=== PATIENT | male | born 1945 ===

== ENCOUNTER 2017-03-25 15:57 | Inpatient (IN) | payer MEDICARE ==
[2017-03-25 16:03] VITALS: BMI 29.2
[2017-03-25] MEDS ORDERED: Sodium Chloride 0.9% 1,000 ML IV ONE (16:42)
[2017-03-25 17:17] LABS: BASO # 0.1 K/uL (0.0-0.2); EOS # 0.7 K/uL (0.0-0.7); EOS % 6.8 % (0.0-4.0); HEMATOCRIT 41.7 % (35.0-51.0); LYMPH # 1.6 K/uL (1.0-4.3); LYMPH % 15.9 % (20.0-40.0); MEAN CELL VOLUME 91.3 fL (80.0-94.0); MEAN CORPUSCULAR HEMOGLOBIN 30.7 pg (27.0-31.0); MEAN CORPUSCULAR HGB CONC 33.6 g/dL (33.0-37.0); MEAN PLATELET VOLUME 7.7 fL (7.2-11.7); MONO # 1.2 K/uL (0.0-0.8); MONO % 11.9 % (0.0-10.0); RED CELL DISTRIBUTION WIDTH 13.6 % (11.5-14.5); WHITE BLOOD COUNT 9.8 K/uL (4.8-10.8)
--- NOTE | 2017-03-25 17:23 | C.PDOC ---
Addendum entered and electronically signed by Monalisa Montalvo APN 03/25/17 18:57: Physician Patient Turnover Patient Signed Over To: Shade Langley DO Handoff Comments: pending CTA Original Note: History Of Present Illness <Monalisa Montalvo - Last Filed: 03/25/17 18:56> <Shade Langley DO - Last Filed: 03/25/17 21:42> 71 year old male with Hx of HTN,DM and is blind in his left eye accompanied by his family presents to the ED for evaluation after falling and hitting his head on Mar 17. Family states patient was drinking during , got drunk and fell down they found him on the ground the next day and since he fell down he as not been acting like himself. As per his family patient does not have a steady gait, tired all the time. Patient denies any fever, nausea, headache, blurry vision, CP, SOB, nausea, vomit, weakness, numbness. (Monalisa Montalvo) History Per: Patient, Family History/Exam Limitations: no limitations Onset/Duration Of Symptoms: Days Current Symptoms Are (Timing): Still Present Number Of Syncopal Episodes: 1 Activity At Onset Of Symptoms: Standing Associated Symptoms Preceding Syncopal Episode: Other (Drinking) Seizure Or Post-ictal Symptoms: None Possible Causative Factor(s): Recent Alcohol Fall Associated With With Symptoms: Yes Severity: None Recent travel outside of the [place]: No Additional History Per: Patient, Family - Symptoms Of CVA Associated Symptoms: Decreased Ability To Walk <Monalisa Montalvo - Last Filed: 03/25/17 18:56> <Shade Langley DO - Last Filed: 03/25/17 21:42> Time Seen by Provider: 03/25/17 16:38 Chief Complaint (Nursing): Weakness/Neurological Deficit Past Medical History Reviewed: Historical Data, Nursing Documentation, Vital Signs - Medical History PMH: Depression (noncompliant with meds), Diabetes, HTN Denies: HIV Surgical History: No Surg Hx Family History: States: Unknown Family Hx - Social History Hx Alcohol Use: Yes (usu daily "few beers") Hx Substance Use: No - Immunization History Hx Tetanus Toxoid Vaccination: No Hx Influenza Vaccination: No Hx Pneumococcal Vaccination: No <Monalisa Montalvo Last Filed: 03/25/17 18:56> Vital Signs: Last Vital Signs Temp 98.1 F 03/25/17 16:04 Pulse 60 03/25/17 16:04 Resp 20 03/25/17 16:04 BP 154/93 H 03/25/17 16:04 Pulse Ox 96 03/25/17 18:54 Review Of Systems Constitutional: Negative for: Fever, Chills Cardiovascular: Negative for: Chest Pain, Palpitations Respiratory: Negative for: Cough, Shortness of Breath Gastrointestinal: Negative for: Nausea, Vomiting, Abdominal Pain Skin: Negative for: Rash Neurological: Positive for: Altered Mental Status. Negative for: Weakness, Numbness, Headache <Monalisa Montalvo - Last Filed: 03/25/17 18:56> Physical Exam - Physical Exam Appears: Non-toxic, No Acute Distress Skin: Normal Color, Warm, Dry Head: Atraumatic, Normacephalic Eye(s): left: Other (Blind) Nose: No Discharge, No Deformity Oral Mucosa: Moist, No Drooling Neck: Normal ROM, Supple Chest: Symmetrical Cardiovascular: Rhythm Regular, No Murmur Respiratory: Normal Breath Sounds, No Rales, No Rhonchi, No Wheezing Gastrointestinal/Abdominal: Soft, No Tenderness, No Distention, No Guarding, No Rebound Back: No CVA Tenderness Extremity: Normal ROM, No Deformity, No Swelling, Other (LLE abrassions ) Neurological/Psych: Oriented x3, Normal Speech, Normal Cognition Gait: Unsteady <Monalisa Montalvo - Last Filed: 03/25/17 18:56> ED Course And Treatment - Laboratory Results Result Diagrams: 03/25/17 17:14 03/25/17 17:14 Lab Interpretation: Normal ECG: Interpreted By Az ECG Rhythm: Sinus Bradycardia, R BBB ECG Interpretation: No Acute Changes Rate From EC O2 Sat by Pulse Oximetry: 96 (On RA) Pulse Ox Interpretation: Normal - Radiology CXR: Interpreted by Az CXR Interpretation: Yes: No Acute Disease - CT Scan/US No standard instances Other Rad Studies (CT/US): Read By Radiologist, Radiology Report Reviewed CT/US Interpretation: FINDINGS: HEMORRHAGE: There is a right frontal intraparenchymal hemorrhage measuring 2.2 x 4.2 x 2.0 cm cm, transverse by anteroposterior by superoinferior dimensions, resulting and a limited leftward shift of midline anatomy approximately 1 cm. There is prominent local vasogenic edema surrounding the intraparenchymal hemorrhage also exerting mass effect locally with the sulci effaced as well as the right frontal horn. A small right subdural hematoma is appreciate the frontotemporal distribution 6 mm greatest transverse dimension with smaller extra-axial collections which are difficult to differentiate between epidural and subdural identified at the posterior right temporal lobe and right occipital lobe laterally given their somewhat lentiform shape. The right frontotemporal subdural hematoma extends to the vertex with a small petechial hemorrhage not excluded at the mid right upper lobe and image 30 series 4. No definite additional intracranial hemorrhage is identified. A small left parietal scalp hematoma is appreciated superiorly. BRAIN: Mild diffuse cerebral atrophy is encountered as well as limited chronic microangiopathy in addition to the above-mentioned findings. VENTRICLES: No hydrocephalus at this time although mass effect is exerted on the right lateral ventricle caused by right-sided intracranial hemorrhage. CALVARIUM: No destructive bony lesion or displaced fracture identified including through the skullbase. PARANASAL SINUSES: Unremarkable as visualized. No significant inflammatory changes. Probably old healed nasal bone fractures. MASTOID AIR CELLS: Unremarkable as visualized. No inflammatory changes. OTHER FINDINGS: Left globe Phthisis bulbi. IMPRESSION: 1. Moderate right intraparenchymal hemorrhage with prominent vasogenic edema associated is appreciated. Further, a mild right subdural hematoma is identified at the frontotemporal distribution extending to the vertex. Finally, 2 epidural or possible severe subdural hematomas are seen at the temporooccipital distribution laterally. Leftward midline shift of approximately 1 cm results with effacement of right cerebral sulci and the frontal horn and anterior body of the right lateral ventricle. 2. Limited age-related neuro degenerative changes. Progress Note: Treated with IVF NSS. Labs ordered - Physician Consult Information Physician Contacted: Serafin Harmon Outcome Of Conversation: CTA head and neck <Monalisa Montalvo - Last Filed: 03/25/17 18:56> - Laboratory Results Result Diagrams: 03/25/17 17:14 03/25/17 17:14 Progress Note: CTA completed, discussed findings with Dr. 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 Chirinos are aware of patient. <Shivam HAWKINSShade - Last Filed: 03/25/17 21:42> Critical Care Time - Critical Care Note Total Time (in mins): 30 Documented critical care: time excludes all time spent performing seperately billable procedures. <Monalisa Montalvo - Last Filed: 03/25/17 18:56> Medical Decision Making <Monalisa Montalvo - Last Filed: 03/25/17 18:56> <Shivam HAWKINSShade - Last Filed: 03/25/17 21:42> Medical Decision Making: Impression : 71 y/o male with AMS STP a fall. Plan: * CT head ordered * Blood work ordered * CXR ordered * IV fluids given * UA ordered * * Case discussed with Dr Muna Harmon superintendent overhead distribution neurosurgery who reviewed CT Head and requested CTA of head and neck (Monalisa Montalvo) Disposition - Disposition Disposition Time: 19:00 <Monalisa Montalvo - Last Filed: 03/25/17 18:56> <Shivam HAWKINSShade Filed: 03/25/17 21:42> - Disposition Condition: STABLE - Clinical Impression Clinical Impression: Acute intra-cranial hemorrhage - PA / ASSOCIATE PROFESSOR OF ENGLISH / Resident Statement / has reviewed & agrees with the documentation as recorded. - Scribe Statement The provider has reviewed the documentation as recorded by the Scribe <Monalisa Montalvo - Last Filed: 03/25/17 18:56> <Shivam HAWKINSShade Last Filed: 03/25/17 21:42> - Scribe Statement Ned Che All medical record entries made by the Scribe were at my direction and personally dictated by me. I have reviewed the chart and agree that the record accurately reflects my personal performance of the history, physical exam, medical decision making, and the department course for this patient. I have also personally directed, reviewed, and agree with the discharge instructions and disposition. (Monalisa Montalvo)
[2017-03-25 17:25] LABS: RBC URINE 1 /hpf (0-3); URINE BILIRUBIN NEGATIVE (NEGATIVE); URINE BLOOD NEGATIVE (NEGATIVE); URINE COLOR Yellow (YELLOW); URINE GLUCOSE (UA) NORMAL (Normal); URINE KETONE NEGATIVE (NEGATIVE); URINE LEUKOCYTE ESTERASE TRACE Leu/uL (Negative); URINE PROTEIN NEGATIVE (NEGATIVE); WBC URINE 2 /hpf (0-5)
[2017-03-25 17:30] LABS: ALB/GLOB RATIO 1.1 (1.0-2.1); ALCOHOL SERUM < 10 mg/dl (0-10); ALKALINE PHOSPHATASE 90 U/L (38-126); ALT/SGPT 39 U/L (21-72); AST/SGOT 19 U/L (17-59); BILIRUBIN,TOTAL 0.9 mg/dL (0.2-1.3); BLOOD UREA NITROGEN 12 mg/dL (9-20); CALCIUM 8.4 mg/dl (8.6-10.4); CARBON DIOXIDE 26 mmol/L (22-30); CHLORIDE 100 mmol/L (98-107); GFR AFRICAN-AMERICAN > 60; GLUCOSE,RANDOM 104 mg/dL (75-110); POTASSIUM 3.7 mmol/L (3.6-5.2); SODIUM 135 mmol/L (132-148); TOTAL PROTEIN 7.8 g/dL (6.3-8.3)
--- NOTE | 2017-03-25 17:47 | CT ---
PROCEDURE: CT HEAD WITHOUT CONTRAST. HISTORY: fall COMPARISON: None available. TECHNIQUE: Axial computed tomography images were obtained through the head/brain without intravenous contrast. Radiation dose: Total exam DLP = 913.68 mGy-cm. This CT exam was performed using one or more of the following dose reduction techniques: Automated exposure control, adjustment of the mA and/or kV according to patient size, and/or use of iterative reconstruction technique. FINDINGS: HEMORRHAGE: There is a right frontal intraparenchymal hemorrhage measuring 2.2 x 4.2 x 2.0 cm cm, transverse by anteroposterior by superoinferior dimensions, resulting and a limited leftward shift of midline anatomy approximately 1 cm. There is prominent local vasogenic edema surrounding the intraparenchymal hemorrhage also exerting mass effect locally with the sulci effaced as well as the right frontal horn. A small right subdural hematoma is appreciate the frontotemporal distribution 6 mm greatest transverse dimension with smaller extra-axial collections which are difficult to differentiate between epidural and subdural identified at the posterior right temporal lobe and right occipital lobe laterally given their somewhat lentiform shape. The right frontotemporal subdural hematoma extends to the vertex with a small petechial hemorrhage not excluded at the mid right upper lobe and image 30 series 4. No definite additional intracranial hemorrhage is identified. A small left parietal scalp hematoma is appreciated superiorly. BRAIN: Mild diffuse cerebral atrophy is encountered as well as limited chronic microangiopathy in addition to the above-mentioned findings. VENTRICLES: No hydrocephalus at this time although mass effect is exerted on the right lateral ventricle caused by right-sided intracranial hemorrhage. CALVARIUM: No destructive bony lesion or displaced fracture identified including through the skullbase. PARANASAL SINUSES: Unremarkable as visualized. No significant inflammatory changes. Probably old healed nasal bone fractures. MASTOID AIR CELLS: Unremarkable as visualized. No inflammatory changes. OTHER FINDINGS: Left globe Phthisis bulbi. IMPRESSION: 1. Moderate right intraparenchymal hemorrhage with prominent vasogenic edema associated is appreciated. Further, a mild right subdural hematoma is identified at the frontotemporal distribution extending to the vertex. Finally, 2 epidural or possible severe subdural hematomas are seen at the temporooccipital distribution laterally. Leftward midline shift of approximately 1 cm results with effacement of right cerebral sulci and the frontal horn and anterior body of the right lateral ventricle. 2. Limited age-related neuro degenerative changes. Findings discussed with Monalisa Montalvo APN with written down and read back verification 04-09 5:32 p.m..
[2017-03-25] MEDS ORDERED: Sodium Chloride 0.9% 100 ML ONE (17:50)
--- NOTE | 2017-03-25 18:28 | RAD ---
HISTORY: SOB COMPARISON: No prior. TECHNIQUE: Chest PA and lateral FINDINGS: LUNGS: No active pulmonary disease. PLEURA: No significant pleural effusion identified. No pneumothorax apparent. CARDIOVASCULAR: Normal. OSSEOUS STRUCTURES: Multiple old healed right rib fractures are identified VISUALIZED UPPER ABDOMEN: Normal. OTHER FINDINGS: None. IMPRESSION: No acute cardiopulmonary disease appreciated. Multiple healed right rib fractures are noted.
[2017-03-25] MEDS ORDERED: Iodixanol 320 MG/ML 100 ML BOTTLE IV ONE (18:41)
--- NOTE | 2017-03-25 21:40 | CP.PCM.CON ---
History of Present Illness - History of Present Illness History of Present Illness: Attending: Candis Godfrey MD Reason for consult: Critical care management Chief complaint: AMS/ Unsteady gait The patient was seen and examined in the ED with his family present HPI: The hx is obtained from the Patient's family and after review of the medical records. He is a 71 years old male who lives alone and has hx of HTN, Depression, left eye blindness and Alcohol abuse with multiple falls. 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 He told the family that he had fallen hitting his head on March 17. 7 days ago. No fever, chills, vomits, nor known LOC. 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 PMH: Depression; HTN; HLD; Multiple right rib fracture after fall; Right chest pleural effusion, Deviated septum; Non Compliant with medication; DM ?? PSH: Deviated septal repair s/p fall SH: No illegal drug use; No Smoking of Cigarettes; Drinks at least 2 drinks a day, live alone FH: States: Unknown Family Hx Allergies: NKDA Medication: Reviewed Review of Systems - Review of Systems Review of Systems: Review of systems is limited because of the patient's poor communication Past Patient History - Past Medical History & Family History Past Medical History?: Yes - Past Social History Smoking Status: Never Smoked Chewing Tobacco Use: No Cigar Use: No Alcohol: > 2 Drinks/Day Home Situation {Lives}: Alone - CARDIAC Hx Hypercholesterolemia: Yes Hx Hypertension: Yes - PULMONARY Hx Respiratory Disorders: No - NEUROLOGICAL Hx Neurological Disorder: No - HEENT Hx Cataracts: Yes (jody) Other/Comment: deviated septum repair 3 yr ago s/p fall alcohol use - HEMATOLOGICAL/ONCOLOGICAL Hx Blood Disorders: No Hx Human Immunodeficiency Virus (HIV): No - INTEGUMENTARY Hx Dermatological Problems: No - MUSCULOSKELETAL/RHEUMATOLOGICAL Hx Falls: Yes (fell this am s/p alcohol intake) - GASTROINTESTINAL Hx Gastrointestinal Disorders: No - GENITOURINARY/GYNECOLOGICAL Hx Genitourinary Disorders: No - PSYCHIATRIC Hx Depression: Yes (noncompliant with meds) Hx Substance Use: No - SURGICAL HISTORY Hx Surgeries: Yes Other/Comment: deviated septum repair 3 yr ago - ANESTHESIA Hx Anesthesia: Yes Hx Anesthesia Reactions: No Meds Allergies/Adverse Reactions: Allergies Allergy/AdvReac Type Severity Reaction Status Date / Time No Known Allergies Allergy Verified 03/25/17 16:02 Physical Exam - Constitutional Appears: No Acute Distress - Head Exam Head Exam: ATRAUMATIC, NORMAL INSPECTION, NORMOCEPHALIC - Eye Exam Eye Exam: EOMI, Normal appearance Pupil Exam: NORMAL ACCOMODATION, PERRL Additional comments: Left eye blindness - ENT Exam ENT Exam: Mucous Membranes Moist, Normal Exam, Normal External Ear Exam - Neck Exam Neck exam: Positive for: Full Rom, Normal Inspection. Negative for: Lymphadenopathy, Tenderness - Respiratory Exam Respiratory Exam: Clear to Auscultation Bilateral. absent: Rales, Rhonchi, Wheezes - Cardiovascular Exam Cardiovascular Exam: REGULAR RHYTHM, RRR, +S1, +S2 - GI/Abdominal Exam GI & Abdominal Exam: Normal Bowel Sounds, Soft. absent: Mass, Organomegaly, Tenderness - Rectal Exam Rectal Exam: Deferred - Extremities Exam Additional comments: Bruises to right knee and leg. hematoma at the postero lateral region of the right upper arm - Back Exam Back exam: NORMAL INSPECTION. absent: CVA tenderness (L), CVA tenderness (R) - Neurological Exam Additional comments: Awake and alert, mild left facial weakness, motor strength 5/5 to both upper extremities and both lower; DTE is conserved. extremities - Psychiatric Exam Psychiatric exam: Normal Affect, Normal Mood - Skin Skin Exam: Dry, Intact, Normal Color, Warm Results - Vital Signs Recent Vital Signs: Last Vital Signs Temp 98.1 F 03/25/17 16:04 Pulse 60 03/25/17 16:04 Resp 20 03/25/17 16:04 BP 154/93 H 03/25/17 16:04 Pulse Ox 96 03/25/17 18:54 - Labs Result Diagrams: 03/25/17 17:14 03/25/17 17:14 Labs: Laboratory Results - last 24 hr 03/25/17 03/25/17 03/25/17 17:14 17:14 17:14 WBC 9.8 RBC 4.57 Hgb 14.0 Hct 41.7 MCV 91.3 MCH 30.7 MCHC 33.6 RDW 13.6 Plt Count 272 MPV 7.7 Neut % (Auto) 64.4 Lymph % (Auto) 15.9 L [place] % (Auto) 11.9 H Eos % (Auto) 6.8 H Baso % (Auto) 1.0 Neut # 6.3 Lymph # 1.6 [place] # 1.2 H Eos # 0.7 Baso # 0.1 PT INR Sodium 135 Potassium 3.7 Chloride 100 Carbon Dioxide 26 Anion Gap 13 BUN 12 Creatinine 0.8 Est GFR ( Amer) > 60 Est GFR (Non-Af Amer) > 60 Random Glucose 104 Calcium 8.4 L Total Bilirubin 0.9 AST 19 ALT 39 Alkaline Phosphatase 90 Total Creatine Kinase 29 L CK-MB (Mass) 0.29 Troponin I < 0.0120 Total Protein 7.8 Albumin 4.1 Globulin 3.7 Albumin/Globulin Ratio 1.1 Lipase 108 Urine Color Yellow Urine Clarity Clear Urine pH 5.0 Ur Specific [place] 1.021 Urine Protein Negative Urine Glucose (UA) Normal Urine Ketones Negative Urine Blood Negative Urine Nitrate Negative Urine Bilirubin Negative Urine Urobilinogen 4.0 Ur Leukocyte Esterase Trace Urine WBC (Auto) 2 Urine RBC (Auto) 1 Alcohol, Quantitative < 10 Blood Type Antibody Screen 03/25/17 03/25/17 17:48 17:48 WBC RBC Hgb Hct MCV MCH MCHC RDW Plt Count MPV Neut % (Auto) Lymph % (Auto) [place] % (Auto) Eos % (Auto) Baso % (Auto) Neut # Lymph # [place] # Eos # Baso # PT 11.7 INR 1.0 Sodium Potassium Chloride Carbon Dioxide Anion Gap BUN Creatinine Est GFR ( Amer) Est GFR (Non-Af Amer) Random Glucose Calcium Total Bilirubin AST ALT Alkaline Phosphatase Total Creatine Kinase CK-MB (Mass) Troponin I Total Protein Albumin Globulin Albumin/Globulin Ratio Lipase Urine Color Urine Clarity Urine pH Ur Specific [place] Urine Protein Urine Glucose (UA) Urine Ketones Urine Blood Urine Nitrate Urine Bilirubin Urine Urobilinogen Ur Leukocyte Esterase Urine WBC (Auto) Urine RBC (Auto) Alcohol, Quantitative Blood Type O POSITIVE Antibody Screen Negative - Imaging and Cardiology Chest x-ray Status: Image reviewed by me Additional comment: No infiltrates Multiple broke right ribs CT scan - head Status: Image reviewed by me, Report reviewed by me Additional comment: Middle right intraparenchym hemorrhage with prominent vasogenic edema. Also small right Subdural Hematoma in fronto parietal distribution Leftward midline shift CT/US Interpretation: FINDINGS: HEMORRHAGE: There is a right frontal intraparenchymal hemorrhage measuring 2.2 x 4.2 x 2.0 cm cm, transverse by anteroposterior by superoinferior dimensions, resulting and a limited leftward shift of midline anatomy approximately 1 cm. There is prominent local vasogenic edema surrounding the intraparenchymal hemorrhage also exerting mass effect locally with the sulci effaced as well as the right frontal horn. A small right subdural hematoma is appreciate the frontotemporal distribution 6 mm greatest transverse dimension with smaller extra-axial collections which are difficult to differentiate between epidural and subdural identified at the posterior right temporal lobe and right occipital lobe laterally given their somewhat lentiform shape. The right frontotemporal subdural hematoma extends to the vertex with a small petechial hemorrhage not excluded at the mid right upper lobe and image 30 series 4. No definite additional intracranial hemorrhage is identified. A small left parietal scalp hematoma is appreciated superiorly. BRAIN: Mild diffuse cerebral atrophy is encountered as well as limited chronic microangiopathy in addition to the above-mentioned findings. VENTRICLES: No hydrocephalus at this time although mass effect is exerted on the right lateral ventricle caused by right-sided intracranial hemorrhage. CALVARIUM: No destructive bony lesion or displaced fracture identified including through the skullbase. PARANASAL SINUSES: Unremarkable as visualized. No significant inflammatory changes. Probably old healed nasal bone fractures. MASTOID AIR CELLS: Unremarkable as visualized. No inflammatory changes. OTHER FINDINGS: Left globe Phthisis bulbi. IMPRESSION: 1. Moderate right intraparenchymal hemorrhage with prominent vasogenic edema associated is appreciated. Further, a mild right subdural hematoma is identified at the frontotemporal distribution extending to the vertex. Finally, 2 epidural or possible severe subdural hematomas are seen at the temporooccipital distribution laterally. Leftward midline shift of approximately 1 cm results with effacement of right cerebral sulci and the frontal horn and anterior body of the right lateral ventricle. 2. Limited age- related neuro degenerative changes. Assessment & Plan - Assessment and Plan (Free Text) Assessment: #. Intracerebral Hemorrhage #. HTN; #. Alcohol Abuse #. HLD Plan: 71 years old male who lives alone and has hx of HTN, Depression, left eye blindness and Alcohol abuse with multiple falls. 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 He told the family that he had fallen hitting his head on March 17. 7 days ago. No fever, chills, vomits, nor known LOC. 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 #. Intracerebral Hemorrhage - Consult Dr Harmon Neuro surgery - Consult Dr Khoury Neurology - Statin - Swallow evaluation; - PT/OT - Follow CTA brain and dc - Follow Repeated CT brain #. HTN; - Treat with Clonidine #. Alcohol Abuse - Alcohol withdrawal prevention - Banana Bag with Thiamine/ Folic Acid/Multivitamine - Ativan IV PRN agitation #. HLD - Follow lipid profile - HbA1c #. Stress ulcer Propholaxis with pepcid #. DVT prophylaxis with SCD #. Code Status: Full - Date & Time Date: 03/25/17 Time: 21:40
[2017-03-25] MEDS ORDERED: Multivitamin (MVI) 10 ML, Thiamine 100 MG, Folic Acid 1 MG in Sodium Chloride 0.9% 1,00... IV ONE (23:16)
[2017-03-25] MEDS ORDERED: Multivitamin (MVI) 10 ML, Thiamine 100 MG, Folic Acid 1 MG in Dextrose 5% In Water 1,00... IV ONE (23:45)
[2017-03-25] MEDS ORDERED: DEXTROSE 10% IV ONE (23:45)
[2017-03-25] MEDS ORDERED: THIAMINE IV ONE (23:45)
[2017-03-25] MEDS ORDERED: [UNRECOGNIZED DRUG - OTHER] IV ONE (23:45)
[2017-03-25] MEDS ORDERED: MULTIVITAMIN IV ONE (23:45)
[2017-03-25] MEDS ORDERED: FOLIC ACID IV ONE (23:45)
[2017-03-26] MEDS ORDERED: Labetalol 25mg/5ml Syringe IVP ONE (00:30)
[2017-03-26] MEDS: levETIRAcetam 500 MG in Sodium Chloride 0.9% 100 ML IVPB SCH ×2 (01:42→13:30)
--- NOTE | 2017-03-26 05:56 | CT ---
EXAM: CT Head Without Intravenous Contrast CLINICAL HISTORY: 71 years old, male; Condition or disease; Other: Follow up for bleed; Additional info: Follow up intracerebral bleed TECHNIQUE: Axial computed tomography images of the head/brain without intravenous contrast. All CT scans at this facility use one or more dose reduction techniques, viz.: automated exposure control; ma/kV adjustment per patient size (including targeted exams where dose is matched to indication; i.e. head); or iterative reconstruction technique. Coronal and sagittal reformatted images were created and reviewed. COMPARISON: CTA HEAD NECK BUNDLE 2017-03-25 18:49 FINDINGS: Brain: Again identified is a right frontal intraparenchymal hemorrhage unchanged in size from previous examination, with surrounding vasogenic edema. No active hemorrhage is detected. Subfalcine herniation is again identified. Again identified is a subdural hematoma high in the convexity now measuring 6 mm, also unchanged (series 4, image 50). The area of hemorrhage extending along the tentorium is not as prominent on the current images. Ventricles: The right frontal hemorrhage results in 8.5 mm of leftward midline shift. Bones: The left parietal bone fracture extending to the lambdoid suture is again identified (series 602, image 316). Nasal bone fractures again identified. Soft tissues: Left scalp hematoma is again identified measuring 8.1 mm in greatest thickness. Orbits: Phthisis bulbi of the left globe. IMPRESSION: Unchanged right frontal hemorrhage with surrounding vasogenic edema resulting in subfalcine herniation and decreased leftward midline shift. Subdural hematoma high in the convexity, also unchanged. Extra-axial hemorrhage not as prominent on the current examination. Right parietal skull fracture. Nasal bone fracture.
[2017-03-26 06:30] LABS: BASO % 0.7 % (0.0-2.0); EOS # 0.4 K/uL (0.0-0.7); HEMATOCRIT 42.1 % (35.0-51.0); LYMPH # 0.9 K/uL (1.0-4.3); LYMPH % 15.5 % (20.0-40.0); MEAN CELL VOLUME 90.9 fL (80.0-94.0); MEAN CORPUSCULAR HEMOGLOBIN 31.2 pg (27.0-31.0); MEAN CORPUSCULAR HGB CONC 34.3 g/dL (33.0-37.0); MEAN PLATELET VOLUME 7.9 fL (7.2-11.7); MONO # 0.7 K/uL (0.0-0.8); MONO % 11.5 % (0.0-10.0); NRBC % 0.1 % (0.0-2.0); RED CELL DISTRIBUTION WIDTH 14.1 % (11.5-14.5); WHITE BLOOD COUNT 6.1 K/uL (4.8-10.8)
[2017-03-26 06:48] LABS: CHOLESTEROL 143 mg/dL (0-199)
[2017-03-26] MEDS: Multiple Vitamins Tab PO SCH (10:42)
--- NOTE | 2017-03-26 12:33 | CT ---
PROCEDURE: CT Angiography of the Brain. HISTORY: ICB COMPARISON: None available. TECHNIQUE: CT angiography of the intracranial arteries was performed. Coronal and sagittal maximum intensity projection reformated images were generated. This CT exam was performed using one or more of the following dose reduction techniques: Automated exposure control, adjustment of the mA and/or kV according to patient size, and/or use of iterative reconstruction technique. FINDINGS: INTERNAL CEREBRAL ARTERIES: Unremarkable. The skull base, petrous, cavernous and supraclinoid segments are bilaterally widely patent. ANTERIOR CEREBRAL ARTERIES: Unremarkable. A1 and A2 segments are widely patent. Smaller distal branches unremarkable, as visualized. MIDDLE CEREBRAL ARTERIES: There is a 2.4 mm probable infundibulum related to the right posterior remaining artery originating off the proximal M1 right MCA segment. Conventional angiography is recommended if possible to further characterize this area. MR angiography may be helpful if the patient can comply with positioning constraints. M2 segments are widely patent. Perisylvian branches grossly symmetric. The left middle cerebral artery distribution appears unremarkable diffusely POSTERIOR CIRCULATION: Basilar Artery: Unremarkable. Distal Vertebral Arteries: Unremarkable. Posterior Cerebral Arteries: Unremarkable. Posterior Inferior Cerebellar Arteries: Unremarkable. NECK CTA RESULTS: Common carotid arteries: The bilateral common carotid appear widely patent from their origins to their bifurcations with no significant stenosis appreciated. No evidence to suggest common carotid artery dissection. Internal carotid arteries: No significant stenosis is appreciated throughout the cervical internal carotid artery segments bilaterally and there is no evidence of dissection either. Vertebral arteries: The bilateral vertebral arteries appear normal in caliber from their origins to their junction with the basilar artery. Vertebrobasilar system appears right dominant. No significant stenosis or definite pattern of dissection. Incidentally, the bilateral subclavian arteries are widely patent as well as the brachiocephalic artery. ANEURYSM/ VASCULAR MALFORMATIONS: See discussion and right MCA section. No aneurysm or arteriovascular malformation otherwise evident throughout the head or neck arterial vasculature grossly. OTHER FINDINGS: None. IMPRESSION: 1. Potential 2.4 mm aneurysm versus infundibulum near the origin of the right posterior committee artery consider follow-up conventional angiography for greater characterization of this area. MR angiography is an option in the patient is able to adhere 2 positioning constraints. The not felt to represent the cause of the patient's intracranial hemorrhage requires appropriate follow-up when feasible. 2. Otherwise unremarkable head and neck CT angiography as per above. Findings discussed with Dr. P. Jonnalagadda with written down and read back verification 03/26/2017 12:25 p.m.
--- NOTE | 2017-03-26 13:06 | CP.PCM.PN ---
Subjective - Date & Time of Evaluation Date of Evaluation: 03/26/17 Time of Evaluation: 12:40 - Subjective Subjective: H&P dictated #[id number] Objective - Vital Signs/Intake and Output Vital Signs (last 24 hours): Temp Pulse Resp BP Pulse Ox 97.3 F L 46 L 16 165/67 H 98 03/26/17 08:00 03/26/17 09:22 03/26/17 09:22 03/26/17 09:22 03/26/17 00:00 Intake and Output: 03/26/17 03/26/17 06:59 18:59 Intake Total 600 0 Output Total 700 Balance -100 0 - Medications Medications: Current Medications Folic Acid (Folic Acid) 1 mg PO DAILY [facility] Last Admin: 03/26/17 10:42 Dose: 1 mg Levetiracetam 500 mg/ Sodium (Chloride) 105 mls @ 420 mls/hr IVPB Q12H [facility] Last Admin: 03/26/17 01:42 Dose: 420 mls/hr Lorazepam (Ativan) 0.5 mg IVP Q6H PRN PRN Reason: Agitation Last Admin: 03/26/17 03:05 Dose: 0.5 mg Multivitamins (Hexavitamin) 1 tab PO DAILY [facility] Last Admin: 03/26/17 10:42 Dose: 1 tab Pneumococcal Polyvalent Vaccine (Pneumovax 23 Vaccine) 0.5 ml IM .ONCE ONE Stop: 03/28/17 10:01 Thiamine HCl (Vitamin B1 Tab) 100 mg PO DAILY [facility] Last Admin: 03/26/17 10:42 Dose: 100 mg - Labs Labs: 03/26/17 06:16 03/25/17 17:14 PT 11.7 SECONDS (9.7-12.2) 03/25/17 17:48 INR 1.0 03/25/17 17:48
--- NOTE | 2017-03-26 15:07 | CP.CCUPN ---
CCU Subjective - Physician Review Events Since Last Encounter (Free Text): 03/26/17 15:05 Disoriented,follows some commands. CCU Objective - Vital Signs / Intake & Output Intake and Output (Last 8hrs): Intake & Output 03/26/17 03/26/17 03/26/17 06:59 14:59 22:59 Intake Total 600 0 Output Total 700 Balance -100 0 Weight 162 lb Intake: Intake, IV Amount 600 Left Forearm 600 Right Antecubital 0 Oral 0 0 Output: Urine 700 Urine, Voided 700 Other: # Voids Urine, Voided 0 0 # Bowel Movements 0 0 - Physical Exam Physical Exam Limitations: Positive for: Altered Mental Status Head: Positive for: Atraumatic, Normocephalic Pupils: Positive for: PERRL Extroacular Muscles: Positive for: EOMI Mouth: Positive for: Moist Mucous Membranes Respiratory/Chest: Positive for: Clear to Auscultation, Good Air Exchange Cardiovascular: Positive for: Regular Rate and Rhythm Abdomen: Positive for: Normal Bowel Sounds. Negative for: Tenderness, Distention Neurological: Positive for: Motor Func Grossly Intact Psychiatric: Positive for: Alert. Negative for: Oriented x 3 - Medications Active Medications: Active Medications Generic Name Dose Route Start Last Admin Trade Name Freq PRN Reason Stop Dose Admin Folic Acid 1 mg 03/26/17 10:00 03/26/17 10:42 Folic Acid PO 1 mg DAILY [facility]ERTO Administration Levetiracetam 500 mg/ Sodium 105 mls @ 420 mls/hr 03/26/17 01:00 03/26/17 13: 30 Chloride IVPB 420 mls/hr Q12H ALBERTO Administration Lorazepam 0.5 mg 03/25/17 23:15 03/26/17 03:05 Ativan IVP 0.5 mg Q6H PRN Administration Agitation Multivitamins 1 tab 03/26/17 10:00 03/26/17 10:42 Hexavitamin PO 1 tab DAILY [facility] Administration Pneumococcal Polyvalent Vaccine 0.5 ml 03/28/17 10:00 Pneumovax 23 Vaccine IM 03/28/17 10:01 .ONCE ONE Thiamine HCl 100 mg 03/26/17 10:00 03/26/17 10:42 Vitamin B1 Tab PO 100 mg DAILY [facility] Administration - Patient Studies Lab Studies: Lab Studies 03/26/17 03/26/17 03/25/17 Range/Units 06:17 06:16 17:48 WBC 6.1 (4.8-10.8) K/uL RBC 4.63 (4.40-5.90) Mil/uL Hgb 14.5 (12.0-18.0) g/dL Hct 42.1 (35.0-51.0) % MCV 90.9 (80.0-94.0) fL MCH 31.2 H (27.0-31.0) pg MCHC 34.3 (33.0-37.0) g/dL RDW 14.1 (11.5-14.5) % Plt Count 237 (130-400) K/uL MPV 7.9 (7.2-11.7) fL Neut % (Auto) 65.3 (50.0-75.0) % Lymph % (Auto) 15.5 L (20.0-40.0) % [place] % (Auto) 11.5 H (0.0-10.0) % Eos % (Auto) 7.0 H (0.0-4.0) % Baso % (Auto) 0.7 (0.0-2.0) % Neut # 4.0 (1.8-7.0) K/uL Lymph # 0.9 L (1.0-4.3) K/uL [place] # 0.7 (0.0-0.8) K/uL Eos # 0.4 (0.0-0.7) K/uL Baso # 0.0 (0.0-0.2) K/uL PT (9.7-12.2) SECONDS INR Sodium (132-148) mmol/L Potassium (3.6-5.2) mmol/L Chloride (98-107) mmol/L Carbon Dioxide (22-30) mmol/L Anion Gap (10-20) BUN (9-20) mg/dL Creatinine (0.8-1.5) mg/dL Est GFR ( Amer) Est GFR (Non-Af Amer) Random Glucose (75-110) mg/dL Calcium (8.6-10.4) mg/dl Total Bilirubin (0.2-1.3) mg/dL AST (17-59) U/L ALT (21-72) U/L Alkaline Phosphatase (38-126) U/L Total Creatine Kinase (55-170) U/L CK-MB (Mass) (0.0-3.38) ng/mL Troponin I (0.00-0.120) ng/mL Total Protein (6.3-8.3) g/dL Albumin (3.5-5.0) g/dL Globulin (2.2-3.9) gm/dL Albumin/Globulin Ratio (1.0-2.1) Triglycerides 79 (0-149) mg/dL Cholesterol 143 (0-199) mg/dL LDL Cholesterol Direct 77 (0-129) mg/dL HDL Cholesterol 46 (30-70) mg/dL Lipase (23-300) U/L Urine Color (YELLOW) Urine Clarity (Clear) Urine pH (5.0-8.0) Ur Specific [place] (1.003-1.030) Urine Protein (NEGATIVE) mg/dL Urine Glucose (UA) (Normal) mg/dL Urine Ketones (NEGATIVE) mg/dL Urine Blood (NEGATIVE) Urine Nitrate (NEGATIVE) Urine Bilirubin (NEGATIVE) Urine Urobilinogen (0.2-1.0) mg/dL Ur Leukocyte Esterase (Negative) Guy/uL Urine WBC (Auto) (0-5) /hpf Urine RBC (Auto) (0-3) /hpf Alcohol, Quantitative (0-10) mg/dl Blood Type O POSITIVE Antibody Screen Negative 03/25/17 03/25/17 03/25/17 Range/Units 17:48 17:14 17:14 WBC (4.8-10.8) K/uL RBC (4.40-5.90) Mil/uL Hgb (12.0-18.0) g/dL Hct (35.0-51.0) % MCV (80.0-94.0) fL MCH (27.0-31.0) pg MCHC (33.0-37.0) g/dL RDW (11.5-14.5) % Plt Count (130-400) K/uL MPV (7.2-11.7) fL Neut % (Auto) (50.0-75.0) % Lymph % (Auto) (20.0-40.0) % [place] % (Auto) (0.0-10.0) % Eos % (Auto) (0.0-4.0) % Baso % (Auto) (0.0-2.0) % Neut # (1.8-7.0) K/uL Lymph # (1.0-4.3) K/uL [place] # (0.0-0.8) K/uL Eos # (0.0-0.7) K/uL Baso # (0.0-0.2) K/uL PT 11.7 (9.7-12.2) SECONDS INR 1.0 Sodium 135 (132-148) mmol/L Potassium 3.7 (3.6-5.2) mmol/L Chloride 100 (98-107) mmol/L Carbon Dioxide 26 (22-30) mmol/L Anion Gap 13 (10-20) BUN 12 (9-20) mg/dL Creatinine 0.8 (0.8-1.5) mg/dL Est GFR ( Amer) > 60 Est GFR (Non-Af Amer) > 60 Random Glucose 104 (75-110) mg/dL Calcium 8.4 L (8.6-10.4) mg/dl Total Bilirubin 0.9 (0.2-1.3) mg/dL AST 19 (17-59) U/L ALT 39 (21-72) U/L Alkaline Phosphatase 90 (38-126) U/L Total Creatine Kinase 29 L (55-170) U/L CK-MB (Mass) 0.29 (0.0-3.38) ng/mL Troponin I < 0.0120 (0.00-0.120) ng/mL Total Protein 7.8 (6.3-8.3) g/dL Albumin 4.1 (3.5-5.0) g/dL Globulin 3.7 (2.2-3.9) gm/dL Albumin/Globulin Ratio 1.1 (1.0-2.1) Triglycerides (0-149) mg/dL Cholesterol (0-199) mg/dL LDL Cholesterol Direct (0-129) mg/dL HDL Cholesterol (30-70) mg/dL Lipase 108 (23-300) U/L Urine Color Yellow (YELLOW) Urine Clarity Clear (Clear) Urine pH 5.0 (5.0-8.0) Ur Specific [place] 1.021 (1.003-1.030) Urine Protein Negative (NEGATIVE) mg/dL Urine Glucose (UA) Normal (Normal) mg/dL Urine Ketones Negative (NEGATIVE) mg/dL Urine Blood Negative (NEGATIVE) Urine Nitrate Negative (NEGATIVE) Urine Bilirubin Negative (NEGATIVE) Urine Urobilinogen 4.0 (0.2-1.0) mg/dL Ur Leukocyte Esterase Trace (Negative) Guy/uL Urine WBC (Auto) 2 (0-5) /hpf Urine RBC (Auto) 1 (0-3) /hpf Alcohol, Quantitative < 10 (0-10) mg/dl Blood Type Antibody Screen 03/25/17 Range/Units 17:14 WBC 9.8 (4.8-10.8) K/uL RBC 4.57 (4.40-5.90) Mil/uL Hgb 14.0 (12.0-18.0) g/dL Hct 41.7 (35.0-51.0) % MCV 91.3 (80.0-94.0) fL MCH 30.7 (27.0-31.0) pg MCHC 33.6 (33.0-37.0) g/dL RDW 13.6 (11.5-14.5) % Plt Count 272 (130-400) K/uL MPV 7.7 (7.2-11.7) fL Neut % (Auto) 64.4 (50.0-75.0) % Lymph % (Auto) 15.9 L (20.0-40.0) % [place] % (Auto) 11.9 H (0.0-10.0) % Eos % (Auto) 6.8 H (0.0-4.0) % Baso % (Auto) 1.0 (0.0-2.0) % Neut # 6.3 (1.8-7.0) K/uL Lymph # 1.6 (1.0-4.3) K/uL [place] # 1.2 H (0.0-0.8) K/uL Eos # 0.7 (0.0-0.7) K/uL Baso # 0.1 (0.0-0.2) K/uL PT (9.7-12.2) SECONDS INR Sodium (132-148) mmol/L Potassium (3.6-5.2) mmol/L Chloride (98-107) mmol/L Carbon Dioxide (22-30) mmol/L Anion Gap (10-20) BUN (9-20) mg/dL Creatinine (0.8-1.5) mg/dL Est GFR ( Amer) Est GFR (Non-Af Amer) Random Glucose (75-110) mg/dL Calcium (8.6-10.4) mg/dl Total Bilirubin (0.2-1.3) mg/dL AST (17-59) U/L ALT (21-72) U/L Alkaline Phosphatase (38-126) U/L Total Creatine Kinase (55-170) U/L CK-MB (Mass) (0.0-3.38) ng/mL Troponin I (0.00-0.120) ng/mL Total Protein (6.3-8.3) g/dL Albumin (3.5-5.0) g/dL Globulin (2.2-3.9) gm/dL Albumin/Globulin Ratio (1.0-2.1) Triglycerides (0-149) mg/dL Cholesterol (0-199) mg/dL LDL Cholesterol Direct (0-129) mg/dL HDL Cholesterol (30-70) mg/dL Lipase (23-300) U/L Urine Color (YELLOW) Urine Clarity (Clear) Urine pH (5.0-8.0) Ur Specific [place] (1.003-1.030) Urine Protein (NEGATIVE) mg/dL Urine Glucose (UA) (Normal) mg/dL Urine Ketones (NEGATIVE) mg/dL Urine Blood (NEGATIVE) Urine Nitrate (NEGATIVE) Urine Bilirubin (NEGATIVE) Urine Urobilinogen (0.2-1.0) mg/dL Ur Leukocyte Esterase (Negative) Guy/uL Urine WBC (Auto) (0-5) /hpf Urine RBC (Auto) (0-3) /hpf Alcohol, Quantitative (0-10) mg/dl Blood Type Antibody Screen Laboratory Results - last 24 hr 03/25/17 03/25/17 03/25/17 17:14 17:14 17:14 WBC 9.8 RBC 4.57 Hgb 14.0 Hct 41.7 MCV 91.3 MCH 30.7 MCHC 33.6 RDW 13.6 Plt Count 272 MPV 7.7 Neut % (Auto) 64.4 Lymph % (Auto) 15.9 L [place] % (Auto) 11.9 H Eos % (Auto) 6.8 H Baso % (Auto) 1.0 Neut # 6.3 Lymph # 1.6 [place] # 1.2 H Eos # 0.7 Baso # 0.1 PT INR Sodium 135 Potassium 3.7 Chloride 100 Carbon Dioxide 26 Anion Gap 13 BUN 12 Creatinine 0.8 Est GFR ( Amer) > 60 Est GFR (Non-Af Amer) > 60 Random Glucose 104 Calcium 8.4 L Total Bilirubin 0.9 AST 19 ALT 39 Alkaline Phosphatase 90 Total Creatine Kinase 29 L CK-MB (Mass) 0.29 Troponin I < 0.0120 Total Protein 7.8 Albumin 4.1 Globulin 3.7 Albumin/Globulin Ratio 1.1 Triglycerides Cholesterol LDL Cholesterol Direct HDL Cholesterol Lipase 108 Urine Color Yellow Urine Clarity Clear Urine pH 5.0 Ur Specific [place] 1.021 Urine Protein Negative Urine Glucose (UA) Normal Urine Ketones Negative Urine Blood Negative Urine Nitrate Negative Urine Bilirubin Negative Urine Urobilinogen 4.0 Ur Leukocyte Esterase Trace Urine WBC (Auto) 2 Urine RBC (Auto) 1 Alcohol, Quantitative < 10 Blood Type Antibody Screen 03/25/17 03/25/17 03/26/17 17:48 17:48 06:16 WBC 6.1 RBC 4.63 Hgb 14.5 Hct 42.1 MCV 90.9 MCH 31.2 H MCHC 34.3 RDW 14.1 Plt Count 237 MPV 7.9 Neut % (Auto) 65.3 Lymph % (Auto) 15.5 L [place] % (Auto) 11.5 H Eos % (Auto) 7.0 H Baso % (Auto) 0.7 Neut # 4.0 Lymph # 0.9 L [place] # 0.7 Eos # 0.4 Baso # 0.0 PT 11.7 INR 1.0 Sodium Potassium Chloride Carbon Dioxide Anion Gap BUN Creatinine Est GFR ( Amer) Est GFR (Non-Af Amer) Random Glucose Calcium Total Bilirubin AST ALT Alkaline Phosphatase Total Creatine Kinase CK-MB (Mass) Troponin I Total Protein Albumin Globulin Albumin/Globulin Ratio Triglycerides Cholesterol LDL Cholesterol Direct HDL Cholesterol Lipase Urine Color Urine Clarity Urine pH Ur Specific [place] Urine Protein Urine Glucose (UA) Urine Ketones Urine Blood Urine Nitrate Urine Bilirubin Urine Urobilinogen Ur Leukocyte Esterase Urine WBC (Auto) Urine RBC (Auto) Alcohol, Quantitative Blood Type O POSITIVE Antibody Screen Negative 03/26/17 06:17 WBC RBC Hgb Hct MCV MCH MCHC RDW Plt Count MPV Neut % (Auto) Lymph % (Auto) [place] % (Auto) Eos % (Auto) Baso % (Auto) Neut # Lymph # Barber # Eos # Baso # PT INR Sodium Potassium Chloride Carbon Dioxide Anion Gap BUN Creatinine Est GFR ( Amer) Est GFR (Non-Af Amer) Random Glucose Calcium Total Bilirubin AST ALT Alkaline Phosphatase Total Creatine Kinase CK-MB (Mass) Troponin I Total Protein Albumin Globulin Albumin/Globulin Ratio Triglycerides 79 Cholesterol 143 LDL Cholesterol Direct 77 HDL Cholesterol 46 Lipase Urine Color Urine Clarity Urine pH Ur Specific [place] Urine Protein Urine Glucose (UA) Urine Ketones Urine Blood Urine Nitrate Urine Bilirubin Urine Urobilinogen Ur Leukocyte Esterase Urine WBC (Auto) Urine RBC (Auto) Alcohol, Quantitative Blood Type Antibody Screen EKG/Cardiology Studies: Cardiology / EKG Studies 03/25/17 16:20 ELECTROCARDIOGRAM Stat Comment: Mode Of Transportation: BED Reason For Exam: Pain 03/25/17 16:42 ELECTROCARDIOGRAM Stat Comment: Mode Of Transportation: BED Reason For Exam: Pain Fingerstick Blood Sugar Results: 100 Review of Systems - Review of Systems Systems not reviewed;Unavailable: Altered Mental Status Critical Care Progress Note - Nutrition Nutrition: Nutrition Category Date Time Status NPO Diet [DIET] Diets 03/25/17 Breakfast Active Assessment/Plan (1) Acute intra-cranial hemorrhage Assessment and plan: 71yo M. PMHx ETOH abuse, HTN, HLD, Depression. p/w recent fall with rib fractures and AMS, found to have ICH. Neuro: Alert, disoriented, follows some commands. Patient's neurologic exam will be confounded by EtOH withdrawal and concomitant intracerebral hemorrhage. Will start a CIWA protocol once patient's withdrawals, worse currently Ativan every 6 hours when necessary. Blood already reabsorbing based on repeat CAT scan of the head. Pulm: No acute issues, breathing spontaneously on room air. CV: Mid and adamantly stable. Hem: No acute issues Renal: No acute issues, urine output within normal limits, will monitor. Banana bag. Endo: Follow up hemoglobin A1c to rule out DM. GI: NPO with altered mental status. ID: No acute issues DVT proph - SCDs, holding anticoagulation with current intracerebral bleed. GI proph - Protonix IV Code status - full code Critical Care Time spent 35 minutes Multi-disciplinary rounds were performed with house staff, nursing, speech therapy, respiratory therapy, pharmacy and nutrition with integrated input from the primary team/attending and other consulting services. The documented time is cumulative and includes review of patient data/exams/labs/chart review and examination of the patient on rounds and throughout the day; time is exclusive of any procedures or teaching time. Current Visit: Yes Status: Acute
--- NOTE | 2017-03-26 19:01 | CP.PCM.CON ---
History of Present Illness - History of Present Illness History of Present Illness: Mr. Cabral is a 71-year-old man with a past medical history of HTN, Depression, left eye blindness and Alcohol abuse with multiple falls, the most recent of which was about 7 days ago and he hit his head. He has been having progressive confusion over the last several days. CT scan of the head showed a relatively large right frontal lobe intraparenchymal hemorrhage with midline shift. The repeat CT head showed progression of the midline shift. The patient is agitated and does not follow commands. He is difficulty to manage and is attempting to climb out of the bed. Apparently, moving all extremities. Review of Systems - Review of Systems Systems not reviewed;Unavailable: Altered Mental Status, Uncooperative, Psychotic Past Patient History - Past Medical History & Family History Past Medical History?: Yes - Past Social History Smoking Status: Never Smoked Chewing Tobacco Use: No Cigar Use: No Alcohol: > 2 Drinks/Day Home Situation {Lives}: Alone - CARDIAC Hx Hypercholesterolemia: Yes Hx Hypertension: Yes - PULMONARY Hx Respiratory Disorders: No - NEUROLOGICAL Hx Neurological Disorder: No - HEENT Hx Cataracts: Yes (jody) Other/Comment: deviated septum repair 3 yr ago s/p fall alcohol use - RENAL Hx Chronic Kidney Disease: No - ENDOCRINE/METABOLIC Hx Endocrine Disorders: No - HEMATOLOGICAL/ONCOLOGICAL Hx Blood Disorders: No Hx Human Immunodeficiency Virus (HIV): No - INTEGUMENTARY Hx Dermatological Problems: No - MUSCULOSKELETAL/RHEUMATOLOGICAL Hx Falls: Yes (fell this am s/p alcohol intake) - GASTROINTESTINAL Hx Gastrointestinal Disorders: No - GENITOURINARY/GYNECOLOGICAL Hx Genitourinary Disorders: No - PSYCHIATRIC Hx Depression: Yes (noncompliant with meds) Hx Substance Use: No - SURGICAL HISTORY Hx Surgeries: Yes Other/Comment: deviated septum repair 3 yr ago - ANESTHESIA Hx Anesthesia: Yes Hx Anesthesia Reactions: No Meds Allergies/Adverse Reactions: Allergies Allergy/AdvReac Type Severity Reaction Status Date / Time No Known Allergies Allergy Verified 03/25/17 16:02 - Medications Medications: Current Medications Folic Acid (Folic Acid) 1 mg PO DAILY [facility] Last Admin: 03/26/17 10:42 Dose: 1 mg Levetiracetam 500 mg/ Sodium (Chloride) 105 mls @ 420 mls/hr IVPB Q12H [facility] Last Admin: 03/26/17 13:30 Dose: 420 mls/hr Lorazepam (Ativan) 0.5 mg IVP Q6H PRN PRN Reason: Agitation Last Admin: 03/26/17 15:46 Dose: 0.5 mg Multivitamins (Hexavitamin) 1 tab PO DAILY [facility] Last Admin: 03/26/17 10:42 Dose: 1 tab Pneumococcal Polyvalent Vaccine (Pneumovax 23 Vaccine) 0.5 ml IM .ONCE ONE Stop: 03/28/17 10:01 Thiamine HCl (Vitamin B1 Tab) 100 mg PO DAILY [facility] Last Admin: 03/26/17 10:42 Dose: 100 mg Physical Exam - Constitutional Appears: Unkempt - Head Exam Head Exam: ATRAUMATIC, NORMAL INSPECTION, NORMOCEPHALIC - Eye Exam Eye Exam: EOMI, Normal appearance, PERRL - Neck Exam Neck exam: Positive for: Normal Inspection - Respiratory Exam Respiratory Exam: Clear to Auscultation Bilateral, NORMAL BREATHING PATTERN - Cardiovascular Exam Cardiovascular Exam: REGULAR RHYTHM, +S1, +S2 - GI/Abdominal Exam GI & Abdominal Exam: Bruit - Rectal Exam Rectal Exam: Deferred - Extremities Exam Extremities exam: Positive for: normal inspection - Back Exam Back exam: NORMAL INSPECTION - Neurological Exam Neurological exam: Abnormal Gait, Altered, CN II-XII Intact Additional comments: Moves all extremities, difficult to complete neurological exam due to patient agitation and he is non-cooperative. He answered that he knew his name and that he is in the hospital, but would not comply with coordination testing or sensory exam. Gait was not assessed due to the acuity of his condition. Results - Vital Signs Recent Vital Signs: Last Vital Signs Temp 97.3 F L 03/26/17 08:00 Pulse 46 L 03/26/17 09:22 Resp 16 03/26/17 09:22 BP 165/67 H 03/26/17 09:22 Pulse Ox 98 03/26/17 00:00 - Labs Result Diagrams: 03/26/17 06:16 03/25/17 17:14 Labs: Laboratory Results - last 24 hr 03/26/17 03/26/17 06:16 06:17 WBC 6.1 RBC 4.63 Hgb 14.5 Hct 42.1 MCV 90.9 MCH 31.2 H MCHC 34.3 RDW 14.1 Plt Count 237 MPV 7.9 Neut % (Auto) 65.3 Lymph % (Auto) 15.5 L [place] % (Auto) 11.5 H Eos % (Auto) 7.0 H Baso % (Auto) 0.7 Neut # 4.0 Lymph # 0.9 L [place] # 0.7 Eos # 0.4 Baso # 0.0 Triglycerides 79 Cholesterol 143 LDL Cholesterol Direct 77 HDL Cholesterol 46 Assessment & Plan (1) Intraparenchymal hematoma of brain Assessment and Plan: The patient has a large right frontal lobe hemorrhage with midline shift and some ventricular compression. I recommend the followin. Telemetry and continued observation in the ICU with Q1 hour neuro-checks. 2. Repeat CT head in the morning 3. Start hypertonic saline at 40 mL/hr with a goal of serum sodium of 140-145 and osmolarity less than 320. 4. Avoid antiplatelet agents or anticoagulation 5. SCD for DVT Px 6. Keep head of bed elevated above 45 degrees 7. MRI of the brain with and without contrast when stable. 8. Consider sedation with Precedex 9. CIWA protocol 10. Case management consult Thank you. Status: Acute Priority: High
[2017-03-26] MEDS ORDERED: Sodium Chloride 3% 500 ML IV ONE (20:30)
--- NOTE | 2017-03-26 20:52 | HP ---
CHIEF COMPLAINT: Patient was brought into the ED by the family for altered mental status and unsteady gait. HISTORY OF PRESENT ILLNESS: Mr. Cabral is a 71-year-old male with a past medical history of hypertension, hyperlipidemia, history of EtOH abuse, status post multiple falls, who has been following up with Dr. Law as primary care physician, came into the ED, brought by the patient's family for altered mental status and unsteady gait, tried to contact the family members, and as per the records and patient, he had fallen about a week ago and hit his head. Denied any loss of consciousness. 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 He claims that he has headache in the frontal region. Denies any nausea. Denies any dizziness. Denies any chest pain, shortness of breath, or wheezing. Denies any urinary complaints. Denies any leg pains or leg cramps. All other systems reviewed and were found to be negative. PAST MEDICAL HISTORY: Hypertension, hyperlipidemia, multiple falls, EtOH abuse. PAST SURGICAL HISTORY: Status post fall, repair of the deviated septum. FAMILY HISTORY: Nothing contributory to the present illness. PERSONAL HISTORY: He claims he lives alone. He is not , not having any children. SOCIAL HISTORY: Denies any smoking or other drug abuse, but he admits to drinking one case of beer. 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 ALLERGIES: NO KNOWN DRUG ALLERGIES. HOME MEDICATIONS: Patient could not recall his home medications. REVIEW OF SYSTEMS: As discussed in history of present illness. PHYSICAL EXAMINATION: GENERAL: Elderly male, lying in bed, in no acute distress. VITAL SIGNS: Blood pressure 165/67, pulse 54, respirations 19, temperature 97.2 degrees Fahrenheit, O2 sat 100% on room air. HEENT: Pupils equal, round, and reacting to light and accommodation. Extraocular muscles intact. No icterus, no pallor, no oral thrush, no pharyngeal congestion. NECK: Supple. No JVD. LUNGS: Bilateral vesicular breath sounds. No wheezing, no rhonchi. CARDIOVASCULAR SYSTEM: S1, S2 present, regular. ABDOMEN: Soft, nontender. Bowel sounds present. No guarding, no rigidity, no rebound tenderness noted. CENTRAL NERVOUS SYSTEM: Alert, awake, oriented x2. No focal deficits noted. EXTREMITIES: No edema. Gait did not test. LABORATORY DATA: Done from the ED: WBC 9.8, hemoglobin 14, hematocrit 41.7, platelets 272. PT 11.7, INR 1.0. Sodium 133, potassium 3.7, chloride 100, bicarb 26, BUN 12, creatinine 0.8, glucose 104, calcium 8.4, triglycerides 79, cholesterol 143, LDL 77, HDL 46, lipase 108. UA negative, urine alcohol less than 10. Chest x-ray done from ED shows no acute cardiopulmonary disease, multiple healed right rib fractures. CT of the head done from the Emergency Room shows moderate right intraparenchymal hemorrhage with prominent vasogenic edema associated is appreciated subdural hematoma at frontotemporal distribution extending to the vertex to epidural. Possible severe subdural hematomas are seen in the temporooccipital distribution laterally. Leftward midline shift of approximately 1 cm results with effacement of right cerebral sulci in the frontal horn and the anterior body of the right lateral ventricle. Repeat CT this morning shows unchanged right frontal hemorrhage with surrounding vasogenic edema resulting in subfalcine herniation and decreased leftward midline shift, subdural hematoma high in the convexity also unchanged, nasal bone fracture, right parietal skull fracture. CT angio of the head and neck done last night shows potential 2.4-mm aneurysm versus infundibulum near the origin of the right posterior communicating artery. Consider followup conventional angiography for greater characterization of this area. ASSESSMENT: An elderly male with past medical history of hypertension, hyperlipidemia, ethyl alcohol abuse, multiple falls, admitted for altered mental status, unsteady gait, and found to be having intracerebral hemorrhage and subdural hematomas. Patient is being admitted for further management to the Intensive Care Unit. 1. Intracerebral hemorrhage. 2. Subdural hematoma. 3. Hypertension. 4. Hyperlipidemia. 5. Ethyl alcohol abuse. PLAN: Patient is being admitted to ICU. ER physician contacted Neurosurgery who did not recommend any surgical intervention at this time other than close monitoring. Repeat CT done this morning, unchanged. Patient was started on Keppra prophylactically and he follow up with Neurosurgery and obtain neurology evaluation, Physical Therapy, Occupational Therapy, speech and swallow evaluation. Advised patient's family to bring the medication list to restart him on his home medication. We will check hemoglobin A1c level, repeat labs in a.m. We will give thiamine, multivitamin, and folic acid. We will give DVT and GI prophylaxis. We will add further recommendation as his clinical course progresses. Afia Chirinos MD
[2017-03-27 00:51] LABS: BLOOD UREA NITROGEN 8 mg/dL (9-20); CALCIUM 7.9 mg/dl (8.6-10.4); CARBON DIOXIDE 23 mmol/L (22-30); CHLORIDE 102 mmol/L (98-107); GFR AFRICAN-AMERICAN > 60; GLUCOSE,RANDOM 101 mg/dL (75-110); POTASSIUM 3.7 mmol/L (3.6-5.2); SODIUM 136 mmol/L (132-148)
[2017-03-27] MEDS: levETIRAcetam 500 MG in Sodium Chloride 0.9% 100 ML IVPB SCH ×2 (01:30→12:46)
[2017-03-27 05:02] LABS: BASO # 0.1 K/uL (0.0-0.2); BASO % 0.8 % (0.0-2.0); EOS # 0.4 K/uL (0.0-0.7); EOS % 6.4 % (0.0-4.0); HEMATOCRIT 39.1 % (35.0-51.0); LYMPH # 0.9 K/uL (1.0-4.3); LYMPH % 14.2 % (20.0-40.0); MEAN CELL VOLUME 90.5 fL (80.0-94.0); MEAN CORPUSCULAR HEMOGLOBIN 31.3 pg (27.0-31.0); MEAN CORPUSCULAR HGB CONC 34.6 g/dL (33.0-37.0); MEAN PLATELET VOLUME 7.3 fL (7.2-11.7); MONO # 0.7 K/uL (0.0-0.8); MONO % 11.1 % (0.0-10.0); RED CELL DISTRIBUTION WIDTH 13.5 % (11.5-14.5); WHITE BLOOD COUNT 6.5 K/uL (4.8-10.8)
[2017-03-27 05:13] LABS: ALB/GLOB RATIO 0.9 (1.0-2.1); ALKALINE PHOSPHATASE 73 U/L (38-126); ALT/SGPT 38 U/L (21-72); AST/SGOT 19 U/L (17-59); BILIRUBIN,TOTAL 1.3 mg/dL (0.2-1.3); BLOOD UREA NITROGEN 9 mg/dL (9-20); CALCIUM 8.2 mg/dl (8.6-10.4); CARBON DIOXIDE 25 mmol/L (22-30); CHLORIDE 103 mmol/L (98-107); GFR AFRICAN-AMERICAN > 60; GLUCOSE,RANDOM 100 mg/dL (75-110); MAGNESIUM 2.2 mg/dL (1.6-2.3); PHOSPHOROUS 4.1 mg/dL (2.5-4.5); POTASSIUM 3.8 mmol/L (3.6-5.2); SODIUM 136 mmol/L (132-148); TOTAL PROTEIN 8.1 g/dL (6.3-8.3)
--- NOTE | 2017-03-27 09:06 | CP.PCM.PN ---
Subjective - Date & Time of Evaluation Date of Evaluation: 03/26/17 Time of Evaluation: 09:00 - Subjective Subjective: full consult dicatated no surgical intervention indicated both CT scans reviewed hematoma a week old and resolving would expect pt to exhibit prolonged frontal lobe disfunction Objective - Vital Signs/Intake and Output Vital Signs (last 24 hours): Temp Pulse Resp BP Pulse Ox 97.7 F 49 L 15 138/79 99 03/27/17 08:00 03/27/17 08:00 03/27/17 08:00 03/27/17 07:53 03/27/17 08:00 Intake and Output: 03/27/17 03/27/17 06:59 18:59 Intake Total 600 80 Output Total 600 0 Balance 0 80 - Medications Medications: Current Medications Folic Acid (Folic Acid) 1 mg PO DAILY [facility] Last Admin: 03/26/17 10:42 Dose: 1 mg Levetiracetam 500 mg/ Sodium (Chloride) 105 mls @ 420 mls/hr IVPB Q12H [facility] Last Admin: 03/27/17 01:30 Dose: 420 mls/hr Lorazepam (Ativan) 0.5 mg IVP Q6H PRN PRN Reason: Agitation Last Admin: 03/26/17 22:14 Dose: 0.5 mg Multivitamins (Hexavitamin) 1 tab PO DAILY [facility] Last Admin: 03/26/17 10:42 Dose: 1 tab Pneumococcal Polyvalent Vaccine (Pneumovax 23 Vaccine) 0.5 ml IM .ONCE ONE Stop: 03/28/17 10:01 Thiamine HCl (Vitamin B1 Tab) 100 mg PO DAILY [facility] Last Admin: 03/26/17 10:42 Dose: 100 mg - Labs Labs: 03/27/17 04:58 03/27/17 04:58 PT 11.7 SECONDS (9.7-12.2) 03/25/17 17:48 INR 1.0 03/25/17 17:48
[2017-03-27] MEDS: Multiple Vitamins Tab PO SCH (09:18)
--- NOTE | 2017-03-27 09:39 | PCM.PSYCH ---
Initial Psychiatric Evaluation - Initial Psychiatric Evaluation Type of Admission: Voluntary Legal Status: Capacity Current Medications: Active Medications Generic Name Dose Route Start Last Admin Trade Name Freq PRN Reason Stop Dose Admin Folic Acid 1 mg 03/26/17 10:00 03/27/17 09:18 Folic Acid PO 1 mg DAILY [facility] Administration Levetiracetam 500 mg/ Sodium 105 mls @ 420 mls/hr 03/26/17 01:00 03/27/17 01: 30 Chloride IVPB 420 mls/hr Q12H ALBERTO Administration Lorazepam 0.5 mg 03/25/17 23:15 03/26/17 22:14 Ativan IVP 0.5 mg Q6H PRN Administration Agitation Multivitamins 1 tab 03/26/17 10:00 03/27/17 09:18 Hexavitamin PO 1 tab DAILY [facility] Administration Pneumococcal Polyvalent Vaccine 0.5 ml 03/28/17 10:00 Pneumovax 23 Vaccine IM 03/28/17 10:01 .ONCE ONE Thiamine HCl 100 mg 03/26/17 10:00 03/27/17 09:18 Vitamin B1 Tab PO 100 mg DAILY [facility] Administration Past Psychiatric History - Past Psychiatric History Pertinent Medical Hx (Current Medical&Sleep Prob, Allergies): Allergies Allergy/AdvReac Type Severity Reaction Status Date / Time No Known Allergies Allergy Verified 03/25/17 16:02 Unobtainable 03/25/17
--- NOTE | 2017-03-27 09:49 | CON ---
DATE: LOCATION: Patient is admitted to the ICU at [facility]. This is a 71-year-old male with history of hypertension and diabetes, blind in the left eye. According to the family, he fell on 03/17/2017 hitting his head. He was under the influence of alcohol at that time. He is not acting like himself since. He has an unsteady gait. He currently is disoriented to time and place. Does know his name. He is awake and alert, otherwise cooperative. He is having difficulty following simple commands. His pupils in the left side is deformed, right side is reactive. The limb on the right side appears normal, not so on the left side. His strength appears good; however, he is having difficulty following commands and I could not assess strength as he wound not cooperate. He had a CT of the head, which was repeated this morning. There is a right frontal intraparenchymal hemorrhage with mass effect - edema and shift. There is a small right subdural hematoma. These findings are consistent with a traumatic event. However to rule out the possibility that this is related to anterior communicating artery aneurysm rupture, a CTA was done which was read as normal. At this point, what we seen on the CAT scan is resolving hematoma. He has at least significant unifrontal, if not bifrontal, cortical injury. His mental status will remain fairly disturbed for quite a while if not never return to normal due to the injury there. The bulk of this mass effect is related to resolving edema, and at this point, there is no surgical intervention that is warranted. I would suggest contacting Neurology to consider anticonvulsants and he probably will need to have some sort of subacute rehab. If there is any changes in his mental status or further worse, please re-consult. Serafin Harmon MD
[2017-03-27] MEDS ORDERED: Influenza Vaccine 60 mcg/0.5 mL SYR (4YR UP) IM ONE (10:00)
[2017-03-27 10:02] LABS: BLOOD UREA NITROGEN 9 mg/dL (9-20); CALCIUM 8.6 mg/dl (8.6-10.4); CARBON DIOXIDE 27 mmol/L (22-30); CHLORIDE 103 mmol/L (98-107); GFR AFRICAN-AMERICAN > 60; GLUCOSE,RANDOM 103 mg/dL (75-110); SODIUM 138 mmol/L (132-148)
--- NOTE | 2017-03-27 11:23 | CT ---
PROCEDURE: CT HEAD WITHOUT CONTRAST. HISTORY: re-eval brain bleed COMPARISON: CT head 03/25/2017 and 03/26/2017 TECHNIQUE: Axial computed tomography images were obtained through the head/brain without intravenous contrast. Radiation dose: Total exam DLP = 2155.97 mGy-cm. This CT exam was performed using one or more of the following dose reduction techniques: Automated exposure control, adjustment of the mA and/or kV according to patient size, and/or use of iterative reconstruction technique. FINDINGS: HEMORRHAGE: Multifocal intracranial hemorrhage is again identified. There is a large right frontal parenchymal hemorrhage surrounded by extensive vasogenic edema. This results in midline shift of approximately 1.9 cm, slightly increased from the prior examination at which time, utilizing similar technique of measurement, there was approximately 1.5 cm midline shift towards the left. There is a biconvex right posterior occipital collection of acute hemorrhage measuring approximately 0.9 x 3.0 cm, representing either epidural or subdural blood. This is unchanged from the prior examination. There is a vaguely biconvex right posterior temporal collection, minimally hyperdense, likely subdural but possibly epidural. This is unchanged in size when compared to the prior examination. This is surrounded by a rim of edema. There is an almost isodense subdural collection along the high right frontoparietal convexity. This has decreased in attenuation compared to the prior examination. BRAIN: No intracranial mass. Extensive right frontal vasogenic edema with midline shift of approximately 1.9 cm towards the left, representing subfalcine herniation. No evidence of acute infarct. VENTRICLES: There is extensive effacement of the right lateral ventricle as a result of the vasogenic edema and subfalcine herniation. There is no downward herniation. The perimesencephalic cistern is preserved. The cerebellar tonsils are normal in location. CALVARIUM: Unremarkable. PARANASAL SINUSES: Unremarkable as visualized. No significant inflammatory changes. MASTOID AIR CELLS: Unremarkable as visualized. No inflammatory changes. OTHER FINDINGS: None. IMPRESSION: Multifocal intracranial hemorrhage including the large right frontal parenchymal hemorrhage and multifocal extra-axial hemorrhages as described. Decreasing density of extra-axial blood noted in the right frontoparietal convexity hematoma and in the posterior right temporal hematoma. A right occipital extra-axial hemorrhage remains hyperdense consistent with acute blood. Increased midline shift towards the left of approximately 19 mm. No evidence of downward herniation.
--- NOTE | 2017-03-27 11:24 | CP.CCUPN ---
CCU Subjective - Physician Review Subjective (Free Text): PGY1 ICU Progress Note for Dr. Geller Patient seen and examined at bedside this morning. Patient is awake, alert and following commands appropriately. Patient denies any headaches. He states he has no complaints at this time. CCU Objective - Vital Signs / Intake & Output Vital Signs (Last 4 hours): Vital Signs Temp Pulse Resp BP Pulse Ox 03/27/17 08:00 97.7 F 49 L 15 96 03/27/17 07:53 53 L 14 138/79 99 Intake and Output (Last 8hrs): Intake & Output 03/26/17 03/27/17 03/27/17 22:59 06:59 14:59 Intake Total 680 320 80 Output Total 200 600 0 Balance 480 -280 80 Weight 161 lb 12.8 oz Intake: Intake, IV Amount 680 320 80 Right Forearm 600 left antecubital 80 320 80 Oral 0 0 0 Output: Urine 200 600 0 Urine, Voided 200 600 0 Stool 0 Other: # Bowel Movements 0 0 0 - Physical Exam Head: Positive for: Atraumatic, Normocephalic Pupils: Positive for: PERRL, Other (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 Negative for: Tenderness, Distention, Peritoneal Signs Neurological: Positive for: Motor Func Grossly Intact Psychiatric: Positive for: Alert. Negative for: Oriented x 3 (baseline) - Medications Active Medications: Active Medications Generic Name Dose Route Start Last Admin Trade Name Freq PRN Reason Stop Dose Admin Folic Acid 1 mg 03/26/17 10:00 03/27/17 09:18 Folic Acid PO 1 mg DAILY [facility] Administration Levetiracetam 500 mg/ Sodium 105 mls @ 420 mls/hr 03/26/17 01:00 03/27/17 01: 30 Chloride IVPB 420 mls/hr Q12H [facility]O Administration Lorazepam 0.5 mg 03/25/17 23:15 03/26/17 22:14 Ativan IVP 0.5 mg Q6H PRN Administration Agitation Multivitamins 1 tab 03/26/17 10:00 03/27/17 09:18 Hexavitamin PO 1 tab DAILY [facility] Administration Pneumococcal Polyvalent Vaccine 0.5 ml 03/28/17 10:00 Pneumovax 23 Vaccine IM 03/28/17 10:01 .ONCE ONE Thiamine HCl 100 mg 03/26/17 10:00 03/27/17 09:18 Vitamin B1 Tab PO 100 mg DAILY [facility] Administration - Patient Studies Lab Studies: Lab Studies 03/27/17 03/27/17 03/27/17 Range/Units 09:47 04:58 04:58 WBC 6.5 (4.8-10.8) K/uL RBC 4.32 L (4.40-5.90) Mil/uL Hgb 13.5 (12.0-18.0) g/dL Hct 39.1 (35.0-51.0) % MCV 90.5 (80.0-94.0) fL MCH 31.3 H (27.0-31.0) pg MCHC 34.6 (33.0-37.0) g/dL RDW 13.5 (11.5-14.5) % Plt Count 231 (130-400) K/uL MPV 7.3 (7.2-11.7) fL Neut % (Auto) 67.5 (50.0-75.0) % Lymph % (Auto) 14.2 L (20.0-40.0) % Alger % (Auto) 11.1 H (0.0-10.0) % Eos % (Auto) 6.4 H (0.0-4.0) % Baso % (Auto) 0.8 (0.0-2.0) % Neut # 4.4 (1.8-7.0) K/uL Lymph # 0.9 L (1.0-4.3) K/uL Alger # 0.7 (0.0-0.8) K/uL Eos # 0.4 (0.0-0.7) K/uL Baso # 0.1 (0.0-0.2) K/uL Sodium 138 136 (132-148) mmol/L Potassium 4.0 3.8 (3.6-5.2) mmol/L Chloride 103 103 (98-107) mmol/L Carbon Dioxide 27 25 (22-30) mmol/L Anion Gap 12 12 (10-20) BUN 9 9 (9-20) mg/dL Creatinine 0.8 0.7 L (0.8-1.5) mg/dL Est GFR ( Amer) > 60 > 60 Est GFR (Non-Af Amer) > 60 > 60 Random Glucose 103 100 (75-110) mg/dL Hemoglobin A1c (4.2-6.5) % Calcium 8.6 8.2 L (8.6-10.4) mg/dl Phosphorus 4.1 (2.5-4.5) mg/dL Magnesium 2.2 (1.6-2.3) mg/dL Total Bilirubin 1.3 (0.2-1.3) mg/dL AST 19 (17-59) U/L ALT 38 (21-72) U/L Alkaline Phosphatase 73 (38-126) U/L Total Protein 8.1 (6.3-8.3) g/dL Albumin 3.8 (3.5-5.0) g/dL Globulin 4.4 H (2.2-3.9) gm/dL Albumin/Globulin Ratio 0.9 L (1.0-2.1) 03/27/17 03/26/17 Range/Units 00:33 06:16 WBC (4.8-10.8) K/uL RBC (4.40-5.90) Mil/uL Hgb (12.0-18.0) g/dL Hct (35.0-51.0) % MCV (80.0-94.0) fL MCH (27.0-31.0) pg MCHC (33.0-37.0) g/dL RDW (11.5-14.5) % Plt Count (130-400) K/uL MPV (7.2-11.7) fL Neut % (Auto) (50.0-75.0) % Lymph % (Auto) (20.0-40.0) % Alger % (Auto) (0.0-10.0) % Eos % (Auto) (0.0-4.0) % Baso % (Auto) (0.0-2.0) % Neut # (1.8-7.0) K/uL Lymph # (1.0-4.3) K/uL Alger # (0.0-0.8) K/uL Eos # (0.0-0.7) K/uL Baso # (0.0-0.2) K/uL Sodium 136 (132-148) mmol/L Potassium 3.7 (3.6-5.2) mmol/L Chloride 102 (98-107) mmol/L Carbon Dioxide 23 (22-30) mmol/L Anion Gap 14 (10-20) BUN 8 L (9-20) mg/dL Creatinine 0.7 L (0.8-1.5) mg/dL Est GFR ( Amer) > 60 Est GFR (Non-Af Amer) > 60 Random Glucose 101 (75-110) mg/dL Hemoglobin A1c 5.6 (4.2-6.5) % Calcium 7.9 L (8.6-10.4) mg/dl Phosphorus (2.5-4.5) mg/dL Magnesium (1.6-2.3) mg/dL Total Bilirubin (0.2-1.3) mg/dL AST (17-59) U/L ALT (21-72) U/L Alkaline Phosphatase (38-126) U/L Total Protein (6.3-8.3) g/dL Albumin (3.5-5.0) g/dL Globulin (2.2-3.9) gm/dL Albumin/Globulin Ratio (1.0-2.1) Laboratory Results - last 24 hr 03/26/17 03/27/17 03/27/17 06:16 00:33 04:58 WBC RBC Hgb Hct MCV MCH MCHC RDW Plt Count MPV Neut % (Auto) Lymph % (Auto) Alger % (Auto) Eos % (Auto) Baso % (Auto) Neut # Lymph # Alger # Eos # Baso # Sodium 136 136 Potassium 3.7 3.8 Chloride 102 103 Carbon Dioxide 23 25 Anion Gap 14 12 BUN 8 L 9 Creatinine 0.7 L 0.7 L Est GFR ( Amer) > 60 > 60 Est GFR (Non-Af Amer) > 60 > 60 Random Glucose 101 100 Hemoglobin A1c 5.6 Calcium 7.9 L 8.2 L Phosphorus 4.1 Magnesium 2.2 Total Bilirubin 1.3 AST 19 ALT 38 Alkaline Phosphatase 73 Total Protein 8.1 Albumin 3.8 Globulin 4.4 H Albumin/Globulin Ratio 0.9 L 12/04/17 12/04/17 04:58 09:47 WBC 6.5 RBC 4.32 L Hgb 13.5 Hct 39.1 MCV 90.5 MCH 31.3 H MCHC 34.6 RDW 13.5 Plt Count 231 MPV 7.3 Neut % (Auto) 67.5 Lymph % (Auto) 14.2 L Alger % (Auto) 11.1 H Eos % (Auto) 6.4 H Baso % (Auto) 0.8 Neut # 4.4 Lymph # 0.9 L Alger # 0.7 Eos # 0.4 Baso # 0.1 Sodium 138 Potassium 4.0 Chloride 103 Carbon Dioxide 27 Anion Gap 12 BUN 9 Creatinine 0.8 Est GFR ( Amer) > 60 Est GFR (Non-Af Amer) > 60 Random Glucose 103 Hemoglobin A1c Calcium 8.6 Phosphorus Magnesium Total Bilirubin AST ALT Alkaline Phosphatase Total Protein Albumin Globulin Albumin/Globulin Ratio Fingerstick Blood Sugar Results: 100 Review of Systems - Review of Systems All systems: reviewed and no additional remarkable complaints except (as per HPI ) Critical Care Progress Note - Nutrition Nutrition: Nutrition Category Date Time Status Soft [Dysphagia/Modified Consistency Diet] [DIET] Diets 03/27/17 Lunch Active Assessment/Plan - Assessment and Plan (Free Text) Assessment: Patient is a 71 year old male a past medical history of ETOH abuse, HTN, HLD, Depression, presenting with recent fall with rib fractures and AMS, found to have an intracranial hemorrhage. Plan: Neuro: Dr. Gilbert consulted, help appreciated Dr. Harmon consulted, help appreciated Head CT 03/27/17 - Multifocal intracranial hemorrhage including the large right frontal parenchymal hemorrhage and multifocal extra-axial hemorrhages as described. Decreasing density of extra-axial blood noted in the right frontoparietal convexity hematoma and in the posterior right temporal hematoma. A right occipital extra-axial hemorrhage remains hyperdense consistent with acute blood. Increased midline shift towards the left of approximately 19 mm. No evidence of downward herniation. Will continue to monitor Patient's neurological exam confounded with history of alcohol abuse/withdrawal - [facility] protocol - Ativan 0.5mg IVP q6h - Multivitamin/thiamine Keppra 500mg IVPB q12h f/u neuro recs - no surgical intervention at this time - goal Na 140-145, on Hypertonic Saline 3% @40mL/hr GI: Swallow - soft/advanced bite size diet Prophylactic Care: DVT proph - SCDs, holding anticoagulation with current intracerebral bleed. GI proph - Protonix IV Case discussed with Dr. Duyen Back Tito PGY1
--- NOTE | 2017-03-27 12:01 | CP.PCM.PN ---
Subjective - Date & Time of Evaluation Date of Evaluation: 03/27/17 Time of Evaluation: 11:40 - Subjective Subjective: Progress note dictated #[id number] Objective - Vital Signs/Intake and Output Vital Signs (last 24 hours): Temp Pulse Resp BP Pulse Ox 97.7 F 52 L 16 148/86 99 03/27/17 08:00 03/27/17 11:09 03/27/17 11:09 03/27/17 11:09 03/27/17 11:09 Intake and Output: 03/27/17 03/27/17 06:59 18:59 Intake Total 600 320 Output Total 600 0 Balance 0 320 - Medications Medications: Current Medications Folic Acid (Folic Acid) 1 mg PO DAILY [facility] Last Admin: 03/27/17 09:18 Dose: 1 mg Levetiracetam 500 mg/ Sodium (Chloride) 105 mls @ 420 mls/hr IVPB Q12H [facility] Last Admin: 03/27/17 01:30 Dose: 420 mls/hr Lorazepam (Ativan) 0.5 mg IVP Q6H PRN PRN Reason: Agitation Last Admin: 03/26/17 22:14 Dose: 0.5 mg Multivitamins (Hexavitamin) 1 tab PO DAILY [facility] Last Admin: 03/27/17 09:18 Dose: 1 tab Pneumococcal Polyvalent Vaccine (Pneumovax 23 Vaccine) 0.5 ml IM .ONCE ONE Stop: 03/28/17 10:01 Thiamine HCl (Vitamin B1 Tab) 100 mg PO DAILY [facility] Last Admin: 03/27/17 09:18 Dose: 100 mg - Labs Labs: 03/27/17 04:58 03/27/17 09:47 PT 11.7 SECONDS (9.7-12.2) 03/25/17 17:48 INR 1.0 03/25/17 17:48
--- NOTE | 2017-03-27 12:18 | CP.PCM.PN ---
Subjective - Date & Time of Evaluation Date of Evaluation: 03/27/17 Time of Evaluation: 12:15 - Subjective Subjective: Mr. Cabral was seen and examined at the bedside in the ICU. He is alert, answer to few questions appropriately. He is able to follow simple commands such as raising his extremities and squeezing his hand. He is not in any kind of distress. He remains on 1:1 for patient safety. There was no untoward events overnight. Objective - Vital Signs/Intake and Output Vital Signs (last 24 hours): Temp Pulse Resp BP Pulse Ox 97.7 F 52 L 16 148/86 99 03/27/17 08:00 03/27/17 11:09 03/27/17 11:09 03/27/17 11:09 03/27/17 11:09 Intake and Output: 03/27/17 03/27/17 06:59 18:59 Intake Total 600 320 Output Total 600 0 Balance 0 320 - Medications Medications: Current Medications Folic Acid (Folic Acid) 1 mg PO DAILY [facility] Last Admin: 03/27/17 09:18 Dose: 1 mg Levetiracetam 500 mg/ Sodium (Chloride) 105 mls @ 420 mls/hr IVPB Q12H [facility] Last Admin: 03/27/17 01:30 Dose: 420 mls/hr Lorazepam (Ativan) 0.5 mg IVP Q6H PRN PRN Reason: Agitation Last Admin: 03/26/17 22:14 Dose: 0.5 mg Multivitamins (Hexavitamin) 1 tab PO DAILY [facility] Last Admin: 03/27/17 09:18 Dose: 1 tab Pneumococcal Polyvalent Vaccine (Pneumovax 23 Vaccine) 0.5 ml IM .ONCE ONE Stop: 03/28/17 10:01 Thiamine HCl (Vitamin B1 Tab) 100 mg PO DAILY [facility] Last Admin: 03/27/17 09:18 Dose: 100 mg - Labs Labs: 03/27/17 04:58 03/27/17 09:47 PT 11.7 SECONDS (9.7-12.2) 03/25/17 17:48 INR 1.0 03/25/17 17:48 - Constitutional Appears: No Acute Distress - Head Exam Head Exam: ATRAUMATIC - Neurological Exam Neurological Exam: Alert, Awake Neuro motor strength exam: Left Upper Extremity: 5, Right Upper Extremity: 5, Left Lower Extremity: 4, Right Lower Extremity: 4 Additional comments: He is able to answer few qustions appropriately and follows commands. Sensation remains intact. Assessment and Plan (1) Acute intra-cranial hemorrhage Assessment & Plan: Case discussed with Dr. Gilbert, hypertonic saline at 40 mL/hr with a goal of serum sodium of 140-145 and osmolarity less than 320. Avoid antiplatelet agents or anticoagulation, SCD for DVT Px, and Keep head of bed elevated above 45 degrees Status: Acute
[2017-03-27] MEDS ORDERED: Sodium Chloride 3% 500 ML IV ONE (12:30)
--- NOTE | 2017-03-27 14:43 | PCM.PSYCH ---
Initial Psychiatric Evaluation - Initial Psychiatric Evaluation Type of Admission: Voluntary Legal Status: Capacity Chief Complaint (in patient's own words): "I'm alright" History of Present Illness and Precipitating Events: Pt is a 71 y/o male that is admitted for intraparenchymal hemorrhage. He was consulted as he appeared delirious. 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 Pt is alert and oriented to person, place, and situation. However, when asked the month, he responded May. When asked who is the president of [place]? He replied , 'me'. Pt drinks 15 8oz cans of beer a day for an unspecified amount of time. Pt is currently not experiencing alcohol withdrawal symptoms. Pt remained disorganized and internally preoccupied. He appeared delusional and suspicious. He states that he is depressed because he is in the hospital but does not report being depressed outside of the hospital. Past MHX: HTN, Depression, Left Eye Blindness Family Psychiatric HX: Denies Family Psychiatric HX: Denies Family Substance Abuse HX: Denies Current Medications: Active Medications Generic Name Dose Route Start Last Admin Trade Name Freq PRN Reason Stop Dose Admin Folic Acid 1 mg 03/26/17 10:00 03/27/17 09:18 Folic Acid PO 1 mg DAILY ALBERTO Administration Levetiracetam 500 mg/ Sodium 105 mls @ 420 mls/hr 03/26/17 01:00 03/27/17 12: 46 Chloride IVPB 420 mls/hr Q12H ALBERTO Administration Sodium Chloride 500 mls @ 40 mls/hr 03/27/17 12:30 03/27/17 12:49 Hypertonic Saline 3% IV 03/28/17 00:59 40 mls/hr .[id number] ONE Administration Lorazepam 0.5 mg 03/25/17 23:15 03/26/17 22:14 Ativan IVP 0.5 mg Q6H PRN Administration Agitation Multivitamins 1 tab 03/26/17 10:00 03/27/17 09:18 Hexavitamin PO 1 tab DAILY ALBERTO Administration Pneumococcal Polyvalent Vaccine 0.5 ml 03/28/17 10:00 Pneumovax 23 Vaccine IM 03/28/17 10:01 .ONCE ONE Thiamine HCl 100 mg 03/26/17 10:00 03/27/17 09:18 Vitamin B1 Tab PO 100 mg DAILY ALBERTO Administration Past Psychiatric History - Past Psychiatric History Previous Treatment History: None Pertinent Medical Hx (Current Medical&Sleep Prob, Allergies): Allergies Allergy/AdvReac Type Severity Reaction Status Date / Time No Known Allergies Allergy Verified 03/25/17 16:02 Unobtainable 03/25/17 Review of Systems - Review of Systems All systems: reviewed and no additional remarkable complaints except - Neurological Neurological: Abnormal Gait, Syncope, Weakness - Psychiatric Psychiatric: Anxiety, Irritability, UNREMARKABLE Mental Status Examination - Personal Presentation Personal Presentation: Looks stated age - Affect Affect: Constricted - Motor Activity Motor Activity: Calm - Reliability in Providing Information Reliability in Providing Information: Poor, due to alteration in thoughts - Speech Speech: Organized, Irrelevant, Incoherent - Mood Mood: Depressed, Anxious - Formal Thought Process Formal Thought Process: Delusions, Paranoia, Loosening of associations - Obsessions/Compulsions Obsessions: No Compulsions: No - Cognitive Functions Orientation: Person, Place, Situation Sensorium: Alert Attention/Concentration: Attentive Abstract Thinking: Brooks Estimate of Intelligence: Below average Judgement: Imparied, as evidence by: Poor judgement, Imparied, as evidence by: Lack of insight into illness Memory: Recent intact, as evidence by: Ability to recall events of the day, Remote intact, as evidenced by: Ability to recall historical events - Risk Risk: Seizure, Withdrawal, Falls, Diminished functioning - Strength & Assets Inventory Strength & Assets Inventory: Family support DSM 5 DX - DSM 5 DSM 5 Diagnosis: Alcohol Use d/o-severe Delirium due to medical condition - Recommended/Plan of Treatment Treatment Recommendations and Plan of Treatment: Pt appeared delirious, however, he remained calm and cooperative and easily redirectable. Pt doen't have any capacity to make any medical decisions. - Smoking Cessation Smoking Cessation Initiated: No
[2017-03-27 16:22] LABS: BLOOD UREA NITROGEN 10 mg/dL (9-20); CALCIUM 8.5 mg/dl (8.6-10.4); CARBON DIOXIDE 23 mmol/L (22-30); CHLORIDE 106 mmol/L (98-107); GFR AFRICAN-AMERICAN > 60; GLUCOSE,RANDOM 109 mg/dL (75-110); POTASSIUM 3.6 mmol/L (3.6-5.2); SODIUM 138 mmol/L (132-148)
[2017-03-27 22:51] LABS: BLOOD UREA NITROGEN 9 mg/dL (9-20); CALCIUM 8.2 mg/dl (8.6-10.4); CARBON DIOXIDE 24 mmol/L (22-30); CHLORIDE 106 mmol/L (98-107); GFR AFRICAN-AMERICAN > 60; GLUCOSE,RANDOM 100 mg/dL (75-110); POTASSIUM 3.7 mmol/L (3.6-5.2); SODIUM 135 mmol/L (132-148)
--- NOTE | 2017-03-27 23:24 | CARD ---
APPROVED REPORT EKG Measurement Heart [id number] VA [id number] <Conclusion> Sinus bradycardia Incomplete right bundle branch block Borderline ECG
[2017-03-28] MEDS: levETIRAcetam 500 MG in Sodium Chloride 0.9% 100 ML IVPB SCH ×2 (00:51→14:37)
--- NOTE | 2017-03-28 01:42 | PN ---
DATE: 03/27/2017 SUBJECTIVE: The patient was seen and examined at bedside. The patient's mental status remains the same. Denies any complaints. PHYSICAL EXAMINATION: VITAL SIGNS: Blood pressure 155/68, pulse 57, respirations 18, temperature 98.3 degrees Fahrenheit, O2 sat is 97% on room air. HEENT: Pupils equal, reacting to light. No icterus. No pallor. No oral thrush. No pharyngeal congestion. NECK: Supple. No JVD. LUNGS: Bilateral vesicular breath sounds. No wheezing. No rhonchi. CARDIOVASCULAR SYSTEM: S1 and S2 present, regular. ABDOMEN: Soft, nontender. Bowel sounds present. No guarding. No rigidity. No rebound tenderness noted. CENTRAL NERVOUS SYSTEM: Alert, awake, oriented x2. No focal deficits noted. EXTREMITIES: No edema. MEDICATIONS: Include folic acid daily, Keppra 500 mg IV q. 12 hours, Ativan 0.5 mg IV q. 6 p.r.n., multivitamin, hypertonic saline, thiamine 100 mg daily. LABORATORY DATA: Labs from this morning, WBC 6.5, hemoglobin 13.5, hematocrit 39.1, platelet 231. Sodium 138, potassium 3.8, chloride 103, bicarb 25, BUN 9, creatinine 0.7, glucose 100, phosphorus 4.1, magnesium 2.2, total bilirubin 1.3. Other LFTs within normal limits. ASSESSMENT AND PLAN: An elderly male with a history of hypertension, hyperlipidemia, ethyl alcohol abuse, status post multiple falls, admitted for altered mental status, found to have intracerebral hemorrhage and subdural hematoma with vasogenic edema. Neurosurgery evaluation and Neurology followup appreciated. The patient is on Keppra. The patient's mental status remains the same. The patient is on hypertonic saline as per Neurology. We will continue with current treatment plan with gastrointestinal and deep venous thrombosis prophylaxis. Psychiatric evaluation appreciated. Advised patient's family to bring the patient's medication list. Afia Chirinos MD
[2017-03-28] MEDS ORDERED: Sodium Chloride 3% 500 ML IV ONE ×3 (02:46→18:04)
[2017-03-28 04:39] LABS: BASO % 0.5 % (0.0-2.0); EOS # 0.4 K/uL (0.0-0.7); EOS % 5.9 % (0.0-4.0); HEMATOCRIT 39.2 % (35.0-51.0); MEAN CORPUSCULAR HEMOGLOBIN 30.2 pg (27.0-31.0); MEAN CORPUSCULAR HGB CONC 33.2 g/dL (33.0-37.0); MEAN PLATELET VOLUME 7.4 fL (7.2-11.7); MONO # 0.6 K/uL (0.0-0.8); MONO % 9.1 % (0.0-10.0); WHITE BLOOD COUNT 6.5 K/uL (4.8-10.8)
[2017-03-28 04:40] LABS: ALB/GLOB RATIO 1.2 (1.0-2.1); ALKALINE PHOSPHATASE 75 U/L (38-126); ALT/SGPT 42 U/L (21-72); AST/SGOT 22 U/L (17-59); BILIRUBIN,TOTAL 1.3 mg/dL (0.2-1.3); BLOOD UREA NITROGEN 9 mg/dL (9-20); CALCIUM 8.1 mg/dl (8.6-10.4); CARBON DIOXIDE 20 mmol/L (22-30); CHLORIDE 107 mmol/L (98-107); GFR AFRICAN-AMERICAN > 60; GLUCOSE,RANDOM 103 mg/dL (75-110); MAGNESIUM 2.1 mg/dL (1.6-2.3); PHOSPHOROUS 3.3 mg/dL (2.5-4.5); POTASSIUM 3.7 mmol/L (3.6-5.2); SODIUM 137 mmol/L (132-148); TOTAL PROTEIN 6.7 g/dL (6.3-8.3)
[2017-03-28] MEDS ORDERED: Pneumococcal 23-Valent Vaccine IM ONE (10:00)
--- NOTE | 2017-03-28 10:32 | CP.PCM.PN ---
Subjective - Date & Time of Evaluation Date of Evaluation: 03/28/17 Time of Evaluation: 10:15 - Subjective Subjective: Progress note dictated #[id number] Objective - Vital Signs/Intake and Output Vital Signs (last 24 hours): Temp Pulse Resp BP Pulse Ox 98.8 F 52 L 16 144/76 96 03/28/17 08:00 03/28/17 08:53 03/28/17 08:53 03/28/17 08:53 03/28/17 08:53 Intake and Output: 03/28/17 03/28/17 06:59 18:59 Intake Total 960 360 Output Total 900 300 Balance 60 60 - Medications Medications: Current Medications Folic Acid (Folic Acid) 1 mg PO DAILY [facility] Last Admin: 03/27/17 09:18 Dose: 1 mg Levetiracetam 500 mg/ Sodium (Chloride) 105 mls @ 420 mls/hr IVPB Q12H ALBERTO Last Admin: 03/28/17 00:51 Dose: 420 mls/hr Sodium Chloride (Hypertonic Saline 3%) 500 mls @ 25 mls/hr IV .Q20H ONE Stop: 03/29/17 05:59 Lorazepam (Ativan) 0.5 mg IVP Q6H PRN PRN Reason: Agitation Last Admin: 03/26/17 22:14 Dose: 0.5 mg Multivitamins (Hexavitamin) 1 tab PO DAILY [facility] Last Admin: 03/27/17 09:18 Dose: 1 tab Thiamine HCl (Vitamin B1 Tab) 100 mg PO DAILY [facility] Last Admin: 03/27/17 09:18 Dose: 100 mg - Labs Labs: 03/28/17 04:31 03/28/17 04:30 PT 11.7 SECONDS (9.7-12.2) 03/25/17 17:48 INR 1.0 03/25/17 17:48
[2017-03-28] MEDS: Multiple Vitamins Tab PO SCH (10:54)
--- NOTE | 2017-03-28 11:03 | CP.CCUPN ---
<Wong Francis - Last Filed: 03/28/17 16:14> CCU Subjective - Physician Review Subjective (Free Text): PGY1 ICU Progress Note for Dr. Art Patient seen and examined at bedside this morning. Patient is awake, alert and following commands appropriately. Patient denies any headaches and states he has no pain at this time. He states he has no complaints at this time. CCU Objective - Vital Signs / Intake & Output Vital Signs (Last 4 hours): Vital Signs Temp Pulse Resp BP Pulse Ox 03/28/17 10:49 56 L 13 143/60 03/28/17 10:00 62 14 96 03/28/17 09:00 59 L 18 97 03/28/17 08:53 52 L 16 144/76 96 03/28/17 08:00 98.8 F 48 L 12 97 03/28/17 07:53 54 L 12 155/78 H 97 Intake and Output (Last 8hrs): Intake & Output 03/27/17 03/28/17 03/28/17 22:59 06:59 14:59 Intake Total 1080 720 505 Output Total 300 900 300 Balance 780 -180 205 Weight 161 lb 9.6 oz Intake: Intake, IV Amount 320 320 145 left antecubital 320 320 145 Oral 760 400 360 Output: Urine 300 900 300 Urine, Voided 300 900 300 Stool 0 Other: # Voids Urine, Voided 1 # Bowel Movements 0 0 0 - Physical Exam Head: Positive for: Atraumatic, Normocephalic Pupils: Positive for: PERRL, Other (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 Negative for: Tenderness, Distention, Peritoneal Signs Neurological: Positive for: Motor Func Grossly Intact Psychiatric: Positive for: Alert. Negative for: Oriented x 3 (baseline) - Medications Active Medications: Active Medications Generic Name Dose Route Start Last Admin Trade Name Freq PRN Reason Stop Dose Admin Folic Acid 1 mg 03/26/17 10:00 03/28/17 10:54 Folic Acid PO 1 mg DAILY ALBERTO Administration Levetiracetam 500 mg/ Sodium 105 mls @ 420 mls/hr 03/26/17 01:00 03/28/17 00: 51 Chloride IVPB 420 mls/hr Q12H ALBERTO Administration Sodium Chloride 500 mls @ 25 mls/hr 03/28/17 10:00 Hypertonic Saline 3% IV 03/29/17 05:59 .Q20H ONE Lorazepam 0.5 mg 03/25/17 23:15 03/26/17 22:14 Ativan IVP 0.5 mg Q6H PRN Administration Agitation Multivitamins 1 tab 03/26/17 10:00 03/28/17 10:54 Hexavitamin PO 1 tab DAILY ALBERTO Administration Thiamine HCl 100 mg 03/26/17 10:00 03/28/17 10:54 Vitamin B1 Tab PO 100 mg DAILY ALBERTO Administration - Patient Studies Lab Studies: Microbiology Studies 03/25/17 06:00 MRSA Culture (Admit) - Final Naris MRSA NOT DETECTED 03/25/17 16:42 Urine Culture - Final Urine No Growth (<1,000 CFU/ML) Lab Studies 03/28/17 03/28/17 03/28/17 Range/Units 04:31 04:30 04:30 WBC 6.5 (4.8-10.8) K/uL RBC 4.30 L (4.40-5.90) Mil/uL Hgb 13.0 (12.0-18.0) g/dL Hct 39.2 (35.0-51.0) % MCV 91.0 (80.0-94.0) fL MCH 30.2 (27.0-31.0) pg MCHC 33.2 (33.0-37.0) g/dL RDW 14.0 (11.5-14.5) % Plt Count 229 (130-400) K/uL MPV 7.4 (7.2-11.7) fL Neut % (Auto) 69.5 (50.0-75.0) % Lymph % (Auto) 15.0 L (20.0-40.0) % [place] % (Auto) 9.1 (0.0-10.0) % Eos % (Auto) 5.9 H (0.0-4.0) % Baso % (Auto) 0.5 (0.0-2.0) % Neut # 4.5 (1.8-7.0) K/uL Lymph # 1.0 (1.0-4.3) K/uL [place] # 0.6 (0.0-0.8) K/uL Eos # 0.4 (0.0-0.7) K/uL Baso # 0.0 (0.0-0.2) K/uL Sodium 137 (132-148) mmol/L Potassium 3.7 (3.6-5.2) mmol/L Chloride 107 (98-107) mmol/L Carbon Dioxide 20 L (22-30) mmol/L Anion Gap 13 (10-20) BUN 9 (9-20) mg/dL Creatinine 0.6 L (0.8-1.5) mg/dL Est GFR ( Amer) > 60 Est GFR (Non-Af Amer) > 60 Random Glucose 103 (75-110) mg/dL Serum Osmolality 287 (272-300) mosm/kg Calcium 8.1 L (8.6-10.4) mg/dl Phosphorus 3.3 (2.5-4.5) mg/dL Magnesium 2.1 (1.6-2.3) mg/dL Total Bilirubin 1.3 (0.2-1.3) mg/dL AST 22 (17-59) U/L ALT 42 (21-72) U/L Alkaline Phosphatase 75 (38-126) U/L Total Protein 6.7 (6.3-8.3) g/dL Albumin 3.6 (3.5-5.0) g/dL Globulin 3.1 (2.2-3.9) gm/dL Albumin/Globulin Ratio 1.2 (1.0-2.1) 03/27/17 03/27/17 03/27/17 Range/Units 22:35 22:35 15:42 WBC (4.8-10.8) K/uL RBC (4.40-5.90) Mil/uL Hgb (12.0-18.0) g/dL Hct (35.0-51.0) % MCV (80.0-94.0) fL MCH (27.0-31.0) pg MCHC (33.0-37.0) g/dL RDW (11.5-14.5) % Plt Count (130-400) K/uL MPV (7.2-11.7) fL Neut % (Auto) (50.0-75.0) % Lymph % (Auto) (20.0-40.0) % [place] % (Auto) (0.0-10.0) % Eos % (Auto) (0.0-4.0) % Baso % (Auto) (0.0-2.0) % Neut # (1.8-7.0) K/uL Lymph # (1.0-4.3) K/uL [place] # (0.0-0.8) K/uL Eos # (0.0-0.7) K/uL Baso # (0.0-0.2) K/uL Sodium 135 (132-148) mmol/L Potassium 3.7 (3.6-5.2) mmol/L Chloride 106 (98-107) mmol/L Carbon Dioxide 24 (22-30) mmol/L Anion Gap 9 L (10-20) BUN 9 (9-20) mg/dL Creatinine 0.6 L (0.8-1.5) mg/dL Est GFR ( Amer) > 60 Est GFR (Non-Af Amer) > 60 Random Glucose 100 (75-110) mg/dL Serum Osmolality 288 289 (272-300) mosm/kg Calcium 8.2 L (8.6-10.4) mg/dl Phosphorus (2.5-4.5) mg/dL Magnesium (1.6-2.3) mg/dL Total Bilirubin (0.2-1.3) mg/dL AST (17-59) U/L ALT (21-72) U/L Alkaline Phosphatase (38-126) U/L Total Protein (6.3-8.3) g/dL Albumin (3.5-5.0) g/dL Globulin (2.2-3.9) gm/dL Albumin/Globulin Ratio (1.0-2.1) 03/27/17 Range/Units 15:42 WBC (4.8-10.8) K/uL RBC (4.40-5.90) Mil/uL Hgb (12.0-18.0) g/dL Hct (35.0-51.0) % MCV (80.0-94.0) fL MCH (27.0-31.0) pg MCHC (33.0-37.0) g/dL RDW (11.5-14.5) % Plt Count (130-400) K/uL MPV (7.2-11.7) fL Neut % (Auto) (50.0-75.0) % Lymph % (Auto) (20.0-40.0) % [place] % (Auto) (0.0-10.0) % Eos % (Auto) (0.0-4.0) % Baso % (Auto) (0.0-2.0) % Neut # (1.8-7.0) K/uL Lymph # (1.0-4.3) K/uL [place] # (0.0-0.8) K/uL Eos # (0.0-0.7) K/uL Baso # (0.0-0.2) K/uL Sodium 138 (132-148) mmol/L Potassium 3.6 (3.6-5.2) mmol/L Chloride 106 (98-107) mmol/L Carbon Dioxide 23 (22-30) mmol/L Anion Gap 13 (10-20) BUN 10 (9-20) mg/dL Creatinine 0.7 L (0.8-1.5) mg/dL Est GFR ( Amer) > 60 Est GFR (Non-Af Amer) > 60 Random Glucose 109 (75-110) mg/dL Serum Osmolality (272-300) mosm/kg Calcium 8.5 L (8.6-10.4) mg/dl Phosphorus (2.5-4.5) mg/dL Magnesium (1.6-2.3) mg/dL Total Bilirubin (0.2-1.3) mg/dL AST (17-59) U/L ALT (21-72) U/L Alkaline Phosphatase (38-126) U/L Total Protein (6.3-8.3) g/dL Albumin (3.5-5.0) g/dL Globulin (2.2-3.9) gm/dL Albumin/Globulin Ratio (1.0-2.1) Laboratory Results - last 24 hr 03/27/17 03/27/17 03/27/17 15:42 15:42 22:35 WBC RBC Hgb Hct MCV MCH MCHC RDW Plt Count MPV Neut % (Auto) Lymph % (Auto) [place] % (Auto) Eos % (Auto) Baso % (Auto) Neut # Lymph # Alger # Eos # Baso # Sodium 138 135 Potassium 3.6 3.7 Chloride 106 106 Carbon Dioxide 23 24 Anion Gap 13 9 L BUN 10 9 Creatinine 0.7 L 0.6 L Est GFR ( Amer) > 60 > 60 Est GFR (Non-Af Amer) > 60 > 60 Random Glucose 109 100 Serum Osmolality 289 Calcium 8.5 L 8.2 L Phosphorus Magnesium Total Bilirubin AST ALT Alkaline Phosphatase Total Protein Albumin Globulin Albumin/Globulin Ratio 03/27/17 03/28/17 03/28/17 22:35 04:30 04:30 WBC RBC Hgb Hct MCV MCH MCHC RDW Plt Count MPV Neut % (Auto) Lymph % (Auto) [place] % (Auto) Eos % (Auto) Baso % (Auto) Neut # Lymph # [place] # Eos # Baso # Sodium 137 Potassium 3.7 Chloride 107 Carbon Dioxide 20 L Anion Gap 13 BUN 9 Creatinine 0.6 L Est GFR ( Amer) > 60 Est GFR (Non-Af Amer) > 60 Random Glucose 103 Serum Osmolality 288 287 Calcium 8.1 L Phosphorus 3.3 Magnesium 2.1 Total Bilirubin 1.3 AST 22 ALT 42 Alkaline Phosphatase 75 Total Protein 6.7 Albumin 3.6 Globulin 3.1 Albumin/Globulin Ratio 1.2 03/28/17 04:31 WBC 6.5 RBC 4.30 L Hgb 13.0 Hct 39.2 MCV 91.0 MCH 30.2 MCHC 33.2 RDW 14.0 Plt Count 229 MPV 7.4 Neut % (Auto) 69.5 Lymph % (Auto) 15.0 L [place] % (Auto) 9.1 Eos % (Auto) 5.9 H Baso % (Auto) 0.5 Neut # 4.5 Lymph # 1.0 Alger # 0.6 Eos # 0.4 Baso # 0.0 Sodium Potassium Chloride Carbon Dioxide Anion Gap BUN Creatinine Est GFR ( Amer) Est GFR (Non-Af Amer) Random Glucose Serum Osmolality Calcium Phosphorus Magnesium Total Bilirubin AST ALT Alkaline Phosphatase Total Protein Albumin Globulin Albumin/Globulin Ratio Fingerstick Blood Sugar Results: 100 Review of Systems - Review of Systems All systems: reviewed and no additional remarkable complaints except (as per HPI ) Critical Care Progress Note - Nutrition Nutrition: Nutrition Category Date Time Status Soft [Dysphagia/Modified Consistency Diet] [DIET] Diets 03/27/17 Lunch Active Assessment/Plan - Assessment and Plan (Free Text) Assessment: Patient is a 71 year old male a past medical history of ETOH abuse, HTN, HLD, Depression, presenting with recent fall with rib fractures and AMS, found to have an intracranial hemorrhage. Plan: Neuro: Dr. Gilbert consulted, help appreciated Dr. Harmon consulted, help appreciated Head CT 03/27/17 - Multifocal intracranial hemorrhage including the large right frontal parenchymal hemorrhage and multifocal extra-axial hemorrhages as described. Decreasing density of extra-axial blood noted in the right frontoparietal convexity hematoma and in the posterior right temporal hematoma. A right occipital extra-axial hemorrhage remains hyperdense consistent with acute blood. Increased midline shift towards the left of approximately 19 mm. No evidence of downward herniation. Will continue to monitor Patient's neurological exam confounded with history of alcohol abuse/withdrawal - CIWA protocol - Ativan 0.5mg IVP q6h - Multivitamin/thiamine Keppra 500mg IVPB q12h f/u neuro recs - no surgical intervention at this time - goal Na 140-145, on Hypertonic Saline 3% @40mL/hr - decreased to 25mL/hr - Na 137 - can hypertonic saline be stopped? if so, patient can be transferred to telemetry GI: Swallow - soft/advanced bite size diet Prophylactic Care: DVT proph - SCDs, holding anticoagulation with current intracerebral bleed. GI proph - Protonix IV Case discussed with Dr. Rubens Calvillon PGY1 <Rene Art - Last Filed: 03/28/17 18:28> CCU Objective - Vital Signs / Intake & Output Vital Signs (Last 4 hours): Vital Signs Pulse Resp BP Pulse Ox 03/28/17 18:00 66 16 97 03/28/17 17:53 67 12 144/75 97 03/28/17 17:45 63 14 142/65 99 03/28/17 17:00 57 L 19 97 03/28/17 16:00 64 12 97 03/28/17 15:53 66 9 L 152/76 H 100 03/28/17 15:00 61 26 H 03/28/17 14:53 65 11 L 148/92 H 99 Intake and Output (Last 8hrs): Intake & Output 03/28/17 03/28/17 03/28/17 06:59 14:59 22:59 Intake Total 720 1030 580 Output Total 900 650 300 Balance -180 380 280 Weight 161 lb 9.6 oz Intake: Intake, IV Amount 320 230 100 Left Forearm 150 100 left antecubital 320 80 Oral 400 800 480 Output: Urine 900 650 300 Urine, Voided 900 650 300 Other: # Bowel Movements 0 0 - Medications Active Medications: Active Medications Generic Name Dose Route Start Last Admin Trade Name Freq PRN Reason Stop Dose Admin Folic Acid 1 mg 03/26/17 10:00 03/28/17 10:54 Folic Acid PO 1 mg DAILY ALBERTO Administration Levetiracetam 500 mg/ Sodium 105 mls @ 420 mls/hr 03/26/17 01:00 03/28/17 14: 37 Chloride IVPB 420 mls/hr Q12H ALBERTO Administration Sodium Chloride 500 mls @ 40 mls/hr 03/28/17 18:04 Hypertonic Saline 3% IV 03/28/17 22:29 .[id number] ONE Lorazepam 0.5 mg 03/25/17 23:15 03/26/17 22:14 Ativan IVP 0.5 mg Q6H PRN Administration Agitation Multivitamins 1 tab 03/26/17 10:00 03/28/17 10:54 Hexavitamin PO 1 tab DAILY ALBERTO Administration Thiamine HCl 100 mg 03/26/17 10:00 03/28/17 10:54 Vitamin B1 Tab PO 100 mg DAILY ALBERTO Administration - Patient Studies Lab Studies: Lab Studies 03/28/17 03/28/17 03/28/17 Range/Units 16:55 16:55 12:37 WBC (4.8-10.8) K/uL RBC (4.40-5.90) Mil/uL Hgb (12.0-18.0) g/dL Hct (35.0-51.0) % MCV (80.0-94.0) fL MCH (27.0-31.0) pg MCHC (33.0-37.0) g/dL RDW (11.5-14.5) % Plt Count (130-400) K/uL MPV (7.2-11.7) fL Neut % (Auto) (50.0-75.0) % Lymph % (Auto) (20.0-40.0) % [place] % (Auto) (0.0-10.0) % Eos % (Auto) (0.0-4.0) % Baso % (Auto) (0.0-2.0) % Neut # (1.8-7.0) K/uL Lymph # (1.0-4.3) K/uL [place] # (0.0-0.8) K/uL Eos # (0.0-0.7) K/uL Baso # (0.0-0.2) K/uL Sodium 137 (132-148) mmol/L Potassium 3.5 L (3.6-5.2) mmol/L Chloride 104 (98-107) mmol/L Carbon Dioxide 24 (22-30) mmol/L Anion Gap 12 (10-20) BUN 9 (9-20) mg/dL Creatinine 0.7 L (0.8-1.5) mg/dL Est GFR ( Amer) > 60 Est GFR (Non-Af Amer) > 60 Random Glucose 104 (75-110) mg/dL Serum Osmolality 288 280 (272-300) mosm/kg Calcium 8.0 L (8.6-10.4) mg/dl Phosphorus (2.5-4.5) mg/dL Magnesium (1.6-2.3) mg/dL Total Bilirubin (0.2-1.3) mg/dL AST (17-59) U/L ALT (21-72) U/L Alkaline Phosphatase (38-126) U/L Total Protein (6.3-8.3) g/dL Albumin (3.5-5.0) g/dL Globulin (2.2-3.9) gm/dL Albumin/Globulin Ratio (1.0-2.1) 03/28/17 03/28/17 03/28/17 Range/Units 12:37 04:31 04:30 WBC 6.5 (4.8-10.8) K/uL RBC 4.30 L (4.40-5.90) Mil/uL Hgb 13.0 (12.0-18.0) g/dL Hct 39.2 (35.0-51.0) % MCV 91.0 (80.0-94.0) fL MCH 30.2 (27.0-31.0) pg MCHC 33.2 (33.0-37.0) g/dL RDW 14.0 (11.5-14.5) % Plt Count 229 (130-400) K/uL MPV 7.4 (7.2-11.7) fL Neut % (Auto) 69.5 (50.0-75.0) % Lymph % (Auto) 15.0 L (20.0-40.0) % [place] % (Auto) 9.1 (0.0-10.0) % Eos % (Auto) 5.9 H (0.0-4.0) % Baso % (Auto) 0.5 (0.0-2.0) % Neut # 4.5 (1.8-7.0) K/uL Lymph # 1.0 (1.0-4.3) K/uL [place] # 0.6 (0.0-0.8) K/uL Eos # 0.4 (0.0-0.7) K/uL Baso # 0.0 (0.0-0.2) K/uL Sodium 135 (132-148) mmol/L Potassium 3.7 (3.6-5.2) mmol/L Chloride 105 (98-107) mmol/L Carbon Dioxide 22 (22-30) mmol/L Anion Gap 12 (10-20) BUN 9 (9-20) mg/dL Creatinine 0.7 L (0.8-1.5) mg/dL Est GFR ( Amer) > 60 Est GFR (Non-Af Amer) > 60 Random Glucose 101 (75-110) mg/dL Serum Osmolality 287 (272-300) mosm/kg Calcium 8.2 L (8.6-10.4) mg/dl Phosphorus (2.5-4.5) mg/dL Magnesium (1.6-2.3) mg/dL Total Bilirubin (0.2-1.3) mg/dL AST (17-59) U/L ALT (21-72) U/L Alkaline Phosphatase (38-126) U/L Total Protein (6.3-8.3) g/dL Albumin (3.5-5.0) g/dL Globulin (2.2-3.9) gm/dL Albumin/Globulin Ratio (1.0-2.1) 03/28/17 03/27/17 03/27/17 Range/Units 04:30 22:35 22:35 WBC (4.8-10.8) K/uL RBC (4.40-5.90) Mil/uL Hgb (12.0-18.0) g/dL Hct (35.0-51.0) % MCV (80.0-94.0) fL MCH (27.0-31.0) pg MCHC (33.0-37.0) g/dL RDW (11.5-14.5) % Plt Count (130-400) K/uL MPV (7.2-11.7) fL Neut % (Auto) (50.0-75.0) % Lymph % (Auto) (20.0-40.0) % [place] % (Auto) (0.0-10.0) % Eos % (Auto) (0.0-4.0) % Baso % (Auto) (0.0-2.0) % Neut # (1.8-7.0) K/uL Lymph # (1.0-4.3) K/uL [place] # (0.0-0.8) K/uL Eos # (0.0-0.7) K/uL Baso # (0.0-0.2) K/uL Sodium 137 135 (132-148) mmol/L Potassium 3.7 3.7 (3.6-5.2) mmol/L Chloride 107 106 (98-107) mmol/L Carbon Dioxide 20 L 24 (22-30) mmol/L Anion Gap 13 9 L (10-20) BUN 9 9 (9-20) mg/dL Creatinine 0.6 L 0.6 L (0.8-1.5) mg/dL Est GFR ( Amer) > 60 > 60 Est GFR (Non-Af Amer) > 60 > 60 Random Glucose 103 100 (75-110) mg/dL Serum Osmolality 288 (272-300) mosm/kg Calcium 8.1 L 8.2 L (8.6-10.4) mg/dl Phosphorus 3.3 (2.5-4.5) mg/dL Magnesium 2.1 (1.6-2.3) mg/dL Total Bilirubin 1.3 (0.2-1.3) mg/dL AST 22 (17-59) U/L ALT 42 (21-72) U/L Alkaline Phosphatase 75 (38-126) U/L Total Protein 6.7 (6.3-8.3) g/dL Albumin 3.6 (3.5-5.0) g/dL Globulin 3.1 (2.2-3.9) gm/dL Albumin/Globulin Ratio 1.2 (1.0-2.1) Laboratory Results - last 24 hr 03/27/17 03/27/17 03/28/17 22:35 22:35 04:30 WBC RBC Hgb Hct MCV MCH MCHC RDW Plt Count MPV Neut % (Auto) Lymph % (Auto) [place] % (Auto) Eos % (Auto) Baso % (Auto) Neut # Lymph # [place] # Eos # Baso # Sodium 135 137 Potassium 3.7 3.7 Chloride 106 107 Carbon Dioxide 24 20 L Anion Gap 9 L 13 BUN 9 9 Creatinine 0.6 L 0.6 L Est GFR ( Amer) > 60 > 60 Est GFR (Non-Af Amer) > 60 > 60 Random Glucose 100 103 Serum Osmolality 288 Calcium 8.2 L 8.1 L Phosphorus 3.3 Magnesium 2.1 Total Bilirubin 1.3 AST 22 ALT 42 Alkaline Phosphatase 75 Total Protein 6.7 Albumin 3.6 Globulin 3.1 Albumin/Globulin Ratio 1.2 03/28/17 03/28/17 03/28/17 04:30 04:31 12:37 WBC 6.5 RBC 4.30 L Hgb 13.0 Hct 39.2 MCV 91.0 MCH 30.2 MCHC 33.2 RDW 14.0 Plt Count 229 MPV 7.4 Neut % (Auto) 69.5 Lymph % (Auto) 15.0 L [place] % (Auto) 9.1 Eos % (Auto) 5.9 H Baso % (Auto) 0.5 Neut # 4.5 Lymph # 1.0 [place] # 0.6 Eos # 0.4 Baso # 0.0 Sodium 135 Potassium 3.7 Chloride 105 Carbon Dioxide 22 Anion Gap 12 BUN 9 Creatinine 0.7 L Est GFR ( Amer) > 60 Est GFR (Non-Af Amer) > 60 Random Glucose 101 Serum Osmolality 287 Calcium 8.2 L Phosphorus Magnesium Total Bilirubin AST ALT Alkaline Phosphatase Total Protein Albumin Globulin Albumin/Globulin Ratio 03/28/17 03/28/17 03/28/17 12:37 16:55 16:55 WBC RBC Hgb Hct MCV MCH MCHC RDW Plt Count MPV Neut % (Auto) Lymph % (Auto) [place] % (Auto) Eos % (Auto) Baso % (Auto) Neut # Lymph # [place] # Eos # Baso # Sodium 137 Potassium 3.5 L Chloride 104 Carbon Dioxide 24 Anion Gap 12 BUN 9 Creatinine 0.7 L Est GFR ( Amer) > 60 Est GFR (Non-Af Amer) > 60 Random Glucose 104 Serum Osmolality 280 288 Calcium 8.0 L Phosphorus Magnesium Total Bilirubin AST ALT Alkaline Phosphatase Total Protein Albumin Globulin Albumin/Globulin Ratio Critical Care Progress Note - Nutrition Nutrition: Nutrition Category Date Time Status Soft [Dysphagia/Modified Consistency Diet] [DIET] Diets 03/27/17 Lunch Active Attending/Attestation - Attestation I have personally seen and examined this patient.: Yes I have fully participated in the care of the patient.: Yes I have reviewed all pertinent clinical information: Yes Notes (Text): 03/28/17 18:26 patient seen and examinedin the intensive care unit.Case discussed with house staff in the morning. Continue 3% sodium chloride Repeat CAT scan of the head Clinically improving Case discussed with neurology
[2017-03-28 13:04] LABS: BLOOD UREA NITROGEN 9 mg/dL (9-20); CALCIUM 8.2 mg/dl (8.6-10.4); CARBON DIOXIDE 22 mmol/L (22-30); CHLORIDE 105 mmol/L (98-107); GFR AFRICAN-AMERICAN > 60; GLUCOSE,RANDOM 101 mg/dL (75-110); POTASSIUM 3.7 mmol/L (3.6-5.2); SODIUM 135 mmol/L (132-148)
[2017-03-28 17:13] LABS: BLOOD UREA NITROGEN 9 mg/dL (9-20); CARBON DIOXIDE 24 mmol/L (22-30); CHLORIDE 104 mmol/L (98-107); GFR AFRICAN-AMERICAN > 60; GLUCOSE,RANDOM 104 mg/dL (75-110); POTASSIUM 3.5 mmol/L (3.6-5.2); SODIUM 137 mmol/L (132-148)
[2017-03-28] MEDS ORDERED: Potassium Chloride 20 mEq ER Tab PO ONE ×2 (17:30→17:35)
--- NOTE | 2017-03-28 19:08 | CP.PCM.PN ---
Subjective - Date & Time of Evaluation Date of Evaluation: 03/28/17 Time of Evaluation: 17:00 - Subjective Subjective: Mr. Cabral was seen and examined today in the ICU. He was sitting up in his chair and found in NAD. There were no acute events overnight. Objective - Vital Signs/Intake and Output Vital Signs (last 24 hours): Temp Pulse Resp BP Pulse Ox 98.8 F 66 16 144/75 97 03/28/17 08:00 03/28/17 18:00 03/28/17 18:00 03/28/17 17:53 03/28/17 18:00 Intake and Output: 03/28/17 03/29/17 18:59 06:59 Intake Total 1610 Output Total 950 Balance 660 - Medications Medications: Current Medications Folic Acid (Folic Acid) 1 mg PO DAILY [facility] Last Admin: 03/28/17 10:54 Dose: 1 mg Levetiracetam 500 mg/ Sodium (Chloride) 105 mls @ 420 mls/hr IVPB Q12H [facility] Last Admin: 03/28/17 14:37 Dose: 420 mls/hr Sodium Chloride (Hypertonic Saline 3%) 500 mls @ 40 mls/hr IV .[id number] ONE Stop: 03/28/17 22:29 Lorazepam (Ativan) 0.5 mg IVP Q6H PRN PRN Reason: Agitation Last Admin: 03/26/17 22:14 Dose: 0.5 mg Multivitamins (Hexavitamin) 1 tab PO DAILY [facility] Last Admin: 03/28/17 10:54 Dose: 1 tab Thiamine HCl (Vitamin B1 Tab) 100 mg PO DAILY [facility] Last Admin: 03/28/17 10:54 Dose: 100 mg - Labs Labs: 03/28/17 04:31 03/28/17 16:55 PT 11.7 SECONDS (9.7-12.2) 03/25/17 17:48 INR 1.0 03/25/17 17:48 - Neurological Exam Additional comments: Neurologically unchanged compared with previous examination. Seems slightly less agitated. Assessment and Plan (1) Intraparenchymal hematoma of brain Assessment & Plan: Continue hypertonic saline and titrate to serum sodium of 140-145. Repeat CT head in the morning. Keep head of bed elevated above 45 degrees and control BP. Avoid dextrose containing fluids, hyperthermia, or hypertension. Status: Acute
--- NOTE | 2017-03-28 19:09 | PCM.PROC ---
Procedures Attestation:: I certify that I have explained the specified Operation(s) or Procedure(s), risks, benefits and reasonable alternatives to the Patient and/or other person responsible. The opportunity was given to ask questions and all questions answered - Central Line Placement Right Internal Jugular Triple Lumen Catheter Aseptic technique was employed throughout the procedure: Hand Hygiene done prior to procedure, Full sterile barriers (mask, hair cover, sterile gown, sterile gloves), Full body sterile drape, Chloraprep Antiseptic: 30 second prep for IJ or SC sites CVP Time Out Performed: Yes Pt. Placed on Pulse Ox Monitor: Yes Central Line Prep: Chlorhexidine-Alcohol Combination Local Anesthesia Used: Lidocaine 1% Amount of Anesthesia Used (mls): 5 Ultrasound Used for Placement: Yes Central Line Lumen Inserted: triple Central Line Length: 16 cm Post Procedure: Sutured in Place, Good Blood Return, All Ports Aspirated, Flushed, Capped, Sterile Dressing Applied Secured by: Suture Post procedure dressing: Clear vapor permeable, Chlorhexidine disc (Biopatch) Post Procedure X-Ray: Yes Patient Tolerated Procedure: Well Immediate Complications: Arterial Puncture/Cannulation (puncture. pressure held. bleeding stopped.)
[2017-03-28 23:02] LABS: BLOOD UREA NITROGEN 9 mg/dL (9-20); CALCIUM 7.5 mg/dl (8.6-10.4); CARBON DIOXIDE 22 mmol/L (22-30); CHLORIDE 105 mmol/L (98-107); GFR AFRICAN-AMERICAN > 60; GLUCOSE,RANDOM 106 mg/dL (75-110); POTASSIUM 3.7 mmol/L (3.6-5.2); SODIUM 136 mmol/L (132-148)
--- NOTE | 2017-03-28 23:08 | PN ---
DATE: 03/28/2017 SUBJECTIVE: The patient was seen and examined at bedside. The patient's mental status is slightly better than yesterday, but still confused at times. Denies any other complaints other than headache. PHYSICAL EXAMINATION: GENERAL: Elderly male, sitting in chair, in no acute distress. VITAL SIGNS: Blood pressure 149/59, pulse 58, respirations 20, temperature 98.4 degrees Fahrenheit, O2 sats 96% on room air. HEENT: Pupils, left eye blind, right eye pupil reacting to light and accommodation. No icterus. No pallor. No oral thrush. No pharyngeal congestion. NECK: Supple. No JVD. LUNGS: Bilateral vesicular breath sounds. No wheezing. No rhonchi. CARDIOVASCULAR SYSTEM: S1 and S2 present, regular. ABDOMEN: Soft, nontender. Bowel sounds present. No guarding. No rigidity. No rebound tenderness noted. CENTRAL NERVOUS SYSTEM: Alert, awake, oriented x3. No focal deficits noted. EXTREMITIES: No edema. Palpable peripheral pulses. LABORATORY DATA: Labs from this morning: WBC 6.5, hemoglobin 13, hematocrit 39.2, platelets 229. Sodium 137, potassium 3.5, chloride 104, bicarb 24, BUN 9, creatinine 0.7, glucose 104, calcium 8.0. LFTs within normal limits. MEDICATIONS: Include folic acid, thiamine 100 mg daily, multivitamin 1 tab daily, Ativan 0.5 mg IV push q. 6 p.r.n., Keppra 500 mg IV q. 12 hours. ASSESSMENT AND PLAN: Elderly male with history of ethyl alcohol abuse, hypertension, hyperlipidemia, history of multiple falls, admitted for intracerebral hemorrhage and subdural hematoma with vasogenic edema with altered mental status. Neurology recommended hypertonic saline, which was discontinued later today. On Keppra for prophylactic doses. Continue with thiamine, folic acid and multivitamin, Ativan as needed. We will repeat CT in the morning. Discussed with the patient's family, the patient's brother and nephew at bedside. Clarified all their questions and concerns. We will add further recommendation as his clinical course progresses. Afia Chirinos MD
[2017-03-29] MEDS: levETIRAcetam 500 MG in Sodium Chloride 0.9% 100 ML IVPB SCH ×2 (00:56→14:11)
[2017-03-29 06:24] LABS: BASO % 0.4 % (0.0-2.0); EOS # 0.4 K/uL (0.0-0.7); EOS % 5.4 % (0.0-4.0); HEMATOCRIT 38.6 % (35.0-51.0); LYMPH # 0.8 K/uL (1.0-4.3); LYMPH % 12.2 % (20.0-40.0); MEAN CELL VOLUME 91.3 fL (80.0-94.0); MEAN CORPUSCULAR HEMOGLOBIN 30.6 pg (27.0-31.0); MEAN CORPUSCULAR HGB CONC 33.5 g/dL (33.0-37.0); MONO # 0.6 K/uL (0.0-0.8); MONO % 8.7 % (0.0-10.0); NRBC % 0.1 % (0.0-2.0); RED CELL DISTRIBUTION WIDTH 13.7 % (11.5-14.5); WHITE BLOOD COUNT 6.8 K/uL (4.8-10.8)
[2017-03-29 06:31] LABS: BLOOD UREA NITROGEN 7 mg/dL (9-20); CALCIUM 8.1 mg/dl (8.6-10.4); CARBON DIOXIDE 25 mmol/L (22-30); CHLORIDE 106 mmol/L (98-107); GFR AFRICAN-AMERICAN > 60; GLUCOSE,RANDOM 95 mg/dL (75-110); MAGNESIUM 2.1 mg/dL (1.6-2.3); PHOSPHOROUS 3.3 mg/dL (2.5-4.5); POTASSIUM 3.7 mmol/L (3.6-5.2); SODIUM 136 mmol/L (132-148)
[2017-03-29] MEDS ORDERED: Sodium Chloride 3% 500 ML IV ONE ×3 (07:15→18:00)
--- NOTE | 2017-03-29 07:39 | RAD ---
HISTORY: sp tlc insertion COMPARISON: Chest radiographs 03/25/2017. FINDINGS: LUNGS: No active pulmonary disease, although inspiratory volume appears somewhat diminished. Right center venous lines in place by an apparent right internal jugular approach the center in the region of the right atrium. . PLEURA: No significant pleural effusion identified, no pneumothorax apparent. CARDIOVASCULAR: Cardiac silhouette appears stable. No pulmonary vascular derangement identified. OSSEOUS STRUCTURES: Old healed right rib fractures again evident. VISUALIZED UPPER ABDOMEN: Normal. OTHER FINDINGS: None. IMPRESSION: Status post right center venous catheter placement as per above. No pneumothorax bilaterally. Diminished inspiratory volume. No pneumothorax or infiltrate bilaterally.
[2017-03-29] MEDS: Multiple Vitamins Tab PO SCH (09:11)
--- NOTE | 2017-03-29 10:05 | CP.CCUPN ---
<Wong Francis - Last Filed: 03/29/17 10:03> CCU Subjective - Physician Review Subjective (Free Text): PGY1 ICU Progress Note for Dr. Art Patient seen and examined at bedside this morning. Patient is awake, alert but is more confused today. Patient complains of a headache but denies any other complaints at this time. He appears to be moving and speaking slower compared to yesterday. CCU Objective - Vital Signs / Intake & Output Vital Signs (Last 4 hours): Vital Signs Temp Pulse Resp BP Pulse Ox 03/29/17 09:43 59 L 16 145/75 03/29/17 09:00 57 L 15 98 03/29/17 08:00 97.9 F 52 L 14 98 03/29/17 07:53 51 L 13 166/46 H 96 03/29/17 07:00 50 L 14 89 L 03/29/17 06:53 47 L 15 141/62 89 L Intake and Output (Last 8hrs): Intake & Output 03/28/17 03/29/17 03/29/17 22:59 06:59 14:59 Intake Total 725 420 500 Output Total 550 1200 Balance 175 -780 500 Weight 165 lb 6.4 oz Intake: Intake, IV Amount 245 420 140 Left Forearm 125 Right Distal Port 0 100 Internal Jugular Right Medial Port 120 320 140 Internal Jugular Right Proximal Port 0 Internal Jugular Oral 480 0 360 Output: Urine 550 1200 Urine, Voided 550 1200 Other: # Voids Urine, Voided 1 1 - Physical Exam Head: Positive for: Atraumatic, Normocephalic Pupils: Positive for: PERRL, Other (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 Negative for: Respiratory Distress, Accessory Muscle Use Cardiovascular: Positive for: Regular Rate and Rhythm Abdomen: Positive for: Normal Bowel Sounds. Negative for: Tenderness, Distention, Peritoneal Signs Lower Extremity: Positive for: Other (SCDs in place.) Neurological: Positive for: Motor Func Grossly Intact Psychiatric: Positive for: Alert. Negative for: Oriented x 3 (What is date? "4 " What month is it? "4" Where are you? "here. i don't know" ) - Medications Active Medications: Active Medications Generic Name Dose Route Start Last Admin Trade Name Sonia PRN Reason Stop Dose Admin Folic Acid 1 mg 03/26/17 10:00 03/29/17 09:11 Folic Acid PO 1 mg DAILY ALBERTO Administration Levetiracetam 500 mg/ Sodium 105 mls @ 420 mls/hr 03/26/17 01:00 03/29/17 00: 56 Chloride IVPB 420 mls/hr Q12H ALBERTO Administration Sodium Chloride 500 mls @ 50 mls/hr 03/29/17 07:45 Hypertonic Saline 3% IV 03/29/17 17:14 .Q10H ONE Lorazepam 0.5 mg 03/25/17 23:15 03/26/17 22:14 Ativan IVP 0.5 mg Q6H PRN Administration Agitation Multivitamins 1 tab 03/26/17 10:00 03/29/17 09:11 Hexavitamin PO 1 tab DAILY ALBERTO Administration Thiamine HCl 100 mg 03/26/17 10:00 03/29/17 09:11 Vitamin B1 Tab PO 100 mg DAILY ALBERTO Administration - Patient Studies Lab Studies: Lab Studies 03/29/17 03/29/17 03/29/17 Range/Units 06:07 06:07 06:07 WBC 6.8 (4.8-10.8) K/uL RBC 4.22 L (4.40-5.90) Mil/uL Hgb 12.9 (12.0-18.0) g/dL Hct 38.6 (35.0-51.0) % MCV 91.3 (80.0-94.0) fL MCH 30.6 (27.0-31.0) pg MCHC 33.5 (33.0-37.0) g/dL RDW 13.7 (11.5-14.5) % Plt Count 236 (130-400) K/uL MPV 8.0 (7.2-11.7) fL Neut % (Auto) 73.3 (50.0-75.0) % Lymph % (Auto) 12.2 L (20.0-40.0) % [place] % (Auto) 8.7 (0.0-10.0) % Eos % (Auto) 5.4 H (0.0-4.0) % Baso % (Auto) 0.4 (0.0-2.0) % Neut # 5.0 (1.8-7.0) K/uL Lymph # 0.8 L (1.0-4.3) K/uL [place] # 0.6 (0.0-0.8) K/uL Eos # 0.4 (0.0-0.7) K/uL Baso # 0.0 (0.0-0.2) K/uL Sodium 136 (132-148) mmol/L Potassium 3.7 (3.6-5.2) mmol/L Chloride 106 (98-107) mmol/L Carbon Dioxide 25 (22-30) mmol/L Anion Gap 10 (10-20) BUN 7 L (9-20) mg/dL Creatinine 0.7 L (0.8-1.5) mg/dL Est GFR ( Amer) > 60 Est GFR (Non-Af Amer) > 60 Random Glucose 95 (75-110) mg/dL Serum Osmolality 281 (272-300) mosm/kg Calcium 8.1 L (8.6-10.4) mg/dl Phosphorus 3.3 (2.5-4.5) mg/dL Magnesium 2.1 (1.6-2.3) mg/dL 03/28/17 03/28/17 03/28/17 Range/Units 22:47 22:47 16:55 WBC (4.8-10.8) K/uL RBC (4.40-5.90) Mil/uL Hgb (12.0-18.0) g/dL Hct (35.0-51.0) % MCV (80.0-94.0) fL MCH (27.0-31.0) pg MCHC (33.0-37.0) g/dL RDW (11.5-14.5) % Plt Count (130-400) K/uL MPV (7.2-11.7) fL Neut % (Auto) (50.0-75.0) % Lymph % (Auto) (20.0-40.0) % [place] % (Auto) (0.0-10.0) % Eos % (Auto) (0.0-4.0) % Baso % (Auto) (0.0-2.0) % Neut # (1.8-7.0) K/uL Lymph # (1.0-4.3) K/uL [place] # (0.0-0.8) K/uL Eos # (0.0-0.7) K/uL Baso # (0.0-0.2) K/uL Sodium 136 (132-148) mmol/L Potassium 3.7 (3.6-5.2) mmol/L Chloride 105 (98-107) mmol/L Carbon Dioxide 22 (22-30) mmol/L Anion Gap 12 (10-20) BUN 9 (9-20) mg/dL Creatinine 0.8 (0.8-1.5) mg/dL Est GFR ( Amer) > 60 Est GFR (Non-Af Amer) > 60 Random Glucose 106 (75-110) mg/dL Serum Osmolality 288 288 (272-300) mosm/kg Calcium 7.5 L (8.6-10.4) mg/dl Phosphorus (2.5-4.5) mg/dL Magnesium (1.6-2.3) mg/dL 03/28/17 03/28/17 03/28/17 Range/Units 16:55 12:37 12:37 WBC (4.8-10.8) K/uL RBC (4.40-5.90) Mil/uL Hgb (12.0-18.0) g/dL Hct (35.0-51.0) % MCV (80.0-94.0) fL MCH (27.0-31.0) pg MCHC (33.0-37.0) g/dL RDW (11.5-14.5) % Plt Count (130-400) K/uL MPV (7.2-11.7) fL Neut % (Auto) (50.0-75.0) % Lymph % (Auto) (20.0-40.0) % [place] % (Auto) (0.0-10.0) % Eos % (Auto) (0.0-4.0) % Baso % (Auto) (0.0-2.0) % Neut # (1.8-7.0) K/uL Lymph # (1.0-4.3) K/uL [place] # (0.0-0.8) K/uL Eos # (0.0-0.7) K/uL Baso # (0.0-0.2) K/uL Sodium 137 135 (132-148) mmol/L Potassium 3.5 L 3.7 (3.6-5.2) mmol/L Chloride 104 105 (98-107) mmol/L Carbon Dioxide 24 22 (22-30) mmol/L Anion Gap 12 12 (10-20) BUN 9 9 (9-20) mg/dL Creatinine 0.7 L 0.7 L (0.8-1.5) mg/dL Est GFR ( Amer) > 60 > 60 Est GFR (Non-Af Amer) > 60 > 60 Random Glucose 104 101 (75-110) mg/dL Serum Osmolality 280 (272-300) mosm/kg Calcium 8.0 L 8.2 L (8.6-10.4) mg/dl Phosphorus (2.5-4.5) mg/dL Magnesium (1.6-2.3) mg/dL Laboratory Results - last 24 hr 03/28/17 03/28/17 03/28/17 12:37 12:37 16:55 WBC RBC Hgb Hct MCV MCH MCHC RDW Plt Count MPV Neut % (Auto) Lymph % (Auto) [place] % (Auto) Eos % (Auto) Baso % (Auto) Neut # Lymph # [place] # Eos # Baso # Sodium 135 137 Potassium 3.7 3.5 L Chloride 105 104 Carbon Dioxide 22 24 Anion Gap 12 12 BUN 9 9 Creatinine 0.7 L 0.7 L Est GFR ( Amer) > 60 > 60 Est GFR (Non-Af Amer) > 60 > 60 Random Glucose 101 104 Serum Osmolality 280 Calcium 8.2 L 8.0 L Phosphorus Magnesium 03/28/17 03/28/17 03/28/17 16:55 22:47 22:47 WBC RBC Hgb Hct MCV MCH MCHC RDW Plt Count MPV Neut % (Auto) Lymph % (Auto) [place] % (Auto) Eos % (Auto) Baso % (Auto) Neut # Lymph # [place] # Eos # Baso # Sodium 136 Potassium 3.7 Chloride 105 Carbon Dioxide 22 Anion Gap 12 BUN 9 Creatinine 0.8 Est GFR ( Amer) > 60 Est GFR (Non-Af Amer) > 60 Random Glucose 106 Serum Osmolality 288 288 Calcium 7.5 L Phosphorus Magnesium 03/29/17 03/29/17 03/29/17 06:07 06:07 06:07 WBC 6.8 RBC 4.22 L Hgb 12.9 Hct 38.6 MCV 91.3 MCH 30.6 MCHC 33.5 RDW 13.7 Plt Count 236 MPV 8.0 Neut % (Auto) 73.3 Lymph % (Auto) 12.2 L [place] % (Auto) 8.7 Eos % (Auto) 5.4 H Baso % (Auto) 0.4 Neut # 5.0 Lymph # 0.8 L [place] # 0.6 Eos # 0.4 Baso # 0.0 Sodium 136 Potassium 3.7 Chloride 106 Carbon Dioxide 25 Anion Gap 10 BUN 7 L Creatinine 0.7 L Est GFR ( Amer) > 60 Est GFR (Non-Af Amer) > 60 Random Glucose 95 Serum Osmolality 281 Calcium 8.1 L Phosphorus 3.3 Magnesium 2.1 Fingerstick Blood Sugar Results: 100 Review of Systems - Review of Systems Systems not reviewed;Unavailable: Altered Mental Status (appears more confused than yesterday. denies any pain or symptoms at this time except a headache.) Critical Care Progress Note - Nutrition Nutrition: Nutrition Category Date Time Status Soft [Dysphagia/Modified Consistency Diet] [DIET] Diets 03/27/17 Lunch Active Assessment/Plan - Assessment and Plan (Free Text) Assessment: Patient is a 71 year old male a past medical history of ETOH abuse, HTN, HLD, Depression, presenting with recent fall with rib fractures and AMS, found to have an intracranial hemorrhage. Plan: Neuro: Dr. Gilbert consulted, help appreciated Dr. Harmon consulted, help appreciated Head CT 03/27/17 - Multifocal intracranial hemorrhage including the large right frontal parenchymal hemorrhage and multifocal extra-axial hemorrhages as described. Decreasing density of extra-axial blood noted in the right frontoparietal convexity hematoma and in the posterior right temporal hematoma. A right occipital extra-axial hemorrhage remains hyperdense consistent with acute blood. Increased midline shift towards the left of approximately 19 mm. No evidence of downward herniation. Repeat CT 03/29/17 - Large right frontal parenchymal hemorrhage with extensive surrounding edema and large midline shift towards the left. Decreasing size of right posterior occipital biconvex hemorrhage. There is focal parenchymal edema deep to what was previously identified as a small right posterior temporal biconvex extra-axial acute hemorrhage. Complete effacement of right lateral ventricle with mild ventricular trapping and dilatation of the left lateral ventricle, unchanged in extent compared to 03/27/2017. Increasing size of right convexity subdural hemorrhage, decreased in attenuation. This now measures 11 mm in width. Will continue to monitor Patient's neurological exam confounded with history of alcohol abuse/withdrawal - [facility] protocol - Ativan 0.5mg IVP q6h - Multivitamin/thiamine/folic acid Keppra 500mg IVPB q12h f/u neuro recs - no surgical intervention at this time - goal Na 140-145, monitor with BMP q6h - serum osmol, <320 monitor with serum osmol q6h - keep head of bed above 45 degrees - Avoid dextrose containing fluids, hyperthermia or hypertension Hypertonic Saline 3% @40mL/hr - increased to 50mL/hr GI: Swallow - soft/advanced bite size diet Prophylactic Care: DVT proph - SCDs, holding anticoagulation with current intracerebral bleed. GI proph - Protonix IV Case discussed with Dr. Rubens Calvillon PGY1 <Rene Art S - Last Filed: 03/29/17 18:40> CCU Objective - Vital Signs / Intake & Output Vital Signs (Last 4 hours): Vital Signs Temp Pulse Resp BP Pulse Ox 03/29/17 17:53 77 19 146/92 H 89 L 03/29/17 17:00 79 17 92 L 03/29/17 16:53 59 L 15 113/63 93 L 03/29/17 16:00 98.1 F 64 10 L 94 L 03/29/17 15:54 58 L 15 127/65 90 L 03/29/17 15:00 55 L 17 95 03/29/17 14:53 55 L 17 155/81 H 92 L Intake and Output (Last 8hrs): Intake & Output 03/29/17 03/29/17 03/29/17 06:59 14:59 22:59 Intake Total 420 1170 300 Output Total 1200 900 Balance -780 270 300 Weight 165 lb 6.4 oz Intake: Intake, IV Amount 420 690 300 Right Distal Port 100 300 100 Internal Jugular Right Medial Port 320 390 200 Internal Jugular Oral 0 480 Output: Urine 1200 900 Urine, Voided 1200 900 Other: # Voids Urine, Voided 1 - Medications Active Medications: Active Medications Generic Name Dose Route Start Last Admin Trade Name Sonia PRN Reason Stop Dose Admin Folic Acid 1 mg 03/26/17 10:00 03/29/17 09:11 Folic Acid PO 1 mg DAILY ALBERTO Administration Levetiracetam 500 mg/ Sodium 105 mls @ 420 mls/hr 03/26/17 01:00 03/29/17 14: 11 Chloride IVPB 420 mls/hr Q12H ALBERTO Administration Sodium Chloride 500 mls @ 50 mls/hr 03/29/17 18:00 Hypertonic Saline 3% IV 03/30/17 03:59 .Q10H ONE Lorazepam 0.5 mg 03/25/17 23:15 03/26/17 22:14 Ativan IVP 0.5 mg Q6H PRN Administration Agitation Multivitamins 1 tab 03/26/17 10:00 03/29/17 09:11 Hexavitamin PO 1 tab DAILY ALBERTO Administration Sodium Chloride 1 gm 03/29/17 13:00 03/29/17 14:10 Sodium Chloride Tab PO 1 gm DAILY ALBERTO Administration Thiamine HCl 100 mg 03/26/17 10:00 03/29/17 09:11 Vitamin B1 Tab PO 100 mg DAILY ALBERTO Administration - Patient Studies Lab Studies: Lab Studies 03/29/17 03/29/17 03/29/17 Range/Units 16:24 16:24 10:41 WBC (4.8-10.8) K/uL RBC (4.40-5.90) Mil/uL Hgb (12.0-18.0) g/dL Hct (35.0-51.0) % MCV (80.0-94.0) fL MCH (27.0-31.0) pg MCHC (33.0-37.0) g/dL RDW (11.5-14.5) % Plt Count (130-400) K/uL MPV (7.2-11.7) fL Neut % (Auto) (50.0-75.0) % Lymph % (Auto) (20.0-40.0) % [place] % (Auto) (0.0-10.0) % Eos % (Auto) (0.0-4.0) % Baso % (Auto) (0.0-2.0) % Neut # (1.8-7.0) K/uL Lymph # (1.0-4.3) K/uL [place] # (0.0-0.8) K/uL Eos # (0.0-0.7) K/uL Baso # (0.0-0.2) K/uL Sodium 135 (132-148) mmol/L Potassium 4.1 (3.6-5.2) mmol/L Chloride 106 (98-107) mmol/L Carbon Dioxide 21 L (22-30) mmol/L Anion Gap 13 (10-20) BUN 7 L (9-20) mg/dL Creatinine 0.7 L (0.8-1.5) mg/dL Est GFR ( Amer) > 60 Est GFR (Non-Af Amer) > 60 Random Glucose 128 H (75-110) mg/dL Serum Osmolality 285 283 (272-300) mosm/kg Calcium 7.9 L (8.6-10.4) mg/dl Phosphorus (2.5-4.5) mg/dL Magnesium (1.6-2.3) mg/dL 03/29/17 03/29/17 03/29/17 Range/Units 10:41 06:07 06:07 WBC 6.8 (4.8-10.8) K/uL RBC 4.22 L (4.40-5.90) Mil/uL Hgb 12.9 (12.0-18.0) g/dL Hct 38.6 (35.0-51.0) % MCV 91.3 (80.0-94.0) fL MCH 30.6 (27.0-31.0) pg MCHC 33.5 (33.0-37.0) g/dL RDW 13.7 (11.5-14.5) % Plt Count 236 (130-400) K/uL MPV 8.0 (7.2-11.7) fL Neut % (Auto) 73.3 (50.0-75.0) % Lymph % (Auto) 12.2 L (20.0-40.0) % [place] % (Auto) 8.7 (0.0-10.0) % Eos % (Auto) 5.4 H (0.0-4.0) % Baso % (Auto) 0.4 (0.0-2.0) % Neut # 5.0 (1.8-7.0) K/uL Lymph # 0.8 L (1.0-4.3) K/uL [place] # 0.6 (0.0-0.8) K/uL Eos # 0.4 (0.0-0.7) K/uL Baso # 0.0 (0.0-0.2) K/uL Sodium 136 (132-148) mmol/L Potassium 3.8 (3.6-5.2) mmol/L Chloride 105 (98-107) mmol/L Carbon Dioxide 23 (22-30) mmol/L Anion Gap 12 (10-20) BUN 6 L (9-20) mg/dL Creatinine 0.7 L (0.8-1.5) mg/dL Est GFR ( Amer) > 60 Est GFR (Non-Af Amer) > 60 Random Glucose 111 H (75-110) mg/dL Serum Osmolality 281 (272-300) mosm/kg Calcium 8.2 L (8.6-10.4) mg/dl Phosphorus (2.5-4.5) mg/dL Magnesium (1.6-2.3) mg/dL 03/29/17 03/28/17 03/28/17 Range/Units 06:07 22:47 22:47 WBC (4.8-10.8) K/uL RBC (4.40-5.90) Mil/uL Hgb (12.0-18.0) g/dL Hct (35.0-51.0) % MCV (80.0-94.0) fL MCH (27.0-31.0) pg MCHC (33.0-37.0) g/dL RDW (11.5-14.5) % Plt Count (130-400) K/uL MPV (7.2-11.7) fL Neut % (Auto) (50.0-75.0) % Lymph % (Auto) (20.0-40.0) % [place] % (Auto) (0.0-10.0) % Eos % (Auto) (0.0-4.0) % Baso % (Auto) (0.0-2.0) % Neut # (1.8-7.0) K/uL Lymph # (1.0-4.3) K/uL [place] # (0.0-0.8) K/uL Eos # (0.0-0.7) K/uL Baso # (0.0-0.2) K/uL Sodium 136 136 (132-148) mmol/L Potassium 3.7 3.7 (3.6-5.2) mmol/L Chloride 106 105 (98-107) mmol/L Carbon Dioxide 25 22 (22-30) mmol/L Anion Gap 10 12 (10-20) BUN 7 L 9 (9-20) mg/dL Creatinine 0.7 L 0.8 (0.8-1.5) mg/dL Est GFR ( Amer) > 60 > 60 Est GFR (Non-Af Amer) > 60 > 60 Random Glucose 95 106 (75-110) mg/dL Serum Osmolality 288 (272-300) mosm/kg Calcium 8.1 L 7.5 L (8.6-10.4) mg/dl Phosphorus 3.3 (2.5-4.5) mg/dL Magnesium 2.1 (1.6-2.3) mg/dL Laboratory Results - last 24 hr 03/28/17 03/28/17 03/29/17 22:47 22:47 06:07 WBC RBC Hgb Hct MCV MCH MCHC RDW Plt Count MPV Neut % (Auto) Lymph % (Auto) [place] % (Auto) Eos % (Auto) Baso % (Auto) Neut # Lymph # [place] # Eos # Baso # Sodium 136 136 Potassium 3.7 3.7 Chloride 105 106 Carbon Dioxide 22 25 Anion Gap 12 10 BUN 9 7 L Creatinine 0.8 0.7 L Est GFR ( Amer) > 60 > 60 Est GFR (Non-Af Amer) > 60 > 60 Random Glucose 106 95 Serum Osmolality 288 Calcium 7.5 L 8.1 L Phosphorus 3.3 Magnesium 2.1 03/29/17 03/29/17 03/29/17 06:07 06:07 10:41 WBC 6.8 RBC 4.22 L Hgb 12.9 Hct 38.6 MCV 91.3 MCH 30.6 MCHC 33.5 RDW 13.7 Plt Count 236 MPV 8.0 Neut % (Auto) 73.3 Lymph % (Auto) 12.2 L [place] % (Auto) 8.7 Eos % (Auto) 5.4 H Baso % (Auto) 0.4 Neut # 5.0 Lymph # 0.8 L [place] # 0.6 Eos # 0.4 Baso # 0.0 Sodium 136 Potassium 3.8 Chloride 105 Carbon Dioxide 23 Anion Gap 12 BUN 6 L Creatinine 0.7 L Est GFR ( Amer) > 60 Est GFR (Non-Af Amer) > 60 Random Glucose 111 H Serum Osmolality 281 Calcium 8.2 L Phosphorus Magnesium 03/29/17 03/29/17 03/29/17 10:41 16:24 16:24 WBC RBC Hgb Hct MCV MCH MCHC RDW Plt Count MPV Neut % (Auto) Lymph % (Auto) [place] % (Auto) Eos % (Auto) Baso % (Auto) Neut # Lymph # [place] # Eos # Baso # Sodium 135 Potassium 4.1 Chloride 106 Carbon Dioxide 21 L Anion Gap 13 BUN 7 L Creatinine 0.7 L Est GFR ( Amer) > 60 Est GFR (Non-Af Amer) > 60 Random Glucose 128 H Serum Osmolality 283 285 Calcium 7.9 L Phosphorus Magnesium Critical Care Progress Note - Nutrition Nutrition: Nutrition Category Date Time Status Soft [Dysphagia/Modified Consistency Diet] [DIET] Diets 03/27/17 Lunch Active Attending/Attestation - Attestation I have personally seen and examined this patient.: Yes I have fully participated in the care of the patient.: Yes I have reviewed all pertinent clinical information: Yes Notes (Text): 03/29/17 18:40 Patient seen and examined in the intensive care unit. Continue 3% sodium chloride and increase it to 1 50 mL an hour Continue to monitor in ICU Repeat CAT scan of the head noted Neurology follow-up
--- NOTE | 2017-03-29 10:30 | CT ---
PROCEDURE: CT HEAD WITHOUT CONTRAST. HISTORY: ICH COMPARISON: None available. TECHNIQUE: Axial computed tomography images were obtained through the head/brain without intravenous contrast. Radiation dose: Total exam DLP = 2484.00 mGy-cm. This CT exam was performed using one or more of the following dose reduction techniques: Automated exposure control, adjustment of the mA and/or kV according to patient size, and/or use of iterative reconstruction technique. FINDINGS: HEMORRHAGE: Once again, there is a large right frontal parenchymal acute hemorrhage noted. The overall size of the hemorrhage is minimal decreased when compared to the original CT examination of 03/25/2017. The previous identified right posterior occipital biconvex extra axial collection has decreased in size. It now measures approximately 6.5 x 2.5 cm whereas previously it measured 9.0 x 2.9 cm on 03/27/2017. The previously identified subarachnoid hemorrhage on the examination of 03/27/2017 is not appreciated. There is increasing size of a right subdural subacute hematoma, now measuring up to 11 mm in width. This has also decreased in attenuation compared to the prior examination, consistent with normal progression of a subdural hematoma. There is focal parenchymal edema in the posterior right temporal lobe deep to what was previously seen as a small focal biconvex hemorrhage. This was likely a small epidural hemorrhage. Focal edema is also seen in the deep white matter of the anterior temporal lobe, likely due to focal contusion, unchanged grossly from previous. BRAIN: No mass effect or edema. No atrophy or chronic microvascular ischemic changes. VENTRICLES: There is persistent extensive midline shift towards the left. The degree of midline shift is difficult to assess due to complete the effacement of the frontal horn of the right lateral ventricle and difficulty in discerning the precise location of the interventricular septum. There is mild dilatation of the left lateral ventricle likely due to ventricular trapping. This is unchanged in extent. There is no intraventricular hemorrhage seen. There is no downward herniation. The basilar cisterns are preserved. There is no evidence of cerebellar tonsillar herniation. CALVARIUM: Unremarkable. PARANASAL SINUSES: Unremarkable as visualized. No significant inflammatory changes. MASTOID AIR CELLS: Unremarkable as visualized. No inflammatory changes. OTHER FINDINGS: None. IMPRESSION: Large right frontal parenchymal hemorrhage with extensive surrounding edema and large midline shift towards the left. Decreasing size of right posterior occipital biconvex hemorrhage. There is focal parenchymal edema deep to what was previously identified as a small right posterior temporal biconvex extra-axial acute hemorrhage. Complete effacement of right lateral ventricle with mild ventricular trapping and dilatation of the left lateral ventricle, unchanged in extent compared to 03/27/2017. Increasing size of right convexity subdural hemorrhage, decreased in attenuation. This now measures 11 mm in width.
--- NOTE | 2017-03-29 10:53 | CP.PCM.PN ---
Subjective - Date & Time of Evaluation Date of Evaluation: 03/29/17 Time of Evaluation: 10:45 - Subjective Subjective: Progress note dictated #[id number] Objective - Vital Signs/Intake and Output Vital Signs (last 24 hours): Temp Pulse Resp BP Pulse Ox 97.9 F 57 L 14 167/72 H 98 03/29/17 08:00 03/29/17 10:00 03/29/17 10:00 03/29/17 09:54 03/29/17 10:00 Intake and Output: 03/29/17 03/29/17 06:59 18:59 Intake Total 565 550 Output Total 1450 Balance -885 550 - Medications Medications: Current Medications Folic Acid (Folic Acid) 1 mg PO DAILY [facility] Last Admin: 03/29/17 09:11 Dose: 1 mg Levetiracetam 500 mg/ Sodium (Chloride) 105 mls @ 420 mls/hr IVPB Q12H ALBERTO Last Admin: 03/29/17 00:56 Dose: 420 mls/hr Sodium Chloride (Hypertonic Saline 3%) 500 mls @ 50 mls/hr IV .Q10H ONE Stop: 03/29/17 17:14 Last Admin: 03/29/17 10:22 Dose: 50 mls/hr Lorazepam (Ativan) 0.5 mg IVP Q6H PRN PRN Reason: Agitation Last Admin: 03/26/17 22:14 Dose: 0.5 mg Multivitamins (Hexavitamin) 1 tab PO DAILY [facility] Last Admin: 03/29/17 09:11 Dose: 1 tab Thiamine HCl (Vitamin B1 Tab) 100 mg PO DAILY [facility] Last Admin: 03/29/17 09:11 Dose: 100 mg - Labs Labs: 03/29/17 06:07 03/29/17 06:07 PT 11.7 SECONDS (9.7-12.2) 03/25/17 17:48 INR 1.0 03/25/17 17:48
[2017-03-29 11:24] LABS: BLOOD UREA NITROGEN 6 mg/dL (9-20); CALCIUM 8.2 mg/dl (8.6-10.4); CARBON DIOXIDE 23 mmol/L (22-30); CHLORIDE 105 mmol/L (98-107); GFR AFRICAN-AMERICAN > 60; GLUCOSE,RANDOM 111 mg/dL (75-110); POTASSIUM 3.8 mmol/L (3.6-5.2); SODIUM 136 mmol/L (132-148)
--- NOTE | 2017-03-29 11:39 | CP.PCM.PN ---
Subjective - Date & Time of Evaluation Date of Evaluation: 03/29/17 Time of Evaluation: 11:37 - Subjective Subjective: Mr. Cabral was seen and examined at the bedside in ICU. He is alert, speaks mainly of Telugu. He complains of headache 4/10, generalized, denies any nausea , weakness, numbness. He remains on 1:1 sitter for patient safety. There was no untoward events overnight. Objective - Vital Signs/Intake and Output Vital Signs (last 24 hours): Temp Pulse Resp BP Pulse Ox 97.9 F 47 L 16 129/60 94 L 03/29/17 08:00 03/29/17 11:00 03/29/17 11:00 03/29/17 10:53 03/29/17 11:00 Intake and Output: 03/29/17 03/29/17 06:59 18:59 Intake Total 565 600 Output Total 1450 500 Balance -885 100 - Medications Medications: Current Medications Folic Acid (Folic Acid) 1 mg PO DAILY [facility] Last Admin: 03/29/17 09:11 Dose: 1 mg Levetiracetam 500 mg/ Sodium (Chloride) 105 mls @ 420 mls/hr IVPB Q12H ALBERTO Last Admin: 03/29/17 00:56 Dose: 420 mls/hr Sodium Chloride (Hypertonic Saline 3%) 500 mls @ 50 mls/hr IV .Q10H ONE Stop: 03/29/17 17:14 Last Admin: 03/29/17 10:22 Dose: 50 mls/hr Lorazepam (Ativan) 0.5 mg IVP Q6H PRN PRN Reason: Agitation Last Admin: 03/26/17 22:14 Dose: 0.5 mg Multivitamins (Hexavitamin) 1 tab PO DAILY [facility]BERTO Last Admin: 03/29/17 09:11 Dose: 1 tab Thiamine HCl (Vitamin B1 Tab) 100 mg PO DAILY [facility] Last Admin: 03/29/17 09:11 Dose: 100 mg - Labs Labs: 03/29/17 06:07 03/29/17 10:41 PT 11.7 SECONDS (9.7-12.2) 03/25/17 17:48 INR 1.0 03/25/17 17:48 - Constitutional Appears: No Acute Distress - Head Exam Head Exam: ATRAUMATIC - Neurological Exam Neurological Exam: Alert, Awake Neuro motor strength exam: Left Upper Extremity: 5, Right Upper Extremity: 5, Left Lower Extremity: 5, Right Lower Extremity: 5 Additional comments: He is able to follow simple commands. Sensation remains intact. Assessment and Plan (1) Acute intra-cranial hemorrhage Assessment & Plan: Case discussed with Dr. Gilbert, recommends salt tablet 1 gm daily with hypertonic solution, with the plan to wean him off hypertonic IV. Magnesium 2 gms IVPB for 1 dose and decadron 10 mg IV for 1 dose for headache. Will repeat CT of the head in am. Status: Acute
[2017-03-29] MEDS: Magnesium Sulfate 1 gm in D5W 1 GM/100 ML BAG IVPB SCH ×2 (11:54→12:39)
[2017-03-29] MEDS ORDERED: Valproate 500 MG in Sodium Chloride 0.9% 100 ML IVPB ONE (12:30)
[2017-03-29 16:40] LABS: BLOOD UREA NITROGEN 7 mg/dL (9-20); CALCIUM 7.9 mg/dl (8.6-10.4); CARBON DIOXIDE 21 mmol/L (22-30); CHLORIDE 106 mmol/L (98-107); GFR AFRICAN-AMERICAN > 60; GLUCOSE,RANDOM 128 mg/dL (75-110); POTASSIUM 4.1 mmol/L (3.6-5.2); SODIUM 135 mmol/L (132-148)
--- NOTE | 2017-03-29 23:34 | PN ---
DATE: 03/29/2017 SUBJECTIVE: The patient was seen and examined at bedside. The patient's mental status remains the same, lying in bed. Denies any complaints other than headache. PHYSICAL EXAMINATION: VITAL SIGNS: Blood pressure 130/67, pulse 68, respirations 14, temperature 98.3 degrees Fahrenheit, O2 sats 96% on room air. Intake is 2175, output is 2400. HEENT: Right pupil reacting to light and accommodation. Extraocular muscles intact. No icterus. No pallor. No oral thrush. No pharyngeal congestion. LUNGS: Bilateral vesicular breath sounds. No wheezing. No rhonchi. NECK: Supple. No JVD. CARDIOVASCULAR SYSTEM: S1 and S2 present, regular. ABDOMEN: Soft, nontender. Bowel sounds present. No guarding. No rigidity. No rebound tenderness noted. CENTRAL NERVOUS SYSTEM: Alert, awake, confused at times. No focal deficits. EXTREMITIES: No edema. LABORATORY DATA: Labs from this morning, WBC 6.8, hemoglobin 12.9, hematocrit 38.6, platelets 236. Sodium 136, potassium 3.7, chloride 106, bicarb 25, BUN 10, creatinine 0.7, glucose 95, serum osmolality 281, calcium 8.1. MEDICATIONS: Include folic acid 1 mg daily, Keppra 500 mg IV q. 12 hours, Ativan 0.5 mg IV push q. 6 hours, multivitamin 1 tab daily, sodium chloride 1 g p.o. daily, hypertonic saline 50 mL an hour, thiamine 100 mg p.o. daily. ASSESSMENT AND PLAN: Elderly male with history of ethyl alcohol abuse, hypertension, hyperlipidemia, status post fall with intracerebral hemorrhage with subdural hematoma with increasing vasogenic edema and altered mental status. As per Neurosurgery, no surgical intervention recommended. The patient is on hypertonic saline as recommended by Neurology. Continue to watch his mental status and neurologic status. Continue with current medication. Continue with gastrointestinal and deep venous thrombosis prophylaxis. Follow up with Neurology. Afia Chirinos MD
[2017-03-30 06:31] LABS: BASO % 0.2 % (0.0-2.0); EOS % 0.1 % (0.0-4.0); HEMATOCRIT 36.2 % (35.0-51.0); LYMPH # 0.6 K/uL (1.0-4.3); LYMPH % 8.9 % (20.0-40.0); MEAN CELL VOLUME 90.9 fL (80.0-94.0); MEAN CORPUSCULAR HEMOGLOBIN 30.9 pg (27.0-31.0); MEAN PLATELET VOLUME 7.9 fL (7.2-11.7); MONO # 0.5 K/uL (0.0-0.8); MONO % 8.1 % (0.0-10.0); NRBC % 0.1 % (0.0-2.0); PLATELET COUNT 236 K/uL (130-400); RED CELL DISTRIBUTION WIDTH 13.6 % (11.5-14.5); WHITE BLOOD COUNT 6.7 K/uL (4.8-10.8)
[2017-03-30 06:46] LABS: ALB/GLOB RATIO 0.8 (1.0-2.1); ALKALINE PHOSPHATASE 70 U/L (38-126); ALT/SGPT 37 U/L (21-72); AST/SGOT 43 U/L (17-59); BILIRUBIN,TOTAL 0.9 mg/dL (0.2-1.3); BLOOD UREA NITROGEN 13 mg/dL (9-20); CALCIUM 8.1 mg/dl (8.6-10.4); CARBON DIOXIDE 24 mmol/L (22-30); CHLORIDE 112 mmol/L (98-107); GFR AFRICAN-AMERICAN > 60; GLUCOSE,RANDOM 96 mg/dL (75-110); MAGNESIUM 2.4 mg/dL (1.6-2.3); PHOSPHOROUS 3.9 mg/dL (2.5-4.5); POTASSIUM 3.7 mmol/L (3.6-5.2); SODIUM 144 mmol/L (132-148); TOTAL PROTEIN 7.4 g/dL (6.3-8.3)
[2017-03-30 08:18] LABS: NEUTROPHIL 91 % (50-75); TOTAL CELLS COUNTED 100
[2017-03-30] MEDS ORDERED: Sodium Chloride 3% 500 ML IV ONE ×2 (08:30→13:00)
[2017-03-30] MEDS: Multiple Vitamins Tab PO SCH (09:35)
--- NOTE | 2017-03-30 10:48 | CP.PCM.PN ---
Subjective - Date & Time of Evaluation Date of Evaluation: 03/30/17 Time of Evaluation: 10:35 - Subjective Subjective: Progress note dictated #[id number] Objective - Vital Signs/Intake and Output Vital Signs (last 24 hours): Temp Pulse Resp BP Pulse Ox 98.1 F 47 L 12 137/68 96 03/29/17 16:00 03/30/17 06:00 03/30/17 06:00 03/30/17 05:53 03/30/17 01:00 Intake and Output: 03/30/17 03/30/17 06:59 18:59 Intake Total 700 Output Total 1200 Balance -500 - Medications Medications: Current Medications Folic Acid (Folic Acid) 1 mg PO DAILY [facility] Last Admin: 03/30/17 09:35 Dose: 1 mg Levetiracetam 500 mg/ Sodium (Chloride) 105 mls @ 420 mls/hr IVPB Q12H ALBERTO Last Admin: 03/29/17 14:11 Dose: 420 mls/hr Sodium Chloride (Hypertonic Saline 3%) 500 mls @ 40 mls/hr IV .[id number] ONE Stop: 03/30/17 20:59 Last Admin: 03/30/17 08:30 Dose: 40 mls/hr Lorazepam (Ativan) 0.5 mg IVP Q6H PRN PRN Reason: Agitation Last Admin: 03/26/17 22:14 Dose: 0.5 mg Multivitamins (Hexavitamin) 1 tab PO DAILY [facility] Last Admin: 03/30/17 09:35 Dose: 1 tab Sodium Chloride (Sodium Chloride Tab) 1 gm PO DAILY ALBERTO Last Admin: 03/30/17 09:35 Dose: 1 gm Thiamine HCl (Vitamin B1 Tab) 100 mg PO DAILY ALBERTO Last Admin: 03/30/17 09:35 Dose: 100 mg - Labs Labs: 03/30/17 06:20 03/30/17 06:20 PT 11.7 SECONDS (9.7-12.2) 03/25/17 17:48 INR 1.0 03/25/17 17:48
--- NOTE | 2017-03-30 12:57 | CP.PCM.PN ---
Subjective - Date & Time of Evaluation Date of Evaluation: 03/30/17 Time of Evaluation: 12:54 - Subjective Subjective: Mr. Cabral was seen and examined at the bedside in ICU. He is alert, oriented in all spheres. He states of feeling much better today in comparison form yesterday. He denies any headache, dizziness, lightheadedness, nausea, vomiting, weakness, or numbness. According to the sitter, the patient able to tolerate physical therapy and able to ambulate out of the room.He further claims of having a great appetite. He remains on 1:1 sitter for patient safety. There was no untoward events overnight. Objective - Vital Signs/Intake and Output Vital Signs (last 24 hours): Temp Pulse Resp BP Pulse Ox 98.1 F 47 L 12 137/68 96 03/29/17 16:00 03/30/17 06:00 03/30/17 06:00 03/30/17 05:53 03/30/17 01:00 Intake and Output: 03/30/17 03/30/17 06:59 18:59 Intake Total 700 Output Total 1200 Balance -500 - Medications Medications: Current Medications Folic Acid (Folic Acid) 1 mg PO DAILY [facility] Last Admin: 03/30/17 09:35 Dose: 1 mg Levetiracetam 500 mg/ Sodium (Chloride) 105 mls @ 420 mls/hr IVPB Q12H ALBERTO Last Admin: 03/29/17 14:11 Dose: 420 mls/hr Lorazepam (Ativan) 0.5 mg IVP Q6H PRN PRN Reason: Agitation Last Admin: 03/26/17 22:14 Dose: 0.5 mg Multivitamins (Hexavitamin) 1 tab PO DAILY [facility] Last Admin: 03/30/17 09:35 Dose: 1 tab Sodium Chloride (Sodium Chloride Tab) 1 gm PO DAILY [facility]O Last Admin: 03/30/17 09:35 Dose: 1 gm Thiamine HCl (Vitamin B1 Tab) 100 mg PO DAILY [facility] Last Admin: 03/30/17 09:35 Dose: 100 mg - Labs Labs: 03/30/17 06:20 03/30/17 06:20 PT 11.7 SECONDS (9.7-12.2) 03/25/17 17:48 INR 1.0 03/25/17 17:48 - Constitutional Appears: No Acute Distress - Head Exam Head Exam: ATRAUMATIC - Neurological Exam Neurological Exam: Alert, Awake, Oriented x3 Neuro motor strength exam: Left Upper Extremity: 5, Right Upper Extremity: 5, Left Lower Extremity: 5, Right Lower Extremity: 5 Additional comments: Neurological improved from previous examination. Assessment and Plan (1) Acute intra-cranial hemorrhage Assessment & Plan: Case discussed with Dr. Gilbert, recommends to decrease Hypertonic solution 3% form 40 ml/hr to 20 ml/hr with the goal to discontinue. Continue all current medical, physical, and occupational therapies. Status: Acute
[2017-03-30] MEDS: levETIRAcetam 500 MG in Sodium Chloride 0.9% 100 ML IVPB SCH (13:00)
[2017-03-30] MEDS: Sodium Chloride 3% 500 ML IV ONE ×2 (13:50→22:21)
[2017-03-30 13:52] LABS: BLOOD UREA NITROGEN 15 mg/dL (9-20); CARBON DIOXIDE 24 mmol/L (22-30); CHLORIDE 111 mmol/L (98-107); GFR AFRICAN-AMERICAN > 60; GLUCOSE,RANDOM 76 mg/dL (75-110); POTASSIUM 3.6 mmol/L (3.6-5.2); SODIUM 142 mmol/L (132-148)
--- NOTE | 2017-03-30 14:24 | CP.CCUPN ---
<Wong Francis - Last Filed: 03/30/17 14:07> CCU Subjective - Physician Review Subjective (Free Text): PGY1 ICU Progress Note for Dr. Bob Patient seen and examined at bedside this morning. Patient is awake, alert and sitting in his chair at bedside. Patient reports that he is feeling well and has no complaints. His body movements and speech are much clearer today. CCU Objective - Vital Signs / Intake & Output Intake and Output (Last 8hrs): Intake & Output 03/29/17 03/30/17 03/30/17 22:59 06:59 14:59 Intake Total 500 500 Output Total 600 600 Balance -100 -100 Weight 165 lb 6.4 oz Intake: Intake, IV Amount 500 500 Right Distal Port 100 100 Internal Jugular Right Medial Port 400 400 Internal Jugular Output: Urine 600 600 Urine, Voided 600 600 Other: # Voids Urine, Voided 1 1 - Physical Exam Head: Positive for: Atraumatic, Normocephalic Pupils: Positive for: PERRL, Other ((blind in left eye)) Extroacular Muscles: Positive for: 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 Negative for: Respiratory Distress, Accessory Muscle Use Cardiovascular: Positive for: Regular Rate and Rhythm Abdomen: Positive for: Normal Bowel Sounds. Negative for: Tenderness, Distention, Peritoneal Signs Lower Extremity: Positive for: Other (SCDs in place.) Neurological: Positive for: Speech Normal (much improved compared to today), Motor Func Grossly Intact (movements much improved compared to yesterday) Psychiatric: Positive for: Alert, Oriented x 3 - Medications Active Medications: Active Medications Generic Name Dose Route Start Last Admin Trade Name Freq PRN Reason Stop Dose Admin Dexamethasone 4 mg 03/30/17 18:00 Decadron Inj IV Q6 ALBERTO Folic Acid 1 mg 03/26/17 10:00 03/30/17 09:35 Folic Acid PO 1 mg DAILY ALBERTO Administration Levetiracetam 500 mg/ Sodium 105 mls @ 420 mls/hr 03/26/17 01:00 03/29/17 14: 11 Chloride IVPB 420 mls/hr Q12H ALBERTO Administration Sodium Chloride 500 mls @ 40 mls/hr 03/30/17 13:28 Hypertonic Saline 3% IV 03/31/17 01:57 .[id number] ONE Lorazepam 0.5 mg 03/25/17 23:15 03/26/17 22:14 Ativan IVP 0.5 mg Q6H PRN Administration Agitation Multivitamins 1 tab 03/26/17 10:00 03/30/17 09:35 Hexavitamin PO 1 tab DAILY ALBERTO Administration Sodium Chloride 1 gm 03/29/17 13:00 03/30/17 09:35 Sodium Chloride Tab PO 1 gm DAILY ALBERTO Administration Thiamine HCl 100 mg 03/26/17 10:00 03/30/17 09:35 Vitamin B1 Tab PO 100 mg DAILY ALBERTO Administration - Patient Studies Lab Studies: Lab Studies 03/30/17 03/30/17 03/30/17 Range/Units 13:36 06:20 06:20 WBC 6.7 (4.8-10.8) K/uL RBC 3.98 L (4.40-5.90) Mil/uL Hgb 12.3 (12.0-18.0) g/dL Hct 36.2 (35.0-51.0) % MCV 90.9 (80.0-94.0) fL MCH 30.9 (27.0-31.0) pg MCHC 34.0 (33.0-37.0) g/dL RDW 13.6 (11.5-14.5) % Plt Count 236 (130-400) K/uL MPV 7.9 (7.2-11.7) fL Neut % (Auto) 82.7 H (50.0-75.0) % Lymph % (Auto) 8.9 L (20.0-40.0) % [place] % (Auto) 8.1 (0.0-10.0) % Eos % (Auto) 0.1 (0.0-4.0) % Baso % (Auto) 0.2 (0.0-2.0) % Neut # 5.5 (1.8-7.0) K/uL Lymph # 0.6 L (1.0-4.3) K/uL [place] # 0.5 (0.0-0.8) K/uL Eos # 0.0 (0.0-0.7) K/uL Baso # 0.0 (0.0-0.2) K/uL Neutrophils % (Manual) 91 H (50-75) % Lymphocytes % (Manual) 3 L (20-40) % Monocytes % (Manual) 6 (0-10) % Platelet Estimate Normal (NORMAL) RBC Morphology Normal Sodium 142 (132-148) mmol/L Potassium 3.6 (3.6-5.2) mmol/L Chloride 111 H (98-107) mmol/L Carbon Dioxide 24 (22-30) mmol/L Anion Gap 11 (10-20) BUN 15 (9-20) mg/dL Creatinine 0.8 (0.8-1.5) mg/dL Est GFR ( Amer) > 60 Est GFR (Non-Af Amer) > 60 Random Glucose 76 (75-110) mg/dL Serum Osmolality 305 H (272-300) mosm/kg Calcium 8.0 L (8.6-10.4) mg/dl Phosphorus (2.5-4.5) mg/dL Magnesium (1.6-2.3) mg/dL Total Bilirubin (0.2-1.3) mg/dL AST (17-59) U/L ALT (21-72) U/L Alkaline Phosphatase (38-126) U/L Total Protein (6.3-8.3) g/dL Albumin (3.5-5.0) g/dL Globulin (2.2-3.9) gm/dL Albumin/Globulin Ratio (1.0-2.1) 03/30/17 03/29/17 03/29/17 Range/Units 06:20 16:24 16:24 WBC (4.8-10.8) K/uL RBC (4.40-5.90) Mil/uL Hgb (12.0-18.0) g/dL Hct (35.0-51.0) % MCV (80.0-94.0) fL MCH (27.0-31.0) pg MCHC (33.0-37.0) g/dL RDW (11.5-14.5) % Plt Count (130-400) K/uL MPV (7.2-11.7) fL Neut % (Auto) (50.0-75.0) % Lymph % (Auto) (20.0-40.0) % [place] % (Auto) (0.0-10.0) % Eos % (Auto) (0.0-4.0) % Baso % (Auto) (0.0-2.0) % Neut # (1.8-7.0) K/uL Lymph # (1.0-4.3) K/uL [place] # (0.0-0.8) K/uL Eos # (0.0-0.7) K/uL Baso # (0.0-0.2) K/uL Neutrophils % (Manual) (50-75) % Lymphocytes % (Manual) (20-40) % Monocytes % (Manual) (0-10) % Platelet Estimate (NORMAL) RBC Morphology Sodium 144 135 (132-148) mmol/L Potassium 3.7 4.1 (3.6-5.2) mmol/L Chloride 112 H 106 (98-107) mmol/L Carbon Dioxide 24 21 L (22-30) mmol/L Anion Gap 11 13 (10-20) BUN 13 7 L (9-20) mg/dL Creatinine 0.7 L 0.7 L (0.8-1.5) mg/dL Est GFR ( Amer) > 60 > 60 Est GFR (Non-Af Amer) > 60 > 60 Random Glucose 96 128 H (75-110) mg/dL Serum Osmolality 285 (272-300) mosm/kg Calcium 8.1 L 7.9 L (8.6-10.4) mg/dl Phosphorus 3.9 (2.5-4.5) mg/dL Magnesium 2.4 H (1.6-2.3) mg/dL Total Bilirubin 0.9 (0.2-1.3) mg/dL AST 43 (17-59) U/L ALT 37 (21-72) U/L Alkaline Phosphatase 70 (38-126) U/L Total Protein 7.4 (6.3-8.3) g/dL Albumin 3.3 L (3.5-5.0) g/dL Globulin 4.2 H (2.2-3.9) gm/dL Albumin/Globulin Ratio 0.8 L (1.0-2.1) Laboratory Results - last 24 hr 03/29/17 03/29/17 03/30/17 16:24 16:24 06:20 WBC RBC Hgb Hct MCV MCH MCHC RDW Plt Count MPV Neut % (Auto) Lymph % (Auto) [place] % (Auto) Eos % (Auto) Baso % (Auto) Neut # Lymph # [place] # Eos # Baso # Neutrophils % (Manual) Lymphocytes % (Manual) Monocytes % (Manual) Platelet Estimate RBC Morphology Sodium 135 144 Potassium 4.1 3.7 Chloride 106 112 H Carbon Dioxide 21 L 24 Anion Gap 13 11 BUN 7 L 13 Creatinine 0.7 L 0.7 L Est GFR ( Amer) > 60 > 60 Est GFR (Non-Af Amer) > 60 > 60 Random Glucose 128 H 96 Serum Osmolality 285 Calcium 7.9 L 8.1 L Phosphorus 3.9 Magnesium 2.4 H Total Bilirubin 0.9 AST 43 ALT 37 Alkaline Phosphatase 70 Total Protein 7.4 Albumin 3.3 L Globulin 4.2 H Albumin/Globulin Ratio 0.8 L 03/30/17 03/30/17 03/30/17 06:20 06:20 13:36 WBC 6.7 RBC 3.98 L Hgb 12.3 Hct 36.2 MCV 90.9 MCH 30.9 MCHC 34.0 RDW 13.6 Plt Count 236 MPV 7.9 Neut % (Auto) 82.7 H Lymph % (Auto) 8.9 L [place] % (Auto) 8.1 Eos % (Auto) 0.1 Baso % (Auto) 0.2 Neut # 5.5 Lymph # 0.6 L [place] # 0.5 Eos # 0.0 Baso # 0.0 Neutrophils % (Manual) 91 H Lymphocytes % (Manual) 3 L Monocytes % (Manual) 6 Platelet Estimate Normal RBC Morphology Normal Sodium 142 Potassium 3.6 Chloride 111 H Carbon Dioxide 24 Anion Gap 11 BUN 15 Creatinine 0.8 Est GFR ( Amer) > 60 Est GFR (Non-Af Amer) > 60 Random Glucose 76 Serum Osmolality 305 H Calcium 8.0 L Phosphorus Magnesium Total Bilirubin AST ALT Alkaline Phosphatase Total Protein Albumin Globulin Albumin/Globulin Ratio Fingerstick Blood Sugar Results: 100 Review of Systems - Review of Systems All systems: reviewed and no additional remarkable complaints except (as per HPI ) Critical Care Progress Note - Nutrition Nutrition: Nutrition Category Date Time Status Soft [Dysphagia/Modified Consistency Diet] [DIET] Diets 03/27/17 Lunch Active Assessment/Plan - Assessment and Plan (Free Text) Assessment: Patient is a 71 year old male a past medical history of ETOH abuse, HTN, HLD, Depression, presenting with recent fall with rib fractures and AMS, found to have an intracranial hemorrhage. Plan: Neuro: Dr. Gilbert consulted, help appreciated Dr. Harmon consulted, help appreciated Patient's mental status improving, has not had any episodes of confusion this morning, per nursing. Head CT 03/27/17 - Multifocal intracranial hemorrhage including the large right frontal parenchymal hemorrhage and multifocal extra-axial hemorrhages as described. Decreasing density of extra-axial blood noted in the right frontoparietal convexity hematoma and in the posterior right temporal hematoma. A right occipital extra-axial hemorrhage remains hyperdense consistent with acute blood. Increased midline shift towards the left of approximately 19 mm. No evidence of downward herniation. Repeat CT 03/29/17 - Large right frontal parenchymal hemorrhage with extensive surrounding edema and large midline shift towards the left. Decreasing size of right posterior occipital biconvex hemorrhage. There is focal parenchymal edema deep to what was previously identified as a small right posterior temporal biconvex extra-axial acute hemorrhage. Complete effacement of right lateral ventricle with mild ventricular trapping and dilatation of the left lateral ventricle, unchanged in extent compared to 03/27/2017. Increasing size of right convexity subdural hemorrhage, decreased in attenuation. This now measures 11 mm in width. Will continue to monitor Patient's neurological exam confounded with history of alcohol abuse/withdrawal - [facility] protocol - Ativan 0.5mg IVP q6h PRN - Multivitamin/thiamine/folic acid Keppra 500mg IVPB q12h f/u neuro recs - no surgical intervention at this time - goal Na 140-145, monitor with BMP q6h - serum osmol, <320 monitor with serum osmol q6h - keep head of bed above 45 degrees - Avoid dextrose containing fluids, hyperthermia or hypertension - Started on Decadron 10mg IVP once, then 4mg IV q6h Hypertonic Saline 3% @50mL/hr - Na 144 today - decreased to 40mL/hr - sodium chloride tab 1gm PO daily GI: Swallow - soft/advanced bite size diet Prophylactic Care: DVT proph - SCDs, holding anticoagulation with intracerebral bleed. GI proph - Protonix IV Case discussed with Dr. Lisbeth Francis PGY1 <Brian Bob - Last Filed: 03/30/17 17:01> CCU Objective - Vital Signs / Intake & Output Intake and Output (Last 8hrs): Intake & Output 03/30/17 03/30/17 03/30/17 06:59 14:59 22:59 Intake Total 500 Output Total 600 Balance -100 Weight 165 lb 6.4 oz Intake: Intake, IV Amount 500 Right Distal Port 100 Internal Jugular Right Medial Port 400 Internal Jugular Output: Urine 600 Urine, Voided 600 Other: # Voids Urine, Voided 1 - Medications Active Medications: Active Medications Generic Name Dose Route Start Last Admin Trade Name Freq PRN Reason Stop Dose Admin Dexamethasone 4 mg 03/30/17 18:00 Decadron Inj IV Q6 ALBERTO Folic Acid 1 mg 03/26/17 10:00 03/30/17 09:35 Folic Acid PO 1 mg DAILY ALBERTO Administration Levetiracetam 500 mg/ Sodium 105 mls @ 420 mls/hr 03/26/17 01:00 03/30/17 13: 00 Chloride IVPB 420 mls/hr Q12H ALBERTO Administration Sodium Chloride 500 mls @ 40 mls/hr 03/30/17 13:28 03/30/17 13:50 Hypertonic Saline 3% IV 03/31/17 01:57 40 mls/hr .[id number] Administration Lorazepam 0.5 mg 03/25/17 23:15 03/26/17 22:14 Ativan IVP 0.5 mg Q6H PRN Administration Agitation Multivitamins 1 tab 03/26/17 10:00 03/30/17 09:35 Hexavitamin PO 1 tab DAILY ALBERTO Administration Sodium Chloride 1 gm 03/29/17 13:00 03/30/17 09:35 Sodium Chloride Tab PO 1 gm DAILY ALBERTO Administration Thiamine HCl 100 mg 03/26/17 10:00 03/30/17 09:35 Vitamin B1 Tab PO 100 mg DAILY ALBERTO Administration - Patient Studies Lab Studies: Lab Studies 03/30/17 03/30/17 03/30/17 Range/Units 13:36 06:20 06:20 WBC 6.7 (4.8-10.8) K/uL RBC 3.98 L (4.40-5.90) Mil/uL Hgb 12.3 (12.0-18.0) g/dL Hct 36.2 (35.0-51.0) % MCV 90.9 (80.0-94.0) fL MCH 30.9 (27.0-31.0) pg MCHC 34.0 (33.0-37.0) g/dL RDW 13.6 (11.5-14.5) % Plt Count 236 (130-400) K/uL MPV 7.9 (7.2-11.7) fL Neut % (Auto) 82.7 H (50.0-75.0) % Lymph % (Auto) 8.9 L (20.0-40.0) % [place] % (Auto) 8.1 (0.0-10.0) % Eos % (Auto) 0.1 (0.0-4.0) % Baso % (Auto) 0.2 (0.0-2.0) % Neut # 5.5 (1.8-7.0) K/uL Lymph # 0.6 L (1.0-4.3) K/uL [place] # 0.5 (0.0-0.8) K/uL Eos # 0.0 (0.0-0.7) K/uL Baso # 0.0 (0.0-0.2) K/uL Neutrophils % (Manual) 91 H (50-75) % Lymphocytes % (Manual) 3 L (20-40) % Monocytes % (Manual) 6 (0-10) % Platelet Estimate Normal (NORMAL) RBC Morphology Normal Sodium 142 (132-148) mmol/L Potassium 3.6 (3.6-5.2) mmol/L Chloride 111 H (98-107) mmol/L Carbon Dioxide 24 (22-30) mmol/L Anion Gap 11 (10-20) BUN 15 (9-20) mg/dL Creatinine 0.8 (0.8-1.5) mg/dL Est GFR ( Amer) > 60 Est GFR (Non-Af Amer) > 60 Random Glucose 76 (75-110) mg/dL Serum Osmolality 305 H (272-300) mosm/kg Calcium 8.0 L (8.6-10.4) mg/dl Phosphorus (2.5-4.5) mg/dL Magnesium (1.6-2.3) mg/dL Total Bilirubin (0.2-1.3) mg/dL AST (17-59) U/L ALT (21-72) U/L Alkaline Phosphatase (38-126) U/L Total Protein (6.3-8.3) g/dL Albumin (3.5-5.0) g/dL Globulin (2.2-3.9) gm/dL Albumin/Globulin Ratio (1.0-2.1) 03/30/17 03/29/17 03/29/17 Range/Units 06:20 16:24 16:24 WBC (4.8-10.8) K/uL RBC (4.40-5.90) Mil/uL Hgb (12.0-18.0) g/dL Hct (35.0-51.0) % MCV (80.0-94.0) fL MCH (27.0-31.0) pg MCHC (33.0-37.0) g/dL RDW (11.5-14.5) % Plt Count (130-400) K/uL MPV (7.2-11.7) fL Neut % (Auto) (50.0-75.0) % Lymph % (Auto) (20.0-40.0) % [place] % (Auto) (0.0-10.0) % Eos % (Auto) (0.0-4.0) % Baso % (Auto) (0.0-2.0) % Neut # (1.8-7.0) K/uL Lymph # (1.0-4.3) K/uL [place] # (0.0-0.8) K/uL Eos # (0.0-0.7) K/uL Baso # (0.0-0.2) K/uL Neutrophils % (Manual) (50-75) % Lymphocytes % (Manual) (20-40) % Monocytes % (Manual) (0-10) % Platelet Estimate (NORMAL) RBC Morphology Sodium 144 135 (132-148) mmol/L Potassium 3.7 4.1 (3.6-5.2) mmol/L Chloride 112 H 106 (98-107) mmol/L Carbon Dioxide 24 21 L (22-30) mmol/L Anion Gap 11 13 (10-20) BUN 13 7 L (9-20) mg/dL Creatinine 0.7 L 0.7 L (0.8-1.5) mg/dL Est GFR ( Amer) > 60 > 60 Est GFR (Non-Af Amer) > 60 > 60 Random Glucose 96 128 H (75-110) mg/dL Serum Osmolality 285 (272-300) mosm/kg Calcium 8.1 L 7.9 L (8.6-10.4) mg/dl Phosphorus 3.9 (2.5-4.5) mg/dL Magnesium 2.4 H (1.6-2.3) mg/dL Total Bilirubin 0.9 (0.2-1.3) mg/dL AST 43 (17-59) U/L ALT 37 (21-72) U/L Alkaline Phosphatase 70 (38-126) U/L Total Protein 7.4 (6.3-8.3) g/dL Albumin 3.3 L (3.5-5.0) g/dL Globulin 4.2 H (2.2-3.9) gm/dL Albumin/Globulin Ratio 0.8 L (1.0-2.1) Laboratory Results - last 24 hr 03/29/17 03/29/17 03/30/17 16:24 16:24 06:20 WBC RBC Hgb Hct MCV MCH MCHC RDW Plt Count MPV Neut % (Auto) Lymph % (Auto) [place] % (Auto) Eos % (Auto) Baso % (Auto) Neut # Lymph # [place] # Eos # Baso # Neutrophils % (Manual) Lymphocytes % (Manual) Monocytes % (Manual) Platelet Estimate RBC Morphology Sodium 135 144 Potassium 4.1 3.7 Chloride 106 112 H Carbon Dioxide 21 L 24 Anion Gap 13 11 BUN 7 L 13 Creatinine 0.7 L 0.7 L Est GFR ( Amer) > 60 > 60 Est GFR (Non-Af Amer) > 60 > 60 Random Glucose 128 H 96 Serum Osmolality 285 Calcium 7.9 L 8.1 L Phosphorus 3.9 Magnesium 2.4 H Total Bilirubin 0.9 AST 43 ALT 37 Alkaline Phosphatase 70 Total Protein 7.4 Albumin 3.3 L Globulin 4.2 H Albumin/Globulin Ratio 0.8 L 03/30/17 03/30/17 03/30/17 06:20 06:20 13:36 WBC 6.7 RBC 3.98 L Hgb 12.3 Hct 36.2 MCV 90.9 MCH 30.9 MCHC 34.0 RDW 13.6 Plt Count 236 MPV 7.9 Neut % (Auto) 82.7 H Lymph % (Auto) 8.9 L [place] % (Auto) 8.1 Eos % (Auto) 0.1 Baso % (Auto) 0.2 Neut # 5.5 Lymph # 0.6 L [place] # 0.5 Eos # 0.0 Baso # 0.0 Neutrophils % (Manual) 91 H Lymphocytes % (Manual) 3 L Monocytes % (Manual) 6 Platelet Estimate Normal RBC Morphology Normal Sodium 142 Potassium 3.6 Chloride 111 H Carbon Dioxide 24 Anion Gap 11 BUN 15 Creatinine 0.8 Est GFR ( Amer) > 60 Est GFR (Non-Af Amer) > 60 Random Glucose 76 Serum Osmolality 305 H Calcium 8.0 L Phosphorus Magnesium Total Bilirubin AST ALT Alkaline Phosphatase Total Protein Albumin Globulin Albumin/Globulin Ratio Critical Care Progress Note - Nutrition Nutrition: Nutrition Category Date Time Status Soft [Dysphagia/Modified Consistency Diet] [DIET] Diets 03/27/17 Lunch Active Assessment/Plan (1) Acute intra-cranial hemorrhage Current Visit: Yes Status: Acute Attending/Attestation - Attestation I have personally seen and examined this patient.: Yes I have fully participated in the care of the patient.: Yes I have reviewed all pertinent clinical information: Yes Notes (Text): 03/30/17 16:59 I have seen and examined the patient. Medical records, lab studies, and imaging were reviewed by me and a management plan was formulated on multidisciplinary rounds with resident Dr. Bates. I agree with their documented assessment and plan. Significant cerebral edema, patient is clinically stable, with periods of confusion. Continue hypertonic saline, with oral salt tabs, maintaining Na: 140 -150. Started on decadron for vasogenic edema. Critical Care Time 35 minutes. Multi-disciplinary rounds were performed with house staff, nursing, speech therapy, respiratory therapy, pharmacy and nutrition with integrated input from the primary team/attending and other consulting services. The documented time is cumulative and includes review of patient data/exams/labs/chart review and examination of the patient on rounds and throughout the day; time is exclusive of any procedures or teaching time.
[2017-03-30] MEDS: Dexamethasone 4 mg/1 ml IV SCH (19:01)
[2017-03-30 19:47] LABS: BLOOD UREA NITROGEN 13 mg/dL (9-20); CARBON DIOXIDE 25 mmol/L (22-30); CHLORIDE 107 mmol/L (98-107); GFR AFRICAN-AMERICAN > 60; GLUCOSE,RANDOM 134 mg/dL (75-110); POTASSIUM 3.7 mmol/L (3.6-5.2); SODIUM 140 mmol/L (132-148)
--- NOTE | 2017-03-30 20:37 | PN ---
DATE: 03/30/2017 SUBJECTIVE: The patient was seen and examined at bedside. The patient was sitting in chair at bedside. Denies any new complaints other than headache. PHYSICAL EXAMINATION: GENERAL: Elderly male, lying in bed, in no acute distress. VITAL SIGNS: Blood pressure 142/62, pulse 64, respirations 13, temperature 98.4 degrees Fahrenheit, O2 sats 95% on room air. HEENT: Pupils, right reacting to light and accommodation. Extraocular muscles intact. Left eye blind. No oral thrush. No pharyngeal congestion. NECK: Supple. No JVD. LUNGS: Bilateral vesicular breath sounds. No wheezing. No rhonchi. CARDIOVASCULAR SYSTEM: S1 and S2 present, regular. ABDOMEN: Soft, nontender. Bowel sounds present. No guarding. No rigidity. No rebound tenderness noted. CENTRAL NERVOUS SYSTEM: Alert, awake, oriented x2. No focal deficits noted. EXTREMITIES: No edema. LABORATORY DATA: Labs from this morning, WBC 6.7, hemoglobin 12.3, hematocrit 36.2, platelets 236. Sodium 142, potassium 3.6, chloride 111, bicarb 24, BUN 15, creatinine 0.8, glucose 76, calcium 8.0. MEDICATIONS: Include Decadron 4 mg IV q. 6 hours, folic acid 1 mg daily, Keppra 500 mg IV q. 12 hours, Ativan 0.5 mg IV push q. 6 hours, multivitamin 1 tab daily, sodium chloride 1 g p.o. daily, hypertonic saline 40 mL an hour, thiamine 100 mg daily ASSESSMENT AND PLAN: Elderly male with hypertension, hyperlipidemia, ethyl alcohol abuse, status post fall, admitted for intracranial bleeding and subdural hematomas with vasogenic edema. The patient is on antiseizure medication for precaution and the patient is started on Decadron today by Neurology, received 1 dose yesterday. The patient is still on hypertonic saline. We will continue with other current medications. Follow up with Neurology. Afia Chirinos MD
[2017-03-31] MEDS: Dexamethasone 4 mg/1 ml IV SCH ×4 (01:29→18:35)
[2017-03-31] MEDS: levETIRAcetam 500 MG in Sodium Chloride 0.9% 100 ML IVPB SCH ×2 (01:30→13:30)
[2017-03-31 01:34] LABS: BLOOD UREA NITROGEN 13 mg/dL (9-20); CALCIUM 8.1 mg/dl (8.6-10.4); CARBON DIOXIDE 24 mmol/L (22-30); CHLORIDE 107 mmol/L (98-107); GFR AFRICAN-AMERICAN > 60; GLUCOSE,RANDOM 145 mg/dL (75-110); POTASSIUM 3.7 mmol/L (3.6-5.2); SODIUM 139 mmol/L (132-148)
[2017-03-31 06:35] LABS: HEMATOCRIT 36.7 % (35.0-51.0); LYMPH # 0.5 K/uL (1.0-4.3); MEAN CELL VOLUME 91.7 fL (80.0-94.0); MEAN CORPUSCULAR HEMOGLOBIN 31.1 pg (27.0-31.0); MEAN CORPUSCULAR HGB CONC 33.9 g/dL (33.0-37.0); MEAN PLATELET VOLUME 7.7 fL (7.2-11.7); MONO # 0.2 K/uL (0.0-0.8); MONO % 2.5 % (0.0-10.0); PLATELET COUNT 242 K/uL (130-400); RED CELL DISTRIBUTION WIDTH 13.9 % (11.5-14.5); WHITE BLOOD COUNT 7.1 K/uL (4.8-10.8)
[2017-03-31 06:57] LABS: ALB/GLOB RATIO 1.2 (1.0-2.1); ALKALINE PHOSPHATASE 76 U/L (38-126); ALT/SGPT 40 U/L (21-72); AST/SGOT 19 U/L (17-59); BILIRUBIN,TOTAL 0.9 mg/dL (0.2-1.3); BLOOD UREA NITROGEN 12 mg/dL (9-20); CALCIUM 8.2 mg/dl (8.6-10.4); CARBON DIOXIDE 23 mmol/L (22-30); CHLORIDE 107 mmol/L (98-107); GFR AFRICAN-AMERICAN > 60; GLUCOSE,RANDOM 117 mg/dL (75-110); MAGNESIUM 2.1 mg/dL (1.6-2.3); PHOSPHOROUS 3.8 mg/dL (2.5-4.5); POTASSIUM 3.6 mmol/L (3.6-5.2); SODIUM 140 mmol/L (132-148); TOTAL PROTEIN 6.7 g/dL (6.3-8.3)
[2017-03-31 08:26] LABS: NEUTROPHIL 91 % (50-75); TOTAL CELLS COUNTED 100
[2017-03-31] MEDS: Multiple Vitamins Tab PO SCH (10:04)
[2017-03-31] MEDS: Pantoprazole 40 mg EC Tab PO SCH (10:04)
[2017-03-31] MEDS: niCARdipine IV 25 MG in Sodium Chloride 0.9% 240 ML IV PRN ×3 (10:04→20:48)
--- NOTE | 2017-03-31 10:24 | CP.PCM.PN ---
Subjective - Date & Time of Evaluation Date of Evaluation: 03/31/17 Time of Evaluation: 10:21 - Subjective Subjective: Mr. Cabral was seen and examined at the bedside in ICU. He is alert, oriented in all spheres. He remains on hypertonic IV solution at 40 ml/hr. He denies any headache, dizziness, lightheadedness, nausea, or vomiting. He participates in a pleasant conversation.He is able to tolerate physical therapy. His blood pressure was elevated, Nicardipine started. Objective - Vital Signs/Intake and Output Vital Signs (last 24 hours): Temp Pulse Resp BP Pulse Ox 97.5 F L 64 14 150/77 97 03/31/17 04:00 03/31/17 08:53 03/31/17 08:53 03/31/17 08:53 03/31/17 08:00 Intake and Output: 03/31/17 03/31/17 06:59 18:59 Intake Total 760 300 Output Total 1400 0 Balance -640 300 - Medications Medications: Current Medications Dexamethasone (Decadron Inj) 4 mg IV Q6 [facility] Last Admin: 03/31/17 05:09 Dose: 4 mg Folic Acid (Folic Acid) 1 mg PO DAILY [facility] Last Admin: 03/31/17 10:04 Dose: 1 mg Levetiracetam 500 mg/ Sodium (Chloride) 105 mls @ 420 mls/hr IVPB Q12H [facility] Last Admin: 03/31/17 01:30 Dose: 420 mls/hr Nicardipine HCl 25 mg/ Sodium (Chloride) 250 mls @ 50 mls/hr IV .Q5H PRN; Protocol; 5 MG/HR PRN Reason: TITRATE PER PROTOCOL Last Admin: 03/31/17 10:04 Dose: 5 mg/hr, 50 mls/hr Multivitamins (Hexavitamin) 1 tab PO DAILY [facility] Last Admin: 03/31/17 10:04 Dose: 1 tab Pantoprazole Sodium (Protonix Ec Tab) 40 mg PO DAILY [facility] Last Admin: 03/31/17 10:04 Dose: 40 mg Sodium Chloride (Sodium Chloride Tab) 1 gm PO DAILY [facility] Last Admin: 03/31/17 10:04 Dose: 1 gm Thiamine HCl (Vitamin B1 Tab) 100 mg PO DAILY [facility] Last Admin: 03/31/17 10:04 Dose: 100 mg - Labs Labs: 03/31/17 06:21 03/31/17 06:21 PT 11.7 SECONDS (9.7-12.2) 03/25/17 17:48 INR 1.0 03/25/17 17:48 - Constitutional Appears: No Acute Distress - Head Exam Head Exam: ATRAUMATIC - Neurological Exam Neurological Exam: Alert, Awake, Normal Gait, Oriented x3 Neuro motor strength exam: Left Upper Extremity: 5, Right Upper Extremity: 5, Left Lower Extremity: 5, Right Lower Extremity: 5 Additional comments: Neurological improved from previous examination. Assessment and Plan (1) Acute intra-cranial hemorrhage Assessment & Plan: Case discussed with Dr. Gilbert, continue all current medical, physical, and occupational therapies. will continue to monitor na and serum osmolality levels. Status: Acute
--- NOTE | 2017-03-31 10:55 | CP.PCM.PN ---
Subjective - Date & Time of Evaluation Date of Evaluation: 03/31/17 Time of Evaluation: 10:45 - Subjective Subjective: Progress note dictated #[id number] Objective - Vital Signs/Intake and Output Vital Signs (last 24 hours): Temp Pulse Resp BP Pulse Ox 97.5 F L 64 14 150/77 97 03/31/17 04:00 03/31/17 08:53 03/31/17 08:53 03/31/17 08:53 03/31/17 08:00 Intake and Output: 03/31/17 03/31/17 06:59 18:59 Intake Total 760 300 Output Total 1400 0 Balance -640 300 - Medications Medications: Current Medications Dexamethasone (Decadron Inj) 4 mg IV Q6 [facility] Last Admin: 03/31/17 05:09 Dose: 4 mg Folic Acid (Folic Acid) 1 mg PO DAILY [facility] Last Admin: 03/31/17 10:04 Dose: 1 mg Levetiracetam 500 mg/ Sodium (Chloride) 105 mls @ 420 mls/hr IVPB Q12H [facility] Last Admin: 03/31/17 01:30 Dose: 420 mls/hr Nicardipine HCl 25 mg/ Sodium (Chloride) 250 mls @ 50 mls/hr IV .Q5H PRN; Protocol; 5 MG/HR PRN Reason: TITRATE PER PROTOCOL Last Admin: 03/31/17 10:04 Dose: 5 mg/hr, 50 mls/hr Multivitamins (Hexavitamin) 1 tab PO DAILY [facility] Last Admin: 03/31/17 10:04 Dose: 1 tab Pantoprazole Sodium (Protonix Ec Tab) 40 mg PO DAILY [facility] Last Admin: 03/31/17 10:04 Dose: 40 mg Sodium Chloride (Sodium Chloride Tab) 1 gm PO DAILY [facility] Last Admin: 03/31/17 10:04 Dose: 1 gm Thiamine HCl (Vitamin B1 Tab) 100 mg PO DAILY [facility] Last Admin: 03/31/17 10:04 Dose: 100 mg - Labs Labs: 03/31/17 06:21 03/31/17 06:21 PT 11.7 SECONDS (9.7-12.2) 03/25/17 17:48 INR 1.0 03/25/17 17:48
--- NOTE | 2017-03-31 11:24 | CP.CCUPN ---
<Wong Francis - Last Filed: 03/31/17 14:50> CCU Subjective - Physician Review Subjective (Free Text): PGY1 ICU Progress Note for Dr. Prieto Davis Patient seen and examined at bedside this morning. Patient is awake, alert and sitting in his chair at bedside. Patient is oriented to self and place but when asked day of the week and month, he stated monday and may (today is saturday 03/31). Patient denies any headaches. States he has no complaints at this time. CCU Objective - Vital Signs / Intake & Output Vital Signs (Last 4 hours): Vital Signs Pulse Resp BP Pulse Ox 03/31/17 08:53 64 14 150/77 03/31/17 08:00 43 L 13 97 03/31/17 07:59 39 L 12 133/50 L 98 03/31/17 07:53 42 L 14 133/50 L 98 Intake and Output (Last 8hrs): Intake & Output 03/30/17 03/31/17 03/31/17 22:59 06:59 14:59 Intake Total 520 600 300 Output Total 1300 400 0 Balance -780 200 300 Weight 163 lb Intake: Intake, IV Amount 320 360 80 Right Medial Port 320 360 80 Internal Jugular Oral 200 240 220 Output: Urine 1300 400 Urine, Voided 1300 400 Emesis 0 Other: # Voids Urine, Voided 1 # Bowel Movements 0 - Physical Exam Head: Positive for: Atraumatic, Normocephalic Pupils: Positive for: PERRL, Other ((blind in left eye)) Extroacular Muscles: Positive for: 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 Negative for: Respiratory Distress, Accessory Muscle Use Cardiovascular: Positive for: Regular Rate and Rhythm Abdomen: Positive for: Normal Bowel Sounds. Negative for: Tenderness, Distention, Peritoneal Signs Lower Extremity: Positive for: Other (SCDs in place.) Neurological: Positive for: Speech Normal (much improved compared to today), Motor Func Grossly Intact (movements much improved compared to yesterday) Psychiatric: Positive for: Alert. Negative for: Oriented x 3 (Oriented to self and place but not date) - Medications Active Medications: Active Medications Generic Name Dose Route Start Last Admin Trade Name Freq PRN Reason Stop Dose Admin Dexamethasone 4 mg 03/30/17 18:00 03/31/17 05:09 Decadron Inj IV 4 mg Q6 ALBERTO Administration Folic Acid 1 mg 03/26/17 10:00 03/31/17 10:04 Folic Acid PO 1 mg DAILY ALBERTO Administration Levetiracetam 500 mg/ Sodium 105 mls @ 420 mls/hr 03/26/17 01:00 03/31/17 01: 30 Chloride IVPB 420 mls/hr Q12H ALBERTO Administration Nicardipine HCl 25 mg/ Sodium 250 mls @ 50 mls/hr 03/31/17 08:15 03/31/17 10: 04 Chloride IV 5 mg/hr .Q5H PRN 50 mls/hr TITRATE PER PROTOCOL Administration Protocol 5 MG/HR Multivitamins 1 tab 03/26/17 10:00 03/31/17 10:04 Hexavitamin PO 1 tab DAILY ALBERTO Administration Pantoprazole Sodium 40 mg 03/31/17 10:00 03/31/17 10:04 Protonix Ec Tab PO 40 mg DAILY ALBERTO Administration Sodium Chloride 1 gm 03/29/17 13:00 03/31/17 10:04 Sodium Chloride Tab PO 1 gm DAILY ALBERTO Administration Thiamine HCl 100 mg 03/26/17 10:00 03/31/17 10:04 Vitamin B1 Tab PO 100 mg DAILY ALBERTO Administration - Patient Studies Lab Studies: Lab Studies 03/31/17 03/31/17 03/31/17 Range/Units 06:21 06:21 06:21 WBC 7.1 (4.8-10.8) K/uL RBC 4.00 L (4.40-5.90) Mil/uL Hgb 12.4 (12.0-18.0) g/dL Hct 36.7 (35.0-51.0) % MCV 91.7 (80.0-94.0) fL MCH 31.1 H (27.0-31.0) pg MCHC 33.9 (33.0-37.0) g/dL RDW 13.9 (11.5-14.5) % Plt Count 242 (130-400) K/uL MPV 7.7 (7.2-11.7) fL Neut % (Auto) 90.5 H (50.0-75.0) % Lymph % (Auto) 7.0 L (20.0-40.0) % [place] % (Auto) 2.5 (0.0-10.0) % Eos % (Auto) 0.0 (0.0-4.0) % Baso % (Auto) 0.0 (0.0-2.0) % Neut # 6.4 (1.8-7.0) K/uL Lymph # 0.5 L (1.0-4.3) K/uL [place] # 0.2 (0.0-0.8) K/uL Eos # 0.0 (0.0-0.7) K/uL Baso # 0.0 (0.0-0.2) K/uL Neutrophils % (Manual) 91 H (50-75) % Lymphocytes % (Manual) 8 L (20-40) % Monocytes % (Manual) 1 (0-10) % Platelet Estimate Normal (NORMAL) RBC Morphology Normal Sodium 140 (132-148) mmol/L Potassium 3.6 (3.6-5.2) mmol/L Chloride 107 (98-107) mmol/L Carbon Dioxide 23 (22-30) mmol/L Anion Gap 13 (10-20) BUN 12 (9-20) mg/dL Creatinine 0.6 L (0.8-1.5) mg/dL Est GFR ( Amer) > 60 Est GFR (Non-Af Amer) > 60 Random Glucose 117 H (75-110) mg/dL Serum Osmolality 294 (272-300) mosm/kg Calcium 8.2 L (8.6-10.4) mg/dl Phosphorus 3.8 (2.5-4.5) mg/dL Magnesium 2.1 (1.6-2.3) mg/dL Total Bilirubin 0.9 (0.2-1.3) mg/dL AST 19 (17-59) U/L ALT 40 (21-72) U/L Alkaline Phosphatase 76 (38-126) U/L Total Protein 6.7 (6.3-8.3) g/dL Albumin 3.6 (3.5-5.0) g/dL Globulin 3.1 (2.2-3.9) gm/dL Albumin/Globulin Ratio 1.2 (1.0-2.1) 03/31/17 03/31/17 03/30/17 Range/Units 01:26 00:25 19:30 WBC (4.8-10.8) K/uL RBC (4.40-5.90) Mil/uL Hgb (12.0-18.0) g/dL Hct (35.0-51.0) % MCV (80.0-94.0) fL MCH (27.0-31.0) pg MCHC (33.0-37.0) g/dL RDW (11.5-14.5) % Plt Count (130-400) K/uL MPV (7.2-11.7) fL Neut % (Auto) (50.0-75.0) % Lymph % (Auto) (20.0-40.0) % [place] % (Auto) (0.0-10.0) % Eos % (Auto) (0.0-4.0) % Baso % (Auto) (0.0-2.0) % Neut # (1.8-7.0) K/uL Lymph # (1.0-4.3) K/uL [place] # (0.0-0.8) K/uL Eos # (0.0-0.7) K/uL Baso # (0.0-0.2) K/uL Neutrophils % (Manual) (50-75) % Lymphocytes % (Manual) (20-40) % Monocytes % (Manual) (0-10) % Platelet Estimate (NORMAL) RBC Morphology Sodium 139 (132-148) mmol/L Potassium 3.7 (3.6-5.2) mmol/L Chloride 107 (98-107) mmol/L Carbon Dioxide 24 (22-30) mmol/L Anion Gap 12 (10-20) BUN 13 (9-20) mg/dL Creatinine 0.7 L (0.8-1.5) mg/dL Est GFR ( Amer) > 60 Est GFR (Non-Af Amer) > 60 Random Glucose 145 H (75-110) mg/dL Serum Osmolality 298 295 (272-300) mosm/kg Calcium 8.1 L (8.6-10.4) mg/dl Phosphorus (2.5-4.5) mg/dL Magnesium (1.6-2.3) mg/dL Total Bilirubin (0.2-1.3) mg/dL AST (17-59) U/L ALT (21-72) U/L Alkaline Phosphatase (38-126) U/L Total Protein (6.3-8.3) g/dL Albumin (3.5-5.0) g/dL Globulin (2.2-3.9) gm/dL Albumin/Globulin Ratio (1.0-2.1) 03/30/17 03/30/17 Range/Units 19:30 13:36 WBC (4.8-10.8) K/uL RBC (4.40-5.90) Mil/uL Hgb (12.0-18.0) g/dL Hct (35.0-51.0) % MCV (80.0-94.0) fL MCH (27.0-31.0) pg MCHC (33.0-37.0) g/dL RDW (11.5-14.5) % Plt Count (130-400) K/uL MPV (7.2-11.7) fL Neut % (Auto) (50.0-75.0) % Lymph % (Auto) (20.0-40.0) % [place] % (Auto) (0.0-10.0) % Eos % (Auto) (0.0-4.0) % Baso % (Auto) (0.0-2.0) % Neut # (1.8-7.0) K/uL Lymph # (1.0-4.3) K/uL [place] # (0.0-0.8) K/uL Eos # (0.0-0.7) K/uL Baso # (0.0-0.2) K/uL Neutrophils % (Manual) (50-75) % Lymphocytes % (Manual) (20-40) % Monocytes % (Manual) (0-10) % Platelet Estimate (NORMAL) RBC Morphology Sodium 140 142 (132-148) mmol/L Potassium 3.7 3.6 (3.6-5.2) mmol/L Chloride 107 111 H (98-107) mmol/L Carbon Dioxide 25 24 (22-30) mmol/L Anion Gap 12 11 (10-20) BUN 13 15 (9-20) mg/dL Creatinine 0.7 L 0.8 (0.8-1.5) mg/dL Est GFR ( Amer) > 60 > 60 Est GFR (Non-Af Amer) > 60 > 60 Random Glucose 134 H 76 (75-110) mg/dL Serum Osmolality (272-300) mosm/kg Calcium 8.0 L 8.0 L (8.6-10.4) mg/dl Phosphorus (2.5-4.5) mg/dL Magnesium (1.6-2.3) mg/dL Total Bilirubin (0.2-1.3) mg/dL AST (17-59) U/L ALT (21-72) U/L Alkaline Phosphatase (38-126) U/L Total Protein (6.3-8.3) g/dL Albumin (3.5-5.0) g/dL Globulin (2.2-3.9) gm/dL Albumin/Globulin Ratio (1.0-2.1) Laboratory Results - last 24 hr 03/30/17 03/30/17 03/30/17 13:36 19:30 19:30 WBC RBC Hgb Hct MCV MCH MCHC RDW Plt Count MPV Neut % (Auto) Lymph % (Auto) [place] % (Auto) Eos % (Auto) Baso % (Auto) Neut # Lymph # [place] # Eos # Baso # Neutrophils % (Manual) Lymphocytes % (Manual) Monocytes % (Manual) Platelet Estimate RBC Morphology Sodium 142 140 Potassium 3.6 3.7 Chloride 111 H 107 Carbon Dioxide 24 25 Anion Gap 11 12 BUN 15 13 Creatinine 0.8 0.7 L Est GFR ( Amer) > 60 > 60 Est GFR (Non-Af Amer) > 60 > 60 Random Glucose 76 134 H Serum Osmolality 295 Calcium 8.0 L 8.0 L Phosphorus Magnesium Total Bilirubin AST ALT Alkaline Phosphatase Total Protein Albumin Globulin Albumin/Globulin Ratio 03/31/17 03/31/17 03/31/17 00:25 01:26 06:21 WBC RBC Hgb Hct MCV MCH MCHC RDW Plt Count MPV Neut % (Auto) Lymph % (Auto) [place] % (Auto) Eos % (Auto) Baso % (Auto) Neut # Lymph # [place] # Eos # Baso # Neutrophils % (Manual) Lymphocytes % (Manual) Monocytes % (Manual) Platelet Estimate RBC Morphology Sodium 139 140 Potassium 3.7 3.6 Chloride 107 107 Carbon Dioxide 24 23 Anion Gap 12 13 BUN 13 12 Creatinine 0.7 L 0.6 L Est GFR ( Amer) > 60 > 60 Est GFR (Non-Af Amer) > 60 > 60 Random Glucose 145 H 117 H Serum Osmolality 298 Calcium 8.1 L 8.2 L Phosphorus 3.8 Magnesium 2.1 Total Bilirubin 0.9 AST 19 ALT 40 Alkaline Phosphatase 76 Total Protein 6.7 Albumin 3.6 Globulin 3.1 Albumin/Globulin Ratio 1.2 03/31/17 03/31/17 06:21 06:21 WBC 7.1 RBC 4.00 L Hgb 12.4 Hct 36.7 MCV 91.7 MCH 31.1 H MCHC 33.9 RDW 13.9 Plt Count 242 MPV 7.7 Neut % (Auto) 90.5 H Lymph % (Auto) 7.0 L [place] % (Auto) 2.5 Eos % (Auto) 0.0 Baso % (Auto) 0.0 Neut # 6.4 Lymph # 0.5 L [place] # 0.2 Eos # 0.0 Baso # 0.0 Neutrophils % (Manual) 91 H Lymphocytes % (Manual) 8 L Monocytes % (Manual) 1 Platelet Estimate Normal RBC Morphology Normal Sodium Potassium Chloride Carbon Dioxide Anion Gap BUN Creatinine Est GFR ( Amer) Est GFR (Non-Af Amer) Random Glucose Serum Osmolality 294 Calcium Phosphorus Magnesium Total Bilirubin AST ALT Alkaline Phosphatase Total Protein Albumin Globulin Albumin/Globulin Ratio Fingerstick Blood Sugar Results: 100 Review of Systems - Review of Systems All systems: reviewed and no additional remarkable complaints except (as per HPI ) Critical Care Progress Note - Nutrition Nutrition: Nutrition Category Date Time Status Soft [Dysphagia/Modified Consistency Diet] [DIET] Diets 03/27/17 Lunch Active Assessment/Plan - Assessment and Plan (Free Text) Assessment: Patient is a 71 year old male a past medical history of ETOH abuse, HTN, HLD, Depression, presenting with recent fall with rib fractures and AMS, found to have an intracranial hemorrhage. Plan: Neuro: Dr. Gilbert consulted, help appreciated Dr. Harmon consulted, help appreciated Patient is AAO x2, orientated to self and place but not date. No acute events overnight. Head CT 03/27/17 - Multifocal intracranial hemorrhage including the large right frontal parenchymal hemorrhage and multifocal extra-axial hemorrhages as described. Decreasing density of extra-axial blood noted in the right frontoparietal convexity hematoma and in the posterior right temporal hematoma. A right occipital extra-axial hemorrhage remains hyperdense consistent with acute blood. Increased midline shift towards the left of approximately 19 mm. No evidence of downward herniation. Repeat CT 03/29/17 - Large right frontal parenchymal hemorrhage with extensive surrounding edema and large midline shift towards the left. Decreasing size of right posterior occipital biconvex hemorrhage. There is focal parenchymal edema deep to what was previously identified as a small right posterior temporal biconvex extra-axial acute hemorrhage. Complete effacement of right lateral ventricle with mild ventricular trapping and dilatation of the left lateral ventricle, unchanged in extent compared to 03/27/2017. Increasing size of right convexity subdural hemorrhage, decreased in attenuation. This now measures 11 mm in width. Will continue to monitor neruochecks q1h Patient's neurological exam confounded with history of alcohol abuse/withdrawal - [facility] protocol Multivitamin/thiamine/folic acid Keppra 500mg IVPB q12h Decadron 4mg IV q6h Sodium chloride tab 1gm PO daily Hypertonic Saline 3% @40mL/hr - Na 140 today - Serum osmol 294 f/u neuro recs - no surgical intervention at this time - goal Na 140-145, monitor with BMP q6h - serum osmol, <320 monitor with serum osmol q6h - keep head of bed above 45 degrees - Avoid dextrose containing fluids, hyperthermia or hypertension GI: Swallow - soft/advanced bite size diet Prophylactic Care: DVT proph - SCDs, holding anticoagulation due to intracerebral bleed. GI proph - Protonix IV Case discussed with Dr. Alberto Francis PGY1 <Prieto Davis - Last Filed: 03/31/17 17:38> CCU Subjective - Physician Review Critical Care Time Spent (in minutes): 35 CCU Objective - Vital Signs / Intake & Output Vital Signs (Last 4 hours): Vital Signs Pulse Resp BP Pulse Ox 03/31/17 17:00 73 14 03/31/17 16:53 67 19 126/61 03/31/17 16:00 67 18 94 L 03/31/17 15:53 63 19 123/63 96 03/31/17 15:00 74 17 92 L 03/31/17 14:53 75 16 122/70 94 L 03/31/17 14:00 80 16 95 03/31/17 13:53 77 14 110/57 L 96 Intake and Output (Last 8hrs): Intake & Output 03/31/17 03/31/17 03/31/17 06:59 14:59 22:59 Intake Total 600 990 700 Output Total 400 400 500 Balance 200 590 200 Weight 163 lb Intake: IV 250 Intake, IV Amount 360 530 270 Right Distal Port 150 150 Internal Jugular Right Medial Port 360 280 120 Internal Jugular Right Proximal Port 100 Internal Jugular Oral 240 460 180 Output: Urine 400 400 500 Urine, Voided 400 400 500 Emesis 0 0 Other: # Bowel Movements 0 0 - Medications Active Medications: Active Medications Generic Name Dose Route Start Last Admin Trade Name Freq PRN Reason Stop Dose Admin Dexamethasone 4 mg 03/30/17 18:00 03/31/17 12:00 Decadron Inj IV 4 mg Q6 ALBERTO Administration Folic Acid 1 mg 03/26/17 10:00 03/31/17 10:04 Folic Acid PO 1 mg DAILY ALBERTO Administration Levetiracetam 500 mg/ Sodium 105 mls @ 420 mls/hr 03/26/17 01:00 03/31/17 13: 30 Chloride IVPB 420 mls/hr Q12H ALBERTO Administration Nicardipine HCl 25 mg/ Sodium 250 mls @ 50 mls/hr 03/31/17 08:15 03/31/17 15: 24 Chloride IV 5 mg/hr .Q5H PRN 50 mls/hr TITRATE PER PROTOCOL Administration Protocol 5 MG/HR Sodium Chloride 500 mls @ 40 mls/hr 03/31/17 12:38 03/31/17 13:00 Hypertonic Saline 3% IV 04/01/17 01:07 40 mls/hr .[id number] ONE Administration Multivitamins 1 tab 03/26/17 10:00 03/31/17 10:04 Hexavitamin PO 1 tab DAILY ALBERTO Administration Pantoprazole Sodium 40 mg 03/31/17 10:00 03/31/17 10:04 Protonix Ec Tab PO 40 mg DAILY ALBERTO Administration Sodium Chloride 1 gm 03/29/17 13:00 03/31/17 10:04 Sodium Chloride Tab PO 1 gm DAILY ALBERTO Administration Thiamine HCl 100 mg 03/26/17 10:00 03/31/17 10:04 Vitamin B1 Tab PO 100 mg DAILY ALBERTO Administration - Patient Studies Lab Studies: Lab Studies 03/31/17 03/31/1717 Range/Units 06:21 06:21 06:21 WBC 7.1 (4.8-10.8) K/uL RBC 4.00 L (4.40-5.90) Mil/uL Hgb 12.4 (12.0-18.0) g/dL Hct 36.7 (35.0-51.0) % MCV 91.7 (80.0-94.0) fL MCH 31.1 H (27.0-31.0) pg MCHC 33.9 (33.0-37.0) g/dL RDW 13.9 (11.5-14.5) % Plt Count 242 (130-400) K/uL MPV 7.7 (7.2-11.7) fL Neut % (Auto) 90.5 H (50.0-75.0) % Lymph % (Auto) 7.0 L (20.0-40.0) % [place] % (Auto) 2.5 (0.0-10.0) % Eos % (Auto) 0.0 (0.0-4.0) % Baso % (Auto) 0.0 (0.0-2.0) % Neut # 6.4 (1.8-7.0) K/uL Lymph # 0.5 L (1.0-4.3) K/uL [place] # 0.2 (0.0-0.8) K/uL Eos # 0.0 (0.0-0.7) K/uL Baso # 0.0 (0.0-0.2) K/uL Neutrophils % (Manual) 91 H (50-75) % Lymphocytes % (Manual) 8 L (20-40) % Monocytes % (Manual) 1 (0-10) % Platelet Estimate Normal (NORMAL) RBC Morphology Normal Sodium 140 (132-148) mmol/L Potassium 3.6 (3.6-5.2) mmol/L Chloride 107 (98-107) mmol/L Carbon Dioxide 23 (22-30) mmol/L Anion Gap 13 (10-20) BUN 12 (9-20) mg/dL Creatinine 0.6 L (0.8-1.5) mg/dL Est GFR ( Amer) > 60 Est GFR (Non-Af Amer) > 60 Random Glucose 117 H (75-110) mg/dL Serum Osmolality 294 (272-300) mosm/kg Calcium 8.2 L (8.6-10.4) mg/dl Phosphorus 3.8 (2.5-4.5) mg/dL Magnesium 2.1 (1.6-2.3) mg/dL Total Bilirubin 0.9 (0.2-1.3) mg/dL AST 19 (17-59) U/L ALT 40 (21-72) U/L Alkaline Phosphatase 76 (38-126) U/L Total Protein 6.7 (6.3-8.3) g/dL Albumin 3.6 (3.5-5.0) g/dL Globulin 3.1 (2.2-3.9) gm/dL Albumin/Globulin Ratio 1.2 (1.0-2.1) 03/31/17 03/31/17 03/30/17 Range/Units 01:26 00:25 19:30 WBC (4.8-10.8) K/uL RBC (4.40-5.90) Mil/uL Hgb (12.0-18.0) g/dL Hct (35.0-51.0) % MCV (80.0-94.0) fL MCH (27.0-31.0) pg MCHC (33.0-37.0) g/dL RDW (11.5-14.5) % Plt Count (130-400) K/uL MPV (7.2-11.7) fL Neut % (Auto) (50.0-75.0) % Lymph % (Auto) (20.0-40.0) % [place] % (Auto) (0.0-10.0) % Eos % (Auto) (0.0-4.0) % Baso % (Auto) (0.0-2.0) % Neut # (1.8-7.0) K/uL Lymph # (1.0-4.3) K/uL [place] # (0.0-0.8) K/uL Eos # (0.0-0.7) K/uL Baso # (0.0-0.2) K/uL Neutrophils % (Manual) (50-75) % Lymphocytes % (Manual) (20-40) % Monocytes % (Manual) (0-10) % Platelet Estimate (NORMAL) RBC Morphology Sodium 139 (132-148) mmol/L Potassium 3.7 (3.6-5.2) mmol/L Chloride 107 (98-107) mmol/L Carbon Dioxide 24 (22-30) mmol/L Anion Gap 12 (10-20) BUN 13 (9-20) mg/dL Creatinine 0.7 L (0.8-1.5) mg/dL Est GFR ( Amer) > 60 Est GFR (Non-Af Amer) > 60 Random Glucose 145 H (75-110) mg/dL Serum Osmolality 298 295 (272-300) mosm/kg Calcium 8.1 L (8.6-10.4) mg/dl Phosphorus (2.5-4.5) mg/dL Magnesium (1.6-2.3) mg/dL Total Bilirubin (0.2-1.3) mg/dL AST (17-59) U/L ALT (21-72) U/L Alkaline Phosphatase (38-126) U/L Total Protein (6.3-8.3) g/dL Albumin (3.5-5.0) g/dL Globulin (2.2-3.9) gm/dL Albumin/Globulin Ratio (1.0-2.1) 03/30/17 Range/Units 19:30 WBC (4.8-10.8) K/uL RBC (4.40-5.90) Mil/uL Hgb (12.0-18.0) g/dL Hct (35.0-51.0) % MCV (80.0-94.0) fL MCH (27.0-31.0) pg MCHC (33.0-37.0) g/dL RDW (11.5-14.5) % Plt Count (130-400) K/uL MPV (7.2-11.7) fL Neut % (Auto) (50.0-75.0) % Lymph % (Auto) (20.0-40.0) % [place] % (Auto) (0.0-10.0) % Eos % (Auto) (0.0-4.0) % Baso % (Auto) (0.0-2.0) % Neut # (1.8-7.0) K/uL Lymph # (1.0-4.3) K/uL [place] # (0.0-0.8) K/uL Eos # (0.0-0.7) K/uL Baso # (0.0-0.2) K/uL Neutrophils % (Manual) (50-75) % Lymphocytes % (Manual) (20-40) % Monocytes % (Manual) (0-10) % Platelet Estimate (NORMAL) RBC Morphology Sodium 140 (132-148) mmol/L Potassium 3.7 (3.6-5.2) mmol/L Chloride 107 (98-107) mmol/L Carbon Dioxide 25 (22-30) mmol/L Anion Gap 12 (10-20) BUN 13 (9-20) mg/dL Creatinine 0.7 L (0.8-1.5) mg/dL Est GFR ( Amer) > 60 Est GFR (Non-Af Amer) > 60 Random Glucose 134 H (75-110) mg/dL Serum Osmolality (272-300) mosm/kg Calcium 8.0 L (8.6-10.4) mg/dl Phosphorus (2.5-4.5) mg/dL Magnesium (1.6-2.3) mg/dL Total Bilirubin (0.2-1.3) mg/dL AST (17-59) U/L ALT (21-72) U/L Alkaline Phosphatase (38-126) U/L Total Protein (6.3-8.3) g/dL Albumin (3.5-5.0) g/dL Globulin (2.2-3.9) gm/dL Albumin/Globulin Ratio (1.0-2.1) Laboratory Results - last 24 hr 03/30/17 03/30/17 03/31/17 19:30 19:30 00:25 WBC RBC Hgb Hct MCV MCH MCHC RDW Plt Count MPV Neut % (Auto) Lymph % (Auto) [place] % (Auto) Eos % (Auto) Baso % (Auto) Neut # Lymph # [place] # Eos # Baso # Neutrophils % (Manual) Lymphocytes % (Manual) Monocytes % (Manual) Platelet Estimate RBC Morphology Sodium 140 Potassium 3.7 Chloride 107 Carbon Dioxide 25 Anion Gap 12 BUN 13 Creatinine 0.7 L Est GFR ( Amer) > 60 Est GFR (Non-Af Amer) > 60 Random Glucose 134 H Serum Osmolality 295 298 Calcium 8.0 L Phosphorus Magnesium Total Bilirubin AST ALT Alkaline Phosphatase Total Protein Albumin Globulin Albumin/Globulin Ratio 03/31/17 03/31/17 03/31/17 01:26 06:21 06:21 WBC RBC Hgb Hct MCV MCH MCHC RDW Plt Count MPV Neut % (Auto) Lymph % (Auto) [place] % (Auto) Eos % (Auto) Baso % (Auto) Neut # Lymph # [place] # Eos # Baso # Neutrophils % (Manual) Lymphocytes % (Manual) Monocytes % (Manual) Platelet Estimate RBC Morphology Sodium 139 140 Potassium 3.7 3.6 Chloride 107 107 Carbon Dioxide 24 23 Anion Gap 12 13 BUN 13 12 Creatinine 0.7 L 0.6 L Est GFR ( Amer) > 60 > 60 Est GFR (Non-Af Amer) > 60 > 60 Random Glucose 145 H 117 H Serum Osmolality 294 Calcium 8.1 L 8.2 L Phosphorus 3.8 Magnesium 2.1 Total Bilirubin 0.9 AST 19 ALT 40 Alkaline Phosphatase 76 Total Protein 6.7 Albumin 3.6 Globulin 3.1 Albumin/Globulin Ratio 1.2 03/31/17 06:21 WBC 7.1 RBC 4.00 L Hgb 12.4 Hct 36.7 MCV 91.7 MCH 31.1 H MCHC 33.9 RDW 13.9 Plt Count 242 MPV 7.7 Neut % (Auto) 90.5 H Lymph % (Auto) 7.0 L [place] % (Auto) 2.5 Eos % (Auto) 0.0 Baso % (Auto) 0.0 Neut # 6.4 Lymph # 0.5 L [place] # 0.2 Eos # 0.0 Baso # 0.0 Neutrophils % (Manual) 91 H Lymphocytes % (Manual) 8 L Monocytes % (Manual) 1 Platelet Estimate Normal RBC Morphology Normal Sodium Potassium Chloride Carbon Dioxide Anion Gap BUN Creatinine Est GFR ( Amer) Est GFR (Non-Af Amer) Random Glucose Serum Osmolality Calcium Phosphorus Magnesium Total Bilirubin AST ALT Alkaline Phosphatase Total Protein Albumin Globulin Albumin/Globulin Ratio Critical Care Progress Note - Nutrition Nutrition: Nutrition Category Date Time Status Soft [Dysphagia/Modified Consistency Diet] [DIET] Diets 03/27/17 Lunch Active Assessment/Plan - Assessment and Plan (Free Text) Plan: Patient seen and examined at bedside. Patient with h/o ICH. Patient with h/o ETOH use/abuse. -ICH:stable -HTN: given ICH, will control BP with IV nicrdipine -slight edema: continue IV hypertonic fluid : GCS score >13, continue neuro check q1hrs -keep SBP <140 -Switch from IV nicrdipine to oral antihypertensive. - continue dvt/pud ppx cc time 35 minutes
[2017-03-31] MEDS ORDERED: Sodium Chloride 3% 500 ML IV ONE (12:38)
[2017-04-01] MEDS: Dexamethasone 4 mg/1 ml IV SCH ×4 (00:41→17:17)
[2017-04-01] MEDS: levETIRAcetam 500 MG in Sodium Chloride 0.9% 100 ML IVPB SCH ×2 (00:45→12:42)
--- NOTE | 2017-04-01 01:45 | PN ---
DATE: 03/31/2017 PROGRESS NOTE SUBJECTIVE: The patient was seen and examined at bedside. He is more alert and awake, responding more appropriately than yesterday. Denies any headache. Denies any other complaints. PHYSICAL EXAMINATION: GENERAL: Elderly male, sitting in chair, in no acute distress. VITAL SIGNS: Blood pressure 128/68, pulse is 84, respirations 17, temperature 98.4 degrees Fahrenheit, O2 sat 96% on room air. HEENT: Right pupil reacting to light and accommodation. Extraocular muscles intact. No icterus, no pallor. Left eye blind. No oral thrush. No pharyngeal congestion. NECK: Supple. No JVD. LUNGS: Bilateral vesicular breath sounds. No wheezing. No rhonchi. CARDIOVASCULAR SYSTEM: S1 and S2 present, regular. ABDOMEN: Soft, nontender. Bowel sounds present. No guarding. No rigidity. No rebound tenderness noted. CENTRAL NERVOUS SYSTEM: Alert, awake, oriented x3. No focal deficits noted. EXTREMITIES: No edema. MEDICATIONS: Include Decadron 4 mg IV q. 6 hours, folic acid 1 mg p.o. daily, Keppra 500 mg IV q. 12 hours, multivitamin 1 tab daily, 5 mg per hour, Protonix, sodium chloride tablet, hypertonic saline, thiamine, and multivitamin. LABORATORY DATA: Labs from this morning, WBC 7.1, hemoglobin 12.4, hematocrit 36.7, platelets 242. Sodium 140, potassium 3.6, chloride 107, bicarb 23, BUN 4, creatinine 0.6, glucose 117, calcium 8.2, phosphorus 3.8, magnesium 2.1. Total bilirubin 0.9, AST 19, ALT 40, alkaline phosphate 76, total protein 6.7, albumin 3.6. ASSESSMENT AND PLAN: Elderly male with a history of ethyl alcohol abuse, hypertension, hyperlipidemia, status post fall, admitted for intracerebral bleeding with vasogenic edema, altered mental status improving, subdural hematoma, on hypertonic saline and Decadron and antiseizure medication, on nicardipine drip. We will continue with current medication. Follow up with Neurology. Repeat CT. Continue with gastrointestinal and deep venous thrombosis prophylaxis. Afia Chirinos MD
[2017-04-01 06:59] LABS: LYMPH # 0.6 K/uL (1.0-4.3); LYMPH % 7.4 % (20.0-40.0); MEAN CELL VOLUME 90.6 fL (80.0-94.0); MEAN CORPUSCULAR HEMOGLOBIN 31.4 pg (27.0-31.0); MEAN CORPUSCULAR HGB CONC 34.7 g/dL (33.0-37.0); MEAN PLATELET VOLUME 8.1 fL (7.2-11.7); MONO # 0.3 K/uL (0.0-0.8); MONO % 3.6 % (0.0-10.0); PLATELET COUNT 249 K/uL (130-400); RED CELL DISTRIBUTION WIDTH 13.7 % (11.5-14.5); WHITE BLOOD COUNT 7.6 K/uL (4.8-10.8)
[2017-04-01 07:12] LABS: ALKALINE PHOSPHATASE 67 U/L (38-126); ALT/SGPT 36 U/L (21-72); AST/SGOT 16 U/L (17-59); BILIRUBIN,TOTAL 0.8 mg/dL (0.2-1.3); BLOOD UREA NITROGEN 14 mg/dL (9-20); CALCIUM 8.1 mg/dl (8.6-10.4); CARBON DIOXIDE 25 mmol/L (22-30); CHLORIDE 107 mmol/L (98-107); GFR AFRICAN-AMERICAN > 60; GLUCOSE,RANDOM 129 mg/dL (75-110); MAGNESIUM 2.2 mg/dL (1.6-2.3); PHOSPHOROUS 3.6 mg/dL (2.5-4.5); POTASSIUM 3.6 mmol/L (3.6-5.2); SODIUM 139 mmol/L (132-148); TOTAL PROTEIN 6.1 g/dL (6.3-8.3)
[2017-04-01 07:13] LABS: ALB/GLOB RATIO 1.2 (1.0-2.1)
[2017-04-01] MEDS: Multiple Vitamins Tab PO SCH (10:00)
[2017-04-01] MEDS: Pantoprazole 40 mg EC Tab PO SCH (10:00)
[2017-04-01 10:09] LABS: NEUTROPHIL 89 % (50-75); TOTAL CELLS COUNTED 100
--- NOTE | 2017-04-01 10:20 | CT ---
PROCEDURE: CT HEAD WITHOUT CONTRAST. HISTORY: worsening AMS COMPARISON: Comparison is made to 03/29/2017 TECHNIQUE: Axial computed tomography images were obtained through the head/brain without intravenous contrast. Radiation dose: Total exam DLP = 1099.26 mGy-cm. This CT exam was performed using one or more of the following dose reduction techniques: Automated exposure control, adjustment of the mA and/or kV according to patient size, and/or use of iterative reconstruction technique. FINDINGS: HEMORRHAGE: Re- demonstration of parenchymal hemorrhage at the right frontal lobe surrounding with edema measures 4.6 centimeter in the largest AP diameter and 2 centimeter in the transverse diameter. Re- demonstration of mixed subdural hematoma along the right convexity contains small foci of high attenuation and mainly low attenuation suggestive of small acute on chronic subdural hematoma. The maximum thickness of this subdural hematoma is 1.2 centimeter. BRAIN: Again seen is mass effect on the right lateral ventricle and fobto-ui-[id number] midline shift measures 16.6 millimeter at the level of the septum . Chronic microvascular ischemic changes VENTRICLES: Compression on the right lateral ventricle. Mildly dilated left ventricle suggestive of mild hydrocephalus. CALVARIUM: Unremarkable. PARANASAL SINUSES: Unremarkable as visualized. No significant inflammatory changes. MASTOID AIR CELLS: Unremarkable as visualized. No inflammatory changes. OTHER FINDINGS: None. IMPRESSION: No significant interval change noted since the previous exam. Re- demonstrated is internal hemorrhage at the right frontal lobe. Re- demonstrated is complex mainly chronic subdural hematoma along the right convexity with small foci of high attenuation suggestive of small acute on chronic hemorrhage. Mass effect on the lateral ventricle and approximately 16.6 millimeter right to left midline shift. Mild hydrocephalus.
--- NOTE | 2017-04-01 10:54 | CP.PCM.PN ---
Subjective - Date & Time of Evaluation Date of Evaluation: 04/01/17 Time of Evaluation: 10:54 - Subjective Subjective: pt is seen and examined, progress note is dictated for Dr. So#[id number] Objective - Vital Signs/Intake and Output Vital Signs (last 24 hours): Temp Pulse Resp BP Pulse Ox 97.6 F 45 L 11 L 129/64 96 04/01/17 08:00 04/01/17 10:00 04/01/17 10:00 04/01/17 09:54 04/01/17 10:00 Intake and Output: 04/01/17 04/01/17 06:59 18:59 Intake Total 980 340 Output Total 1000 450 Balance -20 -110 - Medications Medications: Current Medications Dexamethasone (Decadron Inj) 4 mg IV Q6 ALBERTO Last Admin: 04/01/17 07:05 Dose: 4 mg Folic Acid (Folic Acid) 1 mg PO DAILY ALBERTO Last Admin: 04/01/17 10:00 Dose: 1 mg Levetiracetam 500 mg/ Sodium (Chloride) 105 mls @ 420 mls/hr IVPB Q12H ALBERTO Last Admin: 04/01/17 00:45 Dose: 420 mls/hr Multivitamins (Hexavitamin) 1 tab PO DAILY ALBERTO Last Admin: 04/01/17 10:00 Dose: 1 tab Pantoprazole Sodium (Protonix Ec Tab) 40 mg PO DAILY ALBERTO Last Admin: 04/01/17 10:00 Dose: 40 mg Sodium Chloride (Sodium Chloride Tab) 1 gm PO DAILY ALBERTO Last Admin: 04/01/17 10:00 Dose: 1 gm Thiamine HCl (Vitamin B1 Tab) 100 mg PO DAILY ALBERTO Last Admin: 04/01/17 10:00 Dose: 100 mg - Labs Labs: 04/01/17 06:48 04/01/17 06:48 PT 11.7 SECONDS (9.7-12.2) 03/25/17 17:48 INR 1.0 03/25/17 17:48
--- NOTE | 2017-04-01 11:16 | CP.CCUPN ---
<Wong Francis - Last Filed: 04/01/17 11:13> CCU Subjective - Physician Review Subjective (Free Text): PGY1 ICU Progress Note for Dr. Prieto Davis Patient seen and examined at bedside this morning. Patient is awake, alert and laying in his bed. Patient states that he is feeling much better. Patient denies any headaches. He states that he has no complaints at this time. CCU Objective - Vital Signs / Intake & Output Vital Signs (Last 4 hours): Vital Signs Temp Pulse Resp BP Pulse Ox 04/01/17 10:00 45 L 11 L 96 04/01/17 09:54 47 L 14 129/64 96 04/01/17 09:00 40 L 10 L 97 04/01/17 08:53 40 L 10 L 111/48 L 97 04/01/17 08:00 97.6 F 41 L 9 L 97 04/01/17 07:53 40 L 11 L 111/42 L 97 04/01/17 07:22 41 L 10 L 101/38 L 98 Intake and Output (Last 8hrs): Intake & Output 03/31/17 04/01/17 04/01/17 22:59 06:59 14:59 Intake Total 1530 320 340 Output Total 700 800 450 Balance 830 -480 -110 Weight 162 lb 8 oz Intake: IV 550 Intake, IV Amount 720 320 40 Right Distal Port 400 Internal Jugular Right Medial Port 320 320 40 Internal Jugular Oral 260 300 Output: Urine 700 800 450 Urine, Voided 700 800 450 Emesis 0 Other: # Bowel Movements 0 0 - Physical Exam Head: Positive for: Atraumatic, Normocephalic Pupils: Positive for: PERRL, Other ((blind in left eye)) Extroacular Muscles: Positive for: 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 Negative for: Respiratory Distress, Accessory Muscle Use Cardiovascular: Positive for: Regular Rate and Rhythm Abdomen: Positive for: Normal Bowel Sounds. Negative for: Tenderness, Distention, Peritoneal Signs Lower Extremity: Positive for: Other (SCDs in place.) Neurological: Positive for: GCS=15, Speech Normal (much improved compared to today), Motor Func Grossly Intact (movements much improved compared to yesterday ) Skin: Positive for: Warm, Dry Psychiatric: Positive for: Alert. Negative for: Oriented x 3 (Oriented to self and place but not date) - Medications Active Medications: Active Medications Generic Name Dose Route Start Last Admin Trade Name Sonia PRN Reason Stop Dose Admin Dexamethasone 4 mg 03/30/17 18:00 04/01/17 07:05 Decadron Inj IV 4 mg Q6 ALBERTO Administration Folic Acid 1 mg 03/26/17 10:00 04/01/17 10:00 Folic Acid PO 1 mg DAILY ALBERTO Administration Levetiracetam 500 mg/ Sodium 105 mls @ 420 mls/hr 03/26/17 01:00 04/01/17 00: 45 Chloride IVPB 420 mls/hr Q12H ALBERTO Administration Multivitamins 1 tab 03/26/17 10:00 04/01/17 10:00 Hexavitamin PO 1 tab DAILY ALBERTO Administration Pantoprazole Sodium 40 mg 03/31/17 10:00 04/01/17 10:00 Protonix Ec Tab PO 40 mg DAILY ALBERTO Administration Sodium Chloride 1 gm 03/29/17 13:00 04/01/17 10:00 Sodium Chloride Tab PO 1 gm DAILY ALBERTO Administration Thiamine HCl 100 mg 03/26/17 10:00 04/01/17 10:00 Vitamin B1 Tab PO 100 mg DAILY ALBERTO Administration - Patient Studies Lab Studies: Lab Studies 04/01/17 04/01/17 04/01/17 Range/Units 09:07 06:48 06:48 WBC 7.6 (4.8-10.8) K/uL RBC 3.87 L (4.40-5.90) Mil/uL Hgb 12.1 (12.0-18.0) g/dL Hct 35.0 (35.0-51.0) % MCV 90.6 (80.0-94.0) fL MCH 31.4 H (27.0-31.0) pg MCHC 34.7 (33.0-37.0) g/dL RDW 13.7 (11.5-14.5) % Plt Count 249 (130-400) K/uL MPV 8.1 (7.2-11.7) fL Neut % (Auto) 89.0 H (50.0-75.0) % Lymph % (Auto) 7.4 L (20.0-40.0) % [place] % (Auto) 3.6 (0.0-10.0) % Eos % (Auto) 0.0 (0.0-4.0) % Baso % (Auto) 0.0 (0.0-2.0) % Neut # 6.8 (1.8-7.0) K/uL Lymph # 0.6 L (1.0-4.3) K/uL [place] # 0.3 (0.0-0.8) K/uL Eos # 0.0 (0.0-0.7) K/uL Baso # 0.0 (0.0-0.2) K/uL Neutrophils % (Manual) 89 H (50-75) % Band Neutrophils % 2 (0-2) % Lymphocytes % (Manual) 7 L (20-40) % Monocytes % (Manual) 2 (0-10) % Platelet Estimate Normal (NORMAL) RBC Morphology Normal Sodium 139 (132-148) mmol/L Potassium 3.6 (3.6-5.2) mmol/L Chloride 107 (98-107) mmol/L Carbon Dioxide 25 (22-30) mmol/L Anion Gap 12 (10-20) BUN 14 (9-20) mg/dL Creatinine 0.6 L (0.8-1.5) mg/dL Est GFR ( Amer) > 60 Est GFR (Non-Af Amer) > 60 Random Glucose 129 H (75-110) mg/dL Serum Osmolality 289 (272-300) mosm/kg Calcium 8.1 L (8.6-10.4) mg/dl Phosphorus 3.6 (2.5-4.5) mg/dL Magnesium 2.2 (1.6-2.3) mg/dL Total Bilirubin 0.8 (0.2-1.3) mg/dL AST 16 L (17-59) U/L ALT 36 (21-72) U/L Alkaline Phosphatase 67 (38-126) U/L Total Protein 6.1 L (6.3-8.3) g/dL Albumin 3.4 L (3.5-5.0) g/dL Globulin 2.8 (2.2-3.9) gm/dL Albumin/Globulin Ratio 1.2 (1.0-2.1) Laboratory Results - last 24 hr 04/01/17 04/01/17 04/01/17 06:48 06:48 09:07 WBC 7.6 RBC 3.87 L Hgb 12.1 Hct 35.0 MCV 90.6 MCH 31.4 H MCHC 34.7 RDW 13.7 Plt Count 249 MPV 8.1 Neut % (Auto) 89.0 H Lymph % (Auto) 7.4 L [place] % (Auto) 3.6 Eos % (Auto) 0.0 Baso % (Auto) 0.0 Neut # 6.8 Lymph # 0.6 L [place] # 0.3 Eos # 0.0 Baso # 0.0 Neutrophils % (Manual) 89 H Band Neutrophils % 2 Lymphocytes % (Manual) 7 L Monocytes % (Manual) 2 Platelet Estimate Normal RBC Morphology Normal Sodium 139 Potassium 3.6 Chloride 107 Carbon Dioxide 25 Anion Gap 12 BUN 14 Creatinine 0.6 L Est GFR ( Amer) > 60 Est GFR (Non-Af Amer) > 60 Random Glucose 129 H Serum Osmolality 289 Calcium 8.1 L Phosphorus 3.6 Magnesium 2.2 Total Bilirubin 0.8 AST 16 L ALT 36 Alkaline Phosphatase 67 Total Protein 6.1 L Albumin 3.4 L Globulin 2.8 Albumin/Globulin Ratio 1.2 Fingerstick Blood Sugar Results: 100 Review of Systems - Review of Systems All systems: reviewed and no additional remarkable complaints except (as per HPI ) Critical Care Progress Note - Nutrition Nutrition: Nutrition Category Date Time Status Soft [Dysphagia/Modified Consistency Diet] [DIET] Diets 03/27/17 Lunch Active Assessment/Plan - Assessment and Plan (Free Text) Assessment: Patient is a 71 year old male a past medical history of ETOH abuse, HTN, HLD, Depression, presenting with recent fall with rib fractures and AMS, found to have an intracranial hemorrhage. Plan: Neuro: Dr. Gilbert consulted, help appreciated Dr. Harmon consulted, help appreciated Intraparencymal Hemorrhage - stable Patient is AAO x2, orientated to self and place but not date. No acute events overnight. Head CT 03/27/17 - Multifocal intracranial hemorrhage including the large right frontal parenchymal hemorrhage and multifocal extra-axial hemorrhages as described. Decreasing density of extra-axial blood noted in the right frontoparietal convexity hematoma and in the posterior right temporal hematoma. A right occipital extra-axial hemorrhage remains hyperdense consistent with acute blood. Increased midline shift towards the left of approximately 19 mm. No evidence of downward herniation. Repeat Head CT 03/29/17 - Large right frontal parenchymal hemorrhage with extensive surrounding edema and large midline shift towards the left. Decreasing size of right posterior occipital biconvex hemorrhage. There is focal parenchymal edema deep to what was previously identified as a small right posterior temporal biconvex extra-axial acute hemorrhage. Complete effacement of right lateral ventricle with mild ventricular trapping and dilatation of the left lateral ventricle, unchanged in extent compared to 03/27/2017. Increasing size of right convexity subdural hemorrhage, decreased in attenuation. This now measures 11 mm in width. Repeat Head CT 04/01/17 - No significant interval change noted since the previous exam. Re- demonstrated is internal hemorrhage at the right frontal lobe. Re- demonstrated is complex mainly chronic subdural hematoma along the right convexity with small foci of high attenuation suggestive of small acute on chronic hemorrhage. Mass effect on the lateral ventricle and approximately 16.6 millimeter right to left midline shift. Mild hydrocephalus. Will continue to monitor neruochecks q1h Patient's neurological exam confounded with history of alcohol abuse/withdrawal - [facility] protocol Multivitamin/thiamine/folic acid Keppra 500mg IVPB q12h Decadron 4mg IV q6h Sodium chloride tab 1gm PO daily Hypertonic Saline 3% @40mL/hr - Na 139 today - Serum osmol 289 f/u neuro recs - no surgical intervention at this time - goal Na 140-145, monitor with BMP q6h - serum osmol, <320 monitor with serum osmol q6h - keep head of bed above 45 degrees - Avoid dextrose containing fluids, hyperthermia or hypertension GI: Swallow - soft/advanced bite size diet Prophylactic Care: DVT proph - SCDs, holding anticoagulation due to intracerebral bleed. GI proph - Protonix IV Case discussed with Dr. Alberto Francis PGY1 <Prieto Davis - Last Filed: 04/01/17 13:09> CCU Objective - Vital Signs / Intake & Output Vital Signs (Last 4 hours): Vital Signs Pulse Resp BP Pulse Ox 04/01/17 12:00 46 L 12 97 04/01/17 11:53 44 L 15 135/64 95 04/01/17 11:00 47 L 15 95 04/01/17 10:53 43 L 14 131/66 04/01/17 10:00 45 L 11 L 96 04/01/17 09:54 47 L 14 129/64 96 Intake and Output (Last 8hrs): Intake & Output 03/31/17 04/01/17 04/01/17 22:59 06:59 14:59 Intake Total 1530 320 340 Output Total 700 800 450 Balance 830 -480 -110 Weight 162 lb 8 oz Intake: IV 550 Intake, IV Amount 720 320 40 Right Distal Port 400 Internal Jugular Right Medial Port 320 320 40 Internal Jugular Oral 260 300 Output: Urine 700 800 450 Urine, Voided 700 800 450 Emesis 0 Other: # Bowel Movements 0 0 - Medications Active Medications: Active Medications Generic Name Dose Route Start Last Admin Trade Name Freq PRN Reason Stop Dose Admin Dexamethasone 4 mg 03/30/17 18:00 04/01/17 11:58 Decadron Inj IV 4 mg Q6 ALBERTO Administration Folic Acid 1 mg 03/26/17 10:00 04/01/17 10:00 Folic Acid PO 1 mg DAILY ALBERTO Administration Levetiracetam 500 mg/ Sodium 105 mls @ 420 mls/hr 03/26/17 01:00 04/01/17 12: 42 Chloride IVPB 420 mls/hr Q12H ALBERTO Administration Sodium Chloride 500 mls @ 40 mls/hr 04/01/17 12:10 04/01/17 12:42 Hypertonic Saline 3% IV 04/02/17 00:39 40 mls/hr .[id number] ONE Administration Multivitamins 1 tab 03/26/17 10:00 04/01/17 10:00 Hexavitamin PO 1 tab DAILY ALBERTO Administration Pantoprazole Sodium 40 mg 03/31/17 10:00 04/01/17 10:00 Protonix Ec Tab PO 40 mg DAILY ALBERTO Administration Sodium Chloride 1 gm 03/29/17 13:00 04/01/17 10:00 Sodium Chloride Tab PO 1 gm DAILY ALBERTO Administration Thiamine HCl 100 mg 03/26/17 10:00 04/01/17 10:00 Vitamin B1 Tab PO 100 mg DAILY ALBERTO Administration - Patient Studies Lab Studies: Lab Studies 04/01/17 04/01/17 04/01/17 Range/Units 09:07 06:48 06:48 WBC 7.6 (4.8-10.8) K/uL RBC 3.87 L (4.40-5.90) Mil/uL Hgb 12.1 (12.0-18.0) g/dL Hct 35.0 (35.0-51.0) % MCV 90.6 (80.0-94.0) fL MCH 31.4 H (27.0-31.0) pg MCHC 34.7 (33.0-37.0) g/dL RDW 13.7 (11.5-14.5) % Plt Count 249 (130-400) K/uL MPV 8.1 (7.2-11.7) fL Neut % (Auto) 89.0 H (50.0-75.0) % Lymph % (Auto) 7.4 L (20.0-40.0) % [place] % (Auto) 3.6 (0.0-10.0) % Eos % (Auto) 0.0 (0.0-4.0) % Baso % (Auto) 0.0 (0.0-2.0) % Neut # 6.8 (1.8-7.0) K/uL Lymph # 0.6 L (1.0-4.3) K/uL [place] # 0.3 (0.0-0.8) K/uL Eos # 0.0 (0.0-0.7) K/uL Baso # 0.0 (0.0-0.2) K/uL Neutrophils % (Manual) 89 H (50-75) % Band Neutrophils % 2 (0-2) % Lymphocytes % (Manual) 7 L (20-40) % Monocytes % (Manual) 2 (0-10) % Platelet Estimate Normal (NORMAL) RBC Morphology Normal Sodium 139 (132-148) mmol/L Potassium 3.6 (3.6-5.2) mmol/L Chloride 107 (98-107) mmol/L Carbon Dioxide 25 (22-30) mmol/L Anion Gap 12 (10-20) BUN 14 (9-20) mg/dL Creatinine 0.6 L (0.8-1.5) mg/dL Est GFR ( Amer) > 60 Est GFR (Non-Af Amer) > 60 Random Glucose 129 H (75-110) mg/dL Serum Osmolality 289 (272-300) mosm/kg Calcium 8.1 L (8.6-10.4) mg/dl Phosphorus 3.6 (2.5-4.5) mg/dL Magnesium 2.2 (1.6-2.3) mg/dL Total Bilirubin 0.8 (0.2-1.3) mg/dL AST 16 L (17-59) U/L ALT 36 (21-72) U/L Alkaline Phosphatase 67 (38-126) U/L Total Protein 6.1 L (6.3-8.3) g/dL Albumin 3.4 L (3.5-5.0) g/dL Globulin 2.8 (2.2-3.9) gm/dL Albumin/Globulin Ratio 1.2 (1.0-2.1) Laboratory Results - last 24 hr 04/01/17 04/01/17 04/01/17 06:48 06:48 09:07 WBC 7.6 RBC 3.87 L Hgb 12.1 Hct 35.0 MCV 90.6 MCH 31.4 H MCHC 34.7 RDW 13.7 Plt Count 249 MPV 8.1 Neut % (Auto) 89.0 H Lymph % (Auto) 7.4 L [place] % (Auto) 3.6 Eos % (Auto) 0.0 Baso % (Auto) 0.0 Neut # 6.8 Lymph # 0.6 L [place] # 0.3 Eos # 0.0 Baso # 0.0 Neutrophils % (Manual) 89 H Band Neutrophils % 2 Lymphocytes % (Manual) 7 L Monocytes % (Manual) 2 Platelet Estimate Normal RBC Morphology Normal Sodium 139 Potassium 3.6 Chloride 107 Carbon Dioxide 25 Anion Gap 12 BUN 14 Creatinine 0.6 L Est GFR ( Amer) > 60 Est GFR (Non-Af Amer) > 60 Random Glucose 129 H Serum Osmolality 289 Calcium 8.1 L Phosphorus 3.6 Magnesium 2.2 Total Bilirubin 0.8 AST 16 L ALT 36 Alkaline Phosphatase 67 Total Protein 6.1 L Albumin 3.4 L Globulin 2.8 Albumin/Globulin Ratio 1.2 Critical Care Progress Note - Nutrition Nutrition: Nutrition Category Date Time Status Soft [Dysphagia/Modified Consistency Diet] [DIET] Diets 03/27/17 Lunch Active Assessment/Plan - Assessment and Plan (Free Text) Plan: Patient seen and examined at bedside. Patient more awake. Overnight episodes of confusion c/w delirium (waxing and waning). -Patient's CT head today reveals edema present, will continue hypertonic fluid to keep hypernatremia and osmol b/w 300-310. -HTNL off cardene ggt, continue to monitor BP, start oral antihypertensive medication -Patient passed speech and swallow. -continue to monitor -continue DVT/PUD ppx -avoid hypotonic fluids -Patient remains hemodynamically stable
[2017-04-01] MEDS ORDERED: Sodium Chloride 3% 500 ML IV ONE ×2 (12:10→12:15)
--- NOTE | 2017-04-02 00:44 | PN ---
DATE: LOCATION: The patient is located in ICU bed 2. SUBJECTIVE: The patient is seen and examined for Dr. Afia Chirinos. Mr. Cabral is about 71-year-old elderly male with a past medical history significant for EtOH abuse, hypertension, hyperlipidemia, status post fall and admitted with altered mental status and intracranial bleed with vasogenic edema and also subdural hematoma. The patient is in ICU monitoring. The patient is not in distress. The patient is awake and following simple commands, but the patient knows he is in the hospital, but he does not know he is in [facility]. He thinks he is in [place] and the patient is not able to say the date and year, but not in acute distress. PHYSICAL EXAMINATION VITAL SIGNS: As follows, blood pressure 131/66 and pulse about 43 to 47, respirations 14, temperature 97.6, height 5 feet 1 inch, weight is 162 pounds. GENERAL: Mr. Cabral is 71-year-old elderly male, moderately built, moderately nourished, not in acute distress. HEENT: Left eye is blind. Right eye is normal. Tongue is moist. Trachea is midline. LUNGS: Symmetric on both sides. Bilateral breath sounds present. Clear on auscultation. CARDIOVASCULAR SYSTEM: [place] at the fifth intercostal space , in the midclavicular line. S1 and S2 audible. No murmur or gallop. ABDOMEN: Normal in appearance, soft, tympanic. No guarding. No hepatosplenomegaly. CENTRAL NERVOUS SYSTEM: The patient is alert, awake, following simple commands, confused. He does not know the place of the hospital and the patient does not know the month and year and date. He knows he is in the hospital only. Sensory and motor system is grossly within normal limits. EXTREMITIES: No cyanosis. No clubbing. No edema. CURRENT MEDICATIONS: Include, Decadron 4 mg IV q. 6 hours and folic acid 1 mg p.o. daily, multivitamin one tablet daily and hypertonic saline at 40 mL per hour and Keppra 500 mg IV q. 12 hours and Protonix 40 mg IV daily and sodium chloride tablet one tablet p.o. daily and thiamine 100 mg p.o. daily, influenza vaccine was administered on 03/27/2017, pneumococcal vaccine administered on 03/28/2017. LABORATORY DATA: The other laboratory data as of 04/01/2017, WBC 7.6, hemoglobin 12.1, hematocrit is 35, platelets 249. Sodium 139, potassium 3.6, chloride 107, CO2 of 25, BUN 14, creatinine 0.6, glucose 129, calcium 8.1, phosphorus 3.6, magnesium 2.2, total bili 0.38, AST 16, ALT 36, alkaline phosphatase 67, total protein 6.1, albumin 3.4. CT of the head as of 04/01/2017: Impression no significant interval change noted since the previous exam, redemonstrated is internal hemorrhage at the right frontal lobe, redemonstrated is complex mainly chronic subdural hematoma along the right convex with a small foci of high attenuation suggestive of a small [id number] hemorrhage. Mass effect on the lateral ventricle and approximately 16.6 mm [id number] midline shift. Mild hydrocephalus. ASSESSMENT AND PLAN: In summary, Mr. Cabral is a 71-year-old elderly male with a history of ethyl alcohol abuse, hypertension, hyperlipidemia status post fall with intracerebral bleed and subdural hematoma with eye blind, chronic, with orientation x1. 1. Hypertension. Blood pressure is stable. The patient is not on any medications today for the blood pressure. The blood pressure is under control this morning. 2. Status post fall with intracranial bleed and continue hypertonic saline as per neurology and also continue seizure precautions and also anti-seizure medication, Keppra 500 mg IV q. 12 hours, continue gastrointestinal prophylaxis 40 mg p.o. daily and also deep venous thrombosis prophylaxis and Venodyne boots The patient was seen and examined. Dictated for Dr. Mary Beth Chirinos. Followup with Neurology and Neurosurgery. Soraida Chirinos MD
[2017-04-02] MEDS: Dexamethasone 4 mg/1 ml IV SCH ×4 (00:49→23:09)
[2017-04-02] MEDS: levETIRAcetam 500 MG in Sodium Chloride 0.9% 100 ML IVPB SCH ×3 (00:49→16:17)
[2017-04-02] MEDS ORDERED: Sodium Chloride 3% 500 ML IV ONE ×3 (05:28→14:49)
[2017-04-02 06:30] LABS: HEMATOCRIT 36.7 % (35.0-51.0); LYMPH # 0.8 K/uL (1.0-4.3); LYMPH % 7.2 % (20.0-40.0); MEAN CELL VOLUME 89.3 fL (80.0-94.0); MEAN CORPUSCULAR HEMOGLOBIN 30.9 pg (27.0-31.0); MEAN CORPUSCULAR HGB CONC 34.6 g/dL (33.0-37.0); MEAN PLATELET VOLUME 7.6 fL (7.2-11.7); MONO # 0.5 K/uL (0.0-0.8); PLATELET COUNT 239 K/uL (130-400); RED CELL DISTRIBUTION WIDTH 13.7 % (11.5-14.5); WHITE BLOOD COUNT 10.7 K/uL (4.8-10.8)
[2017-04-02 06:46] LABS: ALKALINE PHOSPHATASE 65 U/L (38-126); ALT/SGPT 36 U/L (21-72); AST/SGOT 17 U/L (17-59); BILIRUBIN,TOTAL 0.9 mg/dL (0.2-1.3); BLOOD UREA NITROGEN 16 mg/dL (9-20); CALCIUM 8.1 mg/dl (8.6-10.4); CARBON DIOXIDE 25 mmol/L (22-30); CHLORIDE 103 mmol/L (98-107); GFR AFRICAN-AMERICAN > 60; GLUCOSE,RANDOM 124 mg/dL (75-110); MAGNESIUM 2.2 mg/dL (1.6-2.3); PHOSPHOROUS 3.6 mg/dL (2.5-4.5); POTASSIUM 3.4 mmol/L (3.6-5.2); SODIUM 137 mmol/L (132-148); TOTAL PROTEIN 6.3 g/dL (6.3-8.3)
[2017-04-02 06:47] LABS: ALB/GLOB RATIO 1.2 (1.0-2.1)
--- NOTE | 2017-04-02 09:32 | CP.PCM.PN ---
Subjective - Date & Time of Evaluation Date of Evaluation: 04/02/17 Time of Evaluation: 09:31 - Subjective Subjective: Mr. Cabral was seen and examined at the bedside in ICU. He is alert, oriented , and denies any headache, dizziness, lightheadedness, nausea, vomiting, weakness, or numbness. He is out of bed to chair. He states of having good appetite. There was no untoward events overnight. Objective - Vital Signs/Intake and Output Vital Signs (last 24 hours): Temp Pulse Resp BP Pulse Ox 97.3 F L 43 L 15 164/77 H 98 04/02/17 08:00 04/02/17 08:00 04/02/17 08:00 04/02/17 07:53 04/02/17 08:00 Intake and Output: 04/02/17 04/02/17 06:59 18:59 Intake Total 1280 80 Output Total 620 0 Balance 660 80 - Medications Medications: Current Medications Dexamethasone (Decadron Inj) 4 mg IV Q6 [facility] Last Admin: 04/02/17 06:02 Dose: 4 mg Folic Acid (Folic Acid) 1 mg PO DAILY [facility] Last Admin: 04/01/17 10:00 Dose: 1 mg Levetiracetam 500 mg/ Sodium (Chloride) 105 mls @ 420 mls/hr IVPB Q12H [facility] Last Admin: 04/02/17 00:49 Dose: 420 mls/hr Sodium Chloride (Hypertonic Saline 3%) 500 mls @ 40 mls/hr IV .[id number] ONE Stop: 04/02/17 17:57 Last Admin: 04/02/17 05:48 Dose: 40 mls/hr Multivitamins (Hexavitamin) 1 tab PO DAILY [facility] Last Admin: 04/01/17 10:00 Dose: 1 tab Pantoprazole Sodium (Protonix Ec Tab) 40 mg PO DAILY ALBERTO Last Admin: 04/01/17 10:00 Dose: 40 mg Sodium Chloride (Sodium Chloride Tab) 1 gm PO DAILY ALBERTO Last Admin: 04/01/17 10:00 Dose: 1 gm Thiamine HCl (Vitamin B1 Tab) 100 mg PO DAILY [facility] Last Admin: 04/01/17 10:00 Dose: 100 mg - Labs Labs: 04/02/17 06:21 04/02/17 06:15 PT 11.7 SECONDS (9.7-12.2) 03/25/17 17:48 INR 1.0 03/25/17 17:48 - Constitutional Appears: No Acute Distress - Head Exam Head Exam: ATRAUMATIC - Neurological Exam Neurological Exam: Alert, Awake, Normal Gait, Oriented x3 Neuro motor strength exam: Left Upper Extremity: 5, Right Upper Extremity: 5, Left Lower Extremity: 5, Right Lower Extremity: 5 Additional comments: Neurological unchanged from previous examination. Assessment and Plan (1) Acute intra-cranial hemorrhage Assessment & Plan: Case discussed with Dr. Gilbert, continue all current medical, physical, and occupational therapies. Recommend decreasing hypertonic solution to 25 ml/hr and decadron 4 mg IVP Q12. If the Na and serum osmolality remains the same in the morning for hypertonic to be discontinued. Will repeat CT of the head today. Status: Acute
[2017-04-02] MEDS: Pantoprazole 40 mg EC Tab PO SCH (09:54)
[2017-04-02] MEDS: Multiple Vitamins Tab PO SCH (09:54)
[2017-04-02 10:49] LABS: NEUTROPHIL 84 % (50-75); TOTAL CELLS COUNTED 100
--- NOTE | 2017-04-02 11:29 | CT ---
PROCEDURE: CT HEAD WITHOUT CONTRAST. HISTORY: follow up [facility] COMPARISON: Comparison is made to 04/01/2017. TECHNIQUE: Axial computed tomography images were obtained through the head/brain without intravenous contrast. Radiation dose: Total exam DLP = 885.6 mGy-cm. This CT exam was performed using one or more of the following dose reduction techniques: Automated exposure control, adjustment of the mA and/or kV according to patient size, and/or use of iterative reconstruction technique. FINDINGS: HEMORRHAGE: Again seen is parenchymal hemorrhage at the right frontal lobe surrounding with edema. Again seen is low-attenuation subdural hematoma along the right convexity contains foci of high attenuation with the largest focus is seen at the right frontal region measures 1.4 centimeter. . BRAIN: Mass effect on the lateral ventricles. There is right to left midline shift measures approximately of approximately 13 millimeter. No atrophy or chronic microvascular ischemic changes. VENTRICLES: Compression on the right lateral ventricle and moderate effacement is again noted. The left lateral ventricle and the 4th ventricle is mildly dilated suggestive of mild hydrocephalus CALVARIUM: Unremarkable. PARANASAL SINUSES: Unremarkable as visualized. No significant inflammatory changes. MASTOID AIR CELLS: Unremarkable as visualized. No inflammatory changes. OTHER FINDINGS: Calcification in the left globe is again seen. IMPRESSION: No significant interval change when compared to the previous exam as described above.
[2017-04-02 11:39] LABS: BLOOD UREA NITROGEN 20 mg/dL (9-20); CARBON DIOXIDE 20 mmol/L (22-30); CHLORIDE 104 mmol/L (98-107); GFR AFRICAN-AMERICAN > 60; GLUCOSE,RANDOM 225 mg/dL (75-110); POTASSIUM 3.6 mmol/L (3.6-5.2); SODIUM 135 mmol/L (132-148)
[2017-04-02 13:33] LABS: INR 1.1
--- NOTE | 2017-04-02 14:01 | CP.PCM.PN ---
Subjective - Date & Time of Evaluation Date of Evaluation: 04/02/17 Time of Evaluation: 14:00 - Subjective Subjective: pt is seen and examined, progress note is dictated for karey olguin#[id number] Objective - Vital Signs/Intake and Output Vital Signs (last 24 hours): Temp Pulse Resp BP Pulse Ox 97.3 F L 66 16 127/64 97 04/02/17 08:00 04/02/17 12:00 04/02/17 12:00 04/02/17 10:53 04/02/17 12:00 Intake and Output: 04/02/17 04/02/17 06:59 18:59 Intake Total 1280 555 Output Total 620 0 Balance 660 555 - Medications Medications: Current Medications Dexamethasone (Decadron Inj) 4 mg IV Q12 [facility] Last Admin: 04/02/17 12:22 Dose: 4 mg Folic Acid (Folic Acid) 1 mg PO DAILY [facility] Last Admin: 04/02/17 09:54 Dose: 1 mg Levetiracetam 500 mg/ Sodium (Chloride) 105 mls @ 420 mls/hr IVPB Q12H [facility] Last Admin: 04/02/17 00:49 Dose: 420 mls/hr Sodium Chloride (Hypertonic Saline 3%) 500 mls @ 25 mls/hr IV .Q20H ONE Stop: 04/03/17 06:29 Multivitamins (Hexavitamin) 1 tab PO DAILY [facility] Last Admin: 04/02/17 09:54 Dose: 1 tab Pantoprazole Sodium (Protonix Ec Tab) 40 mg PO DAILY [facility] Last Admin: 04/02/17 09:54 Dose: 40 mg Sodium Chloride (Sodium Chloride Tab) 1 gm PO DAILY [facility] Last Admin: 04/02/17 09:54 Dose: 1 gm Thiamine HCl (Vitamin B1 Tab) 100 mg PO DAILY [facility] Last Admin: 04/02/17 09:54 Dose: 100 mg - Labs Labs: 04/02/17 06:21 04/02/17 11:06 PT 12.3 SECONDS (9.7-12.2) H 04/02/17 13:18 INR 1.1 04/02/17 13:18 APTT 22 SECONDS (21-34) 04/02/17 13:18
--- NOTE | 2017-04-02 14:03 | CP.PCM.PN ---
Subjective - Date & Time of Evaluation Date of Evaluation: 04/02/17 Time of Evaluation: 13:49 - Subjective Subjective: No events, patient awake, pleasant in the day time some times gets confused in the night, know his is in [facility], in [place], and knows he is here for fall and brain bleeding. Mentions drank beer about 8, 7oz cans, but not even on the daily basis. Repeat CT continued to show, right frontal parenchymal bleed, with edema and sbufalxine herniation, and continued to show fluid in right subdural space. Spoke to neurosurgery Dr. Ballesteros who saw the head CT pictures, felt that the subdural fluid was not insignificant and may need elective drainage and would f/ u with him. Patient gets bradycardic in 40's rhythm has been sinus, especially during sleep , but in 60's while awake. Objective - Vital Signs/Intake and Output Vital Signs (last 24 hours): Temp Pulse Resp BP Pulse Ox 97.3 F L 66 16 127/64 97 04/02/17 08:00 04/02/17 12:00 04/02/17 12:00 04/02/17 10:53 04/02/17 12:00 Intake and Output: 04/02/17 04/02/17 06:59 18:59 Intake Total 1280 555 Output Total 620 0 Balance 660 555 - Medications Medications: Current Medications Dexamethasone (Decadron Inj) 4 mg IV Q12 [facility] Last Admin: 04/02/17 12:22 Dose: 4 mg Folic Acid (Folic Acid) 1 mg PO DAILY [facility] Last Admin: 04/02/17 09:54 Dose: 1 mg Levetiracetam 500 mg/ Sodium (Chloride) 105 mls @ 420 mls/hr IVPB Q12H [facility] Last Admin: 04/02/17 00:49 Dose: 420 mls/hr Sodium Chloride (Hypertonic Saline 3%) 500 mls @ 25 mls/hr IV .Q20H ONE Stop: 04/03/17 06:29 Multivitamins (Hexavitamin) 1 tab PO DAILY [facility] Last Admin: 04/02/17 09:54 Dose: 1 tab Pantoprazole Sodium (Protonix Ec Tab) 40 mg PO DAILY [facility] Last Admin: 04/02/17 09:54 Dose: 40 mg Sodium Chloride (Sodium Chloride Tab) 1 gm PO DAILY [facility] Last Admin: 04/02/17 09:54 Dose: 1 gm Thiamine HCl (Vitamin B1 Tab) 100 mg PO DAILY [facility] Last Admin: 04/02/17 09:54 Dose: 100 mg - Labs Labs: 04/02/17 06:21 04/02/17 11:06 PT 12.3 SECONDS (9.7-12.2) H 04/02/17 13:18 INR 1.1 04/02/17 13:18 APTT 22 SECONDS (21-34) 04/02/17 13:18 - Additional Findings Additional findings: * HEENT FELIX, blind in left eye * Neck supple * Chest Clear * CVS regular, no gallop or rub * PA soft, nt bs present * Ext no edema * Skin normal turgor * KENO WRITER / RUNNER awake oriented x3, but slight slow to respond, no other focal deficit. Assessment and Plan - Assessment and Plan (Free Text) Assessment: * Traumatic frontal parenchymal bleed with edema subfalcine herniation from right to left also has relatively newer subdural component, pt on 3% saline but still not hyper osmolar, on keppra, d/w neurology and neurosurg, patient may need elective subdural drain. * Alcoholism on thiamine, mvt * Bradycardia, sinus asymptomatic, especially during sleep dd form raised ICT * See orders for detail.
[2017-04-02 16:24] LABS: RAPID PLASMA REAGIN NONREACTIVE (NONREACTIVE)
[2017-04-02 16:49] LABS: BLOOD UREA NITROGEN 20 mg/dL (9-20); CARBON DIOXIDE 24 mmol/L (22-30); CHLORIDE 104 mmol/L (98-107); GFR AFRICAN-AMERICAN > 60; GLUCOSE,RANDOM 165 mg/dL (75-110); POTASSIUM 3.6 mmol/L (3.6-5.2); SODIUM 135 mmol/L (132-148)
--- NOTE | 2017-04-02 19:00 | PN ---
Patient is seen and examined for Dr. Afia Chirinos. LOCATION: Patient is located in ICU, bed 2. SUBJECTIVE: Mr. Cabral is a 71 years old elderly male with a history of hypertension, left eye blind, EtOH abuse, was admitted after he had a fall and found to have an intracranial bleed and also right subdural hematoma. Patient was started on hypertonic saline, Keppra, and Decadron by neurology and neurosurgery. Patient is out of bed to chair. Denies any headache, dizziness. Denies any chest pain or palpitation. Denies any fever or cough. No abdominal pain. No nausea, vomiting, diarrhea. Appetite is fair. Patient is out of bed to chair. PHYSICAL EXAMINATION: VITAL SIGNS: As follows: Blood pressure 153/66, pulse 44 to 47, respirations 17, saturation 97%, and temperature 97.3. GENERAL: Mr. Cabral is a 71 years old elderly male with left eye blind, moderately built, moderately nourished, not in distress. HEENT: Pupils normal, reactive to light and accommodation on the right side; left eye is blind. Tongue is moist. Trachea is midline. LUNGS: Symmetric on both sides. Bilateral breath sounds present. Clear on auscultation. CARDIOVASCULAR SYSTEM: Butler at the fifth intercostal space, midclavicular line. S1, S2 audible. Slightly bradycardic. ABDOMEN: Normal in appearance, soft, tympanic. No guarding. No rigidity. No hepatosplenomegaly. CENTRAL NERVOUS SYSTEM: Patient is alert, awake, oriented times 2. Sensory and motor system is grossly within normal limits. EXTREMITIES: No cyanosis, no clubbing, and no edema. Cranial nerves II through grossly intact except left eye is blind. CURRENT MEDICATIONS: Include as follows: Decadron 4 mg IV q. 12 hours, folic acid 1 mg daily, multivitamin one tablet daily, hypertonic saline at 25 mL/hour, Keppra 500 mg q. 12 hours, Protonix 40 mg p.o. daily, sodium chloride tablet 1 g p.o. daily, and thiamine 100 mg p.o. daily. Hypertonic saline increased to 40 mL/hour as per Dr. Pennington after my discussion. LABORATORY DATA: Include as follows: As of 04/02/2017, WBC 10.7, hemoglobin 12.7, hematocrit is 36.7, platelets 239. Sodium 135, potassium 3.6, chloride 104, CO2 of 20, BUN 20, creatinine 0.7, glucose 225. Serum osmolality 292. Calcium is 8.0. Urine osmolality 928, urine sodium is 197, urine potassium is 34.3. RPR is negative. CT of the head as of 04/02/2017, impression, no significant interval change when compared to the previous exam. Again seen is parenchymal hemorrhage at right frontal lobe surrounding with edema, again seen is low-attenuation subdural hematoma along the right convexity, contains foci of high attenuation within the largest focus is seen at the right frontal region, measures 1.4 cm, no interval change. ASSESSMENT AND PLAN: In summary, Mr. Cabral is a 71 years old elderly male with history of hypertension, EtOH abuse, status post fall with intracranial bleed and subdural hematoma, right frontal intracranially bleeding. On Keppra, sodium chloride tablet, hypertonic saline, and Decadron. 1. Hypertension. Blood pressure is stable. Continue his current medication. 2. Status post Siddiqui with intracranial bleed. Continue hypertonic saline and also Decadron and Keppra and sodium chloride tablets as per the neurology recommendations and discussed with the test and turn up technician regarding the goal and serum osmolality to maintain at the serum sodium goal. Advised to follow up with neurology for further adjusting the hypertonic saline if needed and continue followup with neurosurgery for possible evacuation of the right subdural hematoma. Patient is seen and examined and dictated for Afia Chirinos MD. Soraida Chirinos MD
[2017-04-03] MEDS: levETIRAcetam 500 MG in Sodium Chloride 0.9% 100 ML IVPB SCH ×2 (01:44→13:13)
--- NOTE | 2017-04-03 06:43 | CP.PCM.PN ---
Subjective - Date & Time of Evaluation Date of Evaluation: 04/03/17 Time of Evaluation: 06:39 - Subjective Subjective: Mr. Cabral was seen and examined at the bedside in the ICU. He is alert with episode of confusion. He does not know place (he insist that he is in his house) , time (1977), and person (he insist of being the president). He complains of pain in the TLC site, there is no redness, no tenderness noted, According to staff, he attempted to pull all his lines and ICU monitor leads last night. He was placed on 1:1 sitter for patient safety. He denies any headache, dizziness, nausea, or vomiting. He can follow simple commands such as finger to nose test, raising his upper and lower extremities, and squeezing his bilateral upper extremities. Objective - Vital Signs/Intake and Output Vital Signs (last 24 hours): Temp Pulse Resp BP Pulse Ox 97.8 F 46 L 14 161/62 H 98 04/02/17 16:00 04/03/17 06:00 04/03/17 06:00 04/03/17 05:57 04/03/17 06:00 Intake and Output: 04/02/17 04/03/17 18:59 06:59 Intake Total 870 360 Output Total 300 550 Balance 570 -190 - Medications Medications: Current Medications Dexamethasone (Decadron Inj) 4 mg IV Q12 [facility] Last Admin: 04/02/17 23:09 Dose: 4 mg Folic Acid (Folic Acid) 1 mg PO DAILY [facility] Last Admin: 04/02/17 09:54 Dose: 1 mg Levetiracetam 500 mg/ Sodium (Chloride) 105 mls @ 420 mls/hr IVPB Q12H [facility] Last Admin: 04/03/17 01:44 Dose: 420 mls/hr Multivitamins (Hexavitamin) 1 tab PO DAILY [facility] Last Admin: 04/02/17 09:54 Dose: 1 tab Pantoprazole Sodium (Protonix Ec Tab) 40 mg PO DAILY [facility] Last Admin: 04/02/17 09:54 Dose: 40 mg Sodium Chloride (Sodium Chloride Tab) 1 gm PO DAILY [facility] Last Admin: 04/02/17 09:54 Dose: 1 gm Thiamine HCl (Vitamin B1 Tab) 100 mg PO DAILY [facility] Last Admin: 04/02/17 09:54 Dose: 100 mg - Labs Labs: 04/02/17 06:21 04/02/17 16:33 PT 12.3 SECONDS (9.7-12.2) H 04/02/17 13:18 INR 1.1 04/02/17 13:18 APTT 22 SECONDS (21-34) 04/02/17 13:18 - Constitutional Appears: No Acute Distress - Head Exam Head Exam: ATRAUMATIC - Neurological Exam Neurological Exam: Alert, Awake Neuro motor strength exam: Left Upper Extremity: 5, Right Upper Extremity: 5, Left Lower Extremity: 5, Right Lower Extremity: 5 Additional comments: He is unable to verbalize time, person, and place, but able to follow simple commands. Sensation remains intact. Assessment and Plan (1) Acute intra-cranial hemorrhage Assessment & Plan: Case discussed with Dr. Gilbert, continue all current medical, physical, and occupational therapies. Recommend neuro surgery for further evaluation of the hydrocephalus and intracerebral hemorrhage. Status: Acute
[2017-04-03 06:54] LABS: BLOOD UREA NITROGEN 18 mg/dL (9-20); CALCIUM 7.7 mg/dl (8.6-10.4); CARBON DIOXIDE 25 mmol/L (22-30); CHLORIDE 106 mmol/L (98-107); GFR AFRICAN-AMERICAN > 60; GLUCOSE,RANDOM 117 mg/dL (75-110); POTASSIUM 3.7 mmol/L (3.6-5.2); SODIUM 137 mmol/L (132-148)
[2017-04-03] MEDS: Dexamethasone 4 mg/1 ml IV SCH ×2 (09:54→22:16)
[2017-04-03] MEDS: Pantoprazole 40 mg EC Tab PO SCH (09:54)
[2017-04-03] MEDS: Multiple Vitamins Tab PO SCH (09:54)
--- NOTE | 2017-04-03 10:34 | CP.CCUPN ---
CCU Subjective - Physician Review Subjective (Free Text): PGY1 ICU Progress Note for Dr. Geller Patient seen and examined at bedside this morning. Patient is awake, alert and sitting in his chair next to his bed. Patient is confused, unable to answer questions of where he is or what year he is living in. He states he is feeling well and has no complaints at this time. CCU Objective - Vital Signs / Intake & Output Vital Signs (Last 4 hours): Vital Signs Pulse Resp BP Pulse Ox 04/03/17 08:00 42 L 13 04/03/17 07:54 43 L 14 134/56 L 78 L 04/03/17 06:54 46 L 18 143/50 L 97 04/03/17 06:14 43 L 11 L 157/65 H 100 Intake and Output (Last 8hrs): Intake & Output 04/02/17 04/03/17 04/03/17 22:59 06:59 14:59 Intake Total 425 320 40 Output Total 650 200 Balance -225 120 40 Weight 166 lb 4.8 oz Intake: Intake, IV Amount 305 320 40 Right Medial Port 305 320 40 Internal Jugular Oral 120 Output: Urine 650 200 Urine, Voided 650 200 - Physical Exam Head: Positive for: Atraumatic, Normocephalic Pupils: Positive for: PERRL, Other ((blind in left eye)) Extroacular Muscles: Positive for: 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 Negative for: Respiratory Distress, Accessory Muscle Use Cardiovascular: Positive for: Regular Rate and Rhythm Abdomen: Positive for: Normal Bowel Sounds. Negative for: Tenderness, Distention, Peritoneal Signs Lower Extremity: Positive for: Other (SCDs in place.) Neurological: Positive for: GCS=15, Speech Normal (much improved compared to today), Motor Func Grossly Intact (movements much improved compared to yesterday ) Skin: Positive for: Warm, Dry Psychiatric: Positive for: Alert. Negative for: Oriented x 3 (Oriented to self and place but not date) - Medications Active Medications: Active Medications Generic Name Dose Route Start Last Admin Trade Name Freq PRN Reason Stop Dose Admin Dexamethasone 4 mg 04/02/17 10:00 04/03/17 09:54 Decadron Inj IV 4 mg Q12 ALBERTO Administration Folic Acid 1 mg 03/26/17 10:00 04/03/17 09:54 Folic Acid PO 1 mg DAILY ALBERTO Administration Levetiracetam 500 mg/ Sodium 105 mls @ 420 mls/hr 03/26/17 01:00 04/03/17 01: 44 Chloride IVPB 420 mls/hr Q12H ALBERTO Administration Multivitamins 1 tab 03/26/17 10:00 04/03/17 09:54 Hexavitamin PO 1 tab DAILY ALBERTO Administration Pantoprazole Sodium 40 mg 03/31/17 10:00 04/03/17 09:54 Protonix Ec Tab PO 40 mg DAILY ALBERTO Administration Sodium Chloride 1 gm 03/29/17 13:00 04/03/17 09:54 Sodium Chloride Tab PO 1 gm DAILY ALBERTO Administration Thiamine HCl 100 mg 03/26/17 10:00 04/03/17 09:54 Vitamin B1 Tab PO 100 mg DAILY ALBERTO Administration - Patient Studies Lab Studies: Lab Studies 04/03/17 04/03/17 04/03/17 Range/Units 07:27 06:26 06:26 Neutrophils % (Manual) (50-75) % Lymphocytes % (Manual) (20-40) % Monocytes % (Manual) (0-10) % Platelet Estimate (NORMAL) RBC Morphology PT (9.7-12.2) SECONDS INR APTT (21-34) SECONDS Sodium 137 (132-148) mmol/L Potassium 3.7 (3.6-5.2) mmol/L Chloride 106 (98-107) mmol/L Carbon Dioxide 25 (22-30) mmol/L Anion Gap 10 (10-20) BUN 18 (9-20) mg/dL Creatinine 0.7 L (0.8-1.5) mg/dL Est GFR ( Amer) > 60 Est GFR (Non-Af Amer) > 60 POC Glucose (mg/dL) 110 (65-110) mg/dL Random Glucose 117 H (75-110) mg/dL Serum Osmolality 290 (272-300) mosm/kg Calcium 7.7 L (8.6-10.4) mg/dl Urine Osmolality (300-1000) mosm/kg Ur Random Sodium mmol/L Ur Random Potassium mmol/L RPR (NONREACTIVE) 04/02/17 04/02/17 04/02/17 Range/Units 21:23 16:33 16:33 Neutrophils % (Manual) (50-75) % Lymphocytes % (Manual) (20-40) % Monocytes % (Manual) (0-10) % Platelet Estimate (NORMAL) RBC Morphology PT (9.7-12.2) SECONDS INR APTT (21-34) SECONDS Sodium 135 (132-148) mmol/L Potassium 3.6 (3.6-5.2) mmol/L Chloride 104 (98-107) mmol/L Carbon Dioxide 24 (22-30) mmol/L Anion Gap 11 (10-20) BUN 20 (9-20) mg/dL Creatinine 0.6 L (0.8-1.5) mg/dL Est GFR ( Amer) > 60 Est GFR (Non-Af Amer) > 60 POC Glucose (mg/dL) 150 H (65-110) mg/dL Random Glucose 165 H (75-110) mg/dL Serum Osmolality 292 (272-300) mosm/kg Calcium 8.0 L (8.6-10.4) mg/dl Urine Osmolality (300-1000) mosm/kg Ur Random Sodium mmol/L Ur Random Potassium mmol/L RPR (NONREACTIVE) 04/02/17 04/02/17 04/02/17 Range/Units 16:19 15:59 13:18 Neutrophils % (Manual) (50-75) % Lymphocytes % (Manual) (20-40) % Monocytes % (Manual) (0-10) % Platelet Estimate (NORMAL) RBC Morphology PT 12.3 H (9.7-12.2) SECONDS INR 1.1 APTT 22 (21-34) SECONDS Sodium (132-148) mmol/L Potassium (3.6-5.2) mmol/L Chloride (98-107) mmol/L Carbon Dioxide (22-30) mmol/L Anion Gap (10-20) BUN (9-20) mg/dL Creatinine (0.8-1.5) mg/dL Est GFR ( Amer) Est GFR (Non-Af Amer) POC Glucose (mg/dL) 148 H (65-110) mg/dL Random Glucose (75-110) mg/dL Serum Osmolality (272-300) mosm/kg Calcium (8.6-10.4) mg/dl Urine Osmolality 928 (300-1000) mosm/kg Ur Random Sodium 197 mmol/L Ur Random Potassium 34.3 mmol/L RPR (NONREACTIVE) 04/02/17 04/02/17 04/02/17 Range/Units 11:06 11:06 06:21 Neutrophils % (Manual) 84 H (50-75) % Lymphocytes % (Manual) 10 L (20-40) % Monocytes % (Manual) 6 (0-10) % Platelet Estimate Normal (NORMAL) RBC Morphology Normal PT (9.7-12.2) SECONDS INR APTT (21-34) SECONDS Sodium 135 (132-148) mmol/L Potassium 3.6 (3.6-5.2) mmol/L Chloride 104 (98-107) mmol/L Carbon Dioxide 20 L (22-30) mmol/L Anion Gap 15 (10-20) BUN 20 (9-20) mg/dL Creatinine 0.7 L (0.8-1.5) mg/dL Est GFR ( Amer) > 60 Est GFR (Non-Af Amer) > 60 POC Glucose (mg/dL) (65-110) mg/dL Random Glucose 225 H (75-110) mg/dL Serum Osmolality 292 (272-300) mosm/kg Calcium 8.0 L (8.6-10.4) mg/dl Urine Osmolality (300-1000) mosm/kg Ur Random Sodium mmol/L Ur Random Potassium mmol/L RPR (NONREACTIVE) 04/02/17 Range/Units 06:20 Neutrophils % (Manual) (50-75) % Lymphocytes % (Manual) (20-40) % Monocytes % (Manual) (0-10) % Platelet Estimate (NORMAL) RBC Morphology PT (9.7-12.2) SECONDS INR APTT (21-34) SECONDS Sodium (132-148) mmol/L Potassium (3.6-5.2) mmol/L Chloride (98-107) mmol/L Carbon Dioxide (22-30) mmol/L Anion Gap (10-20) BUN (9-20) mg/dL Creatinine (0.8-1.5) mg/dL Est GFR ( Amer) Est GFR (Non-Af Amer) POC Glucose (mg/dL) (65-110) mg/dL Random Glucose (75-110) mg/dL Serum Osmolality (272-300) mosm/kg Calcium (8.6-10.4) mg/dl Urine Osmolality (300-1000) mosm/kg Ur Random Sodium mmol/L Ur Random Potassium mmol/L RPR Nonreactive (NONREACTIVE) Laboratory Results - last 24 hr 04/02/17 04/02/17 04/02/17 06:20 06:21 11:06 Neutrophils % (Manual) 84 H Lymphocytes % (Manual) 10 L Monocytes % (Manual) 6 Platelet Estimate Normal RBC Morphology Normal PT INR APTT Sodium 135 Potassium 3.6 Chloride 104 Carbon Dioxide 20 L Anion Gap 15 BUN 20 Creatinine 0.7 L Est GFR ( Amer) > 60 Est GFR (Non-Af Amer) > 60 POC Glucose (mg/dL) Random Glucose 225 H Serum Osmolality Calcium 8.0 L Urine Osmolality Ur Random Sodium Ur Random Potassium RPR Nonreactive 04/02/17 04/02/17 04/02/17 11:06 13:18 15:59 Neutrophils % (Manual) Lymphocytes % (Manual) Monocytes % (Manual) Platelet Estimate RBC Morphology PT 12.3 H INR 1.1 APTT 22 Sodium Potassium Chloride Carbon Dioxide Anion Gap BUN Creatinine Est GFR ( Amer) Est GFR (Non-Af Amer) POC Glucose (mg/dL) Random Glucose Serum Osmolality 292 Calcium Urine Osmolality 928 Ur Random Sodium 197 Ur Random Potassium 34.3 RPR 04/02/17 04/02/17 04/02/17 16:19 16:33 16:33 Neutrophils % (Manual) Lymphocytes % (Manual) Monocytes % (Manual) Platelet Estimate RBC Morphology PT INR APTT Sodium 135 Potassium 3.6 Chloride 104 Carbon Dioxide 24 Anion Gap 11 BUN 20 Creatinine 0.6 L Est GFR ( Amer) > 60 Est GFR (Non-Af Amer) > 60 POC Glucose (mg/dL) 148 H Random Glucose 165 H Serum Osmolality 292 Calcium 8.0 L Urine Osmolality Ur Random Sodium Ur Random Potassium RPR 04/02/17 04/03/17 04/03/17 21:23 06:26 06:26 Neutrophils % (Manual) Lymphocytes % (Manual) Monocytes % (Manual) Platelet Estimate RBC Morphology PT INR APTT Sodium 137 Potassium 3.7 Chloride 106 Carbon Dioxide 25 Anion Gap 10 BUN 18 Creatinine 0.7 L Est GFR ( Amer) > 60 Est GFR (Non-Af Amer) > 60 POC Glucose (mg/dL) 150 H Random Glucose 117 H Serum Osmolality 290 Calcium 7.7 L Urine Osmolality Ur Random Sodium Ur Random Potassium RPR 04/03/17 07:27 Neutrophils % (Manual) Lymphocytes % (Manual) Monocytes % (Manual) Platelet Estimate RBC Morphology PT INR APTT Sodium Potassium Chloride Carbon Dioxide Anion Gap BUN Creatinine Est GFR ( Amer) Est GFR (Non-Af Amer) POC Glucose (mg/dL) 110 Random Glucose Serum Osmolality Calcium Urine Osmolality Ur Random Sodium Ur Random Potassium RPR Fingerstick Blood Sugar Results: 100 Review of Systems - Review of Systems All systems: reviewed and no additional remarkable complaints except (as per HPI ) Critical Care Progress Note - Nutrition Nutrition: Nutrition Category Date Time Status Soft [Dysphagia/Modified Consistency Diet] [DIET] Diets 03/27/17 Lunch Active Assessment/Plan - Assessment and Plan (Free Text) Assessment: Patient is a 71 year old male a past medical history of ETOH abuse, HTN, HLD, Depression, presenting with recent fall with rib fractures and AMS, found to have an intracranial hemorrhage. Plan: Neuro: Dr. Gilbert consulted, help appreciated Dr. Harmon consulted, help appreciated - will re-consult for re-eval of SDH Intraparencymal Hemorrhage - stable Patient appears more confused today. He has long pauses when asked questions. Does not give answers to questions about orientation (date or place). Head CT 03/27/17 - Multifocal intracranial hemorrhage including the large right frontal parenchymal hemorrhage and multifocal extra-axial hemorrhages as described. Decreasing density of extra-axial blood noted in the right frontoparietal convexity hematoma and in the posterior right temporal hematoma. A right occipital extra-axial hemorrhage remains hyperdense consistent with acute blood. Increased midline shift towards the left of approximately 19 mm. No evidence of downward herniation. Repeat Head CT 03/29/17 - Large right frontal parenchymal hemorrhage with extensive surrounding edema and large midline shift towards the left. Decreasing size of right posterior occipital biconvex hemorrhage. There is focal parenchymal edema deep to what was previously identified as a small right posterior temporal biconvex extra-axial acute hemorrhage. Complete effacement of right lateral ventricle with mild ventricular trapping and dilatation of the left lateral ventricle, unchanged in extent compared to 03/27/2017. Increasing size of right convexity subdural hemorrhage, decreased in attenuation. This now measures 11 mm in width. Repeat Head CT 04/01/17 - No significant interval change noted since the previous exam. Re- demonstrated is internal hemorrhage at the right frontal lobe. Re- demonstrated is complex mainly chronic subdural hematoma along the right convexity with small foci of high attenuation suggestive of small acute on chronic hemorrhage. Mass effect on the lateral ventricle and approximately 16.6 millimeter right to left midline shift. Mild hydrocephalus. Repeat Head CT 04/02/17 - No significant interval change when compared to the previous exam Will continue to monitor annabella Patient's neurological exam confounded with history of alcohol abuse/withdrawal - [facility] protocol Multivitamin/thiamine/folic acid Keppra 500mg IVPB q12h Decadron 4mg IV q6h Sodium chloride tab 1gm PO daily Hypertonic Saline 3% @40mL/hr - Na 137 today - Serum osmol 290 f/u neuro recs - goal Na 140-145, monitor with BMP q6h - serum osmol, <320 monitor with serum osmol q6h - keep head of bed above 45 degrees - Avoid dextrose containing fluids, hyperthermia or hypertension Patient is scheduled for SDH drainage tomorrow with Dr. Ballesteros. NPO after midnight. GI: Swallow - soft/advanced bite size diet Prophylactic Care: DVT proph - SCDs, holding anticoagulation due to intracerebral bleed. GI proph - Protonix IV Case discussed with Dr. Duyen Back Tito PGY1
[2017-04-03] MEDS ORDERED: Sodium Chloride 3% 500 ML IV ONE (12:11)
[2017-04-04] MEDS: levETIRAcetam 500 MG in Sodium Chloride 0.9% 100 ML IVPB SCH ×2 (01:00→20:14)
[2017-04-04 06:41] LABS: BASO % 0.1 % (0.0-2.0); EOS % 0.1 % (0.0-4.0); HEMATOCRIT 40.9 % (35.0-51.0); MEAN CELL VOLUME 91.6 fL (80.0-94.0); MEAN CORPUSCULAR HEMOGLOBIN 30.7 pg (27.0-31.0); MEAN CORPUSCULAR HGB CONC 33.5 g/dL (33.0-37.0); MEAN PLATELET VOLUME 7.9 fL (7.2-11.7); MONO # 0.7 K/uL (0.0-0.8); MONO % 7.5 % (0.0-10.0); RED CELL DISTRIBUTION WIDTH 13.8 % (11.5-14.5); WHITE BLOOD COUNT 9.1 K/uL (4.8-10.8)
[2017-04-04 06:56] LABS: ALB/GLOB RATIO 0.9 (1.0-2.1); ALKALINE PHOSPHATASE 80 U/L (38-126); ALT/SGPT 77 U/L (21-72); AST/SGOT 29 U/L (17-59); BILIRUBIN,TOTAL 0.9 mg/dL (0.2-1.3); BLOOD UREA NITROGEN 17 mg/dL (9-20); CALCIUM 8.2 mg/dl (8.6-10.4); CARBON DIOXIDE 27 mmol/L (22-30); CHLORIDE 103 mmol/L (98-107); GFR AFRICAN-AMERICAN > 60; GLUCOSE,RANDOM 108 mg/dL (75-110); MAGNESIUM 2.1 mg/dL (1.6-2.3); PHOSPHOROUS 3.8 mg/dL (2.5-4.5); POTASSIUM 3.7 mmol/L (3.6-5.2); SODIUM 134 mmol/L (132-148); TOTAL PROTEIN 7.5 g/dL (6.3-8.3)
[2017-04-04] MEDS ORDERED: Thrombin Topical 5,000 Int Units Spray Kit ONE (07:31)
[2017-04-04] MEDS ORDERED: Lidocaine/Epi 1% 1:100000 20 ML IJ ONE (07:31)
[2017-04-04] MEDS ORDERED: Absorbable Gelatin Sponge Size 12-7 ONE (07:31)
[2017-04-04] MEDS ORDERED: Bacitracin 50,000 UNIT in Sodium Chloride 0.9% Irrig 1,000 ML IR SCH (07:32)
[2017-04-04] MEDS ORDERED: Absorbable Gelatin Sponge Size 100 ONE (09:56)
[2017-04-04] MEDS: Pantoprazole 40 mg EC Tab PO SCH (10:29)
[2017-04-04] MEDS: Multiple Vitamins Tab PO SCH (10:29)
[2017-04-04] MEDS: Dexamethasone 4 mg/1 ml IV SCH ×2 (10:32→22:55)
--- NOTE | 2017-04-04 11:29 | CP.PCM.PN ---
Subjective - Date & Time of Evaluation Date of Evaluation: 04/04/17 Time of Evaluation: 11:28 - Subjective Subjective: pt is seen and examined for Dr. So, progress note is dictated # [id number] Objective - Vital Signs/Intake and Output Vital Signs (last 24 hours): Temp Pulse Resp BP Pulse Ox 98.5 F 39 L 8 L 160/73 H 98 04/04/17 06:00 04/04/17 11:00 04/04/17 11:00 04/04/17 10:08 04/04/17 11:00 Intake and Output: 04/04/17 04/04/17 06:59 18:59 Intake Total 530 440 Output Total 650 201 Balance -120 239 - Medications Medications: Current Medications Dexamethasone (Decadron Inj) 4 mg IV Q12 [facility] Last Admin: 04/04/17 10:32 Dose: 4 mg Folic Acid (Folic Acid) 1 mg PO DAILY [facility] Last Admin: 04/04/17 10:29 Dose: Not Given Levetiracetam 500 mg/ Sodium (Chloride) 105 mls @ 420 mls/hr IVPB Q12H ALBERTO Last Admin: 04/04/17 01:00 Dose: 420 mls/hr Multivitamins (Hexavitamin) 1 tab PO DAILY ALBERTO Last Admin: 04/04/17 10:29 Dose: Not Given Pantoprazole Sodium (Protonix Ec Tab) 40 mg PO DAILY ALBERTO Last Admin: 04/04/17 10:29 Dose: Not Given Sodium Chloride (Sodium Chloride Tab) 1 gm PO DAILY ALBERTO Last Admin: 04/03/17 09:54 Dose: 1 gm Thiamine HCl (Vitamin B1 Tab) 100 mg PO DAILY ALBERTO Last Admin: 04/04/17 10:29 Dose: Not Given - Labs Labs: 04/04/17 06:22 04/04/17 06:22 PT 11.6 SECONDS (9.7-12.2) 04/04/17 06:22 INR 1.0 04/04/17 06:22 APTT 27 SECONDS (21-34) D 04/04/17 06:22
--- NOTE | 2017-04-04 12:24 | CP.CCUPN ---
<Wong Francis - Last Filed: 04/04/17 13:21> CCU Subjective - Physician Review Subjective (Free Text): PGY1 ICU Progress Note for Dr. Art Patient seen and examined at bedside this morning. Patient is awake, alert and sitting up in his bed. Patient states he is feeling very hungry as he has been NPO since midnight as he was scheduled for a craniotomy today. Patient's daughter is bedside and was upset that she was not informed of the scheduled surgery. Patient's daughter does not want the patient to have surgery today unless she speaks to the surgeon prior. Patient denies any other symptoms at this time. CCU Objective - Vital Signs / Intake & Output Vital Signs (Last 4 hours): Vital Signs Pulse Resp BP Pulse Ox 04/04/17 11:00 39 L 8 L 98 04/04/17 10:08 40 L 12 160/73 H 95 04/04/17 10:00 39 L 13 99 04/04/17 09:00 41 L 11 L 97 04/04/17 08:09 43 L 13 156/71 H 97 Intake and Output (Last 8hrs): Intake & Output 04/03/17 04/04/17 04/04/17 22:59 06:59 14:59 Intake Total 640 270 440 Output Total 930 650 201 Balance -290 -380 239 Weight 158 lb Intake: Intake, IV Amount 320 120 0 Right Medial Port 320 120 0 Internal Jugular Oral 320 150 440 Output: Urine 930 650 200 Urine, Voided 930 650 200 Urine/Stool Mix 1 Other: # Voids Urine, Voided 1 - Physical Exam Head: Positive for: Atraumatic, Normocephalic Pupils: Positive for: PERRL, Other ((blind in left eye)) Extroacular Muscles: Positive for: 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 Negative for: Respiratory Distress, Accessory Muscle Use Cardiovascular: Positive for: Regular Rate and Rhythm Abdomen: Positive for: Normal Bowel Sounds. Negative for: Tenderness, Distention, Peritoneal Signs Lower Extremity: Positive for: Other (SCDs in place.) Neurological: Positive for: GCS=15, Speech Normal (much improved compared to today), Motor Func Grossly Intact (movements much improved compared to yesterday ) Skin: Positive for: Warm, Dry Psychiatric: Positive for: Alert. Negative for: Oriented x 3 (Oriented to self and place but not date) - Medications Active Medications: Active Medications Generic Name Dose Route Start Last Admin Trade Name Sonia PRN Reason Stop Dose Admin Dexamethasone 4 mg 04/02/17 10:00 04/04/17 10:32 Decadron Inj IV 4 mg Q12 ALBERTO Administration Folic Acid 1 mg 03/26/17 10:00 04/04/17 10:29 Folic Acid PO Not Given DAILY ALBERTO Levetiracetam 500 mg/ Sodium 105 mls @ 420 mls/hr 03/26/17 01:00 04/04/17 01: 00 Chloride IVPB 420 mls/hr Q12H ALBERTO Administration Multivitamins 1 tab 03/26/17 10:00 04/04/17 10:29 Hexavitamin PO Not Given DAILY ALBERTO Pantoprazole Sodium 40 mg 03/31/17 10:00 04/04/17 10:29 Protonix Ec Tab PO Not Given DAILY ALBERTO Sodium Chloride 1 gm 03/29/17 13:00 04/03/17 09:54 Sodium Chloride Tab PO 1 gm DAILY ALBERTO Administration Thiamine HCl 100 mg 03/26/17 10:00 04/04/17 10:29 Vitamin B1 Tab PO Not Given DAILY ALBERTO - Patient Studies Lab Studies: Lab Studies 04/04/17 04/04/17 04/04/17 Range/Units 11:18 08:03 06:22 WBC (4.8-10.8) K/uL RBC (4.40-5.90) Mil/uL Hgb (12.0-18.0) g/dL Hct (35.0-51.0) % MCV (80.0-94.0) fL MCH (27.0-31.0) pg MCHC (33.0-37.0) g/dL RDW (11.5-14.5) % Plt Count (130-400) K/uL MPV (7.2-11.7) fL Neut % (Auto) (50.0-75.0) % Lymph % (Auto) (20.0-40.0) % [place] % (Auto) (0.0-10.0) % Eos % (Auto) (0.0-4.0) % Baso % (Auto) (0.0-2.0) % Neut # (1.8-7.0) K/uL Lymph # (1.0-4.3) K/uL [place] # (0.0-0.8) K/uL Eos # (0.0-0.7) K/uL Baso # (0.0-0.2) K/uL PT (9.7-12.2) SECONDS INR APTT (21-34) SECONDS Sodium 134 (132-148) mmol/L Potassium 3.7 (3.6-5.2) mmol/L Chloride 103 (98-107) mmol/L Carbon Dioxide 27 (22-30) mmol/L Anion Gap 8 L (10-20) BUN 17 (9-20) mg/dL Creatinine 0.6 L (0.8-1.5) mg/dL Est GFR ( Amer) > 60 Est GFR (Non-Af Amer) > 60 POC Glucose (mg/dL) 89 92 (65-110) mg/dL Random Glucose 108 (75-110) mg/dL Calcium 8.2 L (8.6-10.4) mg/dl Phosphorus 3.8 (2.5-4.5) mg/dL Magnesium 2.1 (1.6-2.3) mg/dL Total Bilirubin 0.9 (0.2-1.3) mg/dL AST 29 (17-59) U/L ALT 77 H D (21-72) U/L Alkaline Phosphatase 80 (38-126) U/L Total Protein 7.5 (6.3-8.3) g/dL Albumin 3.6 (3.5-5.0) g/dL Globulin 3.9 (2.2-3.9) gm/dL Albumin/Globulin Ratio 0.9 L (1.0-2.1) 04/04/17 04/04/17 04/03/17 Range/Units 06:22 06:22 21:32 WBC 9.1 (4.8-10.8) K/uL RBC 4.47 (4.40-5.90) Mil/uL Hgb 13.7 (12.0-18.0) g/dL Hct 40.9 (35.0-51.0) % MCV 91.6 D (80.0-94.0) fL MCH 30.7 (27.0-31.0) pg MCHC 33.5 (33.0-37.0) g/dL RDW 13.8 (11.5-14.5) % Plt Count 226 (130-400) K/uL MPV 7.9 (7.2-11.7) fL Neut % (Auto) 81.3 H (50.0-75.0) % Lymph % (Auto) 11.0 L (20.0-40.0) % [place] % (Auto) 7.5 (0.0-10.0) % Eos % (Auto) 0.1 (0.0-4.0) % Baso % (Auto) 0.1 (0.0-2.0) % Neut # 7.4 H (1.8-7.0) K/uL Lymph # 1.0 (1.0-4.3) K/uL [place] # 0.7 (0.0-0.8) K/uL Eos # 0.0 (0.0-0.7) K/uL Baso # 0.0 (0.0-0.2) K/uL PT 11.6 (9.7-12.2) SECONDS INR 1.0 APTT 27 D (21-34) SECONDS Sodium (132-148) mmol/L Potassium (3.6-5.2) mmol/L Chloride (98-107) mmol/L Carbon Dioxide (22-30) mmol/L Anion Gap (10-20) BUN (9-20) mg/dL Creatinine (0.8-1.5) mg/dL Est GFR ( Amer) Est GFR (Non-Af Amer) POC Glucose (mg/dL) 106 (65-110) mg/dL Random Glucose (75-110) mg/dL Calcium (8.6-10.4) mg/dl Phosphorus (2.5-4.5) mg/dL Magnesium (1.6-2.3) mg/dL Total Bilirubin (0.2-1.3) mg/dL AST (17-59) U/L ALT (21-72) U/L Alkaline Phosphatase (38-126) U/L Total Protein (6.3-8.3) g/dL Albumin (3.5-5.0) g/dL Globulin (2.2-3.9) gm/dL Albumin/Globulin Ratio (1.0-2.1) 04/03/17 Range/Units 16:05 WBC (4.8-10.8) K/uL RBC (4.40-5.90) Mil/uL Hgb (12.0-18.0) g/dL Hct (35.0-51.0) % MCV (80.0-94.0) fL MCH (27.0-31.0) pg MCHC (33.0-37.0) g/dL RDW (11.5-14.5) % Plt Count (130-400) K/uL MPV (7.2-11.7) fL Neut % (Auto) (50.0-75.0) % Lymph % (Auto) (20.0-40.0) % [place] % (Auto) (0.0-10.0) % Eos % (Auto) (0.0-4.0) % Baso % (Auto) (0.0-2.0) % Neut # (1.8-7.0) K/uL Lymph # (1.0-4.3) K/uL [place] # (0.0-0.8) K/uL Eos # (0.0-0.7) K/uL Baso # (0.0-0.2) K/uL PT (9.7-12.2) SECONDS INR APTT (21-34) SECONDS Sodium (132-148) mmol/L Potassium (3.6-5.2) mmol/L Chloride (98-107) mmol/L Carbon Dioxide (22-30) mmol/L Anion Gap (10-20) BUN (9-20) mg/dL Creatinine (0.8-1.5) mg/dL Est GFR ( Amer) Est GFR (Non-Af Amer) POC Glucose (mg/dL) 114 H (65-110) mg/dL Random Glucose (75-110) mg/dL Calcium (8.6-10.4) mg/dl Phosphorus (2.5-4.5) mg/dL Magnesium (1.6-2.3) mg/dL Total Bilirubin (0.2-1.3) mg/dL AST (17-59) U/L ALT (21-72) U/L Alkaline Phosphatase (38-126) U/L Total Protein (6.3-8.3) g/dL Albumin (3.5-5.0) g/dL Globulin (2.2-3.9) gm/dL Albumin/Globulin Ratio (1.0-2.1) Laboratory Results - last 24 hr 04/03/17 04/03/17 04/04/17 16:05 21:32 06:22 WBC 9.1 RBC 4.47 Hgb 13.7 Hct 40.9 MCV 91.6 D MCH 30.7 MCHC 33.5 RDW 13.8 Plt Count 226 MPV 7.9 Neut % (Auto) 81.3 H Lymph % (Auto) 11.0 L [place] % (Auto) 7.5 Eos % (Auto) 0.1 Baso % (Auto) 0.1 Neut # 7.4 H Lymph # 1.0 [place] # 0.7 Eos # 0.0 Baso # 0.0 PT INR APTT Sodium Potassium Chloride Carbon Dioxide Anion Gap BUN Creatinine Est GFR ( Amer) Est GFR (Non-Af Amer) POC Glucose (mg/dL) 114 H 106 Random Glucose Calcium Phosphorus Magnesium Total Bilirubin AST ALT Alkaline Phosphatase Total Protein Albumin Globulin Albumin/Globulin Ratio 04/04/17 04/04/17 04/04/17 06:22 06:22 08:03 WBC RBC Hgb Hct MCV MCH MCHC RDW Plt Count MPV Neut % (Auto) Lymph % (Auto) [place] % (Auto) Eos % (Auto) Baso % (Auto) Neut # Lymph # [place] # Eos # Baso # PT 11.6 INR 1.0 APTT 27 D Sodium 134 Potassium 3.7 Chloride 103 Carbon Dioxide 27 Anion Gap 8 L BUN 17 Creatinine 0.6 L Est GFR ( Amer) > 60 Est GFR (Non-Af Amer) > 60 POC Glucose (mg/dL) 92 Random Glucose 108 Calcium 8.2 L Phosphorus 3.8 Magnesium 2.1 Total Bilirubin 0.9 AST 29 ALT 77 H D Alkaline Phosphatase 80 Total Protein 7.5 Albumin 3.6 Globulin 3.9 Albumin/Globulin Ratio 0.9 L 04/04/17 11:18 WBC RBC Hgb Hct MCV MCH MCHC RDW Plt Count MPV Neut % (Auto) Lymph % (Auto) [place] % (Auto) Eos % (Auto) Baso % (Auto) Neut # Lymph # [place] # Eos # Baso # PT INR APTT Sodium Potassium Chloride Carbon Dioxide Anion Gap BUN Creatinine Est GFR ( Amer) Est GFR (Non-Af Amer) POC Glucose (mg/dL) 89 Random Glucose Calcium Phosphorus Magnesium Total Bilirubin AST ALT Alkaline Phosphatase Total Protein Albumin Globulin Albumin/Globulin Ratio Fingerstick Blood Sugar Results: 100 Review of Systems - Review of Systems All systems: reviewed and no additional remarkable complaints except (as per HPI ) Critical Care Progress Note - Nutrition Nutrition: Nutrition Category Date Time Status Heart Healthy Diet [DIET] Diets 04/04/17 Lunch Active Assessment/Plan - Assessment and Plan (Free Text) Assessment: Patient is a 71 year old male a past medical history of ETOH abuse, HTN, HLD, Depression, presenting with recent fall with rib fractures and AMS, found to have an intracranial hemorrhage with worsening SDH. Plan: Neuro: Dr. Gilbert consulted, help appreciated Dr. Harmon consulted, help appreciated - will re-consult for re-eval of SDH Intraparencymal Hemorrhage - stable Patient is still happily confused today. He is still pausing on many questions as if he does not know the answer. Head CT 03/27/17 - Multifocal intracranial hemorrhage including the large right frontal parenchymal hemorrhage and multifocal extra-axial hemorrhages as described. Decreasing density of extra-axial blood noted in the right frontoparietal convexity hematoma and in the posterior right temporal hematoma. A right occipital extra-axial hemorrhage remains hyperdense consistent with acute blood. Increased midline shift towards the left of approximately 19 mm. No evidence of downward herniation. Repeat Head CT 03/29/17 - Large right frontal parenchymal hemorrhage with extensive surrounding edema and large midline shift towards the left. Decreasing size of right posterior occipital biconvex hemorrhage. There is focal parenchymal edema deep to what was previously identified as a small right posterior temporal biconvex extra-axial acute hemorrhage. Complete effacement of right lateral ventricle with mild ventricular trapping and dilatation of the left lateral ventricle, unchanged in extent compared to 03/27/2017. Increasing size of right convexity subdural hemorrhage, decreased in attenuation. This now measures 11 mm in width. Repeat Head CT 04/01/17 - No significant interval change noted since the previous exam. Re- demonstrated is internal hemorrhage at the right frontal lobe. Re- demonstrated is complex mainly chronic subdural hematoma along the right convexity with small foci of high attenuation suggestive of small acute on chronic hemorrhage. Mass effect on the lateral ventricle and approximately 16.6 millimeter right to left midline shift. Mild hydrocephalus. Repeat Head CT 04/02/17 - No significant interval change when compared to the previous exam Will continue to monitor annabella Patient's neurological exam confounded with history of alcohol abuse/withdrawal - [facility] protocol Multivitamin/thiamine/folic acid Keppra 500mg IVPB q12h Decadron 4mg IV q6h Sodium chloride tab 1gm PO daily Hypertonic Saline 3% @40mL/hr - Na 137 today - Serum osmol 290 f/u neuro recs - goal Na 140-145, monitor with BMP q6h - serum osmol, <320 monitor with serum osmol q6h - keep head of bed above 45 degrees - Avoid dextrose containing fluids, hyperthermia or hypertension Patient's scheduled craniotomy for today was moved to tomorrow with Dr. Ballesteros. Patient's daughter was instructed to be present by 830am tomorrow to meet with Dr. Ballesteros and ask any questions she may have. NPO after midnight. GI: Swallow - soft/advanced bite size diet Prophylactic Care: DVT proph - SCDs, holding anticoagulation due to intracerebral bleed. GI proph - Protonix IV Case discussed with Dr. Rubens Francis PGY1 <Rene Art S - Last Filed: 04/04/17 17:56> CCU Objective - Vital Signs / Intake & Output Vital Signs (Last 4 hours): Vital Signs Pulse Resp BP Pulse Ox 04/04/17 16:09 89 16 128/84 96 04/04/17 16:00 84 16 96 04/04/17 15:00 62 18 04/04/17 14:08 59 L 15 148/87 04/04/17 14:00 55 L 15 Intake and Output (Last 8hrs): Intake & Output 04/04/17 04/04/17 04/04/17 06:59 14:59 22:59 Intake Total 270 1170 420 Output Total 650 551 250 Balance -380 619 170 Weight 158 lb Intake: Intake, IV Amount 120 50 20 Right Distal Port 50 20 Internal Jugular Right Medial Port 120 0 Internal Jugular Oral 150 1120 400 Output: Urine 650 550 250 Urine, Voided 650 550 250 Urine/Stool Mix 1 - Medications Active Medications: Active Medications Generic Name Dose Route Start Last Admin Trade Name Sonia PRN Reason Stop Dose Admin Dexamethasone 4 mg 04/02/17 10:00 04/04/17 10:32 Decadron Inj IV 4 mg Q12 ALBERTO Administration Folic Acid 1 mg 03/26/17 10:00 04/04/17 10:29 Folic Acid PO Not Given DAILY ALBERTO Levetiracetam 500 mg/ Sodium 105 mls @ 420 mls/hr 03/26/17 01:00 04/04/17 01: 00 Chloride IVPB 420 mls/hr Q12H ALBERTO Administration Multivitamins 1 tab 03/26/17 10:00 04/04/17 10:29 Hexavitamin PO Not Given DAILY ALBERTO Pantoprazole Sodium 40 mg 03/31/17 10:00 04/04/17 10:29 Protonix Ec Tab PO Not Given DAILY ALBERTO Sodium Chloride 1 gm 03/29/17 13:00 04/04/17 14:48 Sodium Chloride Tab PO 1 gm DAILY ALBERTO Administration Thiamine HCl 100 mg 03/26/17 10:00 04/04/17 10:29 Vitamin B1 Tab PO Not Given DAILY ALBERTO - Patient Studies Lab Studies: Lab Studies 04/04/17 04/04/17 04/04/17 Range/Units 16:11 11:18 08:03 WBC (4.8-10.8) K/uL RBC (4.40-5.90) Mil/uL Hgb (12.0-18.0) g/dL Hct (35.0-51.0) % MCV (80.0-94.0) fL MCH (27.0-31.0) pg MCHC (33.0-37.0) g/dL RDW (11.5-14.5) % Plt Count (130-400) K/uL MPV (7.2-11.7) fL Neut % (Auto) (50.0-75.0) % Lymph % (Auto) (20.0-40.0) % [place] % (Auto) (0.0-10.0) % Eos % (Auto) (0.0-4.0) % Baso % (Auto) (0.0-2.0) % Neut # (1.8-7.0) K/uL Lymph # (1.0-4.3) K/uL [place] # (0.0-0.8) K/uL Eos # (0.0-0.7) K/uL Baso # (0.0-0.2) K/uL PT (9.7-12.2) SECONDS INR APTT (21-34) SECONDS Sodium (132-148) mmol/L Potassium (3.6-5.2) mmol/L Chloride (98-107) mmol/L Carbon Dioxide (22-30) mmol/L Anion Gap (10-20) BUN (9-20) mg/dL Creatinine (0.8-1.5) mg/dL Est GFR ( Amer) Est GFR (Non-Af Amer) POC Glucose (mg/dL) 185 H 89 92 (65-110) mg/dL Random Glucose (75-110) mg/dL Calcium (8.6-10.4) mg/dl Phosphorus (2.5-4.5) mg/dL Magnesium (1.6-2.3) mg/dL Total Bilirubin (0.2-1.3) mg/dL AST (17-59) U/L ALT (21-72) U/L Alkaline Phosphatase (38-126) U/L Total Protein (6.3-8.3) g/dL Albumin (3.5-5.0) g/dL Globulin (2.2-3.9) gm/dL Albumin/Globulin Ratio (1.0-2.1) 04/04/17 04/04/17 04/04/17 Range/Units 06:22 06:22 06:22 WBC 9.1 (4.8-10.8) K/uL RBC 4.47 (4.40-5.90) Mil/uL Hgb 13.7 (12.0-18.0) g/dL Hct 40.9 (35.0-51.0) % MCV 91.6 D (80.0-94.0) fL MCH 30.7 (27.0-31.0) pg MCHC 33.5 (33.0-37.0) g/dL RDW 13.8 (11.5-14.5) % Plt Count 226 (130-400) K/uL MPV 7.9 (7.2-11.7) fL Neut % (Auto) 81.3 H (50.0-75.0) % Lymph % (Auto) 11.0 L (20.0-40.0) % [place] % (Auto) 7.5 (0.0-10.0) % Eos % (Auto) 0.1 (0.0-4.0) % Baso % (Auto) 0.1 (0.0-2.0) % Neut # 7.4 H (1.8-7.0) K/uL Lymph # 1.0 (1.0-4.3) K/uL [place] # 0.7 (0.0-0.8) K/uL Eos # 0.0 (0.0-0.7) K/uL Baso # 0.0 (0.0-0.2) K/uL PT 11.6 (9.7-12.2) SECONDS INR 1.0 APTT 27 D (21-34) SECONDS Sodium 134 (132-148) mmol/L Potassium 3.7 (3.6-5.2) mmol/L Chloride 103 (98-107) mmol/L Carbon Dioxide 27 (22-30) mmol/L Anion Gap 8 L (10-20) BUN 17 (9-20) mg/dL Creatinine 0.6 L (0.8-1.5) mg/dL Est GFR ( Amer) > 60 Est GFR (Non-Af Amer) > 60 POC Glucose (mg/dL) (65-110) mg/dL Random Glucose 108 (75-110) mg/dL Calcium 8.2 L (8.6-10.4) mg/dl Phosphorus 3.8 (2.5-4.5) mg/dL Magnesium 2.1 (1.6-2.3) mg/dL Total Bilirubin 0.9 (0.2-1.3) mg/dL AST 29 (17-59) U/L ALT 77 H D (21-72) U/L Alkaline Phosphatase 80 (38-126) U/L Total Protein 7.5 (6.3-8.3) g/dL Albumin 3.6 (3.5-5.0) g/dL Globulin 3.9 (2.2-3.9) gm/dL Albumin/Globulin Ratio 0.9 L (1.0-2.1) 04/03/17 Range/Units 21:32 WBC (4.8-10.8) K/uL RBC (4.40-5.90) Mil/uL Hgb (12.0-18.0) g/dL Hct (35.0-51.0) % MCV (80.0-94.0) fL MCH (27.0-31.0) pg MCHC (33.0-37.0) g/dL RDW (11.5-14.5) % Plt Count (130-400) K/uL MPV (7.2-11.7) fL Neut % (Auto) (50.0-75.0) % Lymph % (Auto) (20.0-40.0) % [place] % (Auto) (0.0-10.0) % Eos % (Auto) (0.0-4.0) % Baso % (Auto) (0.0-2.0) % Neut # (1.8-7.0) K/uL Lymph # (1.0-4.3) K/uL [place] # (0.0-0.8) K/uL Eos # (0.0-0.7) K/uL Baso # (0.0-0.2) K/uL PT (9.7-12.2) SECONDS INR APTT (21-34) SECONDS Sodium (132-148) mmol/L Potassium (3.6-5.2) mmol/L Chloride (98-107) mmol/L Carbon Dioxide (22-30) mmol/L Anion Gap (10-20) BUN (9-20) mg/dL Creatinine (0.8-1.5) mg/dL Est GFR ( Amer) Est GFR (Non-Af Amer) POC Glucose (mg/dL) 106 (65-110) mg/dL Random Glucose (75-110) mg/dL Calcium (8.6-10.4) mg/dl Phosphorus (2.5-4.5) mg/dL Magnesium (1.6-2.3) mg/dL Total Bilirubin (0.2-1.3) mg/dL AST (17-59) U/L ALT (21-72) U/L Alkaline Phosphatase (38-126) U/L Total Protein (6.3-8.3) g/dL Albumin (3.5-5.0) g/dL Globulin (2.2-3.9) gm/dL Albumin/Globulin Ratio (1.0-2.1) Laboratory Results - last 24 hr 04/03/17 04/04/17 04/04/17 21:32 06:22 06:22 WBC 9.1 RBC 4.47 Hgb 13.7 Hct 40.9 MCV 91.6 D MCH 30.7 MCHC 33.5 RDW 13.8 Plt Count 226 MPV 7.9 Neut % (Auto) 81.3 H Lymph % (Auto) 11.0 L [place] % (Auto) 7.5 Eos % (Auto) 0.1 Baso % (Auto) 0.1 Neut # 7.4 H Lymph # 1.0 [place] # 0.7 Eos # 0.0 Baso # 0.0 PT 11.6 INR 1.0 APTT 27 D Sodium Potassium Chloride Carbon Dioxide Anion Gap BUN Creatinine Est GFR ( Amer) Est GFR (Non-Af Amer) POC Glucose (mg/dL) 106 Random Glucose Calcium Phosphorus Magnesium Total Bilirubin AST ALT Alkaline Phosphatase Total Protein Albumin Globulin Albumin/Globulin Ratio 04/04/17 04/04/17 04/04/17 06:22 08:03 11:18 WBC RBC Hgb Hct MCV MCH MCHC RDW Plt Count MPV Neut % (Auto) Lymph % (Auto) [place] % (Auto) Eos % (Auto) Baso % (Auto) Neut # Lymph # [place] # Eos # Baso # PT INR APTT Sodium 134 Potassium 3.7 Chloride 103 Carbon Dioxide 27 Anion Gap 8 L BUN 17 Creatinine 0.6 L Est GFR ( Amer) > 60 Est GFR (Non-Af Amer) > 60 POC Glucose (mg/dL) 92 89 Random Glucose 108 Calcium 8.2 L Phosphorus 3.8 Magnesium 2.1 Total Bilirubin 0.9 AST 29 ALT 77 H D Alkaline Phosphatase 80 Total Protein 7.5 Albumin 3.6 Globulin 3.9 Albumin/Globulin Ratio 0.9 L 04/04/17 16:11 WBC RBC Hgb Hct MCV MCH MCHC RDW Plt Count MPV Neut % (Auto) Lymph % (Auto) [place] % (Auto) Eos % (Auto) Baso % (Auto) Neut # Lymph # [place] # Eos # Baso # PT INR APTT Sodium Potassium Chloride Carbon Dioxide Anion Gap BUN Creatinine Est GFR ( Amer) Est GFR (Non-Af Amer) POC Glucose (mg/dL) 185 H Random Glucose Calcium Phosphorus Magnesium Total Bilirubin AST ALT Alkaline Phosphatase Total Protein Albumin Globulin Albumin/Globulin Ratio Critical Care Progress Note - Nutrition Nutrition: Nutrition Category Date Time Status Heart Healthy Diet [DIET] Diets 04/04/17 Lunch Active NPO Diet [DIET] Diets 04/05/17 Breakfast Active Attending/Attestation - Attestation I have personally seen and examined this patient.: Yes I have fully participated in the care of the patient.: Yes I have reviewed all pertinent clinical information: Yes Notes (Text): 04/04/17 17:54 Patient seen and examined in the intensive care unit. Case discussed with house staff in the morning rounds patient scheduled for craniotomy tomorrow Continue ICU observation
--- NOTE | 2017-04-04 13:18 | PN ---
DATE: SUBJECTIVE: The patient is seen and examined and dictated for Dr. Mary Beth Chirinos. Mr. Cabral is a 71 years old elderly male with a past medical history significant for hypertension and hyperlipidemia, EtOH abuse, status post fall on , 03/17/2017. Subsequently, the patient was found to be verbally confused and forgetting things and the patient refused to come to the hospital initially. After insisting the patient's family members, the daughter and the brother, the patient agreed to come to the hospital. The patient is confused from time to time and restless and also pulling out the IV lines. The patient has one-to-one. The patient's daughter is at bedside. The patient is not in any distress. Denies any chest pain, palpitation. Denies any fever or cough. Denies any abdominal pain. Denies any nausea, vomiting, diarrhea. The patient knows he is in the hospital. He knows he is in the [facility], but the patient does not know the month and year and date. The patient knows it is Monday. PHYSICAL EXAMINATION: GENERAL: Mr. Cabral is a 71 years old elderly male, moderately built and moderately nourished, not in any distress. VITAL SIGNS: His vital signs as follows; blood pressure 160/73, pulse 40, respirations about 12, saturation 98% and the temperature is 98.5. HEENT: Left eye is blind. Right eye is normal. Head, no visual lacerations. Tongue is moist and trachea is midline. LUNGS: Symmetric on both sides. Bilateral breath sounds present. Clear on auscultation. CARDIOVASCULAR SYSTEM: [place] at the fifth intercostal space, midclavicular line. S1 and S2 audible. No murmur or gallop. ABDOMEN: Normal in appearance, soft, tympanic. No guarding. No rigidity. No hepatosplenomegaly. CENTRAL NERVOUS SYSTEM: The patient is alert, awake, oriented x1-2. Sensory and motor system is grossly within normal limits. EXTREMITIES: No cyanosis. No clubbing. No edema. PSYCHIATRIC: The patient knows he is in the hospital and cries and he thinks [facility] is located in [place] and the patient does not know his date of and does not know the date and month and year today. LABORATORY DATA: CT of the head as of 04/02/2017, no significant interval change when compared to the previous exam. Mass effect on the lateral ventricles and there is right to left midline shift measures approximately 13 mm. No atrophy or chronic microvascular ischemic changes. Compression on the right lateral ventricle and moderate effacement is again noted. The left lateral ventricle and the fourth ventricle is mildly dilated suggestive of mild hydrocephalus. Again seen is a parenchymal hemorrhage at the right frontal lobe surrounding with edema, again seen is a low-attenuation subdural hematoma along the right convexity contains foci of eye attenuation with largest foci seen in the right frontal region, measures 1.4 cm. MEDICATIONS: His current medications include as follows; Decadron 4 mg IV q. 12 hours, folic acid 1 mg daily, multivitamin 1 tablet daily and Keppra 500 mg IV q. 12 hours and Protonix 40 mg p.o. daily and sodium chloride 1 g p.o. daily, thiamine 100 mg p.o. daily. ASSESSMENT AND PLAN: In summary, Mr. Cabral is a 71 years old elderly male with a history of hypertension, hyperlipidemia, ethyl alcohol abuse, status post fall on, I think, , 03/17/2017 with gradual deterioration in mental status and confusion. The patient was alert, oriented x3 prior to the accident and fall. 1. Hypertension. 2. Ethyl alcohol abuse. 3. Status post fall with intracranial bleed, right frontal hemorrhage. 4. Right subdural hematoma. PLAN: Continue Keppra and continue his current medication and continue thiamine and the patient is scheduled for neurosurgery, subdural hematoma evacuation. The patient's family at bedside, the patient daughter, waiting for the neurosurgeon to talk to her in person. Case discussed with the log carrier operator and also the patient's nurse in rounds. The patient is seen and examined and dictated for Dr. Mary Beth Chirinos and all the labs and the chart reviewed. Soraida Chirinos MD
[2017-04-04] MEDS ORDERED: Labetalol 25mg/5ml Syringe ONE (14:20)
[2017-04-04] MEDS ORDERED: Dextrose 5%/0.9% NS 1,000 ML IV ONE (19:07)
[2017-04-04 20:28] LABS: LYME IGM NEGATIVE (NEGATIVE)
[2017-04-04 20:40] LABS: LYME IGG NEGATIVE (NEGATIVE)
[2017-04-05] MEDS: levETIRAcetam 500 MG in Sodium Chloride 0.9% 100 ML IVPB SCH ×2 (01:00→15:56)
[2017-04-05 06:38] LABS: BASO % 0.2 % (0.0-2.0); EOS % 0.1 % (0.0-4.0); HEMATOCRIT 37.3 % (35.0-51.0); LYMPH # 0.8 K/uL (1.0-4.3); LYMPH % 8.4 % (20.0-40.0); MEAN CELL VOLUME 89.9 fL (80.0-94.0); MEAN CORPUSCULAR HEMOGLOBIN 31.2 pg (27.0-31.0); MEAN CORPUSCULAR HGB CONC 34.7 g/dL (33.0-37.0); MONO # 0.6 K/uL (0.0-0.8); PLATELET COUNT 218 K/uL (130-400); RED CELL DISTRIBUTION WIDTH 14.1 % (11.5-14.5); WHITE BLOOD COUNT 9.3 K/uL (4.8-10.8)
[2017-04-05 06:49] LABS: ALB/GLOB RATIO 1.2 (1.0-2.1); ALKALINE PHOSPHATASE 63 U/L (38-126); ALT/SGPT 70 U/L (21-72); AST/SGOT 23 U/L (17-59); BILIRUBIN,TOTAL 0.8 mg/dL (0.2-1.3); BLOOD UREA NITROGEN 22 mg/dL (9-20); CALCIUM 7.9 mg/dl (8.6-10.4); CARBON DIOXIDE 25 mmol/L (22-30); CHLORIDE 103 mmol/L (98-107); GFR AFRICAN-AMERICAN > 60; GLUCOSE,RANDOM 130 mg/dL (75-110); MAGNESIUM 2.1 mg/dL (1.6-2.3); PHOSPHOROUS 3.4 mg/dL (2.5-4.5); SODIUM 133 mmol/L (132-148); TOTAL PROTEIN 5.8 g/dL (6.3-8.3)
[2017-04-05 08:22] LABS: NEUTROPHIL 90 % (50-75); REACTIVE LYMPHOCYTES 1 % (0-0); TOTAL CELLS COUNTED 100
[2017-04-05] MEDS ORDERED: Lidocaine/Epi 1% 1:100000 20 ML IJ ONE (08:59)
[2017-04-05] MEDS ORDERED: Thrombin Topical 5,000 Int Units Spray Kit ONE (09:06)
[2017-04-05] MEDS ORDERED: ceFAZolin IV 1 gm in Dextrose 0 GM/0 ML BAG IVPB ONE (09:06)
[2017-04-05] MEDS ORDERED: Absorbable Gelatin Sponge Size 100 ONE (09:06)
[2017-04-05] MEDS ORDERED: cefTRIAXone IV 1 gm in Dextros 50 ML IVPB ONE ×2 (09:07→09:54)
[2017-04-05] MEDS ORDERED: Bacitracin Ointment 30 GM TUBE ONE (09:07)
[2017-04-05] MEDS: Pantoprazole 40 mg EC Tab PO SCH (09:22)
--- NOTE | 2017-04-05 09:31 | CT ---
PROCEDURE: CT HEAD WITHOUT CONTRAST. HISTORY: Preoperative assessment COMPARISON: Comparison made with CT scan brain dated 02/10/2017 TECHNIQUE: Contiguous helical/transaxial l computed tomography images were obtained through the head/brain without intravenous contrast. Radiation dose: Total exam DLP = 937.06 fuentes mGy-cm. This CT exam was performed using one or more of the following dose reduction techniques: Automated exposure control, adjustment of the mA and/or kV according to patient size, and/or use of iterative reconstruction technique. . FINDINGS: HEMORRHAGE: Re- demonstrated is a elliptical shaped parenchymal hematoma within the right inferior frontal lobe which has continued to evolve in unremarkable fashion. The surrounding low-attenuation edema appears to have diminished slightly as well. . . In addition, there is a moderate-sized hypodense chronic subdural hematoma over the right cerebral hemisphere. Both the frontal hematoma and chronic subdural hematoma exert considerable mass effect with compression of the right cerebral hemisphere and particularly the right lateral ventricle which is partially shifted across midline although midline shift appears to have diminished slightly. Shift of the septum pellucidum estimated approximately 1.35 cm whereas on prior study of the septum pellucidum shifted across midline approximately 1.68 cm. . There is slight shift of the uncus from right to left. BRAIN: As above. VENTRICLES: Mild moderate dilatation left lateral ventricle due to compressive effects at the level of the right foramen of Monro. CALVARIUM: No alissa acute calvarial fractures. PARANASAL SINUSES: Unremarkable as visualized. No significant inflammatory changes. MASTOID AIR CELLS: Unremarkable as visualized. No inflammatory changes. OTHER FINDINGS: Stable appearing phthisis bulbi left globe IMPRESSION: Continued unremarkable expected evolution right inferior frontal pole on hematoma. Surrounding low-attenuation edema appears to have diminished slightly. Large hypodense chronic subdural hematoma. Persistent but slightly decreased mass-effect with a very slight decreased [id number] shift as above. Persistent dilatation left lateral ventricle due to compressive effects at the right foramen of Monro.
[2017-04-05] MEDS ORDERED: Propofol 10 mg/ml Inj (20 ML) ONE (09:58)
[2017-04-05] MEDS ORDERED: Midazolam 2 MG/2 ML VIAL ONE (09:58)
--- NOTE | 2017-04-05 09:59 | CP.PCM.PN ---
Subjective - Date & Time of Evaluation Date of Evaluation: 04/05/17 Time of Evaluation: 09:57 - Subjective Subjective: Mr. Cabral was seen and examined at the bedside. He is alert, oriented . He denies any headache, dizziness, lightheadedness, nausea, or vomiting. He is for ventriculostomy today with neurosurgeon. There was no untoward events overnight. Objective - Vital Signs/Intake and Output Vital Signs (last 24 hours): Temp Pulse Resp BP Pulse Ox 98.1 F 41 L 14 96/37 L 97 04/05/17 00:00 04/05/17 09:00 04/05/17 09:00 04/05/17 06:08 04/05/17 06:00 Intake and Output: 04/05/17 04/05/17 06:59 18:59 Intake Total 1190 100 Output Total 1100 200 Balance 90 -100 - Medications Medications: Current Medications Dexamethasone (Decadron Inj) 4 mg IV Q12 PENDING SALE TO [facility] Last Admin: 04/04/17 22:55 Dose: 4 mg Folic Acid (Folic Acid) 1 mg PO DAILY PENDING SALE TO [facility] Last Admin: 04/04/17 10:29 Dose: Not Given Levetiracetam 500 mg/ Sodium (Chloride) 105 mls @ 420 mls/hr IVPB Q12H PENDING SALE TO [facility] Last Admin: 04/05/17 01:00 Dose: 420 mls/hr Dextrose/Sodium Chloride (Dextrose 5%/0.9% Ns 1000 Ml) 1,000 mls @ 50 mls/hr IV .Q20H ONE Stop: 04/05/17 15:06 Last Admin: 04/04/17 19:30 Dose: 50 mls/hr Bacitracin 50,000 unit/ Sodium (Chloride) 1,000 mls @ 1,000 mls/hr IR .Q1H ALBERTO Stop: 04/05/17 10:59 Multivitamins (Hexavitamin) 1 tab PO DAILY PENDING SALE TO [facility] Last Admin: 04/04/17 10:29 Dose: Not Given Pantoprazole Sodium (Protonix Ec Tab) 40 mg PO DAILY PENDING SALE TO [facility] Last Admin: 04/05/17 09:22 Dose: Not Given Sodium Chloride (Sodium Chloride Tab) 1 gm PO DAILY PENDING SALE TO [facility] Last Admin: 04/04/17 14:48 Dose: 1 gm Thiamine HCl (Vitamin B1 Tab) 100 mg PO DAILY PENDING SALE TO [facility] Last Admin: 04/05/17 09:23 Dose: Not Given - Labs Labs: 04/05/17 06:26 04/05/17 06:23 PT 11.6 SECONDS (9.7-12.2) 04/04/17 06:22 INR 1.0 04/04/17 06:22 APTT 27 SECONDS (21-34) D 04/04/17 06:22 - Constitutional Appears: No Acute Distress - Head Exam Head Exam: ATRAUMATIC - Neurological Exam Neurological Exam: Alert, Awake Neuro motor strength exam: Left Upper Extremity: 4, Right Upper Extremity: 4, Left Lower Extremity: 4, Right Lower Extremity: 4 Additional comments: Neurological unchanged from previous examination. Assessment and Plan (1) Acute intra-cranial hemorrhage Assessment & Plan: Case discussed with Dr. Gilbert, continue with all current medical regimen. Neurosurgery for the ventriculostomy. Status: Acute
[2017-04-05] MEDS ORDERED: Bacitracin 50,000 UNIT in Sodium Chloride 0.9% Irrig 1,000 ML IR SCH (10:00)
--- NOTE | 2017-04-05 10:02 | RAD ---
HISTORY: Preoperative assessment. Rib fracture. COMPARISON: Comparison made with prior study 03/28/2017. FINDINGS: Re- demonstrated is in situ right IJ central venous line with tip in the SVC. LUNGS: There appears to be some persistent chronic pleural thickening along the right lateral hemithorax subjacent to multiple old healed rib fracture deformities. There may also be several left lower lateral rib fracture deformities as well. No infiltrates. No evidence of effusion or pneumothorax. PLEURA: No significant pleural effusion identified, no pneumothorax apparent. CARDIOVASCULAR: Heart size is upper limits OSSEOUS STRUCTURES: As above VISUALIZED UPPER ABDOMEN: . No gross free intraperitoneal air OTHER FINDINGS: None. IMPRESSION: In situ right IJ central line as described. No acute infiltrates effusion or pneumothorax. Chronic pleural thickening changes right lateral genesis thorax as above. Overall no significant interval change.
[2017-04-05] MEDS ORDERED: Vasopressin 20 Units/ml Inj ONE (10:31)
--- NOTE | 2017-04-05 10:36 | CP.CCUPN ---
CCU Subjective - Physician Review Subjective (Free Text): PGY1 ICU Progress Note for Dr. Art Patient seen and examined at bedside this morning. Patient is awake, alert and sitting up in his bed. Patient states he is feeling well and has no complaints. Patient is confused this morning stating that he thinks the year is 1980. Patient's heart rate dropped to 30's overnight. He is scheduled for drainage of SDH later this morning but anesthesia is requesting cardiac clearance prior to surgery. CCU Objective - Vital Signs / Intake & Output Vital Signs (Last 4 hours): Vital Signs Pulse Resp 04/05/17 09:00 41 L 14 04/05/17 08:00 43 L 14 Intake and Output (Last 8hrs): Intake & Output 04/04/17 04/05/17 04/05/17 22:59 06:59 14:59 Intake Total 990 620 100 Output Total 550 800 200 Balance 440 -180 -100 Weight 162 lb 0.1 oz Intake: Intake, IV Amount 170 500 100 Right Distal Port 170 400 100 Internal Jugular Right Medial Port 100 Internal Jugular Oral 820 120 Output: Urine 550 800 200 Urine, Voided 550 800 200 - Physical Exam Head: Positive for: Atraumatic, Normocephalic Pupils: Positive for: PERRL, Other ((blind in left eye)) Extroacular Muscles: Positive for: 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 Negative for: Respiratory Distress, Accessory Muscle Use Cardiovascular: Positive for: Bradycardic (sinus) Abdomen: Positive for: Normal Bowel Sounds. Negative for: Tenderness, Distention, Peritoneal Signs Lower Extremity: Positive for: Other (SCDs in place.) Neurological: Positive for: GCS=15, Speech Normal (much improved compared to today), Motor Func Grossly Intact (movements much improved compared to yesterday ) Skin: Positive for: Warm, Dry Psychiatric: Positive for: Alert. Negative for: Oriented x 3 (Oriented to self , but not date or place - thinks year is 1980 and he is at his home) - Medications Active Medications: Active Medications Generic Name Dose Route Start Last Admin Trade Name Freq PRN Reason Stop Dose Admin Dexamethasone 4 mg 04/02/17 10:00 04/04/17 22:55 Decadron Inj IV 4 mg Q12 ALBERTO Administration Folic Acid 1 mg 03/26/17 10:00 04/04/17 10:29 Folic Acid PO Not Given DAILY ALBERTO Levetiracetam 500 mg/ Sodium 105 mls @ 420 mls/hr 03/26/17 01:00 04/05/17 01: 00 Chloride IVPB 420 mls/hr Q12H ALBERTO Administration Dextrose/Sodium Chloride 1,000 mls @ 50 mls/hr 04/04/17 19:07 04/04/17 19:30 Dextrose 5%/0.9% Ns 1000 Ml IV 04/05/17 15:06 50 mls/hr .Q20H ONE Administration Bacitracin 50,000 unit/ Sodium 1,000 mls @ 1,000 mls/hr 04/05/17 10:00 Chloride IR 04/05/17 10:59 .Q1H ALBERTO Multivitamins 1 tab 03/26/17 10:00 04/04/17 10:29 Hexavitamin PO Not Given DAILY ALBERTO Pantoprazole Sodium 40 mg 03/31/17 10:00 04/05/17 09:22 Protonix Ec Tab PO Not Given DAILY ALBERTO Sodium Chloride 1 gm 03/29/17 13:00 04/04/17 14:48 Sodium Chloride Tab PO 1 gm DAILY ALBERTO Administration Thiamine HCl 100 mg 03/26/17 10:00 04/05/17 09:23 Vitamin B1 Tab PO Not Given DAILY ALBERTO - Patient Studies Lab Studies: Lab Studies 04/05/17 04/05/17 04/05/17 Range/Units 07:39 06:26 06:23 WBC 9.3 (4.8-10.8) K/uL RBC 4.15 L (4.40-5.90) Mil/uL Hgb 12.9 (12.0-18.0) g/dL Hct 37.3 (35.0-51.0) % MCV 89.9 (80.0-94.0) fL MCH 31.2 H (27.0-31.0) pg MCHC 34.7 (33.0-37.0) g/dL RDW 14.1 (11.5-14.5) % Plt Count 218 (130-400) K/uL MPV 8.0 (7.2-11.7) fL Neut % (Auto) 85.3 H (50.0-75.0) % Lymph % (Auto) 8.4 L (20.0-40.0) % Mccreary % (Auto) 6.0 (0.0-10.0) % Eos % (Auto) 0.1 (0.0-4.0) % Baso % (Auto) 0.2 (0.0-2.0) % Neut # 7.9 H (1.8-7.0) K/uL Lymph # 0.8 L (1.0-4.3) K/uL Mccreary # 0.6 (0.0-0.8) K/uL Eos # 0.0 (0.0-0.7) K/uL Baso # 0.0 (0.0-0.2) K/uL Neutrophils % (Manual) 90 H (50-75) % Lymphocytes % (Manual) 4 L (20-40) % Reactive Lymphs % 1 H (0-0) % Monocytes % (Manual) 5 (0-10) % Platelet Estimate Normal (NORMAL) Ovalocytes Slight Sodium 133 (132-148) mmol/L Potassium 4.0 (3.6-5.2) mmol/L Chloride 103 (98-107) mmol/L Carbon Dioxide 25 (22-30) mmol/L Anion Gap 10 (10-20) BUN 22 H (9-20) mg/dL Creatinine 0.7 L (0.8-1.5) mg/dL Est GFR ( Amer) > 60 Est GFR (Non-Af Amer) > 60 POC Glucose (mg/dL) 97 (65-110) mg/dL Random Glucose 130 H (75-110) mg/dL Calcium 7.9 L (8.6-10.4) mg/dl Phosphorus 3.4 (2.5-4.5) mg/dL Magnesium 2.1 (1.6-2.3) mg/dL Total Bilirubin 0.8 (0.2-1.3) mg/dL AST 23 (17-59) U/L ALT 70 (21-72) U/L Alkaline Phosphatase 63 (38-126) U/L Total Protein 5.8 L (6.3-8.3) g/dL Albumin 3.2 L (3.5-5.0) g/dL Globulin 2.6 (2.2-3.9) gm/dL Albumin/Globulin Ratio 1.2 (1.0-2.1) Lyme Disease IgG Ab (IFA) (NEGATIVE) Lyme Disease IgM Ab (NEGATIVE) 04/04/17 04/04/17 04/04/17 Range/Units 21:18 16:11 11:18 WBC (4.8-10.8) K/uL RBC (4.40-5.90) Mil/uL Hgb (12.0-18.0) g/dL Hct (35.0-51.0) % MCV (80.0-94.0) fL MCH (27.0-31.0) pg MCHC (33.0-37.0) g/dL RDW (11.5-14.5) % Plt Count (130-400) K/uL MPV (7.2-11.7) fL Neut % (Auto) (50.0-75.0) % Lymph % (Auto) (20.0-40.0) % Mccreary % (Auto) (0.0-10.0) % Eos % (Auto) (0.0-4.0) % Baso % (Auto) (0.0-2.0) % Neut # (1.8-7.0) K/uL Lymph # (1.0-4.3) K/uL Mccreary # (0.0-0.8) K/uL Eos # (0.0-0.7) K/uL Baso # (0.0-0.2) K/uL Neutrophils % (Manual) (50-75) % Lymphocytes % (Manual) (20-40) % Reactive Lymphs % (0-0) % Monocytes % (Manual) (0-10) % Platelet Estimate (NORMAL) Ovalocytes Sodium (132-148) mmol/L Potassium (3.6-5.2) mmol/L Chloride (98-107) mmol/L Carbon Dioxide (22-30) mmol/L Anion Gap (10-20) BUN (9-20) mg/dL Creatinine (0.8-1.5) mg/dL Est GFR ( Amer) Est GFR (Non-Af Amer) POC Glucose (mg/dL) 100 185 H 89 (65-110) mg/dL Random Glucose (75-110) mg/dL Calcium (8.6-10.4) mg/dl Phosphorus (2.5-4.5) mg/dL Magnesium (1.6-2.3) mg/dL Total Bilirubin (0.2-1.3) mg/dL AST (17-59) U/L ALT (21-72) U/L Alkaline Phosphatase (38-126) U/L Total Protein (6.3-8.3) g/dL Albumin (3.5-5.0) g/dL Globulin (2.2-3.9) gm/dL Albumin/Globulin Ratio (1.0-2.1) Lyme Disease IgG Ab (IFA) (NEGATIVE) Lyme Disease IgM Ab (NEGATIVE) 04/02/17 Range/Units 06:20 WBC (4.8-10.8) K/uL RBC (4.40-5.90) Mil/uL Hgb (12.0-18.0) g/dL Hct (35.0-51.0) % MCV (80.0-94.0) fL MCH (27.0-31.0) pg MCHC (33.0-37.0) g/dL RDW (11.5-14.5) % Plt Count (130-400) K/uL MPV (7.2-11.7) fL Neut % (Auto) (50.0-75.0) % Lymph % (Auto) (20.0-40.0) % Mccreary % (Auto) (0.0-10.0) % Eos % (Auto) (0.0-4.0) % Baso % (Auto) (0.0-2.0) % Neut # (1.8-7.0) K/uL Lymph # (1.0-4.3) K/uL Mccreary # (0.0-0.8) K/uL Eos # (0.0-0.7) K/uL Baso # (0.0-0.2) K/uL Neutrophils % (Manual) (50-75) % Lymphocytes % (Manual) (20-40) % Reactive Lymphs % (0-0) % Monocytes % (Manual) (0-10) % Platelet Estimate (NORMAL) Ovalocytes Sodium (132-148) mmol/L Potassium (3.6-5.2) mmol/L Chloride (98-107) mmol/L Carbon Dioxide (22-30) mmol/L Anion Gap (10-20) BUN (9-20) mg/dL Creatinine (0.8-1.5) mg/dL Est GFR ( Amer) Est GFR (Non-Af Amer) POC Glucose (mg/dL) (65-110) mg/dL Random Glucose (75-110) mg/dL Calcium (8.6-10.4) mg/dl Phosphorus (2.5-4.5) mg/dL Magnesium (1.6-2.3) mg/dL Total Bilirubin (0.2-1.3) mg/dL AST (17-59) U/L ALT (21-72) U/L Alkaline Phosphatase (38-126) U/L Total Protein (6.3-8.3) g/dL Albumin (3.5-5.0) g/dL Globulin (2.2-3.9) gm/dL Albumin/Globulin Ratio (1.0-2.1) Lyme Disease IgG Ab (IFA) Negative (NEGATIVE) Lyme Disease IgM Ab Negative (NEGATIVE) Laboratory Results - last 24 hr 04/02/17 04/04/17 04/04/17 06:20 11:18 16:11 WBC RBC Hgb Hct MCV MCH MCHC RDW Plt Count MPV Neut % (Auto) Lymph % (Auto) Mccreary % (Auto) Eos % (Auto) Baso % (Auto) Neut # Lymph # Mccreary # Eos # Baso # Neutrophils % (Manual) Lymphocytes % (Manual) Reactive Lymphs % Monocytes % (Manual) Platelet Estimate Ovalocytes Sodium Potassium Chloride Carbon Dioxide Anion Gap BUN Creatinine Est GFR ( Amer) Est GFR (Non-Af Amer) POC Glucose (mg/dL) 89 185 H Random Glucose Calcium Phosphorus Magnesium Total Bilirubin AST ALT Alkaline Phosphatase Total Protein Albumin Globulin Albumin/Globulin Ratio Lyme Disease IgG Ab (IFA) Negative Lyme Disease IgM Ab Negative 04/04/17 04/05/17 04/05/17 21:18 06:23 06:26 WBC 9.3 RBC 4.15 L Hgb 12.9 Hct 37.3 MCV 89.9 MCH 31.2 H MCHC 34.7 RDW 14.1 Plt Count 218 MPV 8.0 Neut % (Auto) 85.3 H Lymph % (Auto) 8.4 L Mccreary % (Auto) 6.0 Eos % (Auto) 0.1 Baso % (Auto) 0.2 Neut # 7.9 H Lymph # 0.8 L Mccreary # 0.6 Eos # 0.0 Baso # 0.0 Neutrophils % (Manual) 90 H Lymphocytes % (Manual) 4 L Reactive Lymphs % 1 H Monocytes % (Manual) 5 Platelet Estimate Normal Ovalocytes Slight Sodium 133 Potassium 4.0 Chloride 103 Carbon Dioxide 25 Anion Gap 10 BUN 22 H Creatinine 0.7 L Est GFR ( Amer) > 60 Est GFR (Non-Af Amer) > 60 POC Glucose (mg/dL) 100 Random Glucose 130 H Calcium 7.9 L Phosphorus 3.4 Magnesium 2.1 Total Bilirubin 0.8 AST 23 ALT 70 Alkaline Phosphatase 63 Total Protein 5.8 L Albumin 3.2 L Globulin 2.6 Albumin/Globulin Ratio 1.2 Lyme Disease IgG Ab (IFA) Lyme Disease IgM Ab 04/05/17 07:39 WBC RBC Hgb Hct MCV MCH MCHC RDW Plt Count MPV Neut % (Auto) Lymph % (Auto) Mccreary % (Auto) Eos % (Auto) Baso % (Auto) Neut # Lymph # Mccreary # Eos # Baso # Neutrophils % (Manual) Lymphocytes % (Manual) Reactive Lymphs % Monocytes % (Manual) Platelet Estimate Ovalocytes Sodium Potassium Chloride Carbon Dioxide Anion Gap BUN Creatinine Est GFR ( Amer) Est GFR (Non-Af Amer) POC Glucose (mg/dL) 97 Random Glucose Calcium Phosphorus Magnesium Total Bilirubin AST ALT Alkaline Phosphatase Total Protein Albumin Globulin Albumin/Globulin Ratio Lyme Disease IgG Ab (IFA) Lyme Disease IgM Ab EKG/Cardiology Studies: Cardiology / EKG Studies 04/05/17 09:37 EKG [ELECTROCARDIOGRAM] Stat Comment: Mode Of Transportation: Reason For Exam: bradycardia Fingerstick Blood Sugar Results: 100 Review of Systems - Review of Systems All systems: reviewed and no additional remarkable complaints except (as per HPI ) Critical Care Progress Note - Nutrition Nutrition: Nutrition Category Date Time Status NPO Diet [DIET] Diets 04/05/17 Breakfast Active Assessment/Plan - Assessment and Plan (Free Text) Assessment: Patient is a 71 year old male a past medical history of ETOH abuse, HTN, HLD, Depression, presenting with recent fall with rib fractures and AMS, found to have an intracranial hemorrhage with worsening SDH. Plan: Neuro: Dr. Gilbert consulted, help appreciated Dr. Harmon consulted, help appreciated Intraparencymal Hemorrhage - stable Patient is happily confused today. He is scheduled for craniotomy this morning with Dr. Ballesteros. Head CT 03/27/17 - Multifocal intracranial hemorrhage including the large right frontal parenchymal hemorrhage and multifocal extra-axial hemorrhages as described. Decreasing density of extra-axial blood noted in the right frontoparietal convexity hematoma and in the posterior right temporal hematoma. A right occipital extra-axial hemorrhage remains hyperdense consistent with acute blood. Increased midline shift towards the left of approximately 19 mm. No evidence of downward herniation. Repeat Head CT 03/29/17 - Large right frontal parenchymal hemorrhage with extensive surrounding edema and large midline shift towards the left. Decreasing size of right posterior occipital biconvex hemorrhage. There is focal parenchymal edema deep to what was previously identified as a small right posterior temporal biconvex extra-axial acute hemorrhage. Complete effacement of right lateral ventricle with mild ventricular trapping and dilatation of the left lateral ventricle, unchanged in extent compared to 03/27/2017. Increasing size of right convexity subdural hemorrhage, decreased in attenuation. This now measures 11 mm in width. Repeat Head CT 04/01/17 - No significant interval change noted since the previous exam. Re- demonstrated is internal hemorrhage at the right frontal lobe. Re- demonstrated is complex mainly chronic subdural hematoma along the right convexity with small foci of high attenuation suggestive of small acute on chronic hemorrhage. Mass effect on the lateral ventricle and approximately 16.6 millimeter right to left midline shift. Mild hydrocephalus. Repeat Head CT 04/02/17 - No significant interval change when compared to the previous exam Repeat Head CT 04/05/17 - Continued unremarkable expected evolution right inferior frontal pole on hematoma. Surrounding low-attenuation edema appears to have diminished slightly. Large hypodense chronic subdural hematoma. Persistent but slightly decreased mass-effect with a very slight decreased [id number] shift as above. Persistent dilatation left lateral ventricle due to compressive effects at the right foramen of Monro. Will continue to monitor [email or web address] Patient's neurological exam confounded with history of alcohol abuse/withdrawal - [facility] protocol Multivitamin/thiamine/folic acid Keppra 500mg IVPB q12h Decadron 4mg IV q6h Sodium chloride tab 1gm PO daily Hypertonic Saline 3% @40mL/hr - Na 137 today - Serum osmol 290 f/u neuro recs - goal Na 140-145, monitor with BMP q6h - serum osmol, <320 monitor with serum osmol q6h - keep head of bed above 45 degrees - Avoid dextrose containing fluids, hyperthermia or hypertension Patient's scheduled for craniotomy this morning with Dr. Ballesteros. Anesthesia requested cardiac clearance prior to surgery due to heart rate in 30s-40s overnight. Dr. Velasquez consulted, ekg and echo ordered. Patient cleared for surgery and will have drainage of SDH today. CV: Sinus Bradycardia Dr. Velasquez consulted - cardiac clearance ECHO - EF 40-45%, mild LV dysfunction (possibly due to increased ICP) - awaiting official report Patient cleared for surgery by Dr. Velasquez. GI: Swallow - soft/advanced bite size diet (NPO past midnight due to surgery this morning.) Prophylactic Care: DVT proph - SCDs, holding anticoagulation due to intracerebral bleed. GI proph - Protonix IV Case discussed with Dr. Rubens Back Tito PGY1
[2017-04-05] MEDS ORDERED: Lactated Ringer's 1,000 ML IV ONE (10:41)
[2017-04-05] MEDS ORDERED: Nitroglycerin 50mg in D5W 50 MG/250 ML BOTTLE IV ONE (11:18)
[2017-04-05] MEDS: Dexamethasone 4 mg/1 ml IV SCH ×3 (11:20→23:47)
[2017-04-05] MEDS ORDERED: ePHEDrine 50 mg/ml Inj ONE (11:46)
[2017-04-05] MEDS: Bacitracin Ointment 30 GM TUBE ONE ×2 (11:52→12:09)
[2017-04-05] MEDS ORDERED: Neostigmine Methylsulfate 3mg/3ml Syringe IV ONE (12:03)
--- NOTE | 2017-04-05 12:33 | CP.PCM.CON ---
History of Present Illness - History of Present Illness History of Present Illness: Cardiology Consult note for Dr. Velasquez HPI Patient is a 71 year old male with a past medical history of left eye blindness, hypertension, hyperlipidemia, frequent falls s/p alcohol abuse, who presented to [facility] 03/25/17 with complaints of altered mental status s/ p fall without lost of consciousness secondary to alcohol intoxication which occurred 03/16.Patient was found the following day. As per family members patient was not acting himself; was always tired, confused with unsteady gait. CT head without contrast revealed right frontal lobe intraparenchymal hemorrhage measuring 2.2 x 4.2 x 2.0 cm, small right subdural hematoma in frontotemporal distribution, and two epidural or possible severe subdural hematomas at temporo-occipital distribution laterally with a leftward midline shift of 1 cm which showed progression on repeated CT of head. Patient was subsequently admitted to ICU. Craniotomy/evacuation of subdural hematoma scheduled for today, cardiac clearance requested due to patient's bradycardia. PMD: Dr. Moser [address] [place] [address] Past medical history: Hypertension, hyperlipidemia, multiple falls, alcohol abuse Past surgical history: repair of deviated septum Family history: non contributory Social History: Denies smoking, admits to alcohol consumption, denies illicit drug use. 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 Patient lives is single without children and lives alone. Review of Systems - Constitutional Constitutional: Frequent Falls. absent: Fever - EENT Nose/Mouth/Throat: absent: Nasal Congestion, Nasal Trauma - Cardiovascular Cardiovascular: absent: Chest Pain, Dyspnea, Irregular Heart Rhythm, Palpitations - Respiratory Respiratory: absent: Cough, Dyspnea - Gastrointestinal Gastrointestinal: absent: Diarrhea, Vomiting - Genitourinary Genitourinary: absent: Hematuria, Pyuria - Integumentary Integumentary: absent: Acne, Change in Nails - Neurological Neurological: Abnormal Gait, Confusion, Frequent Falls, Headaches - Psychiatric Psychiatric: Irritability Past Patient History - Past Medical History & Family History Past Medical History?: Yes - Past Social History Smoking Status: Never Smoked Chewing Tobacco Use: No Cigar Use: No Alcohol: > 2 Drinks/Day Home Situation {Lives}: Alone - CARDIAC Hx Hypertension: Yes - PULMONARY Hx Respiratory Disorders: No - NEUROLOGICAL Hx Neurological Disorder: No - HEENT Hx Cataracts: Yes (jody) Other/Comment: deviated septum repair 3 yr ago s/p fall alcohol use - RENAL Hx Chronic Kidney Disease: No - ENDOCRINE/METABOLIC Hx Diabetes Mellitus Type 2: Yes - HEMATOLOGICAL/ONCOLOGICAL Hx Blood Disorders: No Hx Human Immunodeficiency Virus (HIV): No - INTEGUMENTARY Hx Dermatological Problems: No - MUSCULOSKELETAL/RHEUMATOLOGICAL Hx Falls: Yes (fell this am s/p alcohol intake) - GASTROINTESTINAL Hx Gastrointestinal Disorders: No - GENITOURINARY/GYNECOLOGICAL Hx Genitourinary Disorders: No - PSYCHIATRIC Hx Depression: Yes (noncompliant with meds) Hx Substance Use: No - SURGICAL HISTORY Hx Surgeries: Yes Other/Comment: deviated septum repair 3 yr ago - ANESTHESIA Hx Anesthesia: Yes Hx Anesthesia Reactions: No Meds Allergies/Adverse Reactions: Allergies Allergy/AdvReac Type Severity Reaction Status Date / Time No Known Allergies Allergy Verified 03/25/17 16:02 - Medications Medications: Current Medications Dexamethasone (Decadron Inj) 4 mg IV Q12 [facility] Last Admin: 04/05/17 11:20 Dose: Not Given Folic Acid (Folic Acid) 1 mg PO DAILY [facility] Last Admin: 04/05/17 11:21 Dose: Not Given Levetiracetam 500 mg/ Sodium (Chloride) 105 mls @ 420 mls/hr IVPB Q12H [facility] Last Admin: 04/05/17 01:00 Dose: 420 mls/hr Dextrose/Sodium Chloride (Dextrose 5%/0.9% Ns 1000 Ml) 1,000 mls @ 50 mls/hr IV .Q20H ONE Stop: 04/05/17 15:06 Last Admin: 04/04/17 19:30 Dose: 50 mls/hr Multivitamins (Hexavitamin) 1 tab PO DAILY [facility] Last Admin: 04/04/17 10:29 Dose: Not Given Pantoprazole Sodium (Protonix Ec Tab) 40 mg PO DAILY [facility] Last Admin: 04/05/17 09:22 Dose: Not Given Sodium Chloride (Sodium Chloride Tab) 1 gm PO DAILY [facility] Last Admin: 04/05/17 11:21 Dose: Not Given Thiamine HCl (Vitamin B1 Tab) 100 mg PO DAILY [facility] Last Admin: 04/05/17 09:23 Dose: Not Given Physical Exam - Constitutional Additional comments: Head: Positive for: Atraumatic, Normocephalic Pupils: Positive for: PERRL, Other blind in left eye Extroacular Muscles: Positive for: EOMI Blind in left eye Respiratory/Chest: Clear to Auscultation, Good Air Exchange. Negative for: Respiratory Distress, Accessory Muscle Use Cardiovascular: Positive for: Bradycardic (sinus) Abdomen: Positive for: Normal Bowel Sounds. Negative for: Tenderness, Distention, Peritoneal Signs Neurological: Positive for: GCS=15, Speech Normal, Motor Func Grossly Intact Skin: Positive for: Warm, Dry Results - Vital Signs Recent Vital Signs: Last Vital Signs Temp 98.1 F 04/05/17 00:00 Pulse 41 L 04/05/17 09:00 Resp 14 04/05/17 09:00 BP 96/37 L 04/05/17 06:08 Pulse Ox 97 04/05/17 06:00 - Labs Result Diagrams: 04/05/17 06:26 04/05/17 06:23 Labs: Laboratory Results - last 24 hr 04/02/17 04/04/17 04/04/17 06:20 16:11 21:18 WBC RBC Hgb Hct MCV MCH MCHC RDW Plt Count MPV Neut % (Auto) Lymph % (Auto) [place] % (Auto) Eos % (Auto) Baso % (Auto) Neut # Lymph # [place] # Eos # Baso # Neutrophils % (Manual) Lymphocytes % (Manual) Reactive Lymphs % Monocytes % (Manual) Platelet Estimate Ovalocytes Sodium Potassium Chloride Carbon Dioxide Anion Gap BUN Creatinine Est GFR ( Amer) Est GFR (Non-Af Amer) POC Glucose (mg/dL) 185 H 100 Random Glucose Calcium Phosphorus Magnesium Total Bilirubin AST ALT Alkaline Phosphatase Total Protein Albumin Globulin Albumin/Globulin Ratio Lyme Disease IgG Ab (IFA) Negative Lyme Disease IgM Ab Negative 04/05/17 04/05/17 04/05/17 06:23 06:26 07:39 WBC 9.3 RBC 4.15 L Hgb 12.9 Hct 37.3 MCV 89.9 MCH 31.2 H MCHC 34.7 RDW 14.1 Plt Count 218 MPV 8.0 Neut % (Auto) 85.3 H Lymph % (Auto) 8.4 L [place] % (Auto) 6.0 Eos % (Auto) 0.1 Baso % (Auto) 0.2 Neut # 7.9 H Lymph # 0.8 L [place] # 0.6 Eos # 0.0 Baso # 0.0 Neutrophils % (Manual) 90 H Lymphocytes % (Manual) 4 L Reactive Lymphs % 1 H Monocytes % (Manual) 5 Platelet Estimate Normal Ovalocytes Slight Sodium 133 Potassium 4.0 Chloride 103 Carbon Dioxide 25 Anion Gap 10 BUN 22 H Creatinine 0.7 L Est GFR ( Amer) > 60 Est GFR (Non-Af Amer) > 60 POC Glucose (mg/dL) 97 Random Glucose 130 H Calcium 7.9 L Phosphorus 3.4 Magnesium 2.1 Total Bilirubin 0.8 AST 23 ALT 70 Alkaline Phosphatase 63 Total Protein 5.8 L Albumin 3.2 L Globulin 2.6 Albumin/Globulin Ratio 1.2 Lyme Disease IgG Ab (IFA) Lyme Disease IgM Ab Assessment & Plan - Assessment and Plan (Free Text) Assessment: Patient is a 71 year old male with a past medical history of hypertension, hyperlipidemia, frequent falls s/p alcohol abuse, who presented to [facility] 03/25/17 with complaints of altered mental status s/p fall without lost of consciousness secondary to alcohol intoxication which occurred 03/16 undergoing craniotomy/evacuation of subdural hematoma. 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
[2017-04-05] MEDS ORDERED: HYDROmorphone 0.5 mg/0.5 ml ISec IVP PRN (12:41)
--- NOTE | 2017-04-05 13:55 | CARD ---
APPROVED REPORT EXAM: Two-dimensional and M-mode echocardiogram with Doppler and color Doppler. 2D DIMENSIONS IVSd1.1 (0.7-1.1cm)LVDd3.8 (3.9-5.9cm) PWd1.0 (0.7-1.1cm)LVDs3.0 (2.5-4.0cm) FS (%) 22.4 %LVEF (%)50.0 (>50%) Mitral Valve MV E Bszvxhgs78.5cm/sMV A Jknlflot28.3cm/sE/A ratio0.6 TDI E/Lateral E'0.0E/Medial E'0.0 Tricuspid Valve TR Peak [id number]/sTR Peak [id number] LEFT VENTRICLE The left ventricle is normal size. There is normal left ventricular wall thickness. The left ventricular function is normal. The left ventricular ejection fraction is within the normal range. There is normal LV segmental wall motion. The left ventricular diastolic function is normal. No left ventricle thrombus noted on this study. There is no ventricular septal defect visualized. There is no left ventricular aneurysm. There is no mass noted in the left ventricle. RIGHT VENTRICLE The right ventricle is normal size. There is normal right ventricular wall thickness. The right ventricular systolic function is normal. ATRIA The left atrium size is normal. The right atrium size is normal. AORTIC VALVE The aortic valve is calcified but opens well. No aortic regurgitation is present. There is no aortic valvular stenosis. There is no aortic valvular vegetation. MITRAL VALVE The mitral valve is normal in structure. There is no mitral valve stenosis. There is no mitral valve regurgitation noted. TRICUSPID VALVE The tricuspid valve is normal in structure. There is no tricuspid valve regurgitation noted. PULMONIC VALVE The pulmonary valve is normal in structure. There is no pulmonic valvular regurgitation. GREAT VESSELS The aortic root displays mild sclerocalcific changes of the aortic root. The ascending aorta is normal in size. The pulmonary artery is normal. PERICARDIAL EFFUSION There is no pericardial effusion. <Conclusion> The aortic valve is calcified but opens well. The aortic root displays mild sclerocalcific changes of the aortic root. LVEF IS 50%.
--- NOTE | 2017-04-05 15:09 | CP.PCM.PN ---
Subjective - Date & Time of Evaluation Date of Evaluation: 04/05/17 Time of Evaluation: 14:50 - Subjective Subjective: Progress note dictated #[id number] Objective - Vital Signs/Intake and Output Vital Signs (last 24 hours): Temp Pulse Resp BP Pulse Ox 97.6 F 78 19 156/78 H 100 04/05/17 14:30 04/05/17 14:30 04/05/17 14:30 04/05/17 14:30 04/05/17 14:30 Intake and Output: 04/05/17 04/05/17 06:59 18:59 Intake Total 1190 100 Output Total 1100 850 Balance 90 -750 - Medications Medications: Current Medications Dexamethasone (Decadron Inj) 4 mg IV Q12 [facility] Last Admin: 04/05/17 11:20 Dose: Not Given Folic Acid (Folic Acid) 1 mg PO DAILY [facility] Last Admin: 04/05/17 11:21 Dose: Not Given Levetiracetam 500 mg/ Sodium (Chloride) 105 mls @ 420 mls/hr IVPB Q12H [facility] Last Admin: 04/05/17 01:00 Dose: 420 mls/hr Multivitamins (Hexavitamin) 1 tab PO DAILY [facility] Last Admin: 04/04/17 10:29 Dose: Not Given Pantoprazole Sodium (Protonix Ec Tab) 40 mg PO DAILY [facility] Last Admin: 04/05/17 09:22 Dose: Not Given Sodium Chloride (Sodium Chloride Tab) 1 gm PO DAILY [facility] Last Admin: 04/05/17 11:21 Dose: Not Given Thiamine HCl (Vitamin B1 Tab) 100 mg PO DAILY [facility] Last Admin: 04/05/17 09:23 Dose: Not Given - Labs Labs: 04/05/17 06:26 04/05/17 06:23 PT 11.6 SECONDS (9.7-12.2) 04/04/17 06:22 INR 1.0 04/04/17 06:22 APTT 27 SECONDS (21-34) D 04/04/17 06:22
[2017-04-05] MEDS ORDERED: HYDROmorphone 0.5 mg/0.5 ml ISec IVP STA (16:23)
--- NOTE | 2017-04-05 18:13 | PN ---
DATE: 04/05/2017 SUBJECTIVE: Patient is seen and examined at bedside, events from this morning noted. Underwent craniotomy and evacuation of subdural hematoma. Patient claims that he does not feel good with the Siddiqui catheter in place. Denies any headaches. Denies any dizziness. Denies any other neurologic symptoms. All other systems reviewed and are found to be negative. PHYSICAL EXAMINATION: GENERAL: Elderly male, lying in bed, in no acute distress. VITAL SIGNS: Blood pressure 144/72, pulse 78, respirations 20, temperature 97.6 degrees Fahrenheit. O2 saturation 99% on 2 liters nasal cannula. Intake is 2780 mL and output is 91 mL. HEENT: Right eye, pupil reacting to light and accommodation. Left eye blindness. No icterus. No pallor. No oral thrush. No pharyngeal congestion. No nasal congestion. Right-sided craniotomy. The left dressing in place and drainage in place. NECK: Supple. No JVD. LUNGS: Bilateral vesicular breath sounds. No wheezing, no rhonchi. CARDIOVASCULAR: S1, S2 present, regular. ABDOMEN: Soft, nontender. Bowel sounds present. No guarding, no rigidity. No rebound tenderness noted. CENTRAL NERVOUS SYSTEM: Alert, awake, oriented x3. No focal deficits noted. EXTREMITIES: No edema. MEDICATIONS: Include Decadron 4 mg IV q. 12 hours, IV fluids D5 normal saline at 50 mL an hour, folic acid 1 mg daily, Keppra 500 mg IV q. 12 hours, multivitamin, Protonix 40 mg p.o. daily, sodium chloride 1 g p.o. daily, thiamine 100 mg p.o. daily. LABORATORY DATA: Labs from this morning, WBC 9.3, hemoglobin 12.9, hematocrit 37.3, platelets 218. Sodium 133, potassium 4.0, chloride 103, bicarb 25, BUN 22, creatinine 0.7, glucose 97, calcium 7.9, albumin 3.2, phosphorus 3.4, magnesium 2.1. ASSESSMENT AND PLAN: An elderly male with history of hypertension, hyperlipidemia, ethyl alcohol abuse, status post fall; admitted for altered mental status, subdural hematoma, and intracranial hemorrhage with significant vasogenic edema. Was on hypertonic saline which was discontinued by neurology, on Decadron. Underwent craniotomy and drainage of the subdural hematoma this morning with the drainage in place. Patient tolerated the procedure well. Continue with the current medication. Monitor blood pressure. Patient was evaluated by cardiology for bradycardia which was probably secondary to intracranial hemorrhage and cleared for surgery. Follow up with neurosurgery. Continue with current medication. We will repeat labs in a.m. Afia Chirinos MD
[2017-04-06] MEDS: levETIRAcetam 500 MG in Sodium Chloride 0.9% 100 ML IVPB SCH ×2 (00:50→13:43)
[2017-04-06 06:26] LABS: BASO % 0.3 % (0.0-2.0); HEMATOCRIT 42.2 % (35.0-51.0); LYMPH # 0.5 K/uL (1.0-4.3); LYMPH % 4.2 % (20.0-40.0); MEAN CELL VOLUME 91.1 fL (80.0-94.0); MEAN CORPUSCULAR HEMOGLOBIN 30.3 pg (27.0-31.0); MEAN CORPUSCULAR HGB CONC 33.2 g/dL (33.0-37.0); MONO # 0.7 K/uL (0.0-0.8); MONO % 5.4 % (0.0-10.0); PLATELET COUNT 232 K/uL (130-400); RED CELL DISTRIBUTION WIDTH 14.1 % (11.5-14.5); WHITE BLOOD COUNT 12.5 K/uL (4.8-10.8)
[2017-04-06 06:55] LABS: ALB/GLOB RATIO 0.9 (1.0-2.1); ALKALINE PHOSPHATASE 69 U/L (38-126); ALT/SGPT 76 U/L (21-72); AST/SGOT 22 U/L (17-59); BLOOD UREA NITROGEN 15 mg/dL (9-20); CALCIUM 8.2 mg/dl (8.6-10.4); CARBON DIOXIDE 29 mmol/L (22-30); CHLORIDE 100 mmol/L (98-107); GFR AFRICAN-AMERICAN > 60; GLUCOSE,RANDOM 118 mg/dL (75-110); MAGNESIUM 2.1 mg/dL (1.6-2.3); PHOSPHOROUS 5.2 mg/dL (2.5-4.5); POTASSIUM 3.8 mmol/L (3.6-5.2); SODIUM 134 mmol/L (132-148); TOTAL PROTEIN 7.6 g/dL (6.3-8.3)
--- NOTE | 2017-04-06 07:06 | OP ---
PROCEDURE DATE: 04/05/2017 PREOPERATIVE DIAGNOSIS: Subacute right subdural hematoma. POSTOPERATIVE DIAGNOSIS: Subacute right subdural hematoma. PROCEDURE: Right central craniotomy, evacuation of subdural. SURGEON: Alphonse Ballesteros MD TYPE OF ANESTHESIA: General endotracheal. ESTIMATED BLOOD LOSS: 50 mL. COMPLICATIONS: None. JUSTIFICATION: The patient actually entered the hospital after drinking and a fall and he had obviously a right intraparenchymal frontal hemorrhage. As this resolved, it was noted that he actually had a subdural hematoma as well, which certainly enlarged on serial CAT scan. He neurologically remained relatively stable, but quite confused, and it was thought that he was symptomatic from this subdural. Therefore, it was suggested to the patient's family that he undergo craniotomy evacuation. The nature of this procedure, the rationale behind it, alternatives, potential risks and complications, realistic chance of success were discussed with her at length. All her questions were answered. She fully understood and agreed to proceed. DESCRIPTION OF PROCEDURE: The patient was taken to the operating room, intubated and anesthetized. He already had a central line, and an A-line was placed, Siddiqui was placed. Right side of the patient's head was hair-clipped, scrubbed with acetone and scrubbed, painted and draped in usual sterile manner. A lazy S-type incision was traced out just above the superior temporal line. This was infiltrated with 1% lidocaine with epinephrine. The incision was made and carried down to the level of calvarium. The Bovie was used to take down a little bit of the very top of the temporalis. Self-retaining retractors were placed. Test Lead Application Testing was used to make a antoni hole in the anterior-posterior extent of the exposed calvarium. The dura was then reflected off the inner table. The craniotome was used to elevate this flap. At this point, a cruciate incision of the dura was made with a #15 blade knife and a Metzenbaum. Immediately encountered was typical crankcase hematoma. This was further removed with the suction irrigation technique with the assistance of a red rubber catheter with some additional holes cut into it. Basically irrigation was performed in a 360 degree fashion, heading both anteriorly, posteriorly, medially and inferiorly. This was done until the irrigant returned clear in all directions. At this point, the red rubber catheter was left in situ, tunneled out through the posterior antoni hole and separate stab incision, cinched in place with a silk tie. The dura was reapproximated using interrupted 4-0 Nurolon. A layer of thrombinated Gelfoam placed in the epidural space to control any epidural bleeding. Bone flap re-approximated using 3 mini plates. The wound irrigated with antibiotic solution. The Galea closed using interrupted inverted Vicryl. The skin closed with nupur, bacitracin ointment and a self-adhering dressing was placed. The patient was then aroused from anesthesia and extubated without difficulty. He was noted to be following commands, moving the left side well, on his way to the recovery room. All counts were correct. There were no complications. Alphonse Ballesteros MD
[2017-04-06 08:31] LABS: NEUTROPHIL 95 % (50-75); TOTAL CELLS COUNTED 100
[2017-04-06] MEDS ORDERED: HYDROmorphone 0.5 mg/0.5 ml ISec IVP ONE (09:00)
--- NOTE | 2017-04-06 09:35 | CP.PCM.PN ---
Subjective - Date & Time of Evaluation Date of Evaluation: 04/06/17 Time of Evaluation: 09:30 - Subjective Subjective: Mr. Cabral was seen and examined at the bedside in ICU. He is alert, oriented with a ventriculostomy catheter inserted in the right parietal area draining to a minimal blood-tinge fluid. He is on a supine position with a 15 degree bed angle. He denies any headache, but pain in the ventriculostomy site. , dressing intact. He denies any blurry vision, dizziness, lightheadedness, nausea, or vomiting. He is able to answer questions appropriately and follow simple commands.He has a right radial arterial line for blood pressure monitoring. He also has a yin catheter draining to a clear yellow urine. There was no untoward events overnight. Objective - Vital Signs/Intake and Output Vital Signs (last 24 hours): Temp Pulse Resp BP Pulse Ox 97.6 F 46 L 9 L 130/63 98 04/05/17 14:30 04/06/17 07:28 04/06/17 07:28 04/06/17 07:28 04/06/17 07:28 Intake and Output: 04/06/17 04/06/17 06:59 18:59 Intake Total 0 0 Output Total 895 35 Balance -895 -35 - Medications Medications: Current Medications Dexamethasone (Decadron Inj) 4 mg IV Q12 [facility] Last Admin: 04/05/17 23:47 Dose: 4 mg Folic Acid (Folic Acid) 1 mg PO DAILY [facility] Last Admin: 04/05/17 11:21 Dose: Not Given Levetiracetam 500 mg/ Sodium (Chloride) 105 mls @ 420 mls/hr IVPB Q12H [facility] Last Admin: 04/06/17 00:50 Dose: 420 mls/hr Acetaminophen (Ofirmev) 100 mls @ 100 mls/hr IV DAILY [facility] Stop: 04/07/17 10:01 Multivitamins (Hexavitamin) 1 tab PO DAILY [facility] Last Admin: 04/04/17 10:29 Dose: Not Given Pantoprazole Sodium (Protonix Ec Tab) 40 mg PO DAILY [facility] Last Admin: 04/05/17 09:22 Dose: Not Given Sodium Chloride (Sodium Chloride Tab) 1 gm PO DAILY [facility] Last Admin: 04/05/17 11:21 Dose: Not Given Thiamine HCl (Vitamin B1 Tab) 100 mg PO DAILY [facility] Last Admin: 04/05/17 09:23 Dose: Not Given - Labs Labs: 04/06/17 06:21 04/06/17 06:21 PT 11.6 SECONDS (9.7-12.2) 04/04/17 06:22 INR 1.0 04/04/17 06:22 APTT 27 SECONDS (21-34) D 04/04/17 06:22 - Constitutional Appears: No Acute Distress - Head Exam Head Exam: ATRAUMATIC, NORMAL INSPECTION - Eye Exam Pupil Exam: Miosis Additional comments: of the right eye. - Neurological Exam Neurological Exam: Alert, Awake, CN II-XII Intact Neuro motor strength exam: Left Upper Extremity: 5, Right Upper Extremity: 5, Left Lower Extremity: 5, Right Lower Extremity: 5 Additional comments: Neurological unchanged from previous examination. Sensation remains intact. - Psychiatric Exam Psychiatric exam: Normal Affect Assessment and Plan (1) Acute intra-cranial hemorrhage Assessment & Plan: Case discussed with Dr. Gilbert, continue all current medical regimen. Neuro surgery to followup ventriculostomy. Recommends no opiates for pain medications. Recommends Acetaminophen 100 mg IV Q daily as needed. Will hold physical therapy for now. Please address NPO status with the neurosurgery. Status: Acute
[2017-04-06] MEDS: Dexamethasone 4 mg/1 ml IV SCH ×2 (10:55→21:41)
[2017-04-06] MEDS: Multiple Vitamins Tab PO SCH (11:03)
[2017-04-06] MEDS: Pantoprazole 40 mg EC Tab PO SCH (11:04)
--- NOTE | 2017-04-06 11:48 | CP.PCM.PN ---
Subjective - Date & Time of Evaluation Date of Evaluation: 04/06/17 Time of Evaluation: 11:30 - Subjective Subjective: Progress note dictated #[id number] Objective - Vital Signs/Intake and Output Vital Signs (last 24 hours): Temp Pulse Resp BP Pulse Ox 97.6 F 46 L 9 L 130/63 98 04/05/17 14:30 04/06/17 07:28 04/06/17 07:28 04/06/17 07:28 04/06/17 07:28 Intake and Output: 04/06/17 04/06/17 06:59 18:59 Intake Total 0 0 Output Total 895 35 Balance -895 -35 - Medications Medications: Current Medications Dexamethasone (Decadron Inj) 4 mg IV Q12 [facility] Last Admin: 04/06/17 10:55 Dose: 4 mg Folic Acid (Folic Acid) 1 mg PO DAILY [facility] Last Admin: 04/06/17 11:03 Dose: Not Given Levetiracetam 500 mg/ Sodium (Chloride) 105 mls @ 420 mls/hr IVPB Q12H [facility] Last Admin: 04/06/17 00:50 Dose: 420 mls/hr Acetaminophen (Ofirmev) 100 mls @ 100 mls/hr IV Q12H PRN PRN Reason: pain Stop: 04/07/17 12:01 Multivitamins (Hexavitamin) 1 tab PO DAILY [facility] Last Admin: 04/06/17 11:03 Dose: Not Given Pantoprazole Sodium (Protonix Ec Tab) 40 mg PO DAILY [facility] Last Admin: 04/06/17 11:04 Dose: Not Given Sodium Chloride (Sodium Chloride Tab) 1 gm PO DAILY [facility] Last Admin: 04/06/17 11:04 Dose: Not Given Thiamine HCl (Vitamin B1 Tab) 100 mg PO DAILY [facility] Last Admin: 04/06/17 11:04 Dose: Not Given - Labs Labs: 04/06/17 06:21 04/06/17 06:21 PT 11.6 SECONDS (9.7-12.2) 04/04/17 06:22 INR 1.0 04/04/17 06:22 APTT 27 SECONDS (21-34) D 04/04/17 06:22
--- NOTE | 2017-04-06 12:36 | CP.PCM.PN ---
Subjective - Date & Time of Evaluation Date of Evaluation: 04/06/17 Time of Evaluation: 12:35 - Subjective Subjective: POD 1 A,A o x 2.5 follows all commands briskly liam well dsg dry min sd drainage p diet check CT AM Objective - Vital Signs/Intake and Output Vital Signs (last 24 hours): Temp Pulse Resp BP Pulse Ox 97.9 F 45 L 16 125/65 98 04/06/17 12:00 04/06/17 12:00 04/06/17 12:00 04/06/17 12:00 04/06/17 12:00 Intake and Output: 04/06/17 04/06/17 06:59 18:59 Intake Total 0 0 Output Total 895 35 Balance -895 -35 - Medications Medications: Current Medications Dexamethasone (Decadron Inj) 4 mg IV Q12 [facility] Last Admin: 04/06/17 10:55 Dose: 4 mg Folic Acid (Folic Acid) 1 mg PO DAILY [facility] Last Admin: 04/06/17 11:03 Dose: Not Given Levetiracetam 500 mg/ Sodium (Chloride) 105 mls @ 420 mls/hr IVPB Q12H [facility] Last Admin: 04/06/17 00:50 Dose: 420 mls/hr Acetaminophen (Ofirmev) 100 mls @ 100 mls/hr IV Q12H PRN PRN Reason: pain Stop: 04/07/17 12:01 Multivitamins (Hexavitamin) 1 tab PO DAILY [facility] Last Admin: 04/06/17 11:03 Dose: Not Given Pantoprazole Sodium (Protonix Ec Tab) 40 mg PO DAILY [facility] Last Admin: 04/06/17 11:04 Dose: Not Given Sodium Chloride (Sodium Chloride Tab) 1 gm PO DAILY [facility] Last Admin: 04/06/17 11:04 Dose: Not Given Thiamine HCl (Vitamin B1 Tab) 100 mg PO DAILY [facility] Last Admin: 04/06/17 11:04 Dose: Not Given - Labs Labs: 04/06/17 06:21 04/06/17 06:21 PT 11.6 SECONDS (9.7-12.2) 04/04/17 06:22 INR 1.0 04/04/17 06:22 APTT 27 SECONDS (21-34) D 04/04/17 06:22
--- NOTE | 2017-04-06 13:18 | CARD ---
APPROVED REPORT EKG Measurement Heart [id number] NC [id number] <Conclusion> Marked sinus bradycardia Abnormal ECG
--- NOTE | 2017-04-06 19:04 | CP.CCUPN ---
<Wong Francis - Last Filed: 04/06/17 19:01> CCU Subjective - Physician Review Subjective (Free Text): PGY1 ICU Progress Note for Dr. Cheatham Patient seen and examined at bedside this morning. No acute events overnight. Patient is awake and alert, resting in bed. Patient states he has a headache but he otherwise feels very well. He denies nausea, vomiting, visual changes, lightheadedness or any weakness. Patient states that he wants to eat. He has no other complaints at this time. CCU Objective - Vital Signs / Intake & Output Vital Signs (Last 4 hours): Vital Signs Temp Pulse Resp BP Pulse Ox 04/06/17 17:29 59 L 96 04/06/17 17:00 59 L 14 110/57 L 96 04/06/17 16:00 97.4 F L 54 L 12 118/58 L 98 Intake and Output (Last 8hrs): Intake & Output 04/06/17 04/06/17 04/06/17 06:59 14:59 22:59 Intake Total 0 120 300 Output Total 465 315 210 Balance -465 -195 90 Weight 161 lb Intake: Intake, IV Amount 0 0 100 Right Distal Port 0 0 100 Internal Jugular Right Medial Port 0 0 Internal Jugular Right Proximal Port 0 0 Internal Jugular Oral 0 120 200 Output: Drainage 20 Right Head 20 Urine 445 315 210 Urethral (Siddiqui) 445 315 210 Other: # Bowel Movements 0 0 0 - Physical Exam Head: Positive for: Other (Drain located on right side of head. Surgical dressing in place - some strikethrough with dried blood. ) Pupils: Positive for: PERRL, Other ((blind in left eye)) Extroacular Muscles: Positive for: 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 Negative for: Respiratory Distress, Accessory Muscle Use Cardiovascular: Positive for: Bradycardic (sinus) Abdomen: Positive for: Normal Bowel Sounds. Negative for: Tenderness, Distention, Peritoneal Signs Lower Extremity: Positive for: Other (SCDs in place.) Neurological: Positive for: GCS=15, Speech Normal (much improved compared to today), Motor Func Grossly Intact (5/5 strength b/l for UE and LE. No pronator drift. ) Skin: Positive for: Warm, Dry Psychiatric: Positive for: Alert. Negative for: Oriented x 3 (Oriented to self , but not date or place - thinks year is 1981 and he states he does not know where he is at. ) - Medications Active Medications: Active Medications Generic Name Dose Route Start Last Admin Trade Name Freq PRN Reason Stop Dose Admin Dexamethasone 4 mg 04/02/17 10:00 04/06/17 10:55 Decadron Inj IV 4 mg Q12 ALBERTO Administration Folic Acid 1 mg 03/26/17 10:00 04/06/17 11:03 Folic Acid PO Not Given DAILY ALBERTO Levetiracetam 500 mg/ Sodium 105 mls @ 420 mls/hr 03/26/17 01:00 04/06/17 13: 43 Chloride IVPB 420 mls/hr Q12H ALBERTO Administration Acetaminophen 100 mls @ 100 mls/hr 04/06/17 12:00 Ofirmev IV 04/07/17 12:01 Q12H PRN pain Multivitamins 1 tab 03/26/17 10:00 04/06/17 11:03 Hexavitamin PO Not Given DAILY ALBERTO Pantoprazole Sodium 40 mg 03/31/17 10:00 04/06/17 11:04 Protonix Ec Tab PO Not Given DAILY ALBERTO Sodium Chloride 1 gm 03/29/17 13:00 04/06/17 11:04 Sodium Chloride Tab PO Not Given DAILY ALBERTO Thiamine HCl 100 mg 03/26/17 10:00 04/06/17 11:04 Vitamin B1 Tab PO Not Given DAILY ALBERTO - Patient Studies Lab Studies: Lab Studies 04/06/17 04/06/17 04/06/17 Range/Units 16:08 11:30 07:37 WBC (4.8-10.8) K/uL RBC (4.40-5.90) Mil/uL Hgb (12.0-18.0) g/dL Hct (35.0-51.0) % MCV (80.0-94.0) fL MCH (27.0-31.0) pg MCHC (33.0-37.0) g/dL RDW (11.5-14.5) % Plt Count (130-400) K/uL MPV (7.2-11.7) fL Neut % (Auto) (50.0-75.0) % Lymph % (Auto) (20.0-40.0) % [place] % (Auto) (0.0-10.0) % Eos % (Auto) (0.0-4.0) % Baso % (Auto) (0.0-2.0) % Neut # (1.8-7.0) K/uL Lymph # (1.0-4.3) K/uL [place] # (0.0-0.8) K/uL Eos # (0.0-0.7) K/uL Baso # (0.0-0.2) K/uL Neutrophils % (Manual) (50-75) % Lymphocytes % (Manual) (20-40) % Monocytes % (Manual) (0-10) % Platelet Estimate (NORMAL) Poikilocytosis (manual Ovalocytes [place] Cells Sodium (132-148) mmol/L Potassium (3.6-5.2) mmol/L Chloride (98-107) mmol/L Carbon Dioxide (22-30) mmol/L Anion Gap (10-20) BUN (9-20) mg/dL Creatinine (0.8-1.5) mg/dL Est GFR ( Amer) Est GFR (Non-Af Amer) POC Glucose (mg/dL) 144 H 90 110 (65-110) mg/dL Random Glucose (75-110) mg/dL Calcium (8.6-10.4) mg/dl Phosphorus (2.5-4.5) mg/dL Magnesium (1.6-2.3) mg/dL Total Bilirubin (0.2-1.3) mg/dL AST (17-59) U/L ALT (21-72) U/L Alkaline Phosphatase (38-126) U/L Total Protein (6.3-8.3) g/dL Albumin (3.5-5.0) g/dL Globulin (2.2-3.9) gm/dL Albumin/Globulin Ratio (1.0-2.1) 04/06/17 04/06/17 04/06/17 Range/Units 06:21 06:21 05:45 WBC 12.5 H (4.8-10.8) K/uL RBC 4.63 (4.40-5.90) Mil/uL Hgb 14.0 (12.0-18.0) g/dL Hct 42.2 (35.0-51.0) % MCV 91.1 (80.0-94.0) fL MCH 30.3 (27.0-31.0) pg MCHC 33.2 (33.0-37.0) g/dL RDW 14.1 (11.5-14.5) % Plt Count 232 (130-400) K/uL MPV 8.0 (7.2-11.7) fL Neut % (Auto) 90.1 H (50.0-75.0) % Lymph % (Auto) 4.2 L (20.0-40.0) % [place] % (Auto) 5.4 (0.0-10.0) % Eos % (Auto) 0.0 (0.0-4.0) % Baso % (Auto) 0.3 (0.0-2.0) % Neut # 11.3 H (1.8-7.0) K/uL Lymph # 0.5 L (1.0-4.3) K/uL [place] # 0.7 (0.0-0.8) K/uL Eos # 0.0 (0.0-0.7) K/uL Baso # 0.0 (0.0-0.2) K/uL Neutrophils % (Manual) 95 H (50-75) % Lymphocytes % (Manual) 3 L (20-40) % Monocytes % (Manual) 2 (0-10) % Platelet Estimate Normal (NORMAL) Poikilocytosis (manual Slight Ovalocytes Slight [place] Cells Slight Sodium 134 (132-148) mmol/L Potassium 3.8 (3.6-5.2) mmol/L Chloride 100 (98-107) mmol/L Carbon Dioxide 29 (22-30) mmol/L Anion Gap 9 L (10-20) BUN 15 (9-20) mg/dL Creatinine 0.6 L (0.8-1.5) mg/dL Est GFR ( Amer) > 60 Est GFR (Non-Af Amer) > 60 POC Glucose (mg/dL) 115 H (65-110) mg/dL Random Glucose 118 H (75-110) mg/dL Calcium 8.2 L (8.6-10.4) mg/dl Phosphorus 5.2 H (2.5-4.5) mg/dL Magnesium 2.1 (1.6-2.3) mg/dL Total Bilirubin 1.0 (0.2-1.3) mg/dL AST 22 (17-59) U/L ALT 76 H (21-72) U/L Alkaline Phosphatase 69 (38-126) U/L Total Protein 7.6 (6.3-8.3) g/dL Albumin 3.5 (3.5-5.0) g/dL Globulin 4.1 H (2.2-3.9) gm/dL Albumin/Globulin Ratio 0.9 L (1.0-2.1) / Range/Units 21:18 WBC (4.8-10.8) K/uL RBC (4.40-5.90) Mil/uL Hgb (12.0-18.0) g/dL Hct (35.0-51.0) % MCV (80.0-94.0) fL MCH (27.0-31.0) pg MCHC (33.0-37.0) g/dL RDW (11.5-14.5) % Plt Count (130-400) K/uL MPV (7.2-11.7) fL Neut % (Auto) (50.0-75.0) % Lymph % (Auto) (20.0-40.0) % [place] % (Auto) (0.0-10.0) % Eos % (Auto) (0.0-4.0) % Baso % (Auto) (0.0-2.0) % Neut # (1.8-7.0) K/uL Lymph # (1.0-4.3) K/uL [place] # (0.0-0.8) K/uL Eos # (0.0-0.7) K/uL Baso # (0.0-0.2) K/uL Neutrophils % (Manual) (50-75) % Lymphocytes % (Manual) (20-40) % Monocytes % (Manual) (0-10) % Platelet Estimate (NORMAL) Poikilocytosis (manual Ovalocytes [place] Cells Sodium (132-148) mmol/L Potassium (3.6-5.2) mmol/L Chloride (98-107) mmol/L Carbon Dioxide (22-30) mmol/L Anion Gap (10-20) BUN (9-20) mg/dL Creatinine (0.8-1.5) mg/dL Est GFR ( Amer) Est GFR (Non-Af Amer) POC Glucose (mg/dL) 169 H (65-110) mg/dL Random Glucose (75-110) mg/dL Calcium (8.6-10.4) mg/dl Phosphorus (2.5-4.5) mg/dL Magnesium (1.6-2.3) mg/dL Total Bilirubin (0.2-1.3) mg/dL AST (17-59) U/L ALT (21-72) U/L Alkaline Phosphatase (38-126) U/L Total Protein (6.3-8.3) g/dL Albumin (3.5-5.0) g/dL Globulin (2.2-3.9) gm/dL Albumin/Globulin Ratio (1.0-2.1) Laboratory Results - last 24 hr 04/05/17 04/06/17 04/06/17 21:18 05:45 06:21 WBC 12.5 H RBC 4.63 Hgb 14.0 Hct 42.2 MCV 91.1 MCH 30.3 MCHC 33.2 RDW 14.1 Plt Count 232 MPV 8.0 Neut % (Auto) 90.1 H Lymph % (Auto) 4.2 L [place] % (Auto) 5.4 Eos % (Auto) 0.0 Baso % (Auto) 0.3 Neut # 11.3 H Lymph # 0.5 L [place] # 0.7 Eos # 0.0 Baso # 0.0 Neutrophils % (Manual) 95 H Lymphocytes % (Manual) 3 L Monocytes % (Manual) 2 Platelet Estimate Normal Poikilocytosis (manual Slight Ovalocytes Slight [place] Cells Slight Sodium Potassium Chloride Carbon Dioxide Anion Gap BUN Creatinine Est GFR ( Amer) Est GFR (Non-Af Amer) POC Glucose (mg/dL) 169 H 115 H Random Glucose Calcium Phosphorus Magnesium Total Bilirubin AST ALT Alkaline Phosphatase Total Protein Albumin Globulin Albumin/Globulin Ratio 04/06/17 04/06/17 04/06/17 06:21 07:37 11:30 WBC RBC Hgb Hct MCV MCH MCHC RDW Plt Count MPV Neut % (Auto) Lymph % (Auto) [place] % (Auto) Eos % (Auto) Baso % (Auto) Neut # Lymph # [place] # Eos # Baso # Neutrophils % (Manual) Lymphocytes % (Manual) Monocytes % (Manual) Platelet Estimate Poikilocytosis (manual Ovalocytes [place] Cells Sodium 134 Potassium 3.8 Chloride 100 Carbon Dioxide 29 Anion Gap 9 L BUN 15 Creatinine 0.6 L Est GFR ( Amer) > 60 Est GFR (Non-Af Amer) > 60 POC Glucose (mg/dL) 110 90 Random Glucose 118 H Calcium 8.2 L Phosphorus 5.2 H Magnesium 2.1 Total Bilirubin 1.0 AST 22 ALT 76 H Alkaline Phosphatase 69 Total Protein 7.6 Albumin 3.5 Globulin 4.1 H Albumin/Globulin Ratio 0.9 L 04/06/17 16:08 WBC RBC Hgb Hct MCV MCH MCHC RDW Plt Count MPV Neut % (Auto) Lymph % (Auto) [place] % (Auto) Eos % (Auto) Baso % (Auto) Neut # Lymph # [place] # Eos # Baso # Neutrophils % (Manual) Lymphocytes % (Manual) Monocytes % (Manual) Platelet Estimate Poikilocytosis (manual Ovalocytes [place] Cells Sodium Potassium Chloride Carbon Dioxide Anion Gap BUN Creatinine Est GFR ( Amer) Est GFR (Non-Af Amer) POC Glucose (mg/dL) 144 H Random Glucose Calcium Phosphorus Magnesium Total Bilirubin AST ALT Alkaline Phosphatase Total Protein Albumin Globulin Albumin/Globulin Ratio Fingerstick Blood Sugar Results: 100 Review of Systems - Review of Systems All systems: reviewed and no additional remarkable complaints except (as per HPI ) Critical Care Progress Note - Nutrition Nutrition: Nutrition Category Date Time Status Regular Diet [DIET] Diets 04/06/17 Lunch Active Assessment/Plan - Assessment and Plan (Free Text) Assessment: 71M with history of HTN, HLD, depression, ETOH abuse who presents with altered mental status after a recent fall with rib fractures, found to have an intracranial hemorrhage and subdural hemorrhage. s/p craniotomy for subdural hematoma evacuation POD 1 with drain on right Plan: Neuro: Subdural hematoma s/p craniotomy POD 1 with drain on right Right frontal intraparenchymal hemorrhage, stable Dr. Gilbert consulted, help appreciated Dr. Ballesteros consulted, help appreciated Head CT 03/27/17 - Multifocal intracranial hemorrhage including the large right frontal parenchymal hemorrhage and multifocal extra-axial hemorrhages as described. Decreasing density of extra-axial blood noted in the right frontoparietal convexity hematoma and in the posterior right temporal hematoma. A right occipital extra-axial hemorrhage remains hyperdense consistent with acute blood. Increased midline shift towards the left of approximately 19 mm. No evidence of downward herniation. Repeat Head CT 03/29/17 - Large right frontal parenchymal hemorrhage with extensive surrounding edema and large midline shift towards the left. Decreasing size of right posterior occipital biconvex hemorrhage. There is focal parenchymal edema deep to what was previously identified as a small right posterior temporal biconvex extra-axial acute hemorrhage. Complete effacement of right lateral ventricle with mild ventricular trapping and dilatation of the left lateral ventricle, unchanged in extent compared to 03/27/2017. Increasing size of right convexity subdural hemorrhage, decreased in attenuation. This now measures 11 mm in width. Repeat Head CT 04/01/17 - No significant interval change noted since the previous exam. Re- demonstrated is internal hemorrhage at the right frontal lobe. Re- demonstrated is complex mainly chronic subdural hematoma along the right convexity with small foci of high attenuation suggestive of small acute on chronic hemorrhage. Mass effect on the lateral ventricle and approximately 16.6 millimeter right to left midline shift. Mild hydrocephalus. Repeat Head CT 04/02/17 - No significant interval change when compared to the previous exam Repeat Head CT 04/05/17 - Continued unremarkable expected evolution right inferior frontal pole on hematoma. Surrounding low-attenuation edema appears to have diminished slightly. Large hypodense chronic subdural hematoma. Persistent but slightly decreased mass-effect with a very slight decreased [id number] shift as above. Persistent dilatation left lateral ventricle due to compressive effects at the right foramen of [place]. f/u Repeat Head CT tomorrow morning Elevate head to 45 degrees Continue Keppra 500mg IV for seizure prophylaxis Continue Decadron 4mg Q12 IV IV Acetaminophen 100mg IV for pain control Discontinue IV Dilaudid - avoid any medication that may alter mental status Placed on 1:1 for observation Neurochecks Q1hr CIWA protocol: Folic acid 1mg PO daily multivitamin 1 tab PO daily thiamine 100mg PO daily Cardiovascular: Dr. Velasquez consulted, help appreciated. Sinus bradycardia HR 48 ECHO 04/05: LVEF 50%, No MR/TR/HI/AR or . Aortic valve is calcified but opens well. Aortic root displays mild sclerocalcific changes of the aortic root. Pulmonary: RR - 8 at 0900 - placed on CO2 waveform capnography - improved to RR 14 at 1300. Continue to monitor Prophylactic care: DVTs: SCDs, anticoagulants contraindicated due to brain bleed GI: Protonix 40mg PO DISPO: plan for LTACH - social work on board. Case discussed with Dr. Linden Francis PGY1 <Lowell Cheatham - Last Filed: 04/06/17 19:42> CCU Objective - Vital Signs / Intake & Output Vital Signs (Last 4 hours): Vital Signs Temp Pulse Resp BP Pulse Ox 04/06/17 19:00 56 L 16 119/63 96 04/06/17 18:00 58 L 14 113/54 L 96 04/06/17 17:29 59 L 96 04/06/17 17:00 59 L 14 110/57 L 96 04/06/17 16:00 97.4 F L 54 L 12 118/58 L 98 Intake and Output (Last 8hrs): Intake & Output 04/06/17 04/06/17 04/06/17 06:59 14:59 22:59 Intake Total 0 120 300 Output Total 465 315 315 Balance -465 -195 -15 Weight 161 lb Intake: Intake, IV Amount 0 0 100 Right Distal Port 0 0 100 Internal Jugular Right Medial Port 0 0 Internal Jugular Right Proximal Port 0 0 Internal Jugular Oral 0 120 200 Output: Drainage 20 5 Right Head 20 5 Urine 445 315 310 Urethral (Siddiqui) 445 315 310 Other: # Bowel Movements 0 0 0 - Medications Active Medications: Active Medications Generic Name Dose Route Start Last Admin Trade Name Freq PRN Reason Stop Dose Admin Dexamethasone 4 mg 04/02/17 10:00 04/06/17 10:55 Decadron Inj IV 4 mg Q12 ALBERTO Administration Folic Acid 1 mg 03/26/17 10:00 04/06/17 11:03 Folic Acid PO Not Given DAILY ALBERTO Levetiracetam 500 mg/ Sodium 105 mls @ 420 mls/hr 03/26/17 01:00 04/06/17 13: 43 Chloride IVPB 420 mls/hr Q12H ALBERTO Administration Acetaminophen 100 mls @ 100 mls/hr 04/06/17 12:00 Ofirmev IV 04/07/17 12:01 Q12H PRN pain Multivitamins 1 tab 03/26/17 10:00 04/06/17 11:03 Hexavitamin PO Not Given DAILY ALBERTO Pantoprazole Sodium 40 mg 03/31/17 10:00 04/06/17 11:04 Protonix Ec Tab PO Not Given DAILY [facility] Sodium Chloride 1 gm 03/29/17 13:00 04/06/17 11:04 Sodium Chloride Tab PO Not Given DAILY ALBERTO Thiamine HCl 100 mg 03/26/17 10:00 04/06/17 11:04 Vitamin B1 Tab PO Not Given DAILY ALBERTO - Patient Studies Lab Studies: Lab Studies 04/06/17 04/06/17 04/06/17 Range/Units 16:08 11:30 07:37 WBC (4.8-10.8) K/uL RBC (4.40-5.90) Mil/uL Hgb (12.0-18.0) g/dL Hct (35.0-51.0) % MCV (80.0-94.0) fL MCH (27.0-31.0) pg MCHC (33.0-37.0) g/dL RDW (11.5-14.5) % Plt Count (130-400) K/uL MPV (7.2-11.7) fL Neut % (Auto) (50.0-75.0) % Lymph % (Auto) (20.0-40.0) % [place] % (Auto) (0.0-10.0) % Eos % (Auto) (0.0-4.0) % Baso % (Auto) (0.0-2.0) % Neut # (1.8-7.0) K/uL Lymph # (1.0-4.3) K/uL [place] # (0.0-0.8) K/uL Eos # (0.0-0.7) K/uL Baso # (0.0-0.2) K/uL Neutrophils % (Manual) (50-75) % Lymphocytes % (Manual) (20-40) % Monocytes % (Manual) (0-10) % Platelet Estimate (NORMAL) Poikilocytosis (manual Ovalocytes [place] Cells Sodium (132-148) mmol/L Potassium (3.6-5.2) mmol/L Chloride (98-107) mmol/L Carbon Dioxide (22-30) mmol/L Anion Gap (10-20) BUN (9-20) mg/dL Creatinine (0.8-1.5) mg/dL Est GFR ( Amer) Est GFR (Non-Af Amer) POC Glucose (mg/dL) 144 H 90 110 (65-110) mg/dL Random Glucose (75-110) mg/dL Calcium (8.6-10.4) mg/dl Phosphorus (2.5-4.5) mg/dL Magnesium (1.6-2.3) mg/dL Total Bilirubin (0.2-1.3) mg/dL AST (17-59) U/L ALT (21-72) U/L Alkaline Phosphatase (38-126) U/L Total Protein (6.3-8.3) g/dL Albumin (3.5-5.0) g/dL Globulin (2.2-3.9) gm/dL Albumin/Globulin Ratio (1.0-2.1) 04/06/17 04/06/17 04/06/17 Range/Units 06:21 06:21 05:45 WBC 12.5 H (4.8-10.8) K/uL RBC 4.63 (4.40-5.90) Mil/uL Hgb 14.0 (12.0-18.0) g/dL Hct 42.2 (35.0-51.0) % MCV 91.1 (80.0-94.0) fL MCH 30.3 (27.0-31.0) pg MCHC 33.2 (33.0-37.0) g/dL RDW 14.1 (11.5-14.5) % Plt Count 232 (130-400) K/uL MPV 8.0 (7.2-11.7) fL Neut % (Auto) 90.1 H (50.0-75.0) % Lymph % (Auto) 4.2 L (20.0-40.0) % [place] % (Auto) 5.4 (0.0-10.0) % Eos % (Auto) 0.0 (0.0-4.0) % Baso % (Auto) 0.3 (0.0-2.0) % Neut # 11.3 H (1.8-7.0) K/uL Lymph # 0.5 L (1.0-4.3) K/uL [place] # 0.7 (0.0-0.8) K/uL Eos # 0.0 (0.0-0.7) K/uL Baso # 0.0 (0.0-0.2) K/uL Neutrophils % (Manual) 95 H (50-75) % Lymphocytes % (Manual) 3 L (20-40) % Monocytes % (Manual) 2 (0-10) % Platelet Estimate Normal (NORMAL) Poikilocytosis (manual Slight Ovalocytes Slight [place] Cells Slight Sodium 134 (132-148) mmol/L Potassium 3.8 (3.6-5.2) mmol/L Chloride 100 (98-107) mmol/L Carbon Dioxide 29 (22-30) mmol/L Anion Gap 9 L (10-20) BUN 15 (9-20) mg/dL Creatinine 0.6 L (0.8-1.5) mg/dL Est GFR ( Amer) > 60 Est GFR (Non-Af Amer) > 60 POC Glucose (mg/dL) 115 H (65-110) mg/dL Random Glucose 118 H (75-110) mg/dL Calcium 8.2 L (8.6-10.4) mg/dl Phosphorus 5.2 H (2.5-4.5) mg/dL Magnesium 2.1 (1.6-2.3) mg/dL Total Bilirubin 1.0 (0.2-1.3) mg/dL AST 22 (17-59) U/L ALT 76 H (21-72) U/L Alkaline Phosphatase 69 (38-126) U/L Total Protein 7.6 (6.3-8.3) g/dL Albumin 3.5 (3.5-5.0) g/dL Globulin 4.1 H (2.2-3.9) gm/dL Albumin/Globulin Ratio 0.9 L (1.0-2.1) // Range/Units 21:18 WBC (4.8-10.8) K/uL RBC (4.40-5.90) Mil/uL Hgb (12.0-18.0) g/dL Hct (35.0-51.0) % MCV (80.0-94.0) fL MCH (27.0-31.0) pg MCHC (33.0-37.0) g/dL RDW (11.5-14.5) % Plt Count (130-400) K/uL MPV (7.2-11.7) fL Neut % (Auto) (50.0-75.0) % Lymph % (Auto) (20.0-40.0) % [place] % (Auto) (0.0-10.0) % Eos % (Auto) (0.0-4.0) % Baso % (Auto) (0.0-2.0) % Neut # (1.8-7.0) K/uL Lymph # (1.0-4.3) K/uL [place] # (0.0-0.8) K/uL Eos # (0.0-0.7) K/uL Baso # (0.0-0.2) K/uL Neutrophils % (Manual) (50-75) % Lymphocytes % (Manual) (20-40) % Monocytes % (Manual) (0-10) % Platelet Estimate (NORMAL) Poikilocytosis (manual Ovalocytes [place] Cells Sodium (132-148) mmol/L Potassium (3.6-5.2) mmol/L Chloride (98-107) mmol/L Carbon Dioxide (22-30) mmol/L Anion Gap (10-20) BUN (9-20) mg/dL Creatinine (0.8-1.5) mg/dL Est GFR ( Amer) Est GFR (Non-Af Amer) POC Glucose (mg/dL) 169 H (65-110) mg/dL Random Glucose (75-110) mg/dL Calcium (8.6-10.4) mg/dl Phosphorus (2.5-4.5) mg/dL Magnesium (1.6-2.3) mg/dL Total Bilirubin (0.2-1.3) mg/dL AST (17-59) U/L ALT (21-72) U/L Alkaline Phosphatase (38-126) U/L Total Protein (6.3-8.3) g/dL Albumin (3.5-5.0) g/dL Globulin (2.2-3.9) gm/dL Albumin/Globulin Ratio (1.0-2.1) Laboratory Results - last 24 hr 04/05/17 04/06/17 04/06/17 21:18 05:45 06:21 WBC 12.5 H RBC 4.63 Hgb 14.0 Hct 42.2 MCV 91.1 MCH 30.3 MCHC 33.2 RDW 14.1 Plt Count 232 MPV 8.0 Neut % (Auto) 90.1 H Lymph % (Auto) 4.2 L [place] % (Auto) 5.4 Eos % (Auto) 0.0 Baso % (Auto) 0.3 Neut # 11.3 H Lymph # 0.5 L [place] # 0.7 Eos # 0.0 Baso # 0.0 Neutrophils % (Manual) 95 H Lymphocytes % (Manual) 3 L Monocytes % (Manual) 2 Platelet Estimate Normal Poikilocytosis (manual Slight Ovalocytes Slight [place] Cells Slight Sodium Potassium Chloride Carbon Dioxide Anion Gap BUN Creatinine Est GFR ( Amer) Est GFR (Non-Af Amer) POC Glucose (mg/dL) 169 H 115 H Random Glucose Calcium Phosphorus Magnesium Total Bilirubin AST ALT Alkaline Phosphatase Total Protein Albumin Globulin Albumin/Globulin Ratio 04/06/17 04/06/17 04/06/17 06:21 07:37 11:30 WBC RBC Hgb Hct MCV MCH MCHC RDW Plt Count MPV Neut % (Auto) Lymph % (Auto) [place] % (Auto) Eos % (Auto) Baso % (Auto) Neut # Lymph # [place] # Eos # Baso # Neutrophils % (Manual) Lymphocytes % (Manual) Monocytes % (Manual) Platelet Estimate Poikilocytosis (manual Ovalocytes [place] Cells Sodium 134 Potassium 3.8 Chloride 100 Carbon Dioxide 29 Anion Gap 9 L BUN 15 Creatinine 0.6 L Est GFR ( Amer) > 60 Est GFR (Non-Af Amer) > 60 POC Glucose (mg/dL) 110 90 Random Glucose 118 H Calcium 8.2 L Phosphorus 5.2 H Magnesium 2.1 Total Bilirubin 1.0 AST 22 ALT 76 H Alkaline Phosphatase 69 Total Protein 7.6 Albumin 3.5 Globulin 4.1 H Albumin/Globulin Ratio 0.9 L 04/06/17 16:08 WBC RBC Hgb Hct MCV MCH MCHC RDW Plt Count MPV Neut % (Auto) Lymph % (Auto) [place] % (Auto) Eos % (Auto) Baso % (Auto) Neut # Lymph # [place] # Eos # Baso # Neutrophils % (Manual) Lymphocytes % (Manual) Monocytes % (Manual) Platelet Estimate Poikilocytosis (manual Ovalocytes [place] Cells Sodium Potassium Chloride Carbon Dioxide Anion Gap BUN Creatinine Est GFR ( Amer) Est GFR (Non-Af Amer) POC Glucose (mg/dL) 144 H Random Glucose Calcium Phosphorus Magnesium Total Bilirubin AST ALT Alkaline Phosphatase Total Protein Albumin Globulin Albumin/Globulin Ratio Critical Care Progress Note - Nutrition Nutrition: Nutrition Category Date Time Status Regular Diet [DIET] Diets 04/06/17 Lunch Active Attending/Attestation - Attestation I have personally seen and examined this patient.: Yes I have fully participated in the care of the patient.: Yes I have reviewed all pertinent clinical information: Yes Notes (Text): 04/06/17 19:41 Today: March The Patient was seen and examined at the bedside, Medical records reviewed, and management issues were discussed and formulated with the house staff. I have reviewed all the relevant clinical, laboratory, hemodynamic, radiographic data and medications Events reviewed Pain issues, skin care, head of the bed elevation, glycemic control were addressed. Agree with above resident's assessment and treatment plans of care as transcribed in Dr. Francis note.
--- NOTE | 2017-04-06 20:09 | PN ---
DATE: 04/06/2017 SUBJECTIVE: Patient was seen and examined at bedside. Patient denies any new complaints. Denies any headache or dizziness. Denies any chest pain, shortness of breath, or wheezing. Complaining discomfort from Siddiqui catheter. Wants to drink fluids. Denies any other complaints. REVIEW OF SYSTEMS: All other systems reviewed and were found to be negative. PHYSICAL EXAMINATION: GENERAL: Elderly male, lying in bed, in no acute distress. VITAL SIGNS: Blood pressure 118/58, pulse 54, respirations 12, temperature 97.4 degrees Fahrenheit, O2 sat is 98% on 2 L nasal cannula, intake was 2780 mL, output was 1900 mL. HEENT: Right pupil reacting to light and accommodation, left eye blind. No oral thrush. No pharyngeal congestion. Right-sided scalp dressing in place with a drain putting out minimal discharge. NECK: Supple. No JVD. LUNGS: Bilateral vesicular breath sounds. No wheezing. No rhonchi. CARDIOVASCULAR SYSTEM: S1, S2 present, regular. ABDOMEN: Soft, nontender. Bowel sounds present. No guarding. No rigidity. No rebound tenderness noted. CENTRAL NERVOUS SYSTEM: Alert, awake, and oriented x2 to 3. No focal deficits noted. EXTREMITIES: No edema. MEDICATIONS: Include Tylenol IV as needed, Decadron 4 mg IV q. 12 hours, folic acid 1 mg, Keppra 500 mg q. 12 hours, multivitamin, Protonix 40 mg daily, sodium chloride tablet 1 g daily, and thiamine 100 mg daily. LABORATORY DATA: From this morning: WBC 12.5, hemoglobin 14.7, hematocrit 42.2, platelets 232. Sodium 134, potassium 3.8, chloride 100, bicarb 29, BUN 15, creatinine 0.6, glucose 110, calcium 8.2, phosphorus 5.2, magnesium 2.1. Total bilirubin 1, AST 22, ALT 76, alkaline phosphatase 69, total protein 7.6, albumin 3.5. ASSESSMENT AND PLAN: Elderly male with hypertension, hyperlipidemia, ethyl alcohol abuse, status post fall, admitted with intracranial hemorrhage and subdural hematoma, status post evacuation and drainage of the subdural hematoma with a drain in place, for repeat CT. He will follow up with Neurosurgery. We will continue with current medication. We will add further recommendation as his clinical course progresses. Monitor his blood pressure closely. Afia Chirinos MD [facility] # [id number]
[2017-04-07] MEDS: levETIRAcetam 500 MG in Sodium Chloride 0.9% 100 ML IVPB SCH (01:00)
--- NOTE | 2017-04-07 06:34 | CT ---
EXAM: CT Head Without Intravenous Contrast CLINICAL HISTORY: 71 years old, male; Pain and condition or disease; Other: Bleed; Prior surgery; Surgery type: Drange; Additional info: F/u sdh TECHNIQUE: Axial computed tomography images of the head/brain without intravenous contrast. All CT scans at this facility use one or more dose reduction techniques, viz.: automated exposure control; ma/kV adjustment per patient size (including targeted exams where dose is matched to indication; i.e. head); or iterative reconstruction technique. [id number] images are submitted. Coronal and sagittal reformatted images were created and reviewed. COMPARISON: CT - HEAD W/O CONTRAST 2017-04-05 06:53 FINDINGS: Brain: There is evolving right frontal deep white matter parenchymal hemorrhage with surrounding edema and local mass effect. There is subfalcine herniation with [id number] midline shift of 9.8 mm which previously measured 12 mm. There is mild improvement in the midline shift. Cerebral and cerebellar volume loss. Patchy hypodensity is seen in the periventricular and subcortical white matter. Right frontal subdural drain. There is right convexity extra-axial gas and fluid. Minimal right hemispheric posterior convexity subdural hematoma seen on image 16 series 2 measuring 4 mm. Ventricles: Ventriculomegaly. Bones/joints: There is right convexity postoperative changes with craniectomy osseous hardware. There is comminuted nasal fracture deformity. There is comminuted deformity of the anterior maxillary spine. Soft tissues: Right convexity skin nupur. Sinuses: Unremarkable. No acute sinusitis. Mastoid air cells: Unremarkable. No mastoid effusion. Orbits: Left globe calcifications. The right globe and lens appear intact. IMPRESSION: 1. There is evolving right frontal deep white matter parenchymal hemorrhage with surrounding edema and local mass effect. 2. There is subfalcine herniation with [id number] midline shift of 9.8 mm which previously measured 12 mm. There is mild improvement in the midline shift and subfalcine herniation. 3. Right convexity postoperative changes with a right posterior convexity dependent subdural hematoma measuring 4 mm seen on image 16 series 2. There is right frontal subdural drain. Correlation with clinical neurosurgical extirpation evaluation and further workup or followup as recommended by patient's clinical data.
[2017-04-07 06:39] LABS: BASO % 0.2 % (0.0-2.0); EOS % 0.1 % (0.0-4.0); HEMATOCRIT 42.1 % (35.0-51.0); LYMPH # 1.1 K/uL (1.0-4.3); LYMPH % 7.5 % (20.0-40.0); MEAN CELL VOLUME 91.5 fL (80.0-94.0); MEAN CORPUSCULAR HEMOGLOBIN 30.6 pg (27.0-31.0); MEAN CORPUSCULAR HGB CONC 33.5 g/dL (33.0-37.0); MEAN PLATELET VOLUME 8.2 fL (7.2-11.7); MONO # 1.1 K/uL (0.0-0.8); MONO % 7.3 % (0.0-10.0); PLATELET COUNT 243 K/uL (130-400); WHITE BLOOD COUNT 14.5 K/uL (4.8-10.8)
[2017-04-07 07:15] LABS: ALB/GLOB RATIO 0.8 (1.0-2.1); ALKALINE PHOSPHATASE 94 U/L (38-126); ALT/SGPT 86 U/L (21-72); AST/SGOT 38 U/L (17-59); BILIRUBIN,TOTAL 1.1 mg/dL (0.2-1.3); BLOOD UREA NITROGEN 24 mg/dL (9-20); CALCIUM 8.2 mg/dl (8.6-10.4); CARBON DIOXIDE 29 mmol/L (22-30); CHLORIDE 99 mmol/L (98-107); GFR AFRICAN-AMERICAN > 60; GLUCOSE,RANDOM 110 mg/dL (75-110); MAGNESIUM 2.2 mg/dL (1.6-2.3); PHOSPHOROUS 4.6 mg/dL (2.5-4.5); SODIUM 133 mmol/L (132-148); TOTAL PROTEIN 7.6 g/dL (6.3-8.3)
[2017-04-07] MEDS ORDERED: Bacitracin 500 Units/gm Oint Foilpak UD TOP ONE (08:00)
--- NOTE | 2017-04-07 08:25 | CP.PCM.PN ---
Subjective - Date & Time of Evaluation Date of Evaluation: 04/07/17 Time of Evaluation: 08:23 - Subjective Subjective: remains neuro stable CT showed excellent evac of SDH SD drain removed wound c and d Rec : OOB PT Trans to 6T Rehab planning Objective - Vital Signs/Intake and Output Vital Signs (last 24 hours): Temp Pulse Resp BP Pulse Ox 97.4 F L 52 L 12 115/64 100 04/06/17 16:00 04/07/17 08:00 04/07/17 08:00 04/07/17 07:29 04/07/17 08:00 Intake and Output: 04/07/17 04/07/17 06:59 18:59 Intake Total 900 0 Output Total 530 Balance 370 0 - Medications Medications: Current Medications Dexamethasone (Decadron Inj) 4 mg IV Q12 [facility] Last Admin: 04/06/17 21:41 Dose: 4 mg Folic Acid (Folic Acid) 1 mg PO DAILY [facility] Last Admin: 04/06/17 11:03 Dose: Not Given Levetiracetam 500 mg/ Sodium (Chloride) 105 mls @ 420 mls/hr IVPB Q12H [facility] Last Admin: 04/07/17 01:00 Dose: 420 mls/hr Acetaminophen (Ofirmev) 100 mls @ 100 mls/hr IV Q12H PRN PRN Reason: pain Stop: 04/07/17 12:01 Last Admin: 04/06/17 22:38 Dose: 100 mls/hr Multivitamins (Hexavitamin) 1 tab PO DAILY [facility] Last Admin: 04/06/17 11:03 Dose: Not Given Pantoprazole Sodium (Protonix Ec Tab) 40 mg PO DAILY [facility] Last Admin: 04/06/17 11:04 Dose: Not Given Sodium Chloride (Sodium Chloride Tab) 1 gm PO DAILY [facility] Last Admin: 04/06/17 11:04 Dose: Not Given Thiamine HCl (Vitamin B1 Tab) 100 mg PO DAILY [facility] Last Admin: 04/06/17 11:04 Dose: Not Given - Labs Labs: 04/07/17 06:18 04/07/17 06:18 PT 11.6 SECONDS (9.7-12.2) 04/04/17 06:22 INR 1.0 04/04/17 06:22 APTT 27 SECONDS (21-34) D 04/04/17 06:22
[2017-04-07 08:27] LABS: NEUTROPHIL 85 % (50-75); TOTAL CELLS COUNTED 100
[2017-04-07] MEDS: Pantoprazole 40 mg EC Tab PO SCH (08:59)
[2017-04-07] MEDS: Multiple Vitamins Tab PO SCH (08:59)
--- NOTE | 2017-04-07 09:03 | CP.PCM.PN ---
Subjective - Date & Time of Evaluation Date of Evaluation: 04/07/17 Time of Evaluation: 08:58 - Subjective Subjective: Mr. Cabral was seen and examined at the bedside in ICU. He is alert, oriented and able to answer few questions appropriately and follows simple commands. He states of very mild headache located in the surgical site, pain scale 1/10, and with associated mild nausea. He denies any blurred vision, dizziness, lightheadedness, weakness, or numbness. The dressing in his surgical site intact, with no bleeding noted. The ventriculostomy catheter was removed by the neurosurgeon this am, CT scan result was also reviewed by the neurosurgeon. The patient has episode of confusion especially at nightime, remains on 1:1 sitter for patient safety. There was no untoward events overnight. Objective - Vital Signs/Intake and Output Vital Signs (last 24 hours): Temp Pulse Resp BP Pulse Ox 97.4 F L 52 L 12 115/64 100 04/06/17 16:00 04/07/17 08:00 04/07/17 08:00 04/07/17 07:29 04/07/17 08:00 Intake and Output: 04/07/17 04/07/17 06:59 18:59 Intake Total 900 0 Output Total 530 0 Balance 370 0 - Medications Medications: Current Medications Amlodipine Besylate (Norvasc) 5 mg PO DAILY [facility] Bisacodyl (Dulcolax) 10 mg [place] DAILY PRN PRN Reason: constipation Docusate Sodium (Colace) 100 mg PO DAILY [facility] Folic Acid (Folic Acid) 1 mg PO DAILY [facility] Last Admin: 04/06/17 11:03 Dose: Not Given Acetaminophen (Ofirmev) 100 mls @ 100 mls/hr IV Q12H PRN PRN Reason: pain Stop: 04/07/17 12:01 Last Admin: 04/06/17 22:38 Dose: 100 mls/hr Levetiracetam (Keppra) 500 mg PO BID [facility] Multivitamins (Hexavitamin) 1 tab PO DAILY [facility] Last Admin: 04/06/17 11:03 Dose: Not Given Ondansetron HCl (Zofran Inj) 4 mg IVP Q8 PRN PRN Reason: Nausea/Vomiting Pantoprazole Sodium (Protonix Ec Tab) 40 mg PO DAILY [facility] Last Admin: 04/06/17 11:04 Dose: Not Given Sennosides (Senokot Tab) 8.6 mg PO DAILY [facility] Sodium Chloride (Sodium Chloride Tab) 1 gm PO DAILY [facility] Last Admin: 04/06/17 11:04 Dose: Not Given Thiamine HCl (Vitamin B1 Tab) 100 mg PO DAILY [facility] Last Admin: 04/06/17 11:04 Dose: Not Given - Labs Labs: 04/07/17 06:18 04/07/17 06:18 PT 11.6 SECONDS (9.7-12.2) 04/04/17 06:22 INR 1.0 04/04/17 06:22 APTT 27 SECONDS (21-34) D 04/04/17 06:22 - Constitutional Appears: No Acute Distress - Head Exam Head Exam: ATRAUMATIC - Eye Exam Pupil Exam: NORMAL ACCOMODATION - Neurological Exam Neurological Exam: Alert, Awake, CN II-XII Intact, Oriented x3 Neuro motor strength exam: Left Upper Extremity: 5, Right Upper Extremity: 5, Left Lower Extremity: 5, Right Lower Extremity: 5 Additional comments: Neurological unchanged from previous examination. Sensation remains intact. Assessment and Plan (1) Acute intra-cranial hemorrhage Assessment & Plan: Case discussed with Dr. Gilbert, continue all current medical regimen. Recommend resuming PT/OT eval and treat. Zofran 4 mg Q8 PRN for nausea/vomiting, and keep blood pressure below 140. Status: Acute
--- NOTE | 2017-04-07 12:50 | CP.PCM.PN ---
Subjective - Date & Time of Evaluation Date of Evaluation: 04/07/17 Time of Evaluation: 12:30 - Subjective Subjective: Progress note dictated #[id number] Objective - Vital Signs/Intake and Output Vital Signs (last 24 hours): Temp Pulse Resp BP Pulse Ox 97.4 F L 99 H 17 147/72 98 04/06/17 16:00 04/07/17 11:00 04/07/17 11:00 04/07/17 10:28 04/07/17 10:28 Intake and Output: 04/07/17 04/07/17 06:59 18:59 Intake Total 900 400 Output Total 530 150 Balance 370 250 - Medications Medications: Current Medications Amlodipine Besylate (Norvasc) 5 mg PO DAILY [facility] Last Admin: 04/07/17 09:03 Dose: 5 mg Bisacodyl (Dulcolax) 10 mg [place] DAILY PRN PRN Reason: constipation Docusate Sodium (Colace) 100 mg PO DAILY [facility] Last Admin: 04/07/17 09:03 Dose: 100 mg Folic Acid (Folic Acid) 1 mg PO DAILY [facility] Last Admin: 04/07/17 08:59 Dose: 1 mg Levetiracetam (Keppra) 500 mg PO BID [facility] Last Admin: 04/07/17 09:03 Dose: 500 mg Multivitamins (Hexavitamin) 1 tab PO DAILY [facility] Last Admin: 04/07/17 08:59 Dose: 1 tab Ondansetron HCl (Zofran Inj) 4 mg IVP Q8 PRN PRN Reason: Nausea/Vomiting Pantoprazole Sodium (Protonix Ec Tab) 40 mg PO DAILY [facility] Last Admin: 04/07/17 08:59 Dose: 40 mg Sennosides (Senokot Tab) 8.6 mg PO DAILY [facility] Last Admin: 04/07/17 09:34 Dose: 8.6 mg Sodium Chloride (Sodium Chloride Tab) 1 gm PO DAILY [facility] Last Admin: 04/07/17 08:59 Dose: 1 gm Thiamine HCl (Vitamin B1 Tab) 100 mg PO DAILY [facility] Last Admin: 04/07/17 08:59 Dose: 100 mg - Labs Labs: 04/07/17 06:18 04/07/17 06:18 PT 11.6 SECONDS (9.7-12.2) 04/04/17 06:22 INR 1.0 04/04/17 06:22 APTT 27 SECONDS (21-34) D 04/04/17 06:22
--- NOTE | 2017-04-07 14:37 | PN ---
DATE: 04/07/2017 SUBJECTIVE: The patient is seen and examined at bedside. The patient is feeling much better. Complaining of headache while they were removing the drains. Denies any headache at the present time. Denies any nausea or vomiting. Denies any dizziness. Denies any other neurologic symptoms. REVIEW OF SYSTEMS: All other systems reviewed and was found to be negative. PHYSICAL EXAMINATION GENERAL: Elderly male, sitting in chair, in no acute distress. VITAL SIGNS: Blood pressure 147/72, pulse 53, respirations 13, temperature 98.4 degree Fahrenheit, and O2 saturation 98% on room air. Intake is 1320 and output is 1035. HEENT: Right pupil reacting to light and accommodation. No icterus. No pallor. No oral thrush. No pharyngeal congestion. Right scalp incision with nupur in place. Drain is removed. NECK: Supple. No JVD. LUNGS: Bilateral vesicular breath sounds. No wheezing. No rhonchi. CARDIOVASCULAR: S1 and S2 present and regular. ABDOMEN: Soft and nontender. Bowel sounds present. No guarding. No rigidity. No rebound tenderness noted. CENTRAL NERVOUS SYSTEM: Alert, awake, and oriented x3. No focal deficits noted. EXTREMITIES: No edema. MEDICATIONS: Include Norvasc 5 mg daily, Dulcolax 10 mg daily, Colace 100 mg p.o. daily, folic acid 1 mg p.o. daily, Keppra 500 mg p.o. daily, multivitamin 1 tab daily, Zofran as needed, Protonix 40 mg p.o. daily, Senna daily, sodium chloride tablet 1 g p.o. daily, thiamine 100 mg p.o. daily. LABORATORY DATA: Labs from this morning: WBC 14.5, hemoglobin 14.1, hematocrit 42.1, platelets 243. Sodium 133, potassium 4.0, chloride 99, bicarb 29, BUN 24, creatinine 0.6, glucose 90, calcium 8.2, phosphorus 4.6, magnesium 2.2. ALT is 86. Repeat head CT from today is white matter parenchymal hemorrhage with surrounding edema and local mass effect. There is subfalcine herniation with right and left midline shift 9.8 mm, decreased from 12 mm, right convexity postoperative changes with right posterior convexity dependent subdural hematoma. ASSESSMENT AND PLAN: Elderly male with history of hypertension, hyperlipidemia, ethyl alcohol abuse, status post fall, admitted for altered mental status, right subdural hematoma and intracranial hemorrhage with surrounding edema status post evacuation of subdural hematoma, status post removal of the drain. The patient is tolerating p.o. feeds. Continue with current medication. We will monitor closely for neuro status. The patient if possible, transfer to telemetry. Continue with GI and DVT prophylaxis. We will add further recommendation as his clinical course progresses. Afia Chirinos MD
--- NOTE | 2017-04-08 06:34 | CP.PCM.PN ---
Subjective - Date & Time of Evaluation Date of Evaluation: 04/08/17 Time of Evaluation: 06:31 - Subjective Subjective: Mr. Cabral was seen and examined at the bedside. He is alert and oriented. He denies any headache, blurred vision, dizziness, lightheadedness, nausea, or vomiting. He states of mild tenderness with the surgical site. No s/s of infection, nupur intact.Left jugular TLC was also removed. He is able to follow simple commands. He is on telesitter for patient safety. There was no untoward events overnight. Objective - Vital Signs/Intake and Output Vital Signs (last 24 hours): Temp Pulse Resp BP Pulse Ox 97.6 F 50 L 20 132/75 96 04/07/17 23:15 04/08/17 04:11 04/07/17 23:15 04/07/17 23:15 04/07/17 23:15 Intake and Output: 04/07/17 04/08/17 18:59 06:59 Intake Total 800 200 Output Total 450 500 Balance 350 -300 - Medications Medications: Current Medications Amlodipine Besylate (Norvasc) 5 mg PO DAILY [facility] Last Admin: 04/07/17 09:03 Dose: 5 mg Bisacodyl (Dulcolax) 10 mg [place] DAILY PRN PRN Reason: constipation Docusate Sodium (Colace) 100 mg PO DAILY [facility] Last Admin: 04/07/17 09:03 Dose: 100 mg Folic Acid (Folic Acid) 1 mg PO DAILY [facility] Last Admin: 04/07/17 08:59 Dose: 1 mg Levetiracetam (Keppra) 500 mg PO BID [facility] Last Admin: 04/07/17 18:38 Dose: 500 mg Multivitamins (Hexavitamin) 1 tab PO DAILY [facility] Last Admin: 04/07/17 08:59 Dose: 1 tab Ondansetron HCl (Zofran Inj) 4 mg IVP Q8 PRN PRN Reason: Nausea/Vomiting Pantoprazole Sodium (Protonix Ec Tab) 40 mg PO DAILY [facility] Last Admin: 04/07/17 08:59 Dose: 40 mg Sennosides (Senokot Tab) 8.6 mg PO DAILY [facility] Last Admin: 04/07/17 09:34 Dose: 8.6 mg Sodium Chloride (Sodium Chloride Tab) 1 gm PO DAILY [facility] Last Admin: 04/07/17 08:59 Dose: 1 gm Thiamine HCl (Vitamin B1 Tab) 100 mg PO DAILY [facility] Last Admin: 04/07/17 08:59 Dose: 100 mg - Labs Labs: 04/07/17 06:18 04/07/17 06:18 PT 11.6 SECONDS (9.7-12.2) 04/04/17 06:22 INR 1.0 04/04/17 06:22 APTT 27 SECONDS (21-34) D 04/04/17 06:22 - Constitutional Appears: No Acute Distress - Head Exam Head Exam: NORMAL INSPECTION - Neurological Exam Neurological Exam: Alert, Awake Neuro motor strength exam: Left Upper Extremity: 5, Right Upper Extremity: 5, Left Lower Extremity: 5, Right Lower Extremity: 5 Additional comments: Neurological unchanged from previous examination. Assessment and Plan (1) Acute intra-cranial hemorrhage Assessment & Plan: Case discussed with Dr. Gilbert, continue all current medical, physical, and occupational therapies. Recommends rehab. facility for discharge planning. Status: Acute
[2017-04-08] MEDS: Pantoprazole 40 mg EC Tab PO SCH (10:10)
[2017-04-08] MEDS: Multiple Vitamins Tab PO SCH (10:10)
--- NOTE | 2017-04-08 15:42 | CP.PCM.PN ---
Subjective - Date & Time of Evaluation Date of Evaluation: 04/08/17 Time of Evaluation: 15:42 - Subjective Subjective: pt is seen and examined, progress note is dictated for # [id number] Objective - Vital Signs/Intake and Output Vital Signs (last 24 hours): Temp Pulse Resp BP Pulse Ox 97.8 F 65 18 125/71 97 04/08/17 09:00 04/08/17 09:00 04/08/17 09:00 04/08/17 09:00 04/08/17 09:00 Intake and Output: 04/08/17 04/08/17 06:59 18:59 Intake Total 200 Output Total 500 Balance -300 - Medications Medications: Current Medications Amlodipine Besylate (Norvasc) 5 mg PO DAILY [facility] Last Admin: 04/08/17 10:10 Dose: 5 mg Bisacodyl (Dulcolax) 10 mg [place] DAILY PRN PRN Reason: constipation Docusate Sodium (Colace) 100 mg PO DAILY [facility] Last Admin: 04/08/17 10:10 Dose: 100 mg Folic Acid (Folic Acid) 1 mg PO DAILY [facility] Last Admin: 04/08/17 10:10 Dose: 1 mg Levetiracetam (Keppra) 500 mg PO BID [facility] Last Admin: 04/08/17 10:10 Dose: 500 mg Multivitamins (Hexavitamin) 1 tab PO DAILY [facility] Last Admin: 04/08/17 10:10 Dose: 1 tab Ondansetron HCl (Zofran Inj) 4 mg IVP Q8 PRN PRN Reason: Nausea/Vomiting Last Admin: 04/08/17 14:53 Dose: 4 mg Pantoprazole Sodium (Protonix Ec Tab) 40 mg PO DAILY [facility] Last Admin: 04/08/17 10:10 Dose: 40 mg Sennosides (Senokot Tab) 8.6 mg PO DAILY [facility] Last Admin: 04/08/17 10:10 Dose: 8.6 mg Sodium Chloride (Sodium Chloride Tab) 1 gm PO DAILY [facility] Last Admin: 04/08/17 10:10 Dose: 1 gm Thiamine HCl (Vitamin B1 Tab) 100 mg PO DAILY [facility] Last Admin: 04/08/17 10:10 Dose: 100 mg - Labs Labs: 04/07/17 06:18 12/15/17 06:18 PT 11.6 SECONDS (9.7-12.2) 04/04/17 06:22 INR 1.0 04/04/17 06:22 APTT 27 SECONDS (21-34) D 04/04/17 06:22
--- NOTE | 2017-04-08 20:13 | PN ---
LOCATION: The patient is located in room 653, bed A. SUBJECTIVE: The patient is seen and examined, dictated for Dr. Mary Beth Chirinos. Mr. Cabral is a 71 years old elderly male with past medical history significant for hypertension, hyperlipidemia, EtOH abuse and status post fall on , was admitted with altered mental status. Subsequently, the patient was found to have a right-sided intracerebral frontal hemorrhage and also subdural hematoma. The patient underwent for surgery this week, Monday. The patient is not in acute distress. Denies any complaints. Denies any chest pain or palpitation. Denies any nausea, vomiting, diarrhea. The patient underwent surgery on 04/05/2017. The patient had a right central craniotomy and evacuation of subdural hematoma. OBJECTIVE: VITAL SIGNS: His vital signs and physical exam as follows; blood pressure 125/71, pulse 65, respirations 18, temperature 97.8, saturation 97%. Height 5 feet 1 inch. Weight is 158 pounds. GENERAL: Mr. Cabral is a 71 years old elderly male, moderately-build, moderately-nourished, not in distress. HEENT: Pupils normal on the right side and left eye is blind. Tongue is moist. Trachea is midline. LUNGS: Symmetric on both sides. Bilateral breath sounds present. Clear on auscultation. CVS: [place] at the fifth intercostal space of intermediate, midclavicular line. S1 and S2 audible. No murmur or gallop. ABDOMEN: Normal in appearance, soft, tympanic. No guarding. No rigidity. No hepatosplenomegaly. ART SUPERVISOR: The patient is alert, awake, following commands appropriately. EXTREMITIES: No cyanosis, no clubbing, no edema. CURRENT MEDICATIONS: Include as follows; Colace 100 mg p.o. daily, Dulcolax 10 mg daily, folic acid 1 mg daily, multivitamin 1 tablet daily, Keppra 500 mg p.o. b.i.d., Norvasc 5 mg daily, Protonix 40 mg daily, Senokot 8.6 mg p.o. daily, sodium chloride tablet 1 g p.o. daily, thiamine 100 mg p.o. daily, and Zofran 4 mg IV q.8 hours p.r.n. LABORATORY DATA: Include as follows; as of 03/28/2007, WBC 14.5, hemoglobin 14.1, hematocrit is 42.1, platelets 243. Sodium 133, potassium is 4, chloride 99, CO2 of 29, BUN 24, creatinine 0.6, glucose 110, calcium 8.2, phosphorus 4.6, magnesium 2.2. Total bili 1.1, AST 38, ALT 86, alkaline phos is 94, total protein 7.6, albumin is 3.5. ASSESSMENT AND PLAN: In summary, Mr. Cabral is a 71 years old elderly male with hypertension, hyperlipidemia, EtOH abuse, status post fall with intracranial bleed and subdural hematoma, altered mental status and status post evacuation of subdural hematoma on 04/05/2017. 1. Hypertension. Blood pressure is stable. Continue amlodipine 5 mg daily. 2. Intracranial bleed, right frontal region. 3. Status post evacuation of the right subdural hematoma. 4. Status post fall about 3 weeks ago. We will continue with current medication and continue physical therapy. The patient seen and examined, dictated for Dr. Mary Beth Chirinos. Soraida Chirinos MD
[2017-04-09] MEDS: Pantoprazole 40 mg EC Tab PO SCH (10:00)
[2017-04-09] MEDS: Multiple Vitamins Tab PO SCH (10:00)
--- NOTE | 2017-04-09 15:21 | CP.PCM.PN ---
Subjective - Date & Time of Evaluation Date of Evaluation: 04/09/17 Time of Evaluation: 15:20 - Subjective Subjective: pt is seen and examined for dr. rich, progress note is dictated # [id number] 1. new onset left side weakness, c/w acute cva 2. s/p fall 3 weeks ago 3. rt frontal bleed with edema 4. s/p evacuation rt subdural hematoma called icu edvaluation, notify neurololgy, neurosurgery repeat ct scan case d/w icu attending Dr. Geller for possible transfer to icu and monitoring Objective - Vital Signs/Intake and Output Vital Signs (last 24 hours): Temp Pulse Resp BP Pulse Ox 97.7 F 52 L 20 125/70 98 04/09/17 08:50 04/09/17 12:46 04/09/17 08:50 04/09/17 08:50 04/09/17 08:50 Intake and Output: 04/09/17 04/09/17 06:59 18:59 Intake Total 100 Output Total 300 Balance -200 - Medications Medications: Current Medications Amlodipine Besylate (Norvasc) 5 mg PO DAILY [facility] Last Admin: 04/09/17 10:00 Dose: 5 mg Bisacodyl (Dulcolax) 10 mg [place] DAILY PRN PRN Reason: constipation Docusate Sodium (Colace) 100 mg PO DAILY [facility] Last Admin: 04/09/17 10:00 Dose: 100 mg Folic Acid (Folic Acid) 1 mg PO DAILY [facility] Last Admin: 04/09/17 10:00 Dose: 1 mg Levetiracetam (Keppra) 500 mg PO BID [facility] Last Admin: 04/09/17 10:00 Dose: 500 mg Multivitamins (Hexavitamin) 1 tab PO DAILY [facility] Last Admin: 04/09/17 10:00 Dose: 1 tab Ondansetron HCl (Zofran Inj) 4 mg IVP Q8 PRN PRN Reason: Nausea/Vomiting Last Admin: 04/08/17 14:53 Dose: 4 mg Pantoprazole Sodium (Protonix Ec Tab) 40 mg PO DAILY [facility] Last Admin: 04/09/17 10:00 Dose: 40 mg Sennosides (Senokot Tab) 8.6 mg PO DAILY [facility] Last Admin: 04/09/17 10:00 Dose: 8.6 mg Sodium Chloride (Sodium Chloride Tab) 1 gm PO DAILY [facility] Last Admin: 04/09/17 10:00 Dose: 1 gm Thiamine HCl (Vitamin B1 Tab) 100 mg PO DAILY [facility] Last Admin: 04/09/17 10:00 Dose: 100 mg - Labs Labs: 04/07/17 06:18 04/07/17 06:18 PT 11.6 SECONDS (9.7-12.2) 04/04/17 06:22 INR 1.0 04/04/17 06:22 APTT 27 SECONDS (21-34) D 04/04/17 06:22
--- NOTE | 2017-04-09 16:11 | PCM.RRT ---
<Keith Feng - Last Filed: 04/09/17 17:23> ENT CONSULTANT Nurses Assessment - Situation Date: 04/09/17 Time ENT CONSULTANT was called: 15:37 ENT CONSULTANT Responder Arrival Time:: 15:37 New IV Insertion Tolerance: Good I.Reason for ENT CONSULTANT - A) Acute Change in Patient: (Select all that apply): Staff member or family is worried about patient ( profound weakness on left UE and LE) - Neurological Status (Select all that apply): Alert, Responsive, Oriented, Verbal, Follows Commands - Constitutional Appears: Non-toxic, No Acute Distress - Head Head Exam: ATRAUMATIC, NORMAL INSPECTION, NORMOCEPHALIC - Eyes Additional Comments: left eye blindness - Respiratory Exam Respiratory Exam: Clear to Ausculation Bilateral, NORMAL BREATHING PATTERN. absent: Prolonged Expiratory Phase, Rales, Rhonchi, Wheezes - Cardiovascular Exam Cardiovascular Exam: REGULAR RHYTHM, +S1, +S2 - Neurological Exam Neurological Exam: Alert, Awake, Oriented x3 Plan - Assessment of Findings&Treatment Plan Code stroke called for weakness on left side patient evaluated, noted to have profound weakness and drift on left UE and LE. Patient is awake and alert, responsive, oriented x 3, answering questions appropriately. Vitals checked, 135/81, HR 55, temp 98.8, 99% on room air. Accucheck 101 Neurologist on case called- Dr. Gilbert, advised to order CTA of head to rule out re-occlusion. No thrombolysis at this time. CTA head and neck ordered. Called Neurosurgery, informed of current plan, Dr. Ballesteros reviewed CTA and stated it was comparable to most recent CT. On re-evaluation later at 5pm, patient appears to have normal 5/5 UE and LE strength. Code Stroke/Stroke Alert Is The Patient A Code Stroke/Stroke Alert?: Yes NIHSS Stroke Scale - How Severe is the Stoke Level of Consciousness: 0=Alert LOC to Questions: 0=Both comments correct LOC to commands: 1=Obeys one correctly Visual: 0=No visual loss Facial: 0=Normal Motor Arm - Left: 2=Falls before 10 sec Motor Arm - Right: 0=No drift Motor Leg - Left: 2=Falls before 5 sec Motor Leg - Right: 0=No drift Limb Ataxia: 0=Absent Sensory: 0=Normal Best Language: 0=No aphasia Dysarthia: 0=Normal articulation Extinction & Inattention (Neglect): 0=Normal, no object Severity Of Stroke: 5-15= Moderate Stroke <BeltranChris Marry - Last Filed: 04/09/17 18:38> Attending/Attestation - Attestation I have personally seen and examined this patient.: Yes I have fully participated in the care of the patient.: Yes I have reviewed all pertinent clinical information, including history, physical exam and plan: Yes Notes (Text): 04/09/17 18:36 This is a 71-year-old male who is postop day #2 of craniotomy with evacuation of subdural hematoma. A code stroke was called after he was noted that the patient had weakness on the left arm. I came to see the patient. This is my first time seeing the patient and I had to review briefly some of the many numerous notes that he's had. According to the previous notes he did not have any left arm or left leg weakness. Some of the staff on the [address] say that they've actually seen walking on his own. On examination he has no weakness on his right upper or right lower strength is 5 out of 5. However on his left side he had left arm drift. His left arm struck the bed under 10 seconds. He also had left leg drift also hitting the bed under 10 seconds. He did not have a tongue deviation. His right eye was moving fine he denied blurry vision. He is blind in his left eye and has had a history for a long time it seems of left eye damage. According to the RNs present his mental status was not changed and he was at baseline Because the new finding he immediately got a CAT scan done I spoke with the patient's neurologist as well as the neurosurgeon before the CAT scan. I also spoke with ICU physician as well. According to the nurses present, they had noticed that there was some left body weakness in the previous nursing shift and the patient was evaluated by the attending and therefore I'm told that attending consulted ICU and ICU over the phone asked nursing to call code stroke - hence I then came and saw the patient Neurologist asked that a CT scan of the head be done with IV contrast so we have done that. I then again spoke with neurosurgery and it does not appear that there is any substantial changes at this time. His suggestion was that we adjust his seizure medication. As removing the patient from CAT scan back to the floors I again tested for strength and now this time the left arm and left leg drifting has resolved. He' s able to hold his left arm up and has full range of motion ordered for greater than 10 seconds now without any drifting and this seemed to be set for his legs He is already on Keppra orally. Per my discussion with neurology regarding increase the dose of Keppra and also get an EEG tomorrow. His blood pressure is in the 120s to 130s when we were seeing him The patient will remain on [address]. If he has substantial changes later he may need to go back to the ICU but for now he'll remain on [address] thank you Chris Beltran
[2017-04-09] MEDS ORDERED: Iodixanol 320 mg/ml 150 ml Bottle IV ONE (16:43)
--- NOTE | 2017-04-09 21:01 | PN ---
DATE: SUBJECTIVE: The patient is seen and examined for Dr. Mary Beth Chirinos. Dictated for Dr. Mary Beth Chirinos. Mr. Cabral is a 71 years old elderly male with a past medical history significant for hypertension, hyperlipidemia, EtOH abuse, and left eye blind, who was admitted after he had a fall on . Subsequently, the patient was admitted after 1 week with altered mental status and the patient was found to have a right frontal bleed and also subdural hematoma. The patient underwent evacuation of the hematoma on Monday this week. The patient is not in acute distress and denies any complaints. The patient was noticed to have weakness of the left upper extremity as per the registered nurse this evening. On my examination, the patient was alert, awake, following commands. Denies any complaints. Denies any headache. The patient was not able to squeeze with left hand unable to move much of the left leg and power in both upper and lower extremities about 2-3/5. I have spoken to the patient's nurse, notified ICU for this stat consultation and possible transfer to ICU and also notified Urology and Neurosurgery and repeat CAT scan and code stroke. The patient is not in any distress, watching TV at bedside. PHYSICAL EXAMINATION: VITAL SIGNS: As follows; blood pressure this morning 125/70, pulse 52, respirations about 20, temperature 97.7, and saturation 98%. Height 5 feet 1 inch and weight is 158 pounds. HEENT: Mr. Cabral is a 71 years old elderly male, moderately built, moderately nourished, not in any distress. HEENT: Left eye blind. Right eye is normal. Conjunctivae pink. Sclerae anicteric. The patient has a dressing to the right side of the frontal area. Trachea is midline. LUNGS: Symmetry on both sides. Bilateral breath sounds present. Clear on auscultation. CARDIOVASCULAR SYSTEM: [place] at the fifth intercostal space, midclavicular line. S1, S2 audible. No murmur or gallop. ABDOMEN: Normal in appearance, soft, tympanic. No guarding. No rigidity. No splenomegaly. CENTRAL NERVOUS SYSTEM: The patient is alert, awake, and following commands appropriately. EXTREMITIES: No cyanosis. No clubbing. No edema. Power on the right side 5/5 and left side power 2-3/5 in both upper and lower extremities. Unable to squeeze on the left side and unable to push with left leg. Able to move the fingers and toes. CURRENT MEDICATIONS: Include as follows; Colace 100 mg p.o. daily, Dulcolax 10 mg per rectal daily, folic acid 1 mg daily, multivitamin 1 tablet daily, Keppra 500 mg p.o. b.i.d., Norvasc 5 mg daily, Protonix 40 mg p.o. daily, Senokot 8.6 mg p.o. daily, sodium chloride tablet 1 g p.o. daily, thiamine 100 mg p.o. daily, and Zofran 4 mg IV q. 8 hours. Accu-Cheks 197. ASSESSMENT: In summary, Mr. Cabral is a 71 years old elderly male with a history of hypertension, ethanol abuse, hyperlipidemia, status post fall on , was admitted with altered mental status and confusion, forgetting things 1 week after the fall and the patient was found to have a right frontal bleed and also found to have a subdural hematoma, status post evacuation of the subdural hematoma on 04/05/2017, right central craniotomy and evacuation of the subdural hematoma, now with weakness on the left upper extremity and left lower extremity. 1. New onset left-sided weakness, acute cerebrovascular accident, most likely secondary to recent intracranial bleed. 2. Status post evacuation of the right subdural hematoma. 3. Hypertension. 4. Ethanol abuse. Discussed with RN and requested ICU evaluation and also notified Neurology and Neurosurgery and CAT scan. Case discussed with Dr. Geller for possible transfer to ICU. He will evaluate the patient after the CAT scan. The patient is seen and examined and dictated for Dr. Mary Beth Chirinos. Prognosis is guarded. Soraida Chirinos MD
[2017-04-10 07:04] LABS: BASO % 0.3 % (0.0-2.0); EOS # 0.1 K/uL (0.0-0.7); HEMATOCRIT 41.1 % (35.0-51.0); LYMPH % 9.9 % (20.0-40.0); MEAN CELL VOLUME 90.2 fL (80.0-94.0); MEAN CORPUSCULAR HEMOGLOBIN 31.2 pg (27.0-31.0); MEAN CORPUSCULAR HGB CONC 34.6 g/dL (33.0-37.0); MEAN PLATELET VOLUME 8.1 fL (7.2-11.7); MONO # 1.1 K/uL (0.0-0.8); MONO % 10.8 % (0.0-10.0); PLATELET COUNT 219 K/uL (130-400); RED CELL DISTRIBUTION WIDTH 13.5 % (11.5-14.5); WHITE BLOOD COUNT 9.8 K/uL (4.8-10.8)
[2017-04-10 07:34] LABS: ALB/GLOB RATIO 1.2 (1.0-2.1); ALKALINE PHOSPHATASE 78 U/L (38-126); ALT/SGPT 64 U/L (21-72); AST/SGOT 22 U/L (17-59); BILIRUBIN,TOTAL 1.9 mg/dL (0.2-1.3); BLOOD UREA NITROGEN 18 mg/dL (9-20); CALCIUM 8.1 mg/dl (8.6-10.4); CARBON DIOXIDE 24 mmol/L (22-30); CHLORIDE 99 mmol/L (98-107); GFR AFRICAN-AMERICAN > 60; GLUCOSE,RANDOM 98 mg/dL (75-110); POTASSIUM 3.7 mmol/L (3.6-5.2); SODIUM 130 mmol/L (132-148); TOTAL PROTEIN 6.4 g/dL (6.3-8.3)
--- NOTE | 2017-04-10 08:49 | CP.PCM.PN ---
Subjective - Date & Time of Evaluation Date of Evaluation: 04/10/17 Time of Evaluation: 08:45 - Subjective Subjective: Mr. Cabral was seen and examined at the bedside. He is alert, oriented to place and person, but not time. He denies any headache, nausea, or vomiting. He refused to opens his eyes and with the left eyes miosis and very sluggish to response. He has a left side facial droop, left arm and lower leg weakness. He can still follow simple commands. His sensation is asymmetrical, less sensation to the left side of the body. He had a rapid response yesterday due to left arm weakness and CT of the head was done which showed no acute events per neurosurgeon. Bedside EEG was also done. Objective - Vital Signs/Intake and Output Vital Signs (last 24 hours): Temp Pulse Resp BP Pulse Ox 97.3 F L 53 L 20 152/73 H 98 04/10/17 07:48 04/10/17 07:48 04/10/17 07:48 04/10/17 07:48 04/10/17 07:48 Intake and Output: 04/10/17 04/10/17 06:59 18:59 Intake Total 100 Balance 100 - Medications Medications: Current Medications Amlodipine Besylate (Norvasc) 5 mg PO DAILY [facility] Last Admin: 04/09/17 10:00 Dose: 5 mg Bisacodyl (Dulcolax) 10 mg [place] DAILY PRN PRN Reason: constipation Docusate Sodium (Colace) 100 mg PO DAILY [facility] Last Admin: 04/09/17 10:00 Dose: 100 mg Folic Acid (Folic Acid) 1 mg PO DAILY [facility] Last Admin: 04/09/17 10:00 Dose: 1 mg Levetiracetam (Keppra) 750 mg PO BID [facility] Last Admin: 04/09/17 18:24 Dose: 250 mg Multivitamins (Hexavitamin) 1 tab PO DAILY [facility] Last Admin: 04/09/17 10:00 Dose: 1 tab Ondansetron HCl (Zofran Inj) 4 mg IVP Q8 PRN PRN Reason: Nausea/Vomiting Last Admin: 04/08/17 14:53 Dose: 4 mg Pantoprazole Sodium (Protonix Ec Tab) 40 mg PO DAILY [facility] Last Admin: 04/09/17 10:00 Dose: 40 mg Sennosides (Senokot Tab) 8.6 mg PO DAILY [facility] Last Admin: 04/09/17 10:00 Dose: 8.6 mg Sodium Chloride (Sodium Chloride Tab) 1 gm PO DAILY [facility] Last Admin: 04/09/17 10:00 Dose: 1 gm Thiamine HCl (Vitamin B1 Tab) 100 mg PO DAILY [facility] Last Admin: 04/09/17 10:00 Dose: 100 mg - Labs Labs: 04/10/17 06:47 04/10/17 06:47 PT 11.6 SECONDS (9.7-12.2) 04/04/17 06:22 INR 1.0 04/04/17 06:22 APTT 27 SECONDS (21-34) D 04/04/17 06:22 - Constitutional Appears: No Acute Distress - Head Exam Head Exam: ATRAUMATIC - Neurological Exam Neurological Exam: Alert, Awake Neuro motor strength exam: Left Upper Extremity: 2/1, Right Upper Extremity: 5, Left Lower Extremity: 2/1, Right Lower Extremity: 5 Additional comments: He is alert, able to follow simple commands with left side weakness, left side facial droop. Sensation is asymmetrical. Assessment and Plan (1) Acute intra-cranial hemorrhage Assessment & Plan: Case discussed with Dr. Gilbert, recommends repeat CT of the head without contrast , Echocardiogram with bubble study, speech therapy, lipid profile, increase salt tablet 1 gm PO daily to BID and start with hypertonic solution 3% at 30 ml/ hr, and monitor NA and serum osmolality levels every 6 hours. Continue all other medical regimen. Status: Acute
[2017-04-10 09:06] LABS: CHOLESTEROL 141 mg/dL (0-199)
[2017-04-10 09:12] LABS: EOSINOPHIL 2 % (0-4); NEUTROPHIL 80 % (50-75); TOTAL CELLS COUNTED 100
--- NOTE | 2017-04-10 10:40 | CP.PCM.PN ---
<Cristal Dooley - Last Filed: 04/10/17 10:35> Subjective - Date & Time of Evaluation Date of Evaluation: 04/10/17 Time of Evaluation: 10:36 - Subjective Subjective: PGY 2 Progress note for cardiology, Dr. Velasquez Pt is seen and examined at bedside. This morning patient is noted to be lethargic and not moving his limbs. Per nurse, patient was more alert and oriented yesterday and was communicating without difficulty. After reviewing the chart, it is noted that a rapid response was called on patient yesterday for new left sided weakness. CTA was performed yesterday and reviewed with neurosurgery. Per note, neurosurgery noted no new bleed. 12 point ROS are unobtainable due to mental status changes. Objective - Vital Signs/Intake and Output Vital Signs (last 24 hours): Temp Pulse Resp BP Pulse Ox 97.3 F L 49 L 20 152/73 H 98 04/10/17 07:48 04/10/17 08:00 04/10/17 07:48 04/10/17 07:48 04/10/17 07:48 Intake and Output: 04/10/17 04/10/17 06:59 18:59 Intake Total 100 Balance 100 - Medications Medications: Current Medications Amlodipine Besylate (Norvasc) 5 mg PO DAILY [facility] Last Admin: 04/09/17 10:00 Dose: 5 mg Bisacodyl (Dulcolax) 10 mg [place] DAILY PRN PRN Reason: constipation Docusate Sodium (Colace) 100 mg PO DAILY [facility] Last Admin: 04/09/17 10:00 Dose: 100 mg Sodium Chloride (Hypertonic Saline 3%) 500 mls @ 30 mls/hr IV .[id number] ONE Stop: 04/11/17 02:08 Levetiracetam (Keppra) 750 mg PO BID [facility] Last Admin: 04/09/17 18:24 Dose: 250 mg Ondansetron HCl (Zofran Inj) 4 mg IVP Q8 PRN PRN Reason: Nausea/Vomiting Last Admin: 04/08/17 14:53 Dose: 4 mg Pantoprazole Sodium (Protonix Ec Tab) 40 mg PO DAILY [facility] Last Admin: 04/09/17 10:00 Dose: 40 mg Sennosides (Senokot Tab) 8.6 mg PO DAILY [facility] Last Admin: 04/09/17 10:00 Dose: 8.6 mg Sodium Chloride (Sodium Chloride Tab) 1 gm PO BID [facility] - Labs Labs: 04/10/17 06:47 04/10/17 06:47 PT 11.6 SECONDS (9.7-12.2) 04/04/17 06:22 INR 1.0 04/04/17 06:22 APTT 27 SECONDS (21-34) D 04/04/17 06:22 - Constitutional Appears: Confused - Head Exam Additional comments: right sided incision note don scalp - Eye Exam Additional comments: right pupil is noted to be pinpoint - ENT Exam ENT Exam: Mucous Membranes Moist - Respiratory Exam Respiratory Exam: Clear to Ausculation Bilateral, NORMAL BREATHING PATTERN. absent: Accessory Muscle Use, Rales, Rhonchi, Wheezes, Respiratory Distress - Cardiovascular Exam Cardiovascular Exam: REGULAR RHYTHM, +S1, +S2. absent: Gallop, Rubs, Murmur - GI/Abdominal Exam GI & Abdominal Exam: Soft, Normal Bowel Sounds. absent: Distended, Firm, Guarding, Rigid, Tenderness - Extremities Exam Extremities Exam: absent: Pedal Edema - Neurological Exam Neurological Exam: Awake. absent: Oriented x3 Additional comments: Patient is answering questions. Denies having any sensation in left upper and lower extremities. left sided lip droop noted (new) - Skin Skin Exam: Dry, Intact, Normal Color, Warm Assessment and Plan - Assessment and Plan (Free Text) Assessment: 71 year old male with past medical history of HTN, left eye blindness, depression, ETOH abuse and multiple falls is being seen by cardiology for persistent bradycardia. Patient was noted to have new left sided weakness and this morning noted to have new left sided facial droop. 1. Acute intra-cranial hemorrhage - New left sided weakness and facial droop noted - Repeat Ct of head is ordered with concern for ischemic changes or new bleed not picked up on yesterday's CTA - Echo with bubble study is ordered to assess for any left atrial thrombus. Previous echo done on 04/05/17 showed EF of 50% and aortic valve is calcified. - Patient is on hypertonic saline and salt tablets to decrease intracranial pressure. Monitoring serum osmolality and Na q6h 2. Sinus bradycardia - bradycardia may be 2/2 increased intracranial pressures - Will continue to monitor 3. HTN - Currently on Norvasc 5 mg PO QD. Morning dose held today due to mild hypotension All orders and management per Dr. Velasquez <Prateek Velasquez - Last Filed: 04/10/17 15:38> Objective - Vital Signs/Intake and Output Vital Signs (last 24 hours): Temp Pulse Resp BP Pulse Ox 97.3 F L 49 L 20 152/73 H 98 04/10/17 07:48 04/10/17 08:00 04/10/17 07:48 04/10/17 07:48 04/10/17 07:48 Intake and Output: 04/10/17 04/10/17 06:59 18:59 Intake Total 100 Balance 100 - Medications Medications: Current Medications Amlodipine Besylate (Norvasc) 5 mg PO DAILY [facility] Last Admin: 04/10/17 12:20 Dose: 5 mg Bisacodyl (Dulcolax) 10 mg AR DAILY PRN PRN Reason: constipation Docusate Sodium (Colace) 100 mg PO DAILY [facility] Last Admin: 04/10/17 12:21 Dose: 100 mg Folic Acid (Folic Acid) 1 mg PO DAILY [facility] Sodium Chloride (Hypertonic Saline 3%) 500 mls @ 30 mls/hr IV .[id number] ONE Stop: 04/11/17 04:39 Last Admin: 04/10/17 12:51 Dose: 30 mls/hr Levetiracetam (Keppra) 750 mg PO BID [facility] Last Admin: 04/10/17 12:20 Dose: 750 mg Multivitamins (Hexavitamin) 1 tab PO DAILY [facility] Ondansetron HCl (Zofran Inj) 4 mg IVP Q8 PRN PRN Reason: Nausea/Vomiting Last Admin: 04/08/17 14:53 Dose: 4 mg Pantoprazole Sodium (Protonix Ec Tab) 40 mg PO DAILY [facility] Last Admin: 04/10/17 12:20 Dose: 40 mg Sennosides (Senokot Tab) 8.6 mg PO DAILY [facility] Last Admin: 04/10/17 12:21 Dose: 8.6 mg Sodium Chloride (Sodium Chloride Tab) 1 gm PO BID [facility] Last Admin: 04/10/17 12:21 Dose: 1 gm Thiamine HCl (Vitamin B1 Tab) 100 mg PO DAILY [facility] - Labs Labs: 04/10/17 06:47 04/10/17 12:47 PT 11.6 SECONDS (9.7-12.2) 04/04/17 06:22 INR 1.0 04/04/17 06:22 APTT 27 SECONDS (21-34) D 04/04/17 06:22 Attending/Attestation - Attestation I have personally seen and examined this patient.: Yes I have fully participated in the care of the patient.: Yes I have reviewed all pertinent clinical information, including history, physical exam and plan: Yes Notes (Text): 04/10/17 15:[address] [facility] consider adding low dose ACEI , statins ( proven to be beneficial post cva )
--- NOTE | 2017-04-10 10:41 | CT ---
PROCEDURE: CT Angiography of the Brain. HISTORY: CODE STROKE, patient S/P SDH evacuation.L arm weak COMPARISON: None available. TECHNIQUE: CT angiography of the intracranial arteries was performed. Coronal and sagittal maximum intensity projection reformated images were generated. Total exam DLP: 474.[address] exam was performed using one or more of the following dose reduction techniques: Automated exposure control, adjustment of the mA and/or kV according to patient size, and/or use of iterative reconstruction technique. FINDINGS: INTERNAL CEREBRAL ARTERIES: Unremarkable. The skull base, petrous, cavernous and supraclinoid segments are bilaterally widely patent. ANTERIOR CEREBRAL ARTERIES: Unremarkable. A1 and A2 segments are widely patent. Smaller distal branches unremarkable, as visualized. 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 No interval change in appearance overall. 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 M1 and M2 segments are stable, remaining widely patent. Perisylvian branches grossly symmetric. POSTERIOR CIRCULATION: Basilar Artery: Unremarkable. Distal Vertebral Arteries: Right dominant vertebrobasilar circulation again evident. Posterior Cerebral Arteries: Unremarkable. Posterior Inferior Cerebellar Arteries: Unremarkable. NECK CTA RESULTS: Common carotid arteries: The bilateral common carotid appear widely patent from their origins to their bifurcations with no significant stenosis appreciated. No evidence to suggest common carotid artery dissection. Internal carotid arteries: No significant stenosis is appreciated throughout the cervical internal carotid artery segments bilaterally and there is no evidence of dissection either. Vertebral arteries: The bilateral vertebral arteries appear normal in caliber from their origins to their junction with the basilar artery. Vertebrobasilar system appears right dominant. No significant stenosis or definite pattern of dissection. Incidentally, the bilateral subclavian arteries are widely patent as well as the brachiocephalic artery. ANEURYSM/ VASCULAR MALFORMATIONS: None. OTHER FINDINGS: Right frontal intraparenchymal hemorrhage is again appreciated with approximate 10 mm midline leftward shift evident. Prior right frontotemporal craniotomy again appreciated with pneumocephaly again evident as well as predominantly chronic subdural hematomas. Subdural drains been removed with limited likely subacute hemorrhage seen within these subdural collection of the posterior right frontal extra-axial space. Underlying epidural hematomas remain difficult to exclude. Right frontoparietal and occipital convexity hemorrhage appears stable. A faint right parietal fracture is seen only in the coronal view. . IMPRESSION: No definite arterial occlusion or high-grade stenosis is seen throughout the head or neck CT angiography submitted. 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 No interval change in this appearance is noted. 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 Right frontal intraparenchymal hemorrhage again appreciate with 10 mm leftward midline shift. Right convexity subdural and possibly epidural hematomas are stable in appearance with subdural drain is now removed status post right frontotemporal craniotomy. A faint fracture is seen at the right parietal lobe posteriorly, only in the coronal views, stable.
--- NOTE | 2017-04-10 11:23 | PCM.EEG ---
Electroencephalogram Report - Electroencephalogram Report Procedure Date: 04/10/17 Interpretation: Indication: Possible Seizure. Medications were reviewed. Technical: This is a digitally recorded electroencephalogram. The international 10-20 electrode placement system is used for scalp electrode placement. Eighteen channels of scalp EEG are recorded Another channel was used for for ECG. The data are stored digitally and reviewed in reformatted montages for optimal display. Background: 9 to 10 hertz alpha activity was seen. Maximal over the posterior head region. Focal abnormality: Intermittent focal slowing was seen. Periodic lateralized discharge was seen. This is seen over the Right hemisphere. Impression: This EEG is abnormal. Epileptiform discharge was seen. This can represent a potential seizure focus. Some focal slowing was seen, suggestive of a focal abnormality. Recommendation: Increase Keppra to 750 mg Q12 hours.
[2017-04-10] MEDS ORDERED: Sodium Chloride 3% 500 ML IV ONE (12:00)
[2017-04-10] MEDS: Pantoprazole 40 mg EC Tab PO SCH (12:20)
--- NOTE | 2017-04-10 12:30 | CT ---
PROCEDURE: CT HEAD WITHOUT CONTRAST. HISTORY: stroke COMPARISON: CTA head and neck 04/09/2017. TECHNIQUE: Axial computed tomography images were obtained through the head/brain without intravenous contrast. Radiation dose: Total exam DLP = 2766.95 mGy-cm. This CT exam was performed using one or more of the following dose reduction techniques: Automated exposure control, adjustment of the mA and/or kV according to patient size, and/or use of iterative reconstruction technique. FINDINGS: Prior right frontotemporal craniotomy remains intact with mildly diminished pneumocephaly evident. Right convexity subdural hematoma is stable with predominant chronic hemorrhagic components contained swells limited upper convexity late subacute components. Greatest transverse dimension measures 16 mm at the right frontal subdural space will once again. Diffuse effacement of the right cerebral sulci is again evident. Underlying epidural collections remain likely at the inferior margins of the convexity including the right frontal temporal and occipital distributions. No interval increase in volume is identified this time. Further, medial right frontal basilar intraparenchymal hemorrhage is again identified with leftward subfalcine herniation stable at 1.4 cm. Right lateral ventricle remains effaced with some encroached of the upper brain stem by the right uncus again appreciated mildly. Remaining basilar cisterns are widely patent. Posterior fossa contents are unremarkable. No hydrocephalus identified. PARANASAL SINUSES: Unremarkable as visualized. No significant inflammatory changes. MASTOID AIR CELLS: Unremarkable as visualized. No inflammatory changes. OTHER FINDINGS: None. IMPRESSION: Stable postoperative changes status post right frontotemporal craniotomy. Diminishing right frontal pneumocephaly. Stable extra-axial hemorrhagic elements including subdural and likely small epidural hematomas of the right convexity. Stable mass effect unchanged. Continued clinical and CT monitoring are advised.
[2017-04-10] MEDS: Multiple Vitamins Tab PO SCH ×2 (12:51→12:54)
[2017-04-10 13:04] LABS: BLOOD UREA NITROGEN 18 mg/dL (9-20); CALCIUM 8.1 mg/dl (8.6-10.4); CARBON DIOXIDE 27 mmol/L (22-30); CHLORIDE 97 mmol/L (98-107); GFR AFRICAN-AMERICAN > 60; GLUCOSE,RANDOM 118 mg/dL (75-110); POTASSIUM 3.9 mmol/L (3.6-5.2); SODIUM 131 mmol/L (132-148)
--- NOTE | 2017-04-10 14:12 | CP.PCM.PN ---
Subjective - Date & Time of Evaluation Date of Evaluation: 04/10/17 Time of Evaluation: 14:00 - Subjective Subjective: Progress note dictated # [id number] Objective - Vital Signs/Intake and Output Vital Signs (last 24 hours): Temp Pulse Resp BP Pulse Ox 97.3 F L 49 L 20 152/73 H 98 04/10/17 07:48 04/10/17 08:00 04/10/17 07:48 04/10/17 07:48 04/10/17 07:48 Intake and Output: 04/10/17 04/10/17 06:59 18:59 Intake Total 100 Balance 100 - Medications Medications: Current Medications Amlodipine Besylate (Norvasc) 5 mg PO DAILY [facility] Last Admin: 04/10/17 12:20 Dose: 5 mg Bisacodyl (Dulcolax) 10 mg [place] DAILY PRN PRN Reason: constipation Docusate Sodium (Colace) 100 mg PO DAILY [facility] Last Admin: 04/10/17 12:21 Dose: 100 mg Folic Acid (Folic Acid) 1 mg PO DAILY [facility] Sodium Chloride (Hypertonic Saline 3%) 500 mls @ 30 mls/hr IV .[id number] ONE Stop: 04/11/17 04:39 Last Admin: 04/10/17 12:51 Dose: 30 mls/hr Levetiracetam (Keppra) 750 mg PO BID [facility] Last Admin: 04/10/17 12:20 Dose: 750 mg Multivitamins (Hexavitamin) 1 tab PO DAILY [facility] Ondansetron HCl (Zofran Inj) 4 mg IVP Q8 PRN PRN Reason: Nausea/Vomiting Last Admin: 04/08/17 14:53 Dose: 4 mg Pantoprazole Sodium (Protonix Ec Tab) 40 mg PO DAILY [facility] Last Admin: 04/10/17 12:20 Dose: 40 mg Sennosides (Senokot Tab) 8.6 mg PO DAILY [facility] Last Admin: 04/10/17 12:21 Dose: 8.6 mg Sodium Chloride (Sodium Chloride Tab) 1 gm PO BID [facility] Last Admin: 04/10/17 12:21 Dose: 1 gm Thiamine HCl (Vitamin B1 Tab) 100 mg PO DAILY [facility] - Labs Labs: 04/10/17 06:47 04/10/17 12:47 PT 11.6 SECONDS (9.7-12.2) 04/04/17 06:22 INR 1.0 04/04/17 06:22 APTT 27 SECONDS (21-34) D 04/04/17 06:22
--- NOTE | 2017-04-10 20:33 | CP.CCUPN ---
CCU Subjective - Physician Review Events Since Last Encounter (Free Text): 04/10/17 20:30 called by PMD with left side weakness pt yesterday had full recovery of his left weakness today rt side gaze noted left side weakness noted pt is awake and responding appropriately he is not in distress CT head some worsening edema started on 3% saline post ictal can't be ruled out will monitor in ICU for neuro eeg neurowatch and osmol check CCU Objective - Vital Signs / Intake & Output Vital Signs (Last 4 hours): Vital Signs Temp Pulse Resp BP Pulse Ox 04/10/17 18:24 73 111/69 04/10/17 17:20 97.8 F 62 20 130/74 96 Intake and Output (Last 8hrs): Intake & Output 04/10/17 04/10/17 04/10/17 06:59 14:59 22:59 Intake Total 100 Balance 100 Intake: Oral 100 Other: # Voids Urine, Voided 2 - Physical Exam Head: Positive for: Other (Drain located on right side of head. Surgical dressing in place - some strikethrough with dried blood. ) Pupils: Positive for: PERRL, Other ((blind in left eye)) Extroacular Muscles: Positive for: 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 Negative for: Respiratory Distress, Accessory Muscle Use Cardiovascular: Positive for: Bradycardic (sinus) Abdomen: Positive for: Normal Bowel Sounds. Negative for: Tenderness, Distention, Peritoneal Signs Lower Extremity: Positive for: Other (SCDs in place.) Neurological: Positive for: GCS=15, Speech Normal (much improved compared to today), Motor Func Grossly Intact (5/5 strength b/l for UE and LE. No pronator drift. ) Skin: Positive for: Warm, Dry Psychiatric: Positive for: Alert. Negative for: Oriented x 3 (Oriented to self , but not date or place - thinks year is 1981 and he states he does not know where he is at. ) - Medications Active Medications: Active Medications Generic Name Dose Route Start Last Admin Trade Name Freq PRN Reason Stop Dose Admin Bisacodyl 10 mg 04/07/17 10:00 Dulcolax [place] DAILY PRN constipation Docusate Sodium 100 mg 04/07/17 10:00 04/10/17 12:21 Colace PO 100 mg DAILY [facility] Administration Folic Acid 1 mg 04/11/17 10:00 Folic Acid PO DAILY [facility] Sodium Chloride 500 mls @ 30 mls/hr 04/10/17 12:00 04/10/17 12:51 Hypertonic Saline 3% IV 04/11/17 04:39 30 mls/hr .[id number] ONE Administration Levetiracetam 750 mg 04/09/17 18:00 04/10/17 18:24 Keppra PO 750 mg BID [facility] Administration Lisinopril 2.5 mg 04/10/17 15:45 04/10/17 18:23 Zestril PO 2.5 mg DAILY [facility] Administration Multivitamins 1 tab 04/11/17 10:00 Hexavitamin PO DAILY [facility] Ondansetron HCl 4 mg 04/07/17 08:55 04/08/17 14:53 Zofran Inj IVP 4 mg Q8 PRN Administration Nausea/Vomiting Pantoprazole Sodium 40 mg 03/31/17 10:00 04/10/17 12:20 Protonix Ec Tab PO 40 mg DAILY [facility] Administration Rosuvastatin Calcium 2.5 mg 04/10/17 22:00 Crestor PO HS [facility] Sennosides 8.6 mg 04/07/17 10:00 04/10/17 12:21 Senokot Tab PO 8.6 mg DAILY [facility] Administration Sodium Chloride 1 gm 04/10/17 10:00 04/10/17 18:23 Sodium Chloride Tab PO 1 gm BID [facility] Administration Thiamine HCl 100 mg 04/11/17 10:00 Vitamin B1 Tab PO DAILY [facility] - Patient Studies Lab Studies: Lab Studies 04/10/17 04/10/17 04/10/17 Range/Units 19:49 17:55 12:47 WBC (4.8-10.8) K/uL RBC (4.40-5.90) Mil/uL Hgb (12.0-18.0) g/dL Hct (35.0-51.0) % MCV (80.0-94.0) fL MCH (27.0-31.0) pg MCHC (33.0-37.0) g/dL RDW (11.5-14.5) % Plt Count (130-400) K/uL MPV (7.2-11.7) fL Neut % (Auto) (50.0-75.0) % Lymph % (Auto) (20.0-40.0) % [place] % (Auto) (0.0-10.0) % Eos % (Auto) (0.0-4.0) % Baso % (Auto) (0.0-2.0) % Neut # (1.8-7.0) K/uL Lymph # (1.0-4.3) K/uL [place] # (0.0-0.8) K/uL Eos # (0.0-0.7) K/uL Baso # (0.0-0.2) K/uL Neutrophils % (Manual) (50-75) % Lymphocytes % (Manual) (20-40) % Monocytes % (Manual) (0-10) % Eosinophils % (Manual) (0-4) % Platelet Estimate (NORMAL) RBC Morphology Sodium 131 L (132-148) mmol/L Potassium 3.9 (3.6-5.2) mmol/L Chloride 97 L (98-107) mmol/L Carbon Dioxide 27 (22-30) mmol/L Anion Gap 11 (10-20) BUN 18 (9-20) mg/dL Creatinine 0.7 L (0.8-1.5) mg/dL Est GFR ( Amer) > 60 Est GFR (Non-Af Amer) > 60 POC Glucose (mg/dL) 142 H (65-110) mg/dL Random Glucose 118 H (75-110) mg/dL Serum Osmolality 282 (272-300) mosm/kg Calcium 8.1 L (8.6-10.4) mg/dl Total Bilirubin (0.2-1.3) mg/dL AST (17-59) U/L ALT (21-72) U/L Alkaline Phosphatase (38-126) U/L Total Protein (6.3-8.3) g/dL Albumin (3.5-5.0) g/dL Globulin (2.2-3.9) gm/dL Albumin/Globulin Ratio (1.0-2.1) Triglycerides (0-149) mg/dL Cholesterol (0-199) mg/dL LDL Cholesterol Direct (0-129) mg/dL HDL Cholesterol (30-70) mg/dL 04/10/17 04/10/17 04/10/17 Range/Units 11:09 06:47 06:47 WBC 9.8 (4.8-10.8) K/uL RBC 4.56 (4.40-5.90) Mil/uL Hgb 14.2 (12.0-18.0) g/dL Hct 41.1 (35.0-51.0) % MCV 90.2 (80.0-94.0) fL MCH 31.2 H (27.0-31.0) pg MCHC 34.6 (33.0-37.0) g/dL RDW 13.5 (11.5-14.5) % Plt Count 219 (130-400) K/uL MPV 8.1 (7.2-11.7) fL Neut % (Auto) 78.0 H (50.0-75.0) % Lymph % (Auto) 9.9 L (20.0-40.0) % [place] % (Auto) 10.8 H (0.0-10.0) % Eos % (Auto) 1.0 (0.0-4.0) % Baso % (Auto) 0.3 (0.0-2.0) % Neut # 7.7 H (1.8-7.0) K/uL Lymph # 1.0 (1.0-4.3) K/uL [place] # 1.1 H (0.0-0.8) K/uL Eos # 0.1 (0.0-0.7) K/uL Baso # 0.0 (0.0-0.2) K/uL Neutrophils % (Manual) 80 H (50-75) % Lymphocytes % (Manual) 11 L (20-40) % Monocytes % (Manual) 7 (0-10) % Eosinophils % (Manual) 2 (0-4) % Platelet Estimate Normal (NORMAL) RBC Morphology Normal Sodium 130 L (132-148) mmol/L Potassium 3.7 (3.6-5.2) mmol/L Chloride 99 (98-107) mmol/L Carbon Dioxide 24 (22-30) mmol/L Anion Gap 12 (10-20) BUN 18 (9-20) mg/dL Creatinine 0.7 L (0.8-1.5) mg/dL Est GFR ( Amer) > 60 Est GFR (Non-Af Amer) > 60 POC Glucose (mg/dL) 99 (65-110) mg/dL Random Glucose 98 (75-110) mg/dL Serum Osmolality (272-300) mosm/kg Calcium 8.1 L (8.6-10.4) mg/dl Total Bilirubin 1.9 H (0.2-1.3) mg/dL AST 22 (17-59) U/L ALT 64 (21-72) U/L Alkaline Phosphatase 78 (38-126) U/L Total Protein 6.4 (6.3-8.3) g/dL Albumin 3.5 (3.5-5.0) g/dL Globulin 2.9 (2.2-3.9) gm/dL Albumin/Globulin Ratio 1.2 (1.0-2.1) Triglycerides 70 (0-149) mg/dL Cholesterol 141 (0-199) mg/dL LDL Cholesterol Direct 83 (0-129) mg/dL HDL Cholesterol 32 (30-70) mg/dL 04/10/17 04/09/17 Range/Units 06:24 21:18 WBC (4.8-10.8) K/uL RBC (4.40-5.90) Mil/uL Hgb (12.0-18.0) g/dL Hct (35.0-51.0) % MCV (80.0-94.0) fL MCH (27.0-31.0) pg MCHC (33.0-37.0) g/dL RDW (11.5-14.5) % Plt Count (130-400) K/uL MPV (7.2-11.7) fL Neut % (Auto) (50.0-75.0) % Lymph % (Auto) (20.0-40.0) % [place] % (Auto) (0.0-10.0) % Eos % (Auto) (0.0-4.0) % Baso % (Auto) (0.0-2.0) % Neut # (1.8-7.0) K/uL Lymph # (1.0-4.3) K/uL [place] # (0.0-0.8) K/uL Eos # (0.0-0.7) K/uL Baso # (0.0-0.2) K/uL Neutrophils % (Manual) (50-75) % Lymphocytes % (Manual) (20-40) % Monocytes % (Manual) (0-10) % Eosinophils % (Manual) (0-4) % Platelet Estimate (NORMAL) RBC Morphology Sodium (132-148) mmol/L Potassium (3.6-5.2) mmol/L Chloride (98-107) mmol/L Carbon Dioxide (22-30) mmol/L Anion Gap (10-20) BUN (9-20) mg/dL Creatinine (0.8-1.5) mg/dL Est GFR ( Amer) Est GFR (Non-Af Amer) POC Glucose (mg/dL) 96 111 H (65-110) mg/dL Random Glucose (75-110) mg/dL Serum Osmolality (272-300) mosm/kg Calcium (8.6-10.4) mg/dl Total Bilirubin (0.2-1.3) mg/dL AST (17-59) U/L ALT (21-72) U/L Alkaline Phosphatase (38-126) U/L Total Protein (6.3-8.3) g/dL Albumin (3.5-5.0) g/dL Globulin (2.2-3.9) gm/dL Albumin/Globulin Ratio (1.0-2.1) Triglycerides (0-149) mg/dL Cholesterol (0-199) mg/dL LDL Cholesterol Direct (0-129) mg/dL HDL Cholesterol (30-70) mg/dL Laboratory Results - last 24 hr 04/09/17 04/10/17 04/10/17 21:18 06:24 06:47 WBC 9.8 RBC 4.56 Hgb 14.2 Hct 41.1 MCV 90.2 MCH 31.2 H MCHC 34.6 RDW 13.5 Plt Count 219 MPV 8.1 Neut % (Auto) 78.0 H Lymph % (Auto) 9.9 L [place] % (Auto) 10.8 H Eos % (Auto) 1.0 Baso % (Auto) 0.3 Neut # 7.7 H Lymph # 1.0 [place] # 1.1 H Eos # 0.1 Baso # 0.0 Neutrophils % (Manual) 80 H Lymphocytes % (Manual) 11 L Monocytes % (Manual) 7 Eosinophils % (Manual) 2 Platelet Estimate Normal RBC Morphology Normal Sodium Potassium Chloride Carbon Dioxide Anion Gap BUN Creatinine Est GFR ( Amer) Est GFR (Non-Af Amer) POC Glucose (mg/dL) 111 H 96 Random Glucose Serum Osmolality Calcium Total Bilirubin AST ALT Alkaline Phosphatase Total Protein Albumin Globulin Albumin/Globulin Ratio Triglycerides Cholesterol LDL Cholesterol Direct HDL Cholesterol 04/10/17 04/10/17 04/10/17 06:47 11:09 12:47 WBC RBC Hgb Hct MCV MCH MCHC RDW Plt Count MPV Neut % (Auto) Lymph % (Auto) [place] % (Auto) Eos % (Auto) Baso % (Auto) Neut # Lymph # [place] # Eos # Baso # Neutrophils % (Manual) Lymphocytes % (Manual) Monocytes % (Manual) Eosinophils % (Manual) Platelet Estimate RBC Morphology Sodium 130 L 131 L Potassium 3.7 3.9 Chloride 99 97 L Carbon Dioxide 24 27 Anion Gap 12 11 BUN 18 18 Creatinine 0.7 L 0.7 L Est GFR ( Amer) > 60 > 60 Est GFR (Non-Af Amer) > 60 > 60 POC Glucose (mg/dL) 99 Random Glucose 98 118 H Serum Osmolality Calcium 8.1 L 8.1 L Total Bilirubin 1.9 H AST 22 ALT 64 Alkaline Phosphatase 78 Total Protein 6.4 Albumin 3.5 Globulin 2.9 Albumin/Globulin Ratio 1.2 Triglycerides 70 Cholesterol 141 LDL Cholesterol Direct 83 HDL Cholesterol 32 04/10/17 04/10/17 17:55 19:49 WBC RBC Hgb Hct MCV MCH MCHC RDW Plt Count MPV Neut % (Auto) Lymph % (Auto) [place] % (Auto) Eos % (Auto) Baso % (Auto) Neut # Lymph # [place] # Eos # Baso # Neutrophils % (Manual) Lymphocytes % (Manual) Monocytes % (Manual) Eosinophils % (Manual) Platelet Estimate RBC Morphology Sodium Potassium Chloride Carbon Dioxide Anion Gap BUN Creatinine Est GFR ( Amer) Est GFR (Non-Af Amer) POC Glucose (mg/dL) 142 H Random Glucose Serum Osmolality 282 Calcium Total Bilirubin AST ALT Alkaline Phosphatase Total Protein Albumin Globulin Albumin/Globulin Ratio Triglycerides Cholesterol LDL Cholesterol Direct HDL Cholesterol Fingerstick Blood Sugar Results: 100 Critical Care Progress Note - Nutrition Nutrition: Nutrition Category Date Time Status Dysphagia/Modified Consistency Diet [DIET] Diets 04/10/17 Lunch Active
[2017-04-10 21:43] LABS: BLOOD UREA NITROGEN 16 mg/dL (9-20); CALCIUM 7.8 mg/dl (8.6-10.4); CARBON DIOXIDE 21 mmol/L (22-30); CHLORIDE 101 mmol/L (98-107); GFR AFRICAN-AMERICAN > 60; GLUCOSE,RANDOM 104 mg/dL (75-110); POTASSIUM 3.7 mmol/L (3.6-5.2); SODIUM 131 mmol/L (132-148)
[2017-04-10] MEDS: Rosuvastatin Calcium 2.5 mg Tab PO SCH (21:54)
--- NOTE | 2017-04-10 22:10 | CARD ---
APPROVED REPORT EXAM: LIMITED Two-dimensional echocardiogram with BUBBLE STUDY INDICATION CVA/TIA Mitral Valve E/A ratio0.0 TDI E/Lateral E'0.0E/Medial E'0.0 <Conclusion> Normal LV systolic function. No L-R shunt seen.
--- NOTE | 2017-04-11 03:18 | PN ---
DATE: 04/10/2017 SUBJECTIVE: The patient was seen and examined this afternoon at bedside. Events from the weekend noted. The patient now with a new-onset left-sided weakness, claiming that he is not feeling well, unable to specify his symptoms, answering to questions appropriately. Denies any headache or dizziness. Denies any chest pain, shortness of breath, or wheezing. Denies any other complaints. PHYSICAL EXAMINATION: GENERAL: Elderly male, lying in bed, in no acute distress. VITAL SIGNS: Blood pressure 132/58, pulse 58, respirations 15, temperature 97.8 degrees Fahrenheit, O2 sat is 97% on room air, intake was not counted on the floor. HEENT: Pupils, the right reacting to light and accommodation. Extraocular muscles intact. No icterus. No pallor. Left eye blindness. No oral thrush. No pharyngeal congestion. Right-sided parietal nupur in place. No oozing noted, with dressing in place. NECK: Supple. No JVD. LUNGS: Bilateral vesicular breath sounds. No wheezing. No rhonchi. CARDIOVASCULAR: S1 and S2 present, regular. ABDOMEN: Soft and nontender. Bowel sounds are present. No guarding. No rigidity. No rebound tenderness noted. CENTRAL NERVOUS SYSTEM: Somewhat drowsy than Monday, but able to answer to the questions appropriately, and following simple commands. There is left-sided weakness with power 3/5 in the left upper and lower extremities with left facial droop. Did not test gait. EXTREMITIES: No edema. Peripheral pulses are positive. LABORATORY DATA: His labs include WBC 9.8, hemoglobin 14.2, hematocrit 41.2, and platelets 219. Sodium 131, potassium 3.7, chloride 101, bicarb 21, BUN 16, creatinine 0.6, and glucose 104. Calcium 7.8. Repeat CT head from this morning shows stable postoperative changes, status post right frontotemporal craniotomy, diminishing right frontal pneumocephalus, stable extra-axial hemorrhagic element including subdural and likely small epidural hematomas of the right convexity, cerebral mass effect - unchanged, continued clinical and CT monitoring are advised. MEDICATIONS: His medications include, Dulcolax 10 mg daily p.r.n., Colace 100 mg p.o. daily, folic acid 1 mg p.o. daily, Keppra 750 mg p.o. b.i.d., Zestril 2.5 mg p.o. daily, multivitamin 1 tab daily, Zofran as needed, Protonix, Crestor 2.5 mg at bedtime, Senokot, hypertonic saline 30 mL per hour, sodium chloride tablet 1 g p.o. b.i.d., and thiamine 100 mg p.o. daily. ASSESSMENT AND PLAN: An elderly male with history of hypertension, hyperlipidemia, history of ethyl alcohol abuse, status post fall, admitted for altered mental status, found to be having right subdural hematoma and intracranial hemorrhage with surrounding edema, status post craniotomy and evacuation of the subdural hematoma, status post removal of the drain, now with new-onset left-sided weakness, rule out new-onset cerebrovascular accident versus postictal state, rule out secondary to worsening edema. The patient is restarted on hypertonic saline and evaluated by Neurology this morning. Discussed with Dr. Gilbert, who does not want the patient to be on Decadron at this time, and Keppra was increased from 500 mg to 750 mg p.o. b.i.d. We will monitor the patient closely in the ICU setting with frequent Neuro checks. Discussed with the datacap developer and the patient has been transferred to ICU for close monitoring of his neurologic status. We will follow up with Neurosurgery. We will continue with current medications. Discussed with the patient's nephew and explained the patient's critical condition. The patient's family understands the patient's critical condition. We will continue with deep venous thrombosis and gastrointestinal prophylaxis. Afia Chirinos MD
[2017-04-11 06:38] LABS: BASO % 0.2 % (0.0-2.0); EOS # 0.1 K/uL (0.0-0.7); EOS % 1.8 % (0.0-4.0); HEMATOCRIT 37.5 % (35.0-51.0); LYMPH # 0.8 K/uL (1.0-4.3); LYMPH % 10.3 % (20.0-40.0); MEAN CELL VOLUME 91.7 fL (80.0-94.0); MEAN CORPUSCULAR HEMOGLOBIN 31.1 pg (27.0-31.0); MEAN CORPUSCULAR HGB CONC 33.9 g/dL (33.0-37.0); MEAN PLATELET VOLUME 7.5 fL (7.2-11.7); MONO # 0.9 K/uL (0.0-0.8); RED CELL DISTRIBUTION WIDTH 13.5 % (11.5-14.5); WHITE BLOOD COUNT 8.2 K/uL (4.8-10.8)
[2017-04-11 06:51] LABS: BLOOD UREA NITROGEN 16 mg/dL (9-20); CALCIUM 7.6 mg/dl (8.6-10.4); CARBON DIOXIDE 23 mmol/L (22-30); CHLORIDE 104 mmol/L (98-107); GFR AFRICAN-AMERICAN > 60; GLUCOSE,RANDOM 92 mg/dL (75-110); POTASSIUM 3.8 mmol/L (3.6-5.2); SODIUM 131 mmol/L (132-148)
--- NOTE | 2017-04-11 07:04 | CP.PCM.PN ---
<NasjanetteCristal - Last Filed: 04/11/17 07:45> Subjective - Date & Time of Evaluation Date of Evaluation: 04/11/17 Time of Evaluation: 07:01 - Subjective Subjective: PGY1 progress note for cardiology, Dr. Velasquez Pt is seen and examined at bedside. Pt was transferred to ICU yesterday for closer monitoring with suspicion for worsening cerebral edema. Pt is alert and awake and answering questions without difficulty. A&Ox 2 (person and place). C /o headache at incision site. Denies having any CP, SOB, abd pain, N/V/D/C. 12 point ROS are negative except for the above mentioned. Objective - Vital Signs/Intake and Output Vital Signs (last 24 hours): Temp Pulse Resp BP Pulse Ox 98 F 47 L 10 L 108/46 L 94 L 04/11/17 01:00 04/11/17 06:49 04/11/17 06:49 04/11/17 06:49 04/11/17 06:49 Intake and Output: 04/11/17 04/11/17 06:59 18:59 Intake Total 590 Balance 590 - Medications Medications: Current Medications Bisacodyl (Dulcolax) 10 mg [place] DAILY PRN PRN Reason: constipation Docusate Sodium (Colace) 100 mg PO DAILY [facility] Last Admin: 04/10/17 12:21 Dose: 100 mg Folic Acid (Folic Acid) 1 mg PO DAILY [facility] Levetiracetam (Keppra) 750 mg PO BID [facility] Last Admin: 04/10/17 18:24 Dose: 750 mg Lisinopril (Zestril) 2.5 mg PO DAILY [facility] Last Admin: 04/10/17 18:23 Dose: 2.5 mg Multivitamins (Hexavitamin) 1 tab PO DAILY [facility] Ondansetron HCl (Zofran Inj) 4 mg IVP Q8 PRN PRN Reason: Nausea/Vomiting Last Admin: 04/08/17 14:53 Dose: 4 mg Pantoprazole Sodium (Protonix Ec Tab) 40 mg PO DAILY [facility] Last Admin: 04/10/17 12:20 Dose: 40 mg Rosuvastatin Calcium (Crestor) 2.5 mg PO HS [facility] Last Admin: 04/10/17 21:54 Dose: 2.5 mg Sennosides (Senokot Tab) 8.6 mg PO DAILY [facility] Last Admin: 04/10/17 12:21 Dose: 8.6 mg Sodium Chloride (Sodium Chloride Tab) 1 gm PO BID [facility] Last Admin: 04/10/17 18:23 Dose: 1 gm Thiamine HCl (Vitamin B1 Tab) 100 mg PO DAILY [facility] - Labs Labs: 04/11/17 06:30 04/11/17 06:30 PT 11.6 SECONDS (9.7-12.2) 04/04/17 06:22 INR 1.0 04/04/17 06:22 APTT 27 SECONDS (21-34) D 04/04/17 06:22 - Constitutional Appears: Non-toxic, No Acute Distress - Eye Exam Pupil Exam: PERRL - ENT Exam ENT Exam: Mucous Membranes Moist - Respiratory Exam Respiratory Exam: Clear to Ausculation Bilateral, NORMAL BREATHING PATTERN. absent: Accessory Muscle Use, Rales, Rhonchi, Wheezes, Respiratory Distress - Cardiovascular Exam Cardiovascular Exam: REGULAR RHYTHM, +S1, +S2 - GI/Abdominal Exam GI & Abdominal Exam: Soft, Normal Bowel Sounds. absent: Distended, Firm, Guarding, Rigid, Tenderness - Extremities Exam Extremities Exam: absent: Pedal Edema, Tenderness - Neurological Exam Neurological Exam: Alert, Awake. absent: Oriented x3 (A&Ox2) Additional comments: Patient is following command. Patient states he has sensation in both upper and lower extremities. - Psychiatric Exam Psychiatric exam: Normal Affect, Normal Mood - Skin Skin Exam: Dry, Intact, Normal Color, Warm Assessment and Plan - Assessment and Plan (Free Text) Assessment: 71 year old male with past medical history of HTN, left eye blindness, depression, ETOH abuse and multiple falls is being seen by cardiology for persistent bradycardia. Patient was noted to have new left sided weakness and this morning noted to have new left sided facial droop. 1. Acute intra-cranial hemorrhage - Echo with bubble study was normal - CT of head done yesterday showed no new changes - Patient is on hypertonic saline and salt tablets to decrease intracranial pressure. Monitoring serum osmolality and Na q6h - started pt on low dose statin and ACEI 2. Sinus bradycardia - bradycardia may be 2/2 increased intracranial pressures - Will continue to monitor 3. HTN - Currently on Norvasc 5 mg PO QD. All orders and management per Dr. Velasquez <Prateek Velasquez - Last Filed: 04/12/17 00:54> Objective - Vital Signs/Intake and Output Vital Signs (last 24 hours): Temp Pulse Resp BP Pulse Ox 9.3 F L 58 L 17 133/52 L 97 04/11/17 18:00 04/12/17 00:42 04/12/17 00:42 04/12/17 00:42 04/12/17 00:42 Intake and Output: 04/11/17 04/12/17 18:59 06:59 Intake Total 330 1000 Balance 330 1000 - Medications Medications: Current Medications Bisacodyl (Dulcolax) 10 mg [place] DAILY PRN PRN Reason: constipation Docusate Sodium (Colace) 100 mg PO DAILY [facility] Last Admin: 04/11/17 12:22 Dose: Not Given Folic Acid (Folic Acid) 1 mg PO DAILY [facility] Last Admin: 04/11/17 10:10 Dose: 1 mg Sodium Chloride (Hypertonic Saline 3%) 500 mls @ 50 mls/hr IV .Q10H ONE Stop: 04/12/17 09:38 Last Admin: 04/12/17 00:30 Dose: 50 mls/hr Levetiracetam (Keppra) 750 mg PO BID [facility] Last Admin: 04/11/17 17:45 Dose: 750 mg Lisinopril (Zestril) 2.5 mg PO DAILY [facility] Last Admin: 04/11/17 10:18 Dose: Not Given Multivitamins (Hexavitamin) 1 tab PO DAILY [facility] Last Admin: 04/11/17 13:12 Dose: 1 tab Ondansetron HCl (Zofran Inj) 4 mg IVP Q8 PRN PRN Reason: Nausea/Vomiting Last Admin: 04/08/17 14:53 Dose: 4 mg Pantoprazole Sodium (Protonix Ec Tab) 40 mg PO DAILY [facility] Last Admin: 04/11/17 10:10 Dose: 40 mg Rosuvastatin Calcium (Crestor) 2.5 mg PO HS [facility] Last Admin: 04/11/17 21:50 Dose: 2.5 mg Sennosides (Senokot Tab) 8.6 mg PO DAILY [facility] Last Admin: 04/11/17 10:10 Dose: 8.6 mg Sodium Chloride (Sodium Chloride Tab) 1 gm PO BID [facility] Last Admin: 04/11/17 17:45 Dose: 1 gm Thiamine HCl (Vitamin B1 Tab) 100 mg PO DAILY [facility] Last Admin: 04/11/17 10:10 Dose: 100 mg - Labs Labs: 04/11/17 06:30 04/11/17 06:30 PT 11.6 SECONDS (9.7-12.2) 04/04/17 06:22 INR 1.0 04/04/17 06:22 APTT 27 SECONDS (21-34) D 04/04/17 06:22 Attending/Attestation - Attestation I have personally seen and examined this patient.: Yes I have fully participated in the care of the patient.: Yes I have reviewed all pertinent clinical information, including history, physical exam and plan: Yes
--- NOTE | 2017-04-11 09:32 | CT ---
PROCEDURE: CT HEAD WITHOUT CONTRAST. HISTORY: change in mentation, rightward gaze preference COMPARISON: None available. TECHNIQUE: Axial computed tomography images were obtained through the head/brain without intravenous contrast. Radiation dose: Total exam DLP = 1109.73 mGy-cm. This CT exam was performed using one or more of the following dose reduction techniques: Automated exposure control, adjustment of the mA and/or kV according to patient size, and/or use of iterative reconstruction technique. FINDINGS: Prior right frontal temporal craniotomy again appreciated with skin nupur again seen in position at the right temporal scalp. Chronic right frontal intraparenchymal hemorrhage is again identified with local edema a stable 15 mm leftward still fall seen hernia is again appreciated as result, not simply changed. No interval acute intracranial hemorrhage identified. Residual chronic subdural and epidural hematomas are again seen along the right cerebral convexity as well as postoperative pneumocephaly with a few sulci appearing to return from effacement. The majority of sulci remain effaced however at the right cerebral hemisphere. No interval change in partial face of the right lateral ventricle body. Left scalp hematoma appears reduced if not resolved. Minimal right elbow herniation is again appreciated impression the upper gentry minimally with the basilar cisterns otherwise widely patent. Posterior fossa contents appear unremarkable. Subtle left parietal bone nondisplaced fracture again evident. PARANASAL SINUSES: Unremarkable as visualized. No significant inflammatory changes. MASTOID AIR CELLS: Unremarkable as visualized. No inflammatory changes. 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 IMPRESSION: Stable right frontal intraparenchymal hemorrhage as well as right cerebral convexity subdural and epidural hematomata though there is some evidence of diminishing volume in the extra-axial hemorrhage as several right cerebral sulci appear to be increasing in volume slightly. Prior right frontotemporal craniotomy again evident with pneumocephaly not significantly changed.
[2017-04-11] MEDS: Pantoprazole 40 mg EC Tab PO SCH (10:10)
--- NOTE | 2017-04-11 10:47 | CP.CCUPN ---
Addendum entered and electronically signed by Maryann Mejía DO 04/11/17 14:13: Patient has right upward gaze on right eye. left eye is blind. not EOMI Original Note: <Maryann Mejía - Last Filed: 04/11/17 14:08> CCU Subjective - Physician Review Subjective (Free Text): 04/11/17 14:[address] Art Patient seen and examined at bedside. Patient currently with no complaints. Alert and oriented x 2 (to self and place). Answering questions without difficulty. Denies fevers, chills, SOB, CP, nausea, vomiting, or diarrhea. Nephew and daughter at bedside report that patient appears to be slightly more lethargic this AM. Patient has Right IJ TLC inserted at bedside at 16cm. Critical Care Time Spent (in minutes): 35 CCU Objective - Vital Signs / Intake & Output Vital Signs (Last 4 hours): Vital Signs Pulse Resp BP Pulse Ox 04/11/17 08:00 48 L 14 04/11/17 07:42 46 L 18 118/43 L 04/11/17 07:00 48 L 18 04/11/17 06:49 47 L 10 L 108/46 L 94 L Intake and Output (Last 8hrs): Intake & Output 04/10/17 04/11/17 04/11/17 22:59 06:59 14:59 Intake Total 230 360 30 Balance 230 360 30 Weight 158 lb Intake: Intake, IV Amount 30 240 30 Left Forearm 30 240 30 Right Distal Port 0 Internal Jugular Oral 200 120 0 Other: # Bowel Movements 0 1 0 - Physical Exam Head: Positive for: Other (Drain located on right side of head. Surgical dressing in place - some strikethrough with dried blood. ) Pupils: Positive for: PERRL, Other ((blind in left eye)) Extroacular Muscles: Positive for: 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 Negative for: Respiratory Distress, Accessory Muscle Use Cardiovascular: Positive for: Bradycardic (sinus) Abdomen: Positive for: Normal Bowel Sounds. Negative for: Tenderness, Distention, Peritoneal Signs Lower Extremity: Positive for: Other (SCDs in place.) Neurological: Positive for: GCS=15, Speech Normal (much improved compared to today), Motor Func Grossly Intact (5/5 strength b/l for UE and LE. No pronator drift. ) Skin: Positive for: Warm, Dry Psychiatric: Positive for: Alert. Negative for: Oriented x 3 (Oriented to self , but not date or place - thinks year is 1981 and he states he does not know where he is at. ) - Medications Active Medications: Active Medications Generic Name Dose Route Start Last Admin Trade Name Freq PRN Reason Stop Dose Admin Bisacodyl 10 mg 04/07/17 10:00 Dulcolax PA DAILY PRN constipation Docusate Sodium 100 mg 04/07/17 10:00 04/10/17 12:21 Colace PO 100 mg DAILY ALBERTO Administration Folic Acid 1 mg 04/11/17 10:00 Folic Acid PO DAILY ALBERTO Levetiracetam 750 mg 04/09/17 18:00 04/10/17 18:24 Keppra PO 750 mg BID ALBERTO Administration Lisinopril 2.5 mg 04/10/17 15:45 04/11/17 10:18 Zestril PO Not Given DAILY ALBERTO Multivitamins 1 tab 04/11/17 10:00 Hexavitamin PO DAILY ALBERTO Ondansetron HCl 4 mg 04/07/17 08:55 04/08/17 14:53 Zofran Inj IVP 4 mg Q8 PRN Administration Nausea/Vomiting Pantoprazole Sodium 40 mg 03/31/17 10:00 04/10/17 12:20 Protonix Ec Tab PO 40 mg DAILY ALBERTO Administration Rosuvastatin Calcium 2.5 mg 04/10/17 22:00 04/10/17 21:54 Crestor PO 2.5 mg HS ALBERTO Administration Sennosides 8.6 mg 04/07/17 10:00 04/10/17 12:21 Senokot Tab PO 8.6 mg DAILY ALBERTO Administration Sodium Chloride 1 gm 04/10/17 10:00 04/10/17 18:23 Sodium Chloride Tab PO 1 gm BID ALBERTO Administration Thiamine HCl 100 mg 04/11/17 10:00 Vitamin B1 Tab PO DAILY ALBERTO - Patient Studies Lab Studies: Lab Studies 04/11/17 04/11/17 04/11/17 Range/Units 06:30 06:30 06:30 WBC 8.2 (4.8-10.8) K/uL RBC 4.09 L (4.40-5.90) Mil/uL Hgb 12.7 (12.0-18.0) g/dL Hct 37.5 (35.0-51.0) % MCV 91.7 (80.0-94.0) fL MCH 31.1 H (27.0-31.0) pg MCHC 33.9 (33.0-37.0) g/dL RDW 13.5 (11.5-14.5) % Plt Count 207 (130-400) K/uL MPV 7.5 (7.2-11.7) fL Neut % (Auto) 76.7 H (50.0-75.0) % Lymph % (Auto) 10.3 L (20.0-40.0) % [place] % (Auto) 11.0 H (0.0-10.0) % Eos % (Auto) 1.8 (0.0-4.0) % Baso % (Auto) 0.2 (0.0-2.0) % Neut # 6.3 (1.8-7.0) K/uL Lymph # 0.8 L (1.0-4.3) K/uL [place] # 0.9 H (0.0-0.8) K/uL Eos # 0.1 (0.0-0.7) K/uL Baso # 0.0 (0.0-0.2) K/uL Sodium 131 L (132-148) mmol/L Potassium 3.8 (3.6-5.2) mmol/L Chloride 104 (98-107) mmol/L Carbon Dioxide 23 (22-30) mmol/L Anion Gap 8 L (10-20) BUN 16 (9-20) mg/dL Creatinine 0.7 L (0.8-1.5) mg/dL Est GFR ( Amer) > 60 Est GFR (Non-Af Amer) > 60 POC Glucose (mg/dL) (65-110) mg/dL Random Glucose 92 (75-110) mg/dL Serum Osmolality 289 (272-300) mosm/kg Calcium 7.6 L (8.6-10.4) mg/dl 04/10/17 04/10/17 04/10/17 Range/Units 21:25 19:49 17:55 WBC (4.8-10.8) K/uL RBC (4.40-5.90) Mil/uL Hgb (12.0-18.0) g/dL Hct (35.0-51.0) % MCV (80.0-94.0) fL MCH (27.0-31.0) pg MCHC (33.0-37.0) g/dL RDW (11.5-14.5) % Plt Count (130-400) K/uL MPV (7.2-11.7) fL Neut % (Auto) (50.0-75.0) % Lymph % (Auto) (20.0-40.0) % [place] % (Auto) (0.0-10.0) % Eos % (Auto) (0.0-4.0) % Baso % (Auto) (0.0-2.0) % Neut # (1.8-7.0) K/uL Lymph # (1.0-4.3) K/uL [place] # (0.0-0.8) K/uL Eos # (0.0-0.7) K/uL Baso # (0.0-0.2) K/uL Sodium 131 L (132-148) mmol/L Potassium 3.7 (3.6-5.2) mmol/L Chloride 101 (98-107) mmol/L Carbon Dioxide 21 L (22-30) mmol/L Anion Gap 13 (10-20) BUN 16 (9-20) mg/dL Creatinine 0.6 L (0.8-1.5) mg/dL Est GFR ( Amer) > 60 Est GFR (Non-Af Amer) > 60 POC Glucose (mg/dL) 142 H (65-110) mg/dL Random Glucose 104 (75-110) mg/dL Serum Osmolality 282 (272-300) mosm/kg Calcium 7.8 L (8.6-10.4) mg/dl 04/10/17 04/10/17 Range/Units 12:47 11:09 WBC (4.8-10.8) K/uL RBC (4.40-5.90) Mil/uL Hgb (12.0-18.0) g/dL Hct (35.0-51.0) % MCV (80.0-94.0) fL MCH (27.0-31.0) pg MCHC (33.0-37.0) g/dL RDW (11.5-14.5) % Plt Count (130-400) K/uL MPV (7.2-11.7) fL Neut % (Auto) (50.0-75.0) % Lymph % (Auto) (20.0-40.0) % [place] % (Auto) (0.0-10.0) % Eos % (Auto) (0.0-4.0) % Baso % (Auto) (0.0-2.0) % Neut # (1.8-7.0) K/uL Lymph # (1.0-4.3) K/uL [place] # (0.0-0.8) K/uL Eos # (0.0-0.7) K/uL Baso # (0.0-0.2) K/uL Sodium 131 L (132-148) mmol/L Potassium 3.9 (3.6-5.2) mmol/L Chloride 97 L (98-107) mmol/L Carbon Dioxide 27 (22-30) mmol/L Anion Gap 11 (10-20) BUN 18 (9-20) mg/dL Creatinine 0.7 L (0.8-1.5) mg/dL Est GFR ( Amer) > 60 Est GFR (Non-Af Amer) > 60 POC Glucose (mg/dL) 99 (65-110) mg/dL Random Glucose 118 H (75-110) mg/dL Serum Osmolality (272-300) mosm/kg Calcium 8.1 L (8.6-10.4) mg/dl Laboratory Results - last 24 hr 04/10/17 04/10/17 04/10/17 11:09 12:47 17:55 WBC RBC Hgb Hct MCV MCH MCHC RDW Plt Count MPV Neut % (Auto) Lymph % (Auto) [place] % (Auto) Eos % (Auto) Baso % (Auto) Neut # Lymph # [place] # Eos # Baso # Sodium 131 L Potassium 3.9 Chloride 97 L Carbon Dioxide 27 Anion Gap 11 BUN 18 Creatinine 0.7 L Est GFR ( Amer) > 60 Est GFR (Non-Af Amer) > 60 POC Glucose (mg/dL) 99 142 H Random Glucose 118 H Serum Osmolality Calcium 8.1 L 04/10/17 04/10/17 04/11/17 19:49 21:25 06:30 WBC RBC Hgb Hct MCV MCH MCHC RDW Plt Count MPV Neut % (Auto) Lymph % (Auto) [place] % (Auto) Eos % (Auto) Baso % (Auto) Neut # Lymph # [place] # Eos # Baso # Sodium 131 L 131 L Potassium 3.7 3.8 Chloride 101 104 Carbon Dioxide 21 L 23 Anion Gap 13 8 L BUN 16 16 Creatinine 0.6 L 0.7 L Est GFR ( Amer) > 60 > 60 Est GFR (Non-Af Amer) > 60 > 60 POC Glucose (mg/dL) Random Glucose 104 92 Serum Osmolality 282 Calcium 7.8 L 7.6 L 04/11/17 04/11/17 06:30 06:30 WBC 8.2 RBC 4.09 L Hgb 12.7 Hct 37.5 MCV 91.7 MCH 31.1 H MCHC 33.9 RDW 13.5 Plt Count 207 MPV 7.5 Neut % (Auto) 76.7 H Lymph % (Auto) 10.3 L [place] % (Auto) 11.0 H Eos % (Auto) 1.8 Baso % (Auto) 0.2 Neut # 6.3 Lymph # 0.8 L [place] # 0.9 H Eos # 0.1 Baso # 0.0 Sodium Potassium Chloride Carbon Dioxide Anion Gap BUN Creatinine Est GFR ( Amer) Est GFR (Non-Af Amer) POC Glucose (mg/dL) Random Glucose Serum Osmolality 289 Calcium Fingerstick Blood Sugar Results: 100 Critical Care Progress Note - Ventilator Checklist Head of Bed 30 Degrees: No - Extremities/Vascular Does the Patient have a Central Venous Catheter?: Yes Insertion Site: Internal Jugular Vein Does the Patient need a Central Venous Catheter?: No Does the Patient have a Siddiqui Catheter?: No Does the Patient need a Siddiqui Catheter?: No - Nutrition Nutrition: Nutrition Category Date Time Status NPO Diet [DIET] Diets 04/11/17 Breakfast Active Assessment/Plan - Assessment and Plan (Free Text) Assessment: Assessment: Patient is a 71 year old male with past medical history of ETOH abuse, HTN, HLD , depression, presenting with recent fall with rib fractures and AMS, found to have an intracranial hemorrhage with worsening SDH. Patient s/p craniotomy/evac SDH on 04/05/2017. Patient noted to have right sided gaze preference and left sided weakness yesterday evening. Transferred to ICU for monitoring. Plan Neuro: Dr. Gilbert consulted, help appreciated Dr. Harmon consulted, help appreciated Intraparencymal Hemorrhage - stable Head CT 03/27/17 - Multifocal intracranial hemorrhage including the large right frontal parenchymal hemorrahge and multifocal extra-axial hemorrahges as described. Decreasing density of extra-axial blood noted in the right frontoparietal convexity hematoma and in the posterior right temporal hematoma. A right occipital extra-axial hemorrhage remains hyperdense consistent with acute blood. Increased midline shift towards the left of approximately 19 mm. No evidence of downward herniation. Repeat Head CT 03/29/17 - Large right frontal parenchymal hemorrhage with extensive surrounding edema and large midlfine shift towards henrry left. Decreasing size of posterior occipital biconvex hemorrhage. There is focal parenchymal edema deep to what was previously identified as a small right posterior temporal biconvex extra-axial acute hemorrhage. Complete effacement of right lateral ventricle with mild ventricular trapping and dilatation of the left lateral ventricle, unchanged in extent compared to 03/27/2017. Increasing size of right convexity subdural hemorrhage, decreased in attenuation. This now measures 11 mm in width. Repeat Head CT 04/01/17 - NO significant interval change noted since the previous exam. Re-demonstrated is internal hemorrhage at the right frontal lobe. Re-demonstrated is complex mainly chronic subdural hematoma along the right convexity with small foci of high attenuation suggestive of small acute on chronic hemorrhage. Mass effect on the lateral ventricle and approximately 16.6 millimeter right to left midline shift. Mild hydrocephalus Repeat Head CT 04/02/17 - No significant interval change when compared to the previous exam. Repeat Head CT 04/05/17 - Continued unremarkable expected evolution right inferior frontal pole on hematoma. Surrounding low-attenuation edema appears to be diminished slightly. Large hypodense chronic subdural hematoma. Persistent but slightly decreased mass-effect with a very slight decreased [id number] shift as above. Persistent dilatation left lateral ventricle due to compressive effects at the right foramen on [place]. Repeat Head CT 04/10/17 - Stable postoperative changes status post right frontotemporal craniotomy. Diminishing right frontal pneumocephaly. Stable extra -axial hemorrhagic elements including subdural and likely small epidural hematomas of the right convexity. Stable mass effect unchanged. 04/11/17 CT head - visually more edema than previous (04/10/17), Stable right frontal intraparenchymal hemorrhage as well as right cerebral convexity subdural and epidural hematomas though there is some evidence of diminishing volume in the extra-axial hemorrage as several right cerebral sulci appear to be increasing in volume slightly. Prior right frontotemporal craniotomy again evident with pneumocephaly not significantly changed. Will continue to monitor Aisha Patient's neurological exam confounded with history of alcohol abuse/withdrawal -[facility] protocol Multivitamine/thiamine/folic acid Keppra 750 mg PO BID Hypertonic Salne 3% 50 ml/hr -Na 131 today -Serum Osmol 294 f/u neuro recs -goal Na 140-145, monitor with BMP q6H -serum osmol, <320 monitor with serum osmol q6H -keep head of bed above 45 degrees -avoid dextrose containing fluids, hyperthermia or hypertension CV Sinus Bradycardia Dr. Velasquez consulted, help appreciated ECHO- EF 40-45%, mild LV dysfunction (possibly due to increased ICP) Started on Rosuvastatin 2.5 mg PO HS Started on Lisinopril 1 tab PO Daily GI: NPO at this time secondary to concerns of new onset focal neurological changes Prophylactic Care: DVT proph - SCDs, hold anticoagulation due to intracerebral bleed GI Proph - Protonix 40 mg PO Daily Case discussed with Dr. Art - Date & Time Date: 04/11/17 Time: 14:10 <Rene Art S - Last Filed: 04/11/17 16:09> CCU Objective - Vital Signs / Intake & Output Vital Signs (Last 4 hours): Vital Signs Pulse Resp BP Pulse Ox 04/11/17 15:00 50 L 18 04/11/17 14:42 53 L 9 L 84/49 L 04/11/17 14:00 48 L 12 04/11/17 13:43 47 L 12 84/36 L 91 L 04/11/17 13:00 50 L 17 94 L 04/11/17 12:41 47 L 11 L 124/50 L Intake and Output (Last 8hrs): Intake & Output 04/11/17 04/11/17 04/11/17 06:59 14:59 22:59 Intake Total 360 130 Balance 360 130 Weight 158 lb Intake: Intake, IV Amount 240 80 Left Forearm 240 30 Right Distal Port 50 Internal Jugular Oral 120 50 Other: # Bowel Movements 1 0 - Medications Active Medications: Active Medications Generic Name Dose Route Start Last Admin Trade Name Freq PRN Reason Stop Dose Admin Bisacodyl 10 mg 04/07/17 10:00 Dulcolax PA DAILY PRN constipation Docusate Sodium 100 mg 04/07/17 10:00 04/11/17 12:22 Colace PO Not Given DAILY ALBERTO Folic Acid 1 mg 04/11/17 10:00 04/11/17 10:10 Folic Acid PO 1 mg DAILY ALBERTO Administration Sodium Chloride 500 mls @ 50 mls/hr 04/11/17 13:12 04/11/17 14:11 Hypertonic Saline 3% IV 04/11/17 23:11 50 mls/hr .Q10H ONE Administration Levetiracetam 750 mg 04/09/17 18:00 04/11/17 10:10 Keppra PO 750 mg BID ALBERTO Administration Lisinopril 2.5 mg 04/10/17 15:45 04/11/17 10:18 Zestril PO Not Given DAILY ALBERTO Multivitamins 1 tab 04/11/17 10:00 04/11/17 13:12 Hexavitamin PO 1 tab DAILY ALBERTO Administration Ondansetron HCl 4 mg 04/07/17 08:55 04/08/17 14:53 Zofran Inj IVP 4 mg Q8 PRN Administration Nausea/Vomiting Pantoprazole Sodium 40 mg 03/31/17 10:00 04/11/17 10:10 Protonix Ec Tab PO 40 mg DAILY ALBERTO Administration Rosuvastatin Calcium 2.5 mg 04/10/17 22:00 04/10/17 21:54 Crestor PO 2.5 mg HS ALBERTO Administration Sennosides 8.6 mg 04/07/17 10:00 04/11/17 10:10 Senokot Tab PO 8.6 mg DAILY ALBERTO Administration Sodium Chloride 1 gm 04/10/17 10:00 04/11/17 12:10 Sodium Chloride Tab PO 1 gm BID ALBERTO Administration Thiamine HCl 100 mg 04/11/17 10:00 04/11/17 10:10 Vitamin B1 Tab PO 100 mg DAILY ALBERTO Administration - Patient Studies Lab Studies: Lab Studies 04/11/17 04/11/17 04/11/17 Range/Units 10:57 06:30 06:30 WBC 8.2 (4.8-10.8) K/uL RBC 4.09 L (4.40-5.90) Mil/uL Hgb 12.7 (12.0-18.0) g/dL Hct 37.5 (35.0-51.0) % MCV 91.7 (80.0-94.0) fL MCH 31.1 H (27.0-31.0) pg MCHC 33.9 (33.0-37.0) g/dL RDW 13.5 (11.5-14.5) % Plt Count 207 (130-400) K/uL MPV 7.5 (7.2-11.7) fL Neut % (Auto) 76.7 H (50.0-75.0) % Lymph % (Auto) 10.3 L (20.0-40.0) % [place] % (Auto) 11.0 H (0.0-10.0) % Eos % (Auto) 1.8 (0.0-4.0) % Baso % (Auto) 0.2 (0.0-2.0) % Neut # 6.3 (1.8-7.0) K/uL Lymph # 0.8 L (1.0-4.3) K/uL [place] # 0.9 H (0.0-0.8) K/uL Eos # 0.1 (0.0-0.7) K/uL Baso # 0.0 (0.0-0.2) K/uL Sodium (132-148) mmol/L Potassium (3.6-5.2) mmol/L Chloride (98-107) mmol/L Carbon Dioxide (22-30) mmol/L Anion Gap (10-20) BUN (9-20) mg/dL Creatinine (0.8-1.5) mg/dL Est GFR ( Amer) Est GFR (Non-Af Amer) POC Glucose (mg/dL) (65-110) mg/dL Random Glucose (75-110) mg/dL Serum Osmolality 294 289 (272-300) mosm/kg Calcium (8.6-10.4) mg/dl 04/11/17 04/10/17 04/10/17 Range/Units 06:30 21:25 19:49 WBC (4.8-10.8) K/uL RBC (4.40-5.90) Mil/uL Hgb (12.0-18.0) g/dL Hct (35.0-51.0) % MCV (80.0-94.0) fL MCH (27.0-31.0) pg MCHC (33.0-37.0) g/dL RDW (11.5-14.5) % Plt Count (130-400) K/uL MPV (7.2-11.7) fL Neut % (Auto) (50.0-75.0) % Lymph % (Auto) (20.0-40.0) % [place] % (Auto) (0.0-10.0) % Eos % (Auto) (0.0-4.0) % Baso % (Auto) (0.0-2.0) % Neut # (1.8-7.0) K/uL Lymph # (1.0-4.3) K/uL [place] # (0.0-0.8) K/uL Eos # (0.0-0.7) K/uL Baso # (0.0-0.2) K/uL Sodium 131 L 131 L (132-148) mmol/L Potassium 3.8 3.7 (3.6-5.2) mmol/L Chloride 104 101 (98-107) mmol/L Carbon Dioxide 23 21 L (22-30) mmol/L Anion Gap 8 L 13 (10-20) BUN 16 16 (9-20) mg/dL Creatinine 0.7 L 0.6 L (0.8-1.5) mg/dL Est GFR ( Amer) > 60 > 60 Est GFR (Non-Af Amer) > 60 > 60 POC Glucose (mg/dL) (65-110) mg/dL Random Glucose 92 104 (75-110) mg/dL Serum Osmolality 282 (272-300) mosm/kg Calcium 7.6 L 7.8 L (8.6-10.4) mg/dl 04/10/17 Range/Units 17:55 WBC (4.8-10.8) K/uL RBC (4.40-5.90) Mil/uL Hgb (12.0-18.0) g/dL Hct (35.0-51.0) % MCV (80.0-94.0) fL MCH (27.0-31.0) pg MCHC (33.0-37.0) g/dL RDW (11.5-14.5) % Plt Count (130-400) K/uL MPV (7.2-11.7) fL Neut % (Auto) (50.0-75.0) % Lymph % (Auto) (20.0-40.0) % [place] % (Auto) (0.0-10.0) % Eos % (Auto) (0.0-4.0) % Baso % (Auto) (0.0-2.0) % Neut # (1.8-7.0) K/uL Lymph # (1.0-4.3) K/uL [place] # (0.0-0.8) K/uL Eos # (0.0-0.7) K/uL Baso # (0.0-0.2) K/uL Sodium (132-148) mmol/L Potassium (3.6-5.2) mmol/L Chloride (98-107) mmol/L Carbon Dioxide (22-30) mmol/L Anion Gap (10-20) BUN (9-20) mg/dL Creatinine (0.8-1.5) mg/dL Est GFR ( Amer) Est GFR (Non-Af Amer) POC Glucose (mg/dL) 142 H (65-110) mg/dL Random Glucose (75-110) mg/dL Serum Osmolality (272-300) mosm/kg Calcium (8.6-10.4) mg/dl Laboratory Results - last 24 hr 04/10/17 04/10/17 04/10/17 17:55 19:49 21:25 WBC RBC Hgb Hct MCV MCH MCHC RDW Plt Count MPV Neut % (Auto) Lymph % (Auto) [place] % (Auto) Eos % (Auto) Baso % (Auto) Neut # Lymph # [place] # Eos # Baso # Sodium 131 L Potassium 3.7 Chloride 101 Carbon Dioxide 21 L Anion Gap 13 BUN 16 Creatinine 0.6 L Est GFR ( Amer) > 60 Est GFR (Non-Af Amer) > 60 POC Glucose (mg/dL) 142 H Random Glucose 104 Serum Osmolality 282 Calcium 7.8 L 04/11/17 04/11/17 04/11/17 06:30 06:30 06:30 WBC 8.2 RBC 4.09 L Hgb 12.7 Hct 37.5 MCV 91.7 MCH 31.1 H MCHC 33.9 RDW 13.5 Plt Count 207 MPV 7.5 Neut % (Auto) 76.7 H Lymph % (Auto) 10.3 L [place] % (Auto) 11.0 H Eos % (Auto) 1.8 Baso % (Auto) 0.2 Neut # 6.3 Lymph # 0.8 L [place] # 0.9 H Eos # 0.1 Baso # 0.0 Sodium 131 L Potassium 3.8 Chloride 104 Carbon Dioxide 23 Anion Gap 8 L BUN 16 Creatinine 0.7 L Est GFR ( Amer) > 60 Est GFR (Non-Af Amer) > 60 POC Glucose (mg/dL) Random Glucose 92 Serum Osmolality 289 Calcium 7.6 L 04/11/17 10:57 WBC RBC Hgb Hct MCV MCH MCHC RDW Plt Count MPV Neut % (Auto) Lymph % (Auto) [place] % (Auto) Eos % (Auto) Baso % (Auto) Neut # Lymph # [place] # Eos # Baso # Sodium Potassium Chloride Carbon Dioxide Anion Gap BUN Creatinine Est GFR ( Amer) Est GFR (Non-Af Amer) POC Glucose (mg/dL) Random Glucose Serum Osmolality 294 Calcium Critical Care Progress Note - Nutrition Nutrition: Nutrition Category Date Time Status NPO Diet [DIET] Diets 04/11/17 Breakfast Active Attending/Attestation - Attestation I have personally seen and examined this patient.: Yes I have fully participated in the care of the patient.: Yes I have reviewed all pertinent clinical information: Yes Notes (Text): 04/11/17 16:08 Patient seen and examined in the intensive care unit. Case discussed with staff in the morning around No change in mental status On 3% sodium chloride Triple-lumen catheter inserted under aseptic condition right internal jugular vein Monitor osmolality and serum sodium level Follow-up repeat CAT scan of the head Neurology follow-up
--- NOTE | 2017-04-11 10:59 | CP.PCM.PN ---
Subjective - Date & Time of Evaluation Date of Evaluation: 04/11/17 Time of Evaluation: 10:40 - Subjective Subjective: Progress note dictated #[id number] Objective - Vital Signs/Intake and Output Vital Signs (last 24 hours): Temp Pulse Resp BP Pulse Ox 98 F 48 L 14 118/43 L 94 L 04/11/17 01:00 04/11/17 08:00 04/11/17 08:00 04/11/17 07:42 04/11/17 06:49 Intake and Output: 04/11/17 04/11/17 06:59 18:59 Intake Total 590 30 Balance 590 30 - Medications Medications: Current Medications Bisacodyl (Dulcolax) 10 mg [place] DAILY PRN PRN Reason: constipation Docusate Sodium (Colace) 100 mg PO DAILY [facility] Last Admin: 04/10/17 12:21 Dose: 100 mg Folic Acid (Folic Acid) 1 mg PO DAILY [facility] Levetiracetam (Keppra) 750 mg PO BID [facility] Last Admin: 04/10/17 18:24 Dose: 750 mg Lisinopril (Zestril) 2.5 mg PO DAILY [facility] Last Admin: 04/11/17 10:18 Dose: Not Given Multivitamins (Hexavitamin) 1 tab PO DAILY [facility] Ondansetron HCl (Zofran Inj) 4 mg IVP Q8 PRN PRN Reason: Nausea/Vomiting Last Admin: 04/08/17 14:53 Dose: 4 mg Pantoprazole Sodium (Protonix Ec Tab) 40 mg PO DAILY [facility] Last Admin: 04/10/17 12:20 Dose: 40 mg Rosuvastatin Calcium (Crestor) 2.5 mg PO HS [facility] Last Admin: 04/10/17 21:54 Dose: 2.5 mg Sennosides (Senokot Tab) 8.6 mg PO DAILY [facility] Last Admin: 04/10/17 12:21 Dose: 8.6 mg Sodium Chloride (Sodium Chloride Tab) 1 gm PO BID [facility] Last Admin: 04/10/17 18:23 Dose: 1 gm Thiamine HCl (Vitamin B1 Tab) 100 mg PO DAILY [facility] - Labs Labs: 04/11/17 06:30 04/11/17 06:30 PT 11.6 SECONDS (9.7-12.2) 04/04/17 06:22 INR 1.0 04/04/17 06:22 APTT 27 SECONDS (21-34) D 04/04/17 06:22
--- NOTE | 2017-04-11 13:00 | PCM.PROC ---
Central Line Placement - Central Line Placement Central Line Placement: Right: Internal Jugular The Area Was Thoroughly Prepared With: Chlorhexidine, Draped Using Sterile Technique Area Was Locally Anesthetized With: Lidocaine 1% Procedure: Triple Lumen (@16cm, flushed prior and after insertion), Placed Using Standard Seldinger Technique, Catheter Was Sewn Into Place, Sterile Dressing Placed Over Line, Procedure Tolerated Well, CXR Ordered To Confirm Placement
[2017-04-11] MEDS: Multiple Vitamins Tab PO SCH (13:12)
[2017-04-11] MEDS ORDERED: Sodium Chloride 3% 500 ML IV ONE ×2 (13:12→23:39)
--- NOTE | 2017-04-11 15:25 | RAD ---
HISTORY: S/P TLC insertion COMPARISON: 04/05/2017 FINDINGS: LUNGS: No consolidation PLEURA: Interval left small pleural effusion no pneumothorax. Right lateral pleural reaction borders old healed right rib [id number] CARDIOVASCULAR: Mild cardiomegaly-similar. Central pulmonary vasculature probably top-normal. Right internal jugular vein catheter tip at superior vena [id number] OSSEOUS STRUCTURES: No significant abnormalities. VISUALIZED UPPER ABDOMEN: Normal. OTHER FINDINGS: None. IMPRESSION: Interval small left pleural effusion. Other findings stable
--- NOTE | 2017-04-11 16:55 | PN ---
DATE: 04/11/2017 SUBJECTIVE: Patient was seen and examined at bedside, patient's daughter at bedside. Patient is more lethargic than yesterday, but arousable, responding to simple questions appropriately, claiming that he is not feeling well, unable to describe any other symptoms. Denies any headache. Denies any dizziness, chest pain. Denies any other new neurologic symptoms. REVIEW OF SYSTEMS: All other systems reviewed and were found to be negative. PHYSICAL EXAMINATION: GENERAL: Elderly male, lying in bed, in no acute distress. VITAL SIGNS: Blood pressure 124/50, pulse 47, respirations 11, temperature 97.8 degrees Fahrenheit, O2 sat is 98% on room air. HEENT: Right pupil reacting to light and accommodation. No icterus, no pallor, no oral thrush, no pharyngeal congestion. NECK: Supple. No JVD. LUNGS: Bilateral vesicular breath sounds. No wheezing, no rhonchi. CARDIOVASCULAR SYSTEM: S1, S2 present, regular. ABDOMEN: Soft, nontender. Bowel sounds present. CENTRAL NERVOUS SYSTEM: Alert, awake, oriented x2, left-sided weakness noted. EXTREMITIES: No edema. Palpable peripheral pulses. LABORATORY DATA: Done from this morning: WBC 8.2, hemoglobin 12.7, hematocrit 37.5, platelets 207. Sodium 131, potassium 3.8, chloride 104, bicarb 23, BUN 16, creatinine 0.7, glucose 92, serum osmolality 289, calcium 7.6. Repeat CT this morning, no significant change from yesterday's CT. ASSESSMENT AND PLAN: Elderly male with history of hypertension, hyperlipidemia, ethyl alcohol abuse, status post fall with subdural hematoma, status post evacuation and drainage and removal of the drainage, intracranial hemorrhage with surrounding edema, now with worsening neurologic symptoms of left-sided weakness and right-sided upward gaze, more obtunded than yesterday. All his symptoms rule out secondary to seizure activity, rule out new onset cerebrovascular accident, rule out secondary to underlying intracranial hemorrhage, sinus bradycardia from increased intracranial pressures. Abnormal electroencephalogram, which shows possible seizure-like activity. Patient is being monitored in ICU setting. Patient was restarted on hypertonic saline yesterday. Sodium is persistently low at 131, monitor the electrolytes q. 6 hours as per Neurology. Continue with anti-seizure medication. We will follow up with Neurology and Neurosurgery. Discussed with patient's daughter who is at bedside. Patient's daughter understands the patient's critical condition. We will continue with current medications and we will give gastrointestinal and deep venous thrombosis prophylaxis, monitor neurologic status. Afia Chirinos MD
[2017-04-11] MEDS: Rosuvastatin Calcium 2.5 mg Tab PO SCH (21:50)
[2017-04-12 06:40] LABS: BASO % 0.2 % (0.0-2.0); EOS # 0.1 K/uL (0.0-0.7); EOS % 1.8 % (0.0-4.0); HEMATOCRIT 38.8 % (35.0-51.0); LYMPH # 0.8 K/uL (1.0-4.3); LYMPH % 9.9 % (20.0-40.0); MEAN CELL VOLUME 90.3 fL (80.0-94.0); MEAN CORPUSCULAR HEMOGLOBIN 31.8 pg (27.0-31.0); MEAN CORPUSCULAR HGB CONC 35.2 g/dL (33.0-37.0); MEAN PLATELET VOLUME 7.8 fL (7.2-11.7); MONO # 0.8 K/uL (0.0-0.8); PLATELET COUNT 195 K/uL (130-400); RED CELL DISTRIBUTION WIDTH 13.8 % (11.5-14.5); WHITE BLOOD COUNT 7.8 K/uL (4.8-10.8)
[2017-04-12 06:51] LABS: BLOOD UREA NITROGEN 14 mg/dL (9-20); CALCIUM 7.8 mg/dl (8.6-10.4); CARBON DIOXIDE 22 mmol/L (22-30); CHLORIDE 106 mmol/L (98-107); GFR AFRICAN-AMERICAN > 60; GLUCOSE,RANDOM 91 mg/dL (75-110); POTASSIUM 3.4 mmol/L (3.6-5.2); SODIUM 135 mmol/L (132-148)
[2017-04-12 08:10] LABS: BASOPHIL 1 % (0-2); EOSINOPHIL 1 % (0-4); NEUTROPHIL 72 % (50-75); TOTAL CELLS COUNTED 100
--- NOTE | 2017-04-12 08:24 | CP.PCM.PN ---
Subjective - Date & Time of Evaluation Date of Evaluation: 04/12/17 Time of Evaluation: 08:19 - Subjective Subjective: Mr. Cabral was seen and examined at the bedside in ICU. He is alert, oriented to self and place, but not time. He denies any nausea, vomiting, numbness, but headache in the occipital area with pain scale of 1/10. He denies any blurred vision. His left eye is reactive to light.He remains with right sided weakness, but no facial droop. He remains on 3% NACL at 50 ml/h. lastest Na- 135. He remains incontinent to urine. There was no untoward events overnight. Objective - Vital Signs/Intake and Output Vital Signs (last 24 hours): Temp Pulse Resp BP Pulse Ox 97.6 F 46 L 16 117/55 L 99 04/12/17 01:00 04/12/17 07:00 04/12/17 07:00 04/12/17 06:41 04/12/17 07:00 Intake and Output: 04/12/17 04/12/17 06:59 18:59 Intake Total 1740 50 Output Total 350 0 Balance 1390 50 - Medications Medications: Current Medications Bisacodyl (Dulcolax) 10 mg [place] DAILY PRN PRN Reason: constipation Docusate Sodium (Colace) 100 mg PO DAILY [facility] Last Admin: 04/11/17 12:22 Dose: Not Given Folic Acid (Folic Acid) 1 mg PO DAILY [facility] Last Admin: 04/11/17 10:10 Dose: 1 mg Sodium Chloride (Hypertonic Saline 3%) 500 mls @ 50 mls/hr IV .Q10H ONE Stop: 04/12/17 09:38 Last Admin: 04/12/17 00:30 Dose: 50 mls/hr Potassium Chloride (Potassium Chloride 20 Meq/100 Ml) 20 meq in 100 mls @ 50 mls/hr IVPB Q2H [facility] Stop: 04/12/17 11:14 Last Admin: 04/12/17 07:31 Dose: 50 mls/hr Levetiracetam (Keppra) 750 mg PO BID [facility] Last Admin: 04/11/17 17:45 Dose: 750 mg Lisinopril (Zestril) 2.5 mg PO DAILY [facility] Last Admin: 04/11/17 10:18 Dose: Not Given Multivitamins (Hexavitamin) 1 tab PO DAILY [facility] Last Admin: 04/11/17 13:12 Dose: 1 tab Ondansetron HCl (Zofran Inj) 4 mg IVP Q8 PRN PRN Reason: Nausea/Vomiting Last Admin: 04/08/17 14:53 Dose: 4 mg Pantoprazole Sodium (Protonix Ec Tab) 40 mg PO DAILY [facility] Last Admin: 04/11/17 10:10 Dose: 40 mg Rosuvastatin Calcium (Crestor) 2.5 mg PO HS [facility] Last Admin: 04/11/17 21:50 Dose: 2.5 mg Sennosides (Senokot Tab) 8.6 mg PO DAILY [facility] Last Admin: 04/11/17 10:10 Dose: 8.6 mg Sodium Chloride (Sodium Chloride Tab) 1 gm PO BID [facility] Last Admin: 04/11/17 17:45 Dose: 1 gm Thiamine HCl (Vitamin B1 Tab) 100 mg PO DAILY [facility] Last Admin: 04/11/17 10:10 Dose: 100 mg - Labs Labs: 04/12/17 06:26 04/12/17 06:26 PT 11.6 SECONDS (9.7-12.2) 04/04/17 06:22 INR 1.0 04/04/17 06:22 APTT 27 SECONDS (21-34) D 04/04/17 06:22 - Constitutional Appears: No Acute Distress - Head Exam Head Exam: ATRAUMATIC - Neurological Exam Neurological Exam: Alert, Awake Neuro motor strength exam: Left Upper Extremity: 5, Right Upper Extremity: 4, Left Lower Extremity: 5, Right Lower Extremity: 3 Additional comments: Neurological improved from previous examination. Sensation remains asymmetrical , less sensation in the right side. Assessment and Plan (1) Acute intra-cranial hemorrhage Assessment & Plan: Case discussed with Dr. Gilbert, continue current medical and physical therapies. Recommend OT eval and treat. Continue hypertonic IVF at 50 ml/hr and continue series of Na and serum osmolality levels. Status: Acute
--- NOTE | 2017-04-12 08:45 | CP.PCM.PN ---
<Cristal Dooley - Last Filed: 04/12/17 08:42> Subjective - Date & Time of Evaluation Date of Evaluation: 04/12/17 Time of Evaluation: 08:42 - Subjective Subjective: PGY 2 progress note for cardiology, Dr. Velasquez Pt is seen and examined at bedside. Pt is communicating without difficulty today and is A&Ox2. Pt c/o Fang at site of incision. Denies having any CP, SOB, abd pain, N/V/D/C. Pt had central line placed yesterday in right IJ. 12 point ROS are negative except for the above mentioned. Objective - Vital Signs/Intake and Output Vital Signs (last 24 hours): Temp Pulse Resp BP Pulse Ox 97.6 F 46 L 16 117/55 L 99 04/12/17 01:00 04/12/17 07:00 04/12/17 07:00 04/12/17 06:41 04/12/17 07:00 Intake and Output: 04/12/17 04/12/17 06:59 18:59 Intake Total 1740 50 Output Total 350 0 Balance 1390 50 - Medications Medications: Current Medications Bisacodyl (Dulcolax) 10 mg [place] DAILY PRN PRN Reason: constipation Docusate Sodium (Colace) 100 mg PO DAILY [facility] Last Admin: 04/11/17 12:22 Dose: Not Given Folic Acid (Folic Acid) 1 mg PO DAILY [facility] Last Admin: 04/11/17 10:10 Dose: 1 mg Sodium Chloride (Hypertonic Saline 3%) 500 mls @ 50 mls/hr IV .Q10H [facility] Stop: 04/12/17 09:38 Last Admin: 04/12/17 00:30 Dose: 50 mls/hr Potassium Chloride (Potassium Chloride 20 Meq/100 Ml) 20 meq in 100 mls @ 50 mls/hr IVPB Q2H [facility] Stop: 04/12/17 11:14 Last Admin: 04/12/17 07:31 Dose: 50 mls/hr Levetiracetam (Keppra) 750 mg PO BID [facility] Last Admin: 04/11/17 17:45 Dose: 750 mg Lisinopril (Zestril) 2.5 mg PO DAILY [facility] Last Admin: 04/11/17 10:18 Dose: Not Given Multivitamins (Hexavitamin) 1 tab PO DAILY [facility] Last Admin: 04/11/17 13:12 Dose: 1 tab Ondansetron HCl (Zofran Inj) 4 mg IVP Q8 PRN PRN Reason: Nausea/Vomiting Last Admin: 04/08/17 14:53 Dose: 4 mg Pantoprazole Sodium (Protonix Ec Tab) 40 mg PO DAILY [facility] Last Admin: 04/11/17 10:10 Dose: 40 mg Rosuvastatin Calcium (Crestor) 2.5 mg PO HS [facility] Last Admin: 04/11/17 21:50 Dose: 2.5 mg Sennosides (Senokot Tab) 8.6 mg PO DAILY [facility] Last Admin: 04/11/17 10:10 Dose: 8.6 mg Sodium Chloride (Sodium Chloride Tab) 1 gm PO BID [facility] Last Admin: 04/11/17 17:45 Dose: 1 gm Thiamine HCl (Vitamin B1 Tab) 100 mg PO DAILY [facility] Last Admin: 04/11/17 10:10 Dose: 100 mg - Labs Labs: 04/12/17 06:26 04/12/17 06:26 PT 11.6 SECONDS (9.7-12.2) 04/04/17 06:22 INR 1.0 04/04/17 06:22 APTT 27 SECONDS (21-34) D 04/04/17 06:22 - Constitutional Appears: Non-toxic, No Acute Distress - Head Exam Head Exam: ATRAUMATIC - ENT Exam ENT Exam: Mucous Membranes Moist - Respiratory Exam Respiratory Exam: Clear to Ausculation Bilateral, NORMAL BREATHING PATTERN. absent: Rales, Rhonchi, Wheezes, Respiratory Distress - Cardiovascular Exam Cardiovascular Exam: Bradycardia, REGULAR RHYTHM, +S1, +S2. absent: Gallop, Rubs, Murmur - GI/Abdominal Exam GI & Abdominal Exam: Soft, Normal Bowel Sounds. absent: Distended, Firm, Guarding, Rigid, Tenderness - Extremities Exam Extremities Exam: absent: Pedal Edema, Tenderness - Neurological Exam Neurological Exam: Alert, Awake, Oriented x3 (d) - Psychiatric Exam Psychiatric exam: Normal Affect, Normal Mood - Skin Skin Exam: Dry, Intact, Normal Color, Warm Assessment and Plan - Assessment and Plan (Free Text) Assessment: 71 year old male with past medical history of HTN, left eye blindness, depression, ETOH abuse and multiple falls is being seen by cardiology for persistent bradycardia. 1. Acute intra-cranial hemorrhage - Echo with bubble study was normal - CT of head done yesterday (04/11) showed no new changes - Patient is on hypertonic saline and salt tablets to decrease intracranial pressure. Monitoring serum osmolality and Na q6h. - started pt on low dose statin and ACEI 2. Sinus bradycardia - Stable - bradycardia may be 2/2 increased intracranial pressures - Will continue to monitor 3. HTN - Currently on Norvasc 5 mg PO QD. All orders and management per Dr. Velasquez <Prateek Velasquez - Last Filed: 04/12/17 13:14> Objective - Vital Signs/Intake and Output Vital Signs (last 24 hours): Temp Pulse Resp BP Pulse Ox 98.6 F 44 L 12 129/63 98 04/12/17 08:00 04/12/17 12:00 04/12/17 12:00 04/12/17 11:41 04/12/17 10:41 Intake and Output: 04/12/17 04/12/17 06:59 18:59 Intake Total 1740 1150 Output Total 350 0 Balance 1390 1150 - Medications Medications: Current Medications Bisacodyl (Dulcolax) 10 mg ND DAILY PRN PRN Reason: constipation Docusate Sodium (Colace) 100 mg PO DAILY [facility] Last Admin: 04/12/17 09:46 Dose: 100 mg Folic Acid (Folic Acid) 1 mg PO DAILY [facility] Last Admin: 04/12/17 09:46 Dose: 1 mg Sodium Chloride (Hypertonic Saline 3%) 500 mls @ 50 mls/hr IV .Q10H [facility] Stop: 04/12/17 21:59 Last Admin: 04/12/17 11:59 Dose: 50 mls/hr Levetiracetam (Keppra) 750 mg PO BID [facility] Last Admin: 04/12/17 09:46 Dose: 750 mg Lisinopril (Zestril) 2.5 mg PO DAILY [facility] Last Admin: 04/12/17 09:48 Dose: 2.5 mg Multivitamins (Hexavitamin) 1 tab PO DAILY [facility] Last Admin: 04/12/17 09:46 Dose: 1 tab Ondansetron HCl (Zofran Inj) 4 mg IVP Q8 PRN PRN Reason: Nausea/Vomiting Last Admin: 04/08/17 14:53 Dose: 4 mg Pantoprazole Sodium (Protonix Ec Tab) 40 mg PO DAILY [facility] Last Admin: 04/12/17 09:46 Dose: 40 mg Rosuvastatin Calcium (Crestor) 2.5 mg PO HS [facility] Last Admin: 04/11/17 21:50 Dose: 2.5 mg Sennosides (Senokot Tab) 8.6 mg PO DAILY [facility] Last Admin: 04/12/17 09:48 Dose: 8.6 mg Sodium Chloride (Sodium Chloride Tab) 1 gm PO BID [facility] Last Admin: 04/12/17 09:48 Dose: 1 gm Thiamine HCl (Vitamin B1 Tab) 100 mg PO DAILY [facility] Last Admin: 04/12/17 09:46 Dose: 100 mg - Labs Labs: 04/12/17 06:26 04/12/17 06:26 PT 11.6 SECONDS (9.7-12.2) 04/04/17 06:22 INR 1.0 04/04/17 06:22 APTT 27 SECONDS (21-34) D 04/04/17 06:22 Attending/Attestation - Attestation I have personally seen and examined this patient.: Yes I have fully participated in the care of the patient.: Yes I have reviewed all pertinent clinical information, including history, physical exam and plan: Yes
[2017-04-12] MEDS: Multiple Vitamins Tab PO SCH (09:46)
[2017-04-12] MEDS: Pantoprazole 40 mg EC Tab PO SCH (09:46)
--- NOTE | 2017-04-12 10:43 | CP.PCM.PN ---
Subjective - Date & Time of Evaluation Date of Evaluation: 04/12/17 Time of Evaluation: 11:00 - Subjective Subjective: Progress note dictated #[id number] Objective - Vital Signs/Intake and Output Vital Signs (last 24 hours): Temp Pulse Resp BP Pulse Ox 98.6 F 59 L 16 111/51 L 99 04/12/17 08:00 04/12/17 10:00 04/12/17 10:00 04/12/17 09:41 04/12/17 10:00 Intake and Output: 04/12/17 04/12/17 06:59 18:59 Intake Total 1740 850 Output Total 350 0 Balance 1390 850 - Medications Medications: Current Medications Bisacodyl (Dulcolax) 10 mg [place] DAILY PRN PRN Reason: constipation Docusate Sodium (Colace) 100 mg PO DAILY [facility] Last Admin: 04/12/17 09:46 Dose: 100 mg Folic Acid (Folic Acid) 1 mg PO DAILY [facility] Last Admin: 04/12/17 09:46 Dose: 1 mg Potassium Chloride (Potassium Chloride 20 Meq/100 Ml) 20 meq in 100 mls @ 50 mls/hr IVPB Q2H [facility] Stop: 04/12/17 11:14 Last Admin: 04/12/17 09:45 Dose: 50 mls/hr Levetiracetam (Keppra) 750 mg PO BID [facility] Last Admin: 04/12/17 09:46 Dose: 750 mg Lisinopril (Zestril) 2.5 mg PO DAILY [facility] Last Admin: 04/12/17 09:48 Dose: 2.5 mg Multivitamins (Hexavitamin) 1 tab PO DAILY [facility] Last Admin: 04/12/17 09:46 Dose: 1 tab Ondansetron HCl (Zofran Inj) 4 mg IVP Q8 PRN PRN Reason: Nausea/Vomiting Last Admin: 04/08/17 14:53 Dose: 4 mg Pantoprazole Sodium (Protonix Ec Tab) 40 mg PO DAILY [facility] Last Admin: 04/12/17 09:46 Dose: 40 mg Rosuvastatin Calcium (Crestor) 2.5 mg PO HS [facility] Last Admin: 04/11/17 21:50 Dose: 2.5 mg Sennosides (Senokot Tab) 8.6 mg PO DAILY [facility] Last Admin: 04/12/17 09:48 Dose: 8.6 mg Sodium Chloride (Sodium Chloride Tab) 1 gm PO BID [facility] Last Admin: 04/12/17 09:48 Dose: 1 gm Thiamine HCl (Vitamin B1 Tab) 100 mg PO DAILY [facility] Last Admin: 04/12/17 09:46 Dose: 100 mg - Labs Labs: 04/12/17 06:26 04/12/17 06:26 PT 11.6 SECONDS (9.7-12.2) 04/04/17 06:22 INR 1.0 04/04/17 06:22 APTT 27 SECONDS (21-34) D 04/04/17 06:22
[2017-04-12 11:31] LABS: MAGNESIUM 2.1 mg/dL (1.6-2.3)
[2017-04-12] MEDS ORDERED: Sodium Chloride 3% 500 ML IV ONE (12:00)
--- NOTE | 2017-04-12 12:33 | PN ---
DATE: 04/12/2017 SUBJECTIVE: The patient is seen and examined at bedside. The patient is more alert and awake and denies any complaints. Claims he is feeling better than yesterday. All other systems reviewed and are found to be negative. PHYSICAL EXAMINATION: GENERAL: Elderly male, lying in bed, in no acute distress. VITAL SIGNS: Blood pressure 111/51, pulse 59, respirations 13, temperature 98.4 degrees Fahrenheit, O2 sats 98% on room air. HEENT: Pupils, right side is reacting to light and accommodation, left eye blindness. No oral thrush. No pharyngeal congestion. No nasal congestion. NECK: Supple. No JVD. LUNGS: Bilateral vesicular breath sounds. No wheezing. No rhonchi. CARDIOVASCULAR SYSTEM: S1 and S2 present, regular. ABDOMEN: Soft, nontender. Bowel sounds are present. No guarding. No rigidity. No rebound tenderness noted. CENTRAL NERVOUS SYSTEM: Alert, awake, oriented x3. There is increased power on the left side than yesterday. Power upper and lower extremity is almost equal bilaterally. Gait did not test. EXTREMITIES: No edema. LABORATORY DATA: Labs from this morning, WBC 7.8, hemoglobin 13.6, hematocrit 38.8, platelets 195. Sodium 135, potassium 3.4, chloride 106, bicarb 22, BUN 14, creatinine 0.7, glucose 91, calcium 7.8, magnesium 2.1. MEDICATIONS: Include Dulcolax 10 mg as needed, Colace 100 mg daily, folic acid 1 mg daily, Keppra 750 mg p.o. b.i.d., Zestril 2.5 mg daily, multivitamin daily, Zofran as needed, Protonix 40 mg p.o. daily, Crestor 2.5 mg at bedtime, senna daily, sodium chloride tablets 1 g p.o. b.i.d., hypertonic saline at 50 mL an hour, thiamine 100 mg daily. ASSESSMENT AND PLAN: Elderly male with history of hypertension, hyperlipidemia, ethyl alcohol abuse, status post fall, admitted for right subdural hematoma and right intracranial hemorrhage with surrounding edema and midline shift, status post craniotomy and evacuation of subdural hematoma with worsening left-sided weakness, now improving after the patient is started on hypertonic saline. We will continue with current medication. Monitor neurologic status. Follow up with Neurology. We will continue with gastrointestinal and deep venous thrombosis prophylaxis. Blood pressure is stable on current medication. Persistent bradycardia secondary to increased intracranial pressure. We will add further recommendations as his clinical course progresses. Afia Chirinos MD
--- NOTE | 2017-04-12 16:40 | CP.CCUPN ---
Addendum entered and electronically signed by Maryann Mejía DO 04/12/17 16:44: edited Physical exam: Head: Surgical dressing in place Respiratory: CTA bilaterally, no rales, rhonchi or wheezing Cardiovascular: RR at 42, +S1, +S2, no murmurs, rubs or gallops Abd: BS x 4, non distended, no guarding or rebound Neuro: Blind in left eye, no right sided gaze preference (EOMI on right eye) LUE strength 4/5 for biceps and triceps C8 weak (hoister strength) RUE strength 5/5 bilateral Lower Extremities 5/5 Original Note: <Maryann Mejía - Last Filed: 04/12/17 16:36> CCU Subjective - Physician Review Subjective (Free Text): 04/11/17 14:[address] Pennington Patient seen and examined at bedside. no acute events overnight. Patient states he feels well except for chest pain, and left arm pain which has been going on for a week now. Patient states nothing makes it better or worse and it's constant. Patient is able to move his upper and lower extremities. His left arm has weak hoister strength, which is an improvement from yesterday's wrist drop. Critical Care Time Spent (in minutes): 35 CCU Objective - Vital Signs / Intake & Output Vital Signs (Last 4 hours): Vital Signs Pulse Resp BP Pulse Ox 04/12/17 16:00 51 L 14 97 04/12/17 15:42 52 L 14 140/71 92 L 04/12/17 15:00 57 L 16 97 04/12/17 14:41 56 L 14 129/80 100 04/12/17 14:00 65 15 04/12/17 13:42 76 23 125/50 L 04/12/17 13:00 48 L 17 98 04/12/17 12:42 54 L 18 82/52 L 83 L Intake and Output (Last 8hrs): Intake & Output 04/12/17 04/12/17 04/12/17 06:59 14:59 22:59 Intake Total 840 1500 100 Output Total 350 0 Balance 490 1500 100 Weight 158 lb Intake: Intake, IV Amount 400 650 100 Right Distal Port 400 400 100 Internal Jugular Right Medial Port 250 Internal Jugular Oral 440 850 Output: Urine 350 0 Urine, Voided 350 0 Other: # Bowel Movements 0 1 - Physical Exam Head: Positive for: Other (Drain located on right side of head. Surgical dressing in place - some strikethrough with dried blood. ) Pupils: Positive for: PERRL, Other ((blind in left eye)) Extroacular Muscles: Positive for: 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 Negative for: Respiratory Distress, Accessory Muscle Use Cardiovascular: Positive for: Bradycardic (sinus) Abdomen: Positive for: Normal Bowel Sounds. Negative for: Tenderness, Distention, Peritoneal Signs Lower Extremity: Positive for: Other (SCDs in place.) Neurological: Positive for: GCS=15, Speech Normal (much improved compared to today), Motor Func Grossly Intact (5/5 strength b/l for UE and LE. No pronator drift. ) Skin: Positive for: Warm, Dry Psychiatric: Positive for: Alert. Negative for: Oriented x 3 (Oriented to self , but not date or place - thinks year is 1981 and he states he does not know where he is at. ) - Medications Active Medications: Active Medications Generic Name Dose Route Start Last Admin Trade Name Freq PRN Reason Stop Dose Admin Bisacodyl 10 mg 04/07/17 10:00 Dulcolax IN DAILY PRN constipation Docusate Sodium 100 mg 04/07/17 10:00 04/12/17 09:46 Colace PO 100 mg DAILY ALBERTO Administration Folic Acid 1 mg 04/11/17 10:00 04/12/17 09:46 Folic Acid PO 1 mg DAILY ALBERTO Administration Sodium Chloride 500 mls @ 50 mls/hr 04/12/17 12:00 04/12/17 11:59 Hypertonic Saline 3% IV 04/12/17 21:59 50 mls/hr .Q10H ONE Administration Levetiracetam 750 mg 04/09/17 18:00 04/12/17 09:46 Keppra PO 750 mg BID ALBERTO Administration Lisinopril 2.5 mg 04/10/17 15:45 04/12/17 09:48 Zestril PO 2.5 mg DAILY ALBERTO Administration Multivitamins 1 tab 04/11/17 10:00 04/12/17 09:46 Hexavitamin PO 1 tab DAILY ALBERTO Administration Ondansetron HCl 4 mg 04/07/17 08:55 04/08/17 14:53 Zofran Inj IVP 4 mg Q8 PRN Administration Nausea/Vomiting Pantoprazole Sodium 40 mg 03/31/17 10:00 04/12/17 09:46 Protonix Ec Tab PO 40 mg DAILY ALBERTO Administration Rosuvastatin Calcium 2.5 mg 04/10/17 22:00 04/11/17 21:50 Crestor PO 2.5 mg HS ALBERTO Administration Sennosides 8.6 mg 04/07/17 10:00 04/12/17 09:48 Senokot Tab PO 8.6 mg DAILY ALBERTO Administration Sodium Chloride 1 gm 04/10/17 10:00 04/12/17 09:48 Sodium Chloride Tab PO 1 gm BID ALBERTO Administration Thiamine HCl 100 mg 04/11/17 10:00 04/12/17 09:46 Vitamin B1 Tab PO 100 mg DAILY ALBERTO Administration - Patient Studies Lab Studies: Lab Studies 04/12/17 04/12/17 04/12/17 Range/Units 08:25 08:08 06:26 WBC 7.8 (4.8-10.8) K/uL RBC 4.29 L (4.40-5.90) Mil/uL Hgb 13.6 (12.0-18.0) g/dL Hct 38.8 (35.0-51.0) % MCV 90.3 (80.0-94.0) fL MCH 31.8 H (27.0-31.0) pg MCHC 35.2 (33.0-37.0) g/dL RDW 13.8 (11.5-14.5) % Plt Count 195 (130-400) K/uL MPV 7.8 (7.2-11.7) fL Neut % (Auto) 78.1 H (50.0-75.0) % Lymph % (Auto) 9.9 L (20.0-40.0) % [place] % (Auto) 10.0 (0.0-10.0) % Eos % (Auto) 1.8 (0.0-4.0) % Baso % (Auto) 0.2 (0.0-2.0) % Neut # 6.1 (1.8-7.0) K/uL Lymph # 0.8 L (1.0-4.3) K/uL [place] # 0.8 (0.0-0.8) K/uL Eos # 0.1 (0.0-0.7) K/uL Baso # 0.0 (0.0-0.2) K/uL Neutrophils % (Manual) 72 (50-75) % Band Neutrophils % 2 (0-2) % Lymphocytes % (Manual) 13 L (20-40) % Monocytes % (Manual) 11 H (0-10) % Eosinophils % (Manual) 1 (0-4) % Basophils % (Manual) 1 (0-2) % Platelet Estimate Normal (NORMAL) Poikilocytosis (manual Slight Ovalocytes Slight [place] Cells Slight Sodium (132-148) mmol/L Potassium (3.6-5.2) mmol/L Chloride (98-107) mmol/L Carbon Dioxide (22-30) mmol/L Anion Gap (10-20) BUN (9-20) mg/dL Creatinine (0.8-1.5) mg/dL Est GFR ( Amer) Est GFR (Non-Af Amer) Random Glucose (75-110) mg/dL Serum Osmolality 293 (272-300) mosm/kg Calcium (8.6-10.4) mg/dl Magnesium 2.1 (1.6-2.3) mg/dL Total Creatine Kinase 34 L (55-170) U/L CK-MB (Mass) 0.36 (0.0-3.38) ng/mL Troponin I < 0.0120 (0.00-0.120) ng/mL 04/12/17 Range/Units 06:26 WBC (4.8-10.8) K/uL RBC (4.40-5.90) Mil/uL Hgb (12.0-18.0) g/dL Hct (35.0-51.0) % MCV (80.0-94.0) fL MCH (27.0-31.0) pg MCHC (33.0-37.0) g/dL RDW (11.5-14.5) % Plt Count (130-400) K/uL MPV (7.2-11.7) fL Neut % (Auto) (50.0-75.0) % Lymph % (Auto) (20.0-40.0) % [place] % (Auto) (0.0-10.0) % Eos % (Auto) (0.0-4.0) % Baso % (Auto) (0.0-2.0) % Neut # (1.8-7.0) K/uL Lymph # (1.0-4.3) K/uL [place] # (0.0-0.8) K/uL Eos # (0.0-0.7) K/uL Baso # (0.0-0.2) K/uL Neutrophils % (Manual) (50-75) % Band Neutrophils % (0-2) % Lymphocytes % (Manual) (20-40) % Monocytes % (Manual) (0-10) % Eosinophils % (Manual) (0-4) % Basophils % (Manual) (0-2) % Platelet Estimate (NORMAL) Poikilocytosis (manual Ovalocytes [place] Cells Sodium 135 (132-148) mmol/L Potassium 3.4 L (3.6-5.2) mmol/L Chloride 106 (98-107) mmol/L Carbon Dioxide 22 (22-30) mmol/L Anion Gap 10 (10-20) BUN 14 (9-20) mg/dL Creatinine 0.7 L (0.8-1.5) mg/dL Est GFR ( Amer) > 60 Est GFR (Non-Af Amer) > 60 Random Glucose 91 (75-110) mg/dL Serum Osmolality (272-300) mosm/kg Calcium 7.8 L (8.6-10.4) mg/dl Magnesium (1.6-2.3) mg/dL Total Creatine Kinase (55-170) U/L CK-MB (Mass) (0.0-3.38) ng/mL Troponin I (0.00-0.120) ng/mL Laboratory Results - last 24 hr 04/12/17 04/12/17 04/12/17 06:26 06:26 08:08 WBC 7.8 RBC 4.29 L Hgb 13.6 Hct 38.8 MCV 90.3 MCH 31.8 H MCHC 35.2 RDW 13.8 Plt Count 195 MPV 7.8 Neut % (Auto) 78.1 H Lymph % (Auto) 9.9 L [place] % (Auto) 10.0 Eos % (Auto) 1.8 Baso % (Auto) 0.2 Neut # 6.1 Lymph # 0.8 L [place] # 0.8 Eos # 0.1 Baso # 0.0 Neutrophils % (Manual) 72 Band Neutrophils % 2 Lymphocytes % (Manual) 13 L Monocytes % (Manual) 11 H Eosinophils % (Manual) 1 Basophils % (Manual) 1 Platelet Estimate Normal Poikilocytosis (manual Slight Ovalocytes Slight [place] Cells Slight Sodium 135 Potassium 3.4 L Chloride 106 Carbon Dioxide 22 Anion Gap 10 BUN 14 Creatinine 0.7 L Est GFR ( Amer) > 60 Est GFR (Non-Af Amer) > 60 Random Glucose 91 Serum Osmolality Calcium 7.8 L Magnesium 2.1 Total Creatine Kinase 34 L CK-MB (Mass) 0.36 Troponin I < 0.0120 04/12/17 08:25 WBC RBC Hgb Hct MCV MCH MCHC RDW Plt Count MPV Neut % (Auto) Lymph % (Auto) [place] % (Auto) Eos % (Auto) Baso % (Auto) Neut # Lymph # [place] # Eos # Baso # Neutrophils % (Manual) Band Neutrophils % Lymphocytes % (Manual) Monocytes % (Manual) Eosinophils % (Manual) Basophils % (Manual) Platelet Estimate Poikilocytosis (manual Ovalocytes [place] Cells Sodium Potassium Chloride Carbon Dioxide Anion Gap BUN Creatinine Est GFR ( Amer) Est GFR (Non-Af Amer) Random Glucose Serum Osmolality 293 Calcium Magnesium Total Creatine Kinase CK-MB (Mass) Troponin I EKG/Cardiology Studies: Cardiology / EKG Studies 04/12/17 07:49 EKG [ELECTROCARDIOGRAM] Routine Comment: Mode Of Transportation: Reason For Exam: left arm pain, chest pain Fingerstick Blood Sugar Results: 100 Critical Care Progress Note - Ventilator Checklist Head of Bed 30 Degrees: No PUD Prophalyxis: Yes DVT Prophylaxis: No (see CT head) - Extremities/Vascular Does the Patient have a Central Venous Catheter?: Yes Insertion Site: Internal Jugular Vein (right) Does the Patient have a Siddiqui Catheter?: No Does the Patient need a Siddiqui Catheter?: No - Prophylaxis GI Prophylaxis GI: PPI - Nutrition Nutrition: Nutrition Category Date Time Status Heart Healthy Diet [DIET] Diets 04/11/17 Dinner Active Assessment/Plan - Assessment and Plan (Free Text) Assessment: Patient is a 71 year old male with past medical history of ETOH abuse, HTN, HLD , depression, presenting with recent fall with rib fractures and AMS, found to have an intracranial hemorrhage with worsening SDH. Patient s/p craniotomy/evac SDH on 04/05/2017. Patient noted to have right sided gaze preference and left sided weakness on 04/10/2017. Transferred to ICU for monitoring. Plan Neuro: Dr. Gilbert consulted, help appreciated Dr. Harmon consulted, help appreciated Intraparencymal Hemorrhage - stable Head CT 03/27/17 - Multifocal intracranial hemorrhage including the large right frontal parenchymal hemorrahge and multifocal extra-axial hemorrahges as described. Decreasing density of extra-axial blood noted in the right frontoparietal convexity hematoma and in the posterior right temporal hematoma. A right occipital extra-axial hemorrhage remains hyperdense consistent with acute blood. Increased midline shift towards the left of approximately 19 mm. No evidence of downward herniation. Repeat Head CT 03/29/17 - Large right frontal parenchymal hemorrhage with extensive surrounding edema and large midlfine shift towards henrry left. Decreasing size of posterior occipital biconvex hemorrhage. There is focal parenchymal edema deep to what was previously identified as a small right posterior temporal biconvex extra-axial acute hemorrhage. Complete effacement of right lateral ventricle with mild ventricular trapping and dilatation of the left lateral ventricle, unchanged in extent compared to 03/27/2017. Increasing size of right convexity subdural hemorrhage, decreased in attenuation. This now measures 11 mm in width. Repeat Head CT 04/01/17 - No significant interval change noted since the previous exam. Re-demonstrated is internal hemorrhage at the right frontal lobe. Re-demonstrated is complex mainly chronic subdural hematoma along the right convexity with small foci of high attenuation suggestive of small acute on chronic hemorrhage. Mass effect on the lateral ventricle and approximately 16.6 millimeter right to left midline shift. Mild hydrocephalus Repeat Head CT 04/02/17 - No significant interval change when compared to the previous exam. Repeat Head CT 04/05/17 - Continued unremarkable expected evolution right inferior frontal pole on hematoma. Surrounding low-attenuation edema appears to be diminished slightly. Large hypodense chronic subdural hematoma. Persistent but slightly decreased mass-effect with a very slight decreased [id number] shift as above. Persistent dilatation left lateral ventricle due to compressive effects at the right foramen on [place]. Repeat Head CT 04/10/17 - Stable postoperative changes status post right frontotemporal craniotomy. Diminishing right frontal pneumocephaly. Stable extra -axial hemorrhagic elements including subdural and likely small epidural hematomas of the right convexity. Stable mass effect unchanged. Repeat Head CT 04/11/17 - increased cerebral edema compared to 04/10/17. Stable right frontal intraparenchymal hemorrhage as well as right cerebral convexity subdural and epidural hematomas though there is some evidence of diminishing volume in the extra-axial hemorrhage as several right cerebral sulci appear to be increasing in volume slightly. Prior right fronto-temporal craniotomy again evident with pneumocephaly not significantly changed. Will continue to monitor Aisha Patient's neurological exam confounded with history of alcohol abuse/withdrawal -[facility] protocol Multivitamin/thiamine/folic acid Keppra 750 mg PO BID Hypertonic Salne 3% 50 ml/hr -Na 135 today -Serum Osmol 294 f/u neuro recs -goal Na 140-145, monitor with BMP q6H -serum osmol, <320 monitor with serum osmol q6H -keep head of bed above 45 degrees -avoid dextrose containing fluids, hyperthermia or hypertension -Discuss with neuro regarding possible use of Mannitol CV Sinus Bradycardia Dr. Velasquez consulted, help appreciated ECHO- EF 40-45%, mild LV dysfunction (possibly due to increased ICP) 04/10 Started on Rosuvastatin 2.5 mg PO HS 04/10 Started on Lisinopril 1 tab PO Daily 04/12 Troponin <.0120. CK-MB .36 GI: Heart Healthy Diet Prophylaxis Care: DVT prophylaxis - SCDs, hold anticoagulation due to intracerebral bleed GI Prophylaxis - Protonix 40 mg PO Daily Case discussed with Dr. Gorge Mejía DO PGY1 - Date & Time Date: 04/12/17 Time: 16:40 <Reno Pennington - Last Filed: 04/16/17 21:01> CCU Objective - Vital Signs / Intake & Output Vital Signs (Last 4 hours): Vital Signs Pulse 04/16/17 18:00 74 Intake and Output (Last 8hrs): Intake & Output 04/16/17 04/16/17 04/16/17 06:59 14:59 22:59 Intake Total 150 500 Output Total 400 Balance 150 100 Weight 147 lb Intake: Intake, IV Amount 200 Right Internal Jugular 200 Oral 150 300 Output: Urine 400 Urine, Voided 400 Other: # Bowel Movements 0 - Medications Active Medications: Active Medications Generic Name Dose Route Start Last Admin Trade Name Freq PRN Reason Stop Dose Admin Al Hydrox/Mg Hydrox/Simethicone 30 ml 04/13/17 12:00 04/16/17 11:48 Maalox 30 Ml PO 30 ml DAILY ALBERTO Administration Bisacodyl 10 mg 04/07/17 10:00 Dulcolax IN DAILY PRN constipation Divalproex Sodium 500 mg 04/14/17 18:00 04/16/17 17:[address] PO 500 mg BID ALBERTO Administration Docusate Sodium 100 mg 04/07/17 10:00 04/16/17 11:48 Colace PO 100 mg DAILY ALBERTO Administration Folic Acid 1 mg 04/11/17 10:00 04/16/17 11:48 Folic Acid PO 1 mg DAILY ALBERTO Administration Lisinopril 2.5 mg 04/15/17 16:30 04/16/17 09:51 Zestril PO Not Given DAILY ALBERTO Multivitamins 1 tab 04/11/17 10:00 04/16/17 11:48 Hexavitamin PO 1 tab DAILY ALBERTO Administration Ondansetron HCl 4 mg 04/07/17 08:55 04/08/17 14:53 Zofran Inj IVP 4 mg Q8 PRN Administration Nausea/Vomiting Pantoprazole Sodium 40 mg 03/31/17 10:00 04/16/17 11:48 Protonix Ec Tab PO 40 mg DAILY ALBERTO Administration Rosuvastatin Calcium 2.5 mg 04/10/17 22:00 04/15/17 22:04 Crestor PO 2.5 mg HS ALBERTO Administration Sennosides 8.6 mg 04/07/17 10:00 04/16/17 11:48 Senokot Tab PO 8.6 mg DAILY ALBERTO Administration Sodium Chloride 1 gm 04/10/17 10:00 04/16/17 17:57 Sodium Chloride Tab PO 1 gm BID ALBERTO Administration Thiamine HCl 100 mg 04/11/17 10:00 04/16/17 11:48 Vitamin B1 Tab PO 100 mg DAILY ALBERTO Administration - Patient Studies Lab Studies: Lab Studies 04/16/17 04/16/17 04/16/17 Range/Units 10:56 08:24 07:53 WBC (4.8-10.8) K/uL RBC (4.40-5.90) Mil/uL Hgb (12.0-18.0) g/dL Hct (35.0-51.0) % MCV (80.0-94.0) fL MCH (27.0-31.0) pg MCHC (33.0-37.0) g/dL RDW (11.5-14.5) % Plt Count (130-400) K/uL MPV (7.2-11.7) fL Neut % (Auto) (50.0-75.0) % Lymph % (Auto) (20.0-40.0) % [place] % (Auto) (0.0-10.0) % Eos % (Auto) (0.0-4.0) % Baso % (Auto) (0.0-2.0) % Neut # (1.8-7.0) K/uL Lymph # (1.0-4.3) K/uL [place] # (0.0-0.8) K/uL Eos # (0.0-0.7) K/uL Baso # (0.0-0.2) K/uL Sodium 134 (132-148) mmol/L Potassium 3.4 L (3.6-5.2) mmol/L Chloride 101 (98-107) mmol/L Carbon Dioxide 26 (22-30) mmol/L Anion Gap 11 (10-20) BUN 10 (9-20) mg/dL Creatinine 0.8 (0.8-1.5) mg/dL Est GFR ( Amer) > 60 Est GFR (Non-Af Amer) > 60 Random Glucose 84 (75-110) mg/dL Serum Osmolality 286 (272-300) mosm/kg Calcium 7.9 L (8.6-10.4) mg/dl TSH 3rd Generation (0.46-4.68) mIU/L Cortisol AM Sample (4.46-22.7) ug/dL Urine Osmolality 686 (300-1000) mosm/kg 04/16/17 04/16/17 04/16/17 Range/Units 07:52 07:52 07:52 WBC 5.4 (4.8-10.8) K/uL RBC 3.76 L (4.40-5.90) Mil/uL Hgb 12.0 (12.0-18.0) g/dL Hct 33.6 L (35.0-51.0) % MCV 89.3 (80.0-94.0) fL MCH 31.7 H (27.0-31.0) pg MCHC 35.5 (33.0-37.0) g/dL RDW 13.7 (11.5-14.5) % Plt Count 168 (130-400) K/uL MPV 7.8 (7.2-11.7) fL Neut % (Auto) 73.4 (50.0-75.0) % Lymph % (Auto) 16.2 L (20.0-40.0) % [place] % (Auto) 7.0 (0.0-10.0) % Eos % (Auto) 2.9 (0.0-4.0) % Baso % (Auto) 0.5 (0.0-2.0) % Neut # 4.0 (1.8-7.0) K/uL Lymph # 0.9 L (1.0-4.3) K/uL [place] # 0.4 (0.0-0.8) K/uL Eos # 0.2 (0.0-0.7) K/uL Baso # 0.0 (0.0-0.2) K/uL Sodium 131 L (132-148) mmol/L Potassium 3.4 L (3.6-5.2) mmol/L Chloride 101 (98-107) mmol/L Carbon Dioxide 25 (22-30) mmol/L Anion Gap 8 L (10-20) BUN 10 (9-20) mg/dL Creatinine 0.8 (0.8-1.5) mg/dL Est GFR ( Amer) > 60 Est GFR (Non-Af Amer) > 60 Random Glucose 80 (75-110) mg/dL Serum Osmolality (272-300) mosm/kg Calcium 7.9 L (8.6-10.4) mg/dl TSH 3rd Generation 4.05 (0.46-4.68) mIU/L Cortisol AM Sample 9.9 (4.46-22.7) ug/dL Urine Osmolality (300-1000) mosm/kg 04/15 Range/Units 22:12 WBC (4.8-10.8) K/uL RBC (4.40-5.90) Mil/uL Hgb (12.0-18.0) g/dL Hct (35.0-51.0) % MCV (80.0-94.0) fL MCH (27.0-31.0) pg MCHC (33.0-37.0) g/dL RDW (11.5-14.5) % Plt Count (130-400) K/uL MPV (7.2-11.7) fL Neut % (Auto) (50.0-75.0) % Lymph % (Auto) (20.0-40.0) % [place] % (Auto) (0.0-10.0) % Eos % (Auto) (0.0-4.0) % Baso % (Auto) (0.0-2.0) % Neut # (1.8-7.0) K/uL Lymph # (1.0-4.3) K/uL [place] # (0.0-0.8) K/uL Eos # (0.0-0.7) K/uL Baso # (0.0-0.2) K/uL Sodium 133 (132-148) mmol/L Potassium 3.9 (3.6-5.2) mmol/L Chloride 102 (98-107) mmol/L Carbon Dioxide 25 (22-30) mmol/L Anion Gap 10 (10-20) BUN 9 (9-20) mg/dL Creatinine 0.8 (0.8-1.5) mg/dL Est GFR ( Amer) > 60 Est GFR (Non-Af Amer) > 60 Random Glucose 101 (75-110) mg/dL Serum Osmolality (272-300) mosm/kg Calcium 8.2 L (8.6-10.4) mg/dl TSH 3rd Generation (0.46-4.68) mIU/L Cortisol AM Sample (4.46-22.7) ug/dL Urine Osmolality (300-1000) mosm/kg Laboratory Results - last 24 hr 04/15/17 04/16/17 04/16/17 22:12 07:52 07:52 WBC 5.4 RBC 3.76 L Hgb 12.0 Hct 33.6 L MCV 89.3 MCH 31.7 H MCHC 35.5 RDW 13.7 Plt Count 168 MPV 7.8 Neut % (Auto) 73.4 Lymph % (Auto) 16.2 L [place] % (Auto) 7.0 Eos % (Auto) 2.9 Baso % (Auto) 0.5 Neut # 4.0 Lymph # 0.9 L [place] # 0.4 Eos # 0.2 Baso # 0.0 Sodium 133 131 L Potassium 3.9 3.4 L Chloride 102 101 Carbon Dioxide 25 25 Anion Gap 10 8 L BUN 9 10 Creatinine 0.8 0.8 Est GFR ( Amer) > 60 > 60 Est GFR (Non-Af Amer) > 60 > 60 Random Glucose 101 80 Serum Osmolality Calcium 8.2 L 7.9 L TSH 3rd Generation 4.05 Cortisol AM Sample Urine Osmolality 04/16/17 04/16/17 04/16/17 07:52 07:53 08:24 WBC RBC Hgb Hct MCV MCH MCHC RDW Plt Count MPV Neut % (Auto) Lymph % (Auto) [place] % (Auto) Eos % (Auto) Baso % (Auto) Neut # Lymph # [place] # Eos # Baso # Sodium 134 Potassium 3.4 L Chloride 101 Carbon Dioxide 26 Anion Gap 11 BUN 10 Creatinine 0.8 Est GFR ( Amer) > 60 Est GFR (Non-Af Amer) > 60 Random Glucose 84 Serum Osmolality Calcium 7.9 L TSH 3rd Generation Cortisol AM Sample 9.9 Urine Osmolality 686 04/16/17 10:56 WBC RBC Hgb Hct MCV MCH MCHC RDW Plt Count MPV Neut % (Auto) Lymph % (Auto) [place] % (Auto) Eos % (Auto) Baso % (Auto) Neut # Lymph # [place] # Eos # Baso # Sodium Potassium Chloride Carbon Dioxide Anion Gap BUN Creatinine Est GFR ( Amer) Est GFR (Non-Af Amer) Random Glucose Serum Osmolality 286 Calcium TSH 3rd Generation Cortisol AM Sample Urine Osmolality Critical Care Progress Note - Nutrition Nutrition: Nutrition Category Date Time Status Heart Healthy Diet [DIET] Diets 04/11/17 Dinner Active Attending/Attestation - Attestation I have personally seen and examined this patient.: Yes I have fully participated in the care of the patient.: Yes I have reviewed all pertinent clinical information: Yes Notes (Text): Patient evaluated with resident, d/w consultants, agreed with assessment/plan.
[2017-04-12] MEDS: Rosuvastatin Calcium 2.5 mg Tab PO SCH (22:03)
[2017-04-13 07:00] LABS: ALB/GLOB RATIO 0.8 (1.0-2.1); ALKALINE PHOSPHATASE 82 U/L (38-126); ALT/SGPT 33 U/L (21-72); AST/SGOT 23 U/L (17-59); BILIRUBIN,TOTAL 1.1 mg/dL (0.2-1.3); BLOOD UREA NITROGEN 5 mg/dL (9-20); CALCIUM 7.8 mg/dl (8.6-10.4); CARBON DIOXIDE 23 mmol/L (22-30); CHLORIDE 104 mmol/L (98-107); GFR AFRICAN-AMERICAN > 60; GLUCOSE,RANDOM 102 mg/dL (75-110); PHOSPHOROUS 2.6 mg/dL (2.5-4.5); POTASSIUM 3.1 mmol/L (3.6-5.2); SODIUM 133 mmol/L (132-148)
[2017-04-13 07:14] LABS: BASO % 0.3 % (0.0-2.0); EOS # 0.1 K/uL (0.0-0.7); EOS % 1.6 % (0.0-4.0); LYMPH # 0.8 K/uL (1.0-4.3); MEAN CORPUSCULAR HEMOGLOBIN 31.9 pg (27.0-31.0); MEAN CORPUSCULAR HGB CONC 35.5 g/dL (33.0-37.0); MEAN PLATELET VOLUME 7.7 fL (7.2-11.7); MONO # 0.6 K/uL (0.0-0.8); MONO % 8.2 % (0.0-10.0); RED CELL DISTRIBUTION WIDTH 13.5 % (11.5-14.5); WHITE BLOOD COUNT 7.2 K/uL (4.8-10.8)
--- NOTE | 2017-04-13 09:18 | CP.PCM.PN ---
Subjective - Date & Time of Evaluation Date of Evaluation: 04/13/17 Time of Evaluation: 09:14 - Subjective Subjective: Mr. Cabral was seen and examined at the bedside in ICU. He is alert, oriented and able to answer simple questions and follow simple commands. He denies any headache, dizziness, blurred vision, nausea, or vomiting. He remains with left sided weakness, but improved from previous examination. He remains on 3% NACL at 50 ml/hr via right jugular TLC. He has a left hand mitten for patient safety of not pulling his TLC. There was no untoward events overnight. Objective - Vital Signs/Intake and Output Vital Signs (last 24 hours): Temp Pulse Resp BP Pulse Ox 97.8 F 47 L 22 140/69 97 04/13/17 01:00 04/13/17 06:41 04/13/17 06:41 04/13/17 06:41 04/13/17 01:00 Intake and Output: 04/13/17 04/13/17 06:59 18:59 Intake Total 1510 Output Total 500 Balance 1010 - Medications Medications: Current Medications Bisacodyl (Dulcolax) 10 mg RI DAILY PRN PRN Reason: constipation Docusate Sodium (Colace) 100 mg PO DAILY [facility] Last Admin: 04/12/17 09:46 Dose: 100 mg Folic Acid (Folic Acid) 1 mg PO DAILY [facility] Last Admin: 04/12/17 09:46 Dose: 1 mg Levetiracetam (Keppra) 750 mg PO BID [facility] Last Admin: 04/12/17 19:08 Dose: 750 mg Lisinopril (Zestril) 2.5 mg PO DAILY [facility] Last Admin: 04/12/17 09:48 Dose: 2.5 mg Multivitamins (Hexavitamin) 1 tab PO DAILY [facility] Last Admin: 04/12/17 09:46 Dose: 1 tab Ondansetron HCl (Zofran Inj) 4 mg IVP Q8 PRN PRN Reason: Nausea/Vomiting Last Admin: 04/08/17 14:53 Dose: 4 mg Pantoprazole Sodium (Protonix Ec Tab) 40 mg PO DAILY [facility] Last Admin: 04/12/17 09:46 Dose: 40 mg Rosuvastatin Calcium (Crestor) 2.5 mg PO HS [facility] Last Admin: 04/12/17 22:03 Dose: 2.5 mg Sennosides (Senokot Tab) 8.6 mg PO DAILY [facility] Last Admin: 04/12/17 09:48 Dose: 8.6 mg Sodium Chloride (Sodium Chloride Tab) 1 gm PO BID [facility] Last Admin: 04/12/17 19:06 Dose: 1 gm Sodium Chloride (Hypertonic Saline 3%) 500 ml IV ONCE ONE Stop: 04/13/17 09:11 Thiamine HCl (Vitamin B1 Tab) 100 mg PO DAILY [facility] Last Admin: 04/12/17 09:46 Dose: 100 mg - Labs Labs: 04/13/17 06:34 04/13/17 06:34 PT 11.6 SECONDS (9.7-12.2) 04/04/17 06:22 INR 1.0 04/04/17 06:22 APTT 27 SECONDS (21-34) D 04/04/17 06:22 - Constitutional Appears: No Acute Distress - Head Exam Head Exam: NORMAL INSPECTION Additional comments: Right parietal surgical nupur are intact with no s/s of infection. - Neurological Exam Neurological Exam: Alert, Awake Neuro motor strength exam: Left Upper Extremity: 4, Right Upper Extremity: 5, Left Lower Extremity: 3, Right Lower Extremity: 5 Additional comments: Neurological improved from previous examination. Sensation remains intact. Assessment and Plan (1) Acute intra-cranial hemorrhage Assessment & Plan: Case discussed with Dr. Gilbert, continue current medical, physical, and occupational therapies. Repeat CT of the head without contrast in am. Monitor NA and serum osmolality levels. Please refer to agriculture laborer regarding K level. Status: Acute
[2017-04-13] MEDS: Multiple Vitamins Tab PO SCH (09:23)
[2017-04-13] MEDS: Pantoprazole 40 mg EC Tab PO SCH (09:23)
--- NOTE | 2017-04-13 11:31 | CP.PCM.PN ---
Subjective - Date & Time of Evaluation Date of Evaluation: 04/13/17 Time of Evaluation: 11:15 - Subjective Subjective: Progress note dictated #[id number] Objective - Vital Signs/Intake and Output Vital Signs (last 24 hours): Temp Pulse Resp BP Pulse Ox 97.8 F 61 9 L 131/71 97 04/13/17 01:00 04/13/17 09:00 04/13/17 09:00 04/13/17 08:42 04/13/17 01:00 Intake and Output: 04/13/17 04/13/17 06:59 18:59 Intake Total 1510 900 Output Total 500 Balance 1010 900 - Medications Medications: Current Medications Bisacodyl (Dulcolax) [address] DAILY PRN PRN Reason: constipation Docusate Sodium (Colace) 100 mg PO DAILY [facility] Last Admin: 04/13/17 09:22 Dose: 100 mg Folic Acid (Folic Acid) 1 mg PO DAILY [facility] Last Admin: 04/13/17 09:23 Dose: 1 mg Potassium Chloride (Potassium Chloride 20 Meq/100 Ml) 20 meq in 100 mls @ 50 mls/hr IVPB Q2H [facility] Stop: 04/13/17 13:32 Levetiracetam (Keppra) 750 mg PO BID [facility] Last Admin: 04/13/17 09:21 Dose: 750 mg Lisinopril (Zestril) 2.5 mg PO DAILY [facility] Last Admin: 04/13/17 09:22 Dose: 2.5 mg Multivitamins (Hexavitamin) 1 tab PO DAILY [facility] Last Admin: 04/13/17 09:23 Dose: 1 tab Ondansetron HCl (Zofran Inj) 4 mg IVP Q8 PRN PRN Reason: Nausea/Vomiting Last Admin: 04/08/17 14:53 Dose: 4 mg Pantoprazole Sodium (Protonix Ec Tab) 40 mg PO DAILY [facility] Last Admin: 04/13/17 09:23 Dose: 40 mg Rosuvastatin Calcium (Crestor) 2.5 mg PO HS [facility] Last Admin: 04/12/17 22:03 Dose: 2.5 mg Sennosides (Senokot Tab) 8.6 mg PO DAILY [facility] Last Admin: 04/13/17 09:22 Dose: 8.6 mg Sodium Chloride (Sodium Chloride Tab) 1 gm PO BID [facility] Last Admin: 04/13/17 09:22 Dose: 1 gm Thiamine HCl (Vitamin B1 Tab) 100 mg PO DAILY [facility] Last Admin: 04/13/17 09:23 Dose: 100 mg - Labs Labs: 04/13/17 06:34 04/13/17 06:34 PT 11.6 SECONDS (9.7-12.2) 04/04/17 06:22 INR 1.0 04/04/17 06:22 APTT 27 SECONDS (21-34) D 04/04/17 06:22
[2017-04-13] MEDS: Aluminum Hydroxide/Magnesium Hydroxide Susp (30 mL) PO SCH (12:33)
--- NOTE | 2017-04-13 15:40 | PN ---
SUBJECTIVE: Patient is seen and examined at bedside. Patient is feeling generalized weakness, complaining of discomfort in the abdomen. As per nurses, patient is confused at times. Denies any other complaints. PHYSICAL EXAMINATION: GENERAL: An elderly male lying in bed, in no acute distress. VITAL SIGNS: Blood pressure 131/71, pulse 58, respirations 18, temperature 98.6 degrees Fahrenheit, O2 sat 100% on room air. Intake is 3460, output is 700. HEENT: Right pupil reacting to light and accommodation. No icterus. No pallor. No oral thrush. No pharyngeal congestion. NECK: Supple. No JVD. LUNGS: Bilateral vesicular breath sounds. No wheezing. No rhonchi. CARDIOVASCULAR: S1 and S2 present and regular. ABDOMEN: Soft and nontender. Bowel sounds present. No guarding. No rigidity. No rebound tenderness noted. CENTRAL NERVOUS SYSTEM: Alert, awake, and oriented x2. Power in upper and lower extremities both right and left 4-5/5. Gait did not test. Following commands. EXTREMITIES: No edema. SKIN: Scalp nupur in place without any discharge noted. MEDICATIONS: Include Dulcolax, Colace, folic acid 1 mg daily, Keppra 750 mg p.o. b.i.d., lisinopril, 2.5 mg p.o. daily, multivitamin 1 tab daily, Zofran as needed, Protonix 40 mg daily, Crestor 2.5 mg p.o. at bedtime, senna, sodium chloride tablet 1 g p.o. b.i.d., thiamine 100 mg p.o. daily. ASSESSMENT AND PLAN: Elderly male with past medical history of hypertension, hyperlipidemia, ethyl alcohol abuse, status post fall, admitted for altered mental status, right subdural hematoma and intracranial hemorrhage with surrounding edema, status post craniotomy and evacuation of the subdural hematoma, status post lethargy and left-sided weakness. Left-sided weakness is improving. Electroencephalogram consistent with possible seizure-like activity. Patient is currently on hypertonic saline and antiseizure medication as per Neurology. Continue with current medications. Follow up with Neurology. We will request bedside physical therapy and occupational therapy. Aifa Chirinos MD
--- NOTE | 2017-04-13 15:56 | CP.CCUPN ---
<Maryann Mejía - Last Filed: 04/13/17 15:58> CCU Subjective - Physician Review Subjective (Free Text): 04/11/17 14:[address] Prieto Davis Patient seen and examined at bedside. no acute events overnight. Patient reports feeling more fatigued this AM secondary to not sleeping well the previous evening. Denies fevers, chills, nausea, vomitting, diarrhea or change in urination. CCU Objective - Vital Signs / Intake & Output Vital Signs (Last 4 hours): Vital Signs Temp Pulse Resp BP Pulse Ox 04/13/17 14:42 56 L 16 111/63 96 04/13/17 14:00 105 H 97 04/13/17 13:41 69 17 123/73 97 04/13/17 13:00 86 13 98 04/13/17 12:41 75 14 113/65 04/13/17 12:00 98.1 F 79 15 96 Intake and Output (Last 8hrs): Intake & Output 04/13/17 04/13/17 04/13/17 06:59 14:59 22:59 Intake Total 990 1200 100 Output Total 500 400 Balance 490 800 100 Weight 158 lb 3.2 oz 158 lb Intake: Intake, IV Amount 400 300 50 Right Distal Port 400 100 50 Internal Jugular Right Medial Port 200 Internal Jugular Oral 590 900 50 Output: Urine 500 400 Urine, Voided 500 400 Other: # Voids Urine, Voided 1 1 0 # Bowel Movements 1 0 0 - Physical Exam Head: Positive for: Other (Drain located on right side of head. Surgical dressing in place -no strikethrough) Pupils: Positive for: PERRL, Other ((blind in left eye)) Extroacular Muscles: Positive for: 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 Negative for: Respiratory Distress, Accessory Muscle Use Cardiovascular: Positive for: Bradycardic (sinus) Abdomen: Positive for: Normal Bowel Sounds. Negative for: Tenderness, Distention, Peritoneal Signs Upper Extremity: Positive for: NORMAL PULSES, Capillary Refill < 2s Lower Extremity: Positive for: NORMAL PULSES, Normal ROM, Capillary Refill < 2 s , Other (SCDs in place.) Neurological: Positive for: GCS=15, Speech Normal (much improved compared to today), Motor Func Grossly Intact (5/5 strength b/l for UE and LE. No pronator drift. ) Skin: Positive for: Warm, Dry Psychiatric: Positive for: Alert. Negative for: Oriented x 3 (Oriented to self , but not date or place - thinks year is 1981 and he states he does not know where he is at. ) - Medications Active Medications: Active Medications Generic Name Dose Route Start Last Admin Trade Name Freq PRN Reason Stop Dose Admin Al Hydrox/Mg Hydrox/Simethicone 30 ml 04/13/17 12:00 04/13/17 12:33 Maalox 30 Ml PO 30 ml DAILY ALBERTO Administration Bisacodyl 10 mg 04/07/17 10:00 Dulcolax TN DAILY PRN constipation Docusate Sodium 100 mg 04/07/17 10:00 04/13/17 09:22 Colace PO 100 mg DAILY ALBERTO Administration Folic Acid 1 mg 04/11/17 10:00 04/13/17 09:23 Folic Acid PO 1 mg DAILY ALBERTO Administration Levetiracetam 750 mg 04/09/17 18:00 04/13/17 09:21 Keppra PO 750 mg BID ALBERTO Administration Lisinopril 2.5 mg 04/10/17 15:45 04/13/17 09:22 Zestril PO 2.5 mg DAILY ALBERTO Administration Multivitamins 1 tab 04/11/17 10:00 04/13/17 09:23 Hexavitamin PO 1 tab DAILY ALBERTO Administration Ondansetron HCl 4 mg 04/07/17 08:55 04/08/17 14:53 Zofran Inj IVP 4 mg Q8 PRN Administration Nausea/Vomiting Pantoprazole Sodium 40 mg 03/31/17 10:00 04/13/17 09:23 Protonix Ec Tab PO 40 mg DAILY ALBERTO Administration Rosuvastatin Calcium 2.5 mg 04/10/17 22:00 04/12/17 22:03 Crestor PO 2.5 mg HS ALBERTO Administration Sennosides 8.6 mg 04/07/17 10:00 04/13/17 09:22 Senokot Tab PO 8.6 mg DAILY ALBERTO Administration Sodium Chloride 1 gm 04/10/17 10:00 04/13/17 09:22 Sodium Chloride Tab PO 1 gm BID ALBERTO Administration Thiamine HCl 100 mg 04/11/17 10:00 04/13/17 09:23 Vitamin B1 Tab PO 100 mg DAILY AL[facility]ERTO Administration - Patient Studies Lab Studies: Microbiology Studies 04/10/17 20:46 MRSA Culture (Admit) - Final Nose MRSA NOT DETECTED Lab Studies 04/13/17 04/13/17 Range/Units 06:34 06:34 WBC 7.2 (4.8-10.8) K/uL RBC 3.89 L (4.40-5.90) Mil/uL Hgb 12.4 (12.0-18.0) g/dL Hct 35.0 (35.0-51.0) % MCV 90.0 (80.0-94.0) fL MCH 31.9 H (27.0-31.0) pg MCHC 35.5 (33.0-37.0) g/dL RDW 13.5 (11.5-14.5) % Plt Count 195 (130-400) K/uL MPV 7.7 (7.2-11.7) fL Neut % (Auto) 78.9 H (50.0-75.0) % Lymph % (Auto) 11.0 L (20.0-40.0) % Dickey % (Auto) 8.2 (0.0-10.0) % Eos % (Auto) 1.6 (0.0-4.0) % Baso % (Auto) 0.3 (0.0-2.0) % Neut # 5.7 (1.8-7.0) K/uL Lymph # 0.8 L (1.0-4.3) K/uL Dickey # 0.6 (0.0-0.8) K/uL Eos # 0.1 (0.0-0.7) K/uL Baso # 0.0 (0.0-0.2) K/uL Sodium 133 (132-148) mmol/L Potassium 3.1 L (3.6-5.2) mmol/L Chloride 104 (98-107) mmol/L Carbon Dioxide 23 (22-30) mmol/L Anion Gap 8 L (10-20) BUN 5 L (9-20) mg/dL Creatinine 0.6 L (0.8-1.5) mg/dL Est GFR ( Amer) > 60 Est GFR (Non-Af Amer) > 60 Random Glucose 102 (75-110) mg/dL Calcium 7.8 L (8.6-10.4) mg/dl Phosphorus 2.6 (2.5-4.5) mg/dL Magnesium 2.0 (1.6-2.3) mg/dL Total Bilirubin 1.1 (0.2-1.3) mg/dL AST 23 (17-59) U/L ALT 33 (21-72) U/L Alkaline Phosphatase 82 (38-126) U/L Total Protein 7.0 (6.3-8.3) g/dL Albumin 3.0 L (3.5-5.0) g/dL Globulin 4.0 H (2.2-3.9) gm/dL Albumin/Globulin Ratio 0.8 L (1.0-2.1) Laboratory Results - last 24 hr 04/13/17 04/13/17 06:34 06:34 WBC 7.2 RBC 3.89 L Hgb 12.4 Hct 35.0 MCV 90.0 MCH 31.9 H MCHC 35.5 RDW 13.5 Plt Count 195 MPV 7.7 Neut % (Auto) 78.9 H Lymph % (Auto) 11.0 L Dickey % (Auto) 8.2 Eos % (Auto) 1.6 Baso % (Auto) 0.3 Neut # 5.7 Lymph # 0.8 L Dickey # 0.6 Eos # 0.1 Baso # 0.0 Sodium 133 Potassium 3.1 L Chloride 104 Carbon Dioxide 23 Anion Gap 8 L BUN 5 L Creatinine 0.6 L Est GFR ( Amer) > 60 Est GFR (Non-Af Amer) > 60 Random Glucose 102 Calcium 7.8 L Phosphorus 2.6 Magnesium 2.0 Total Bilirubin 1.1 AST 23 ALT 33 Alkaline Phosphatase 82 Total Protein 7.0 Albumin 3.0 L Globulin 4.0 H Albumin/Globulin Ratio 0.8 L Fingerstick Blood Sugar Results: 100 Critical Care Progress Note - Nutrition Nutrition: Nutrition Category Date Time Status Heart Healthy Diet [DIET] Diets 04/11/17 Dinner Active Assessment/Plan - Assessment and Plan (Free Text) Assessment: Patient is a 71 year old male with past medical history of ETOH abuse, HTN, HLD , depression, presenting with recent fall with rib fractures and AMS, found to have an intracranial hemorrhage with worsening SDH. Patient s/p craniotomy/evac SDH on 04/05/2017. Patient noted to have right sided gaze preference and left sided weakness on 04/10/2017. Transferred to ICU for monitoring. Plan Neuro: Dr. Gilbert consulted, help appreciated Dr. Harmon consulted, help appreciated Intraparencymal Hemorrhage - stable Head CT 03/27/17 - Multifocal intracranial hemorrhage including the large right frontal parenchymal hemorrahge and multifocal extra-axial hemorrahges as described. Decreasing density of extra-axial blood noted in the right frontoparietal convexity hematoma and in the posterior right temporal hematoma. A right occipital extra-axial hemorrhage remains hyperdense consistent with acute blood. Increased midline shift towards the left of approximately 19 mm. No evidence of downward herniation. Repeat Head CT 03/29/17 - Large right frontal parenchymal hemorrhage with extensive surrounding edema and large midlfine shift towards henrry left. Decreasing size of posterior occipital biconvex hemorrhage. There is focal parenchymal edema deep to what was previously identified as a small right posterior temporal biconvex extra-axial acute hemorrhage. Complete effacement of right lateral ventricle with mild ventricular trapping and dilatation of the left lateral ventricle, unchanged in extent compared to 03/27/2017. Increasing size of right convexity subdural hemorrhage, decreased in attenuation. This now measures 11 mm in width. Repeat Head CT 04/01/17 - NO significant interval change noted since the previous exam. Re-demonstrated is internal hemorrhage at the right frontal lobe. Re-demonstrated is complex mainly chronic subdural hematoma along the right convexity with small foci of high attenuation suggestive of small acute on chronic hemorrhage. Mass effect on the lateral ventricle and approximately 16.6 millimeter right to left midline shift. Mild hydrocephalus Repeat Head CT 04/02/17 - No significant interval change when compared to the previous exam. Repeat Head CT 04/05/17 - COntinued unremarkable expected evolution right inferior frontal pole on hematoma. Surrounding low-attenuation edema appears to be diminished slightly. Large hypodense chronic subdural hematoma. Persistent but slightly decreased mass-effect with a very slight decreased [id number] shift as above. Persistent dilatation left lateral ventricle due to compressive effects at the right foramen on [place]. Repeat Head CT 04/10/17 - Stable postoperative changes status post right frontotemporal craniotomy. Diminishing right frontal pneumocephaly. Stable extra -axial hemorrhagic elements including subdural and likely small epidural hematomas of the right convexity. Stable mass effect unchanged. Repeat Head CT 04/11/17 - Stable right frontal intraparenchymal hemorrhage as well as right cerebral convexity subdural and epidural hematomas though there is some evidence of diminishing volume in the extra-axial hemorrage as several right cerebral sulci appear to be increasing in volume slightly. Prior right frontotemporal craniotomy again evident with pneumocephaly not significantly changed. Will continue to monitor Aisha Patient's neurological exam confounded with history of alcohol abuse/withdrawal -[facility] protocol Multivitamine/thiamine/folic acid Keppra 750 mg PO BID Hypertonic Salne 3% 50 ml/hr, discontinued since last administrated bag 04/12 04/11 - Na 131, Serum Osmolality 289 04/12 - Na 135, Serum Osmolality 293 04/13 - Na 133 Fluid restriction of 800 ml f/u neuro recs -goal Na 140-145, monitor with BMP q6H -serum osmol, <320 monitor with serum osmol q6H -keep head of bed above 45 degrees -avoid dextrose containing fluids, hyperthermia or hypertension -Discuss with neuro regarding possible use of Mannitol f/u sOsm f/u urine Osm f/u CMP CV Sinus Bradycardia Dr. Velasquez consulted, help appreciated ECHO- EF 40-45%, mild LV dysfunction (possibly due to increased ICP) 04/10 Started on Rosuvastatin 2.5 mg PO HS 04/10 Started on Lisinopril 1 tab PO Daily 04/12 Troponin <.0120. CK-MB .36 GI: Heart Healthy Diet Maalox 30 ml PO daily Colace 100 mg PO daily Prophylactic Care: DVT proph - SCDs, hold anticoagulation due to intracerebral bleed GI Proph - Protonix 40 mg PO Daily Case discussed with Dr. Davis - Date & Time Date: 04/13/17 Time: 15:53 <Prieto Davis - Last Filed: 04/13/17 16:48> CCU Objective - Vital Signs / Intake & Output Vital Signs (Last 4 hours): Vital Signs Temp Pulse Resp BP Pulse Ox 04/13/17 16:00 98.3 F 55 L 15 98 04/13/17 15:42 47 L 14 139/58 L 04/13/17 14:42 56 L 16 111/63 96 04/13/17 14:00 105 H 97 04/13/17 13:41 69 17 123/73 97 04/13/17 13:00 86 13 98 Intake and Output (Last 8hrs): Intake & Output 04/13/17 04/13/17 04/13/17 06:59 14:59 22:59 Intake Total 990 1200 150 Output Total 500 400 250 Balance 490 800 -100 Weight 158 lb 3.2 oz 158 lb Intake: Intake, IV Amount 400 300 100 Right Distal Port 400 100 100 Internal Jugular Right Medial Port 200 0 Internal Jugular Oral 590 900 50 Output: Urine 500 400 250 Urine, Voided 500 400 250 Other: # Voids Urine, Voided 1 1 1 # Bowel Movements 1 0 0 - Medications Active Medications: Active Medications Generic Name Dose Route Start Last Admin Trade Name Freq PRN Reason Stop Dose Admin Al Hydrox/Mg Hydrox/Simethicone 30 ml 04/13/17 12:00 04/13/17 12:33 Maalox 30 Ml PO 30 ml DAILY ALBERTO Administration Bisacodyl 10 mg 04/07/17 10:00 Dulcolax TN DAILY PRN constipation Docusate Sodium 100 mg 04/07/17 10:00 04/13/17 09:22 Colace PO 100 mg DAILY ALBERTO Administration Folic Acid 1 mg 04/11/17 10:00 04/13/17 09:23 Folic Acid PO 1 mg DAILY ALBERTO Administration Levetiracetam 750 mg 04/09/17 18:00 04/13/17 09:21 Keppra PO 750 mg BID ALBERTO Administration Lisinopril 2.5 mg 04/10/17 15:45 04/13/17 09:22 Zestril PO 2.5 mg DAILY ALBERTO Administration Multivitamins 1 tab 04/11/17 10:00 04/13/17 09:23 Hexavitamin PO 1 tab DAILY ALBERTO Administration Ondansetron HCl 4 mg 04/07/17 08:55 04/08/17 14:53 Zofran Inj IVP 4 mg Q8 PRN Administration Nausea/Vomiting Pantoprazole Sodium 40 mg 03/31/17 10:00 04/13/17 09:23 Protonix Ec Tab PO 40 mg DAILY ALBERTO Administration Rosuvastatin Calcium 2.5 mg 04/10/17 22:00 04/12/17 22:03 Crestor PO 2.5 mg HS ALBERTO Administration Sennosides 8.6 mg 04/07/17 10:00 04/13/17 09:22 Senokot Tab PO 8.6 mg DAILY ALBERTO Administration Sodium Chloride 1 gm 04/10/17 10:00 04/13/17 09:22 Sodium Chloride Tab PO 1 gm BID ALBERTO Administration Thiamine HCl 100 mg 04/11/17 10:00 04/13/17 09:23 Vitamin B1 Tab PO 100 mg DAILY ALBERTO Administration - Patient Studies Lab Studies: Microbiology Studies 04/10/17 20:46 MRSA Culture (Admit) - Final Nose MRSA NOT DETECTED Lab Studies 04/13/17 04/13/17 Range/Units 06:34 06:34 WBC 7.2 (4.8-10.8) K/uL RBC 3.89 L (4.40-5.90) Mil/uL Hgb 12.4 (12.0-18.0) g/dL Hct 35.0 (35.0-51.0) % MCV 90.0 (80.0-94.0) fL MCH 31.9 H (27.0-31.0) pg MCHC 35.5 (33.0-37.0) g/dL RDW 13.5 (11.5-14.5) % Plt Count 195 (130-400) K/uL MPV 7.7 (7.2-11.7) fL Neut % (Auto) 78.9 H (50.0-75.0) % Lymph % (Auto) 11.0 L (20.0-40.0) % Dickey % (Auto) 8.2 (0.0-10.0) % Eos % (Auto) 1.6 (0.0-4.0) % Baso % (Auto) 0.3 (0.0-2.0) % Neut # 5.7 (1.8-7.0) K/uL Lymph # 0.8 L (1.0-4.3) K/uL Dickey # 0.6 (0.0-0.8) K/uL Eos # 0.1 (0.0-0.7) K/uL Baso # 0.0 (0.0-0.2) K/uL Sodium 133 (132-148) mmol/L Potassium 3.1 L (3.6-5.2) mmol/L Chloride 104 (98-107) mmol/L Carbon Dioxide 23 (22-30) mmol/L Anion Gap 8 L (10-20) BUN 5 L (9-20) mg/dL Creatinine 0.6 L (0.8-1.5) mg/dL Est GFR ( Amer) > 60 Est GFR (Non-Af Amer) > 60 Random Glucose 102 (75-110) mg/dL Calcium 7.8 L (8.6-10.4) mg/dl Phosphorus 2.6 (2.5-4.5) mg/dL Magnesium 2.0 (1.6-2.3) mg/dL Total Bilirubin 1.1 (0.2-1.3) mg/dL AST 23 (17-59) U/L ALT 33 (21-72) U/L Alkaline Phosphatase 82 (38-126) U/L Total Protein 7.0 (6.3-8.3) g/dL Albumin 3.0 L (3.5-5.0) g/dL Globulin 4.0 H (2.2-3.9) gm/dL Albumin/Globulin Ratio 0.8 L (1.0-2.1) Laboratory Results - last 24 hr 04/13/17 04/13/17 06:34 06:34 WBC 7.2 RBC 3.89 L Hgb 12.4 Hct 35.0 MCV 90.0 MCH 31.9 H MCHC 35.5 RDW 13.5 Plt Count 195 MPV 7.7 Neut % (Auto) 78.9 H Lymph % (Auto) 11.0 L Dickey % (Auto) 8.2 Eos % (Auto) 1.6 Baso % (Auto) 0.3 Neut # 5.7 Lymph # 0.8 L Dickey # 0.6 Eos # 0.1 Baso # 0.0 Sodium 133 Potassium 3.1 L Chloride 104 Carbon Dioxide 23 Anion Gap 8 L BUN 5 L Creatinine 0.6 L Est GFR ( Amer) > 60 Est GFR (Non-Af Amer) > 60 Random Glucose 102 Calcium 7.8 L Phosphorus 2.6 Magnesium 2.0 Total Bilirubin 1.1 AST 23 ALT 33 Alkaline Phosphatase 82 Total Protein 7.0 Albumin 3.0 L Globulin 4.0 H Albumin/Globulin Ratio 0.8 L Critical Care Progress Note - Nutrition Nutrition: Nutrition Category Date Time Status Heart Healthy Diet [DIET] Diets 04/11/17 Dinner Active Assessment/Plan - Assessment and Plan (Free Text) Plan: I agree with above resident note. Patient remains hemodynamically stable.
[2017-04-13] MEDS ORDERED: Potassium Chloride 20 mEq ER Tab PO ONE (16:17)
[2017-04-13 16:59] LABS: ALKALINE PHOSPHATASE 80 U/L (38-126); ALT/SGPT 32 U/L (21-72); AST/SGOT 19 U/L (17-59); BILIRUBIN,TOTAL 1.2 mg/dL (0.2-1.3); BLOOD UREA NITROGEN 5 mg/dL (9-20); CALCIUM 7.6 mg/dl (8.6-10.4); CARBON DIOXIDE 22 mmol/L (22-30); CHLORIDE 105 mmol/L (98-107); GFR AFRICAN-AMERICAN > 60; GLUCOSE,RANDOM 92 mg/dL (75-110); POTASSIUM 3.6 mmol/L (3.6-5.2); SODIUM 130 mmol/L (132-148); TOTAL PROTEIN 5.7 g/dL (6.3-8.3)
[2017-04-13 17:23] LABS: ALB/GLOB RATIO 1.2 (1.0-2.1)
[2017-04-13] MEDS: Rosuvastatin Calcium 2.5 mg Tab PO SCH (22:26)
[2017-04-13 22:29] LABS: BLOOD UREA NITROGEN 4 mg/dL (9-20); CALCIUM 7.8 mg/dl (8.6-10.4); CARBON DIOXIDE 21 mmol/L (22-30); CHLORIDE 106 mmol/L (98-107); GFR AFRICAN-AMERICAN > 60; GLUCOSE,RANDOM 90 mg/dL (75-110); POTASSIUM 3.4 mmol/L (3.6-5.2); SODIUM 133 mmol/L (132-148)
[2017-04-14 06:39] LABS: BASO % 0.5 % (0.0-2.0); EOS # 0.1 K/uL (0.0-0.7); EOS % 2.3 % (0.0-4.0); HEMATOCRIT 34.9 % (35.0-51.0); LYMPH # 0.9 K/uL (1.0-4.3); LYMPH % 13.9 % (20.0-40.0); MEAN CELL VOLUME 90.2 fL (80.0-94.0); MEAN CORPUSCULAR HEMOGLOBIN 31.6 pg (27.0-31.0); MEAN CORPUSCULAR HGB CONC 35.1 g/dL (33.0-37.0); MEAN PLATELET VOLUME 7.9 fL (7.2-11.7); MONO # 0.6 K/uL (0.0-0.8); MONO % 10.3 % (0.0-10.0); RED CELL DISTRIBUTION WIDTH 13.6 % (11.5-14.5); WHITE BLOOD COUNT 6.2 K/uL (4.8-10.8)
[2017-04-14 07:09] LABS: BLOOD UREA NITROGEN 5 mg/dL (9-20); CALCIUM 7.9 mg/dl (8.6-10.4); CARBON DIOXIDE 23 mmol/L (22-30); CHLORIDE 104 mmol/L (98-107); GFR AFRICAN-AMERICAN > 60; GLUCOSE,RANDOM 88 mg/dL (75-110); POTASSIUM 3.1 mmol/L (3.6-5.2); SODIUM 132 mmol/L (132-148)
--- NOTE | 2017-04-14 07:35 | CP.CCUPN ---
<AlfonzoMaryann - Last Filed: 04/14/17 16:00> CCU Subjective - Physician Review Subjective (Free Text): Progress note Patient seen and examined at bedside. No acute events overnight. Patient has no complaints today. Patient had an episode of loose bowel movements per nursing staff. Patient feels less tired than yesterday. Nursing staff communication about 800cc fluid restriction. CCU Objective - Vital Signs / Intake & Output Vital Signs (Last 4 hours): Vital Signs Temp Pulse Resp BP Pulse Ox 04/14/17 07:03 49 L 04/14/17 06:41 49 L 16 140/59 L 04/14/17 06:00 57 L 15 04/14/17 05:41 50 L 10 L 142/65 04/14/17 05:00 51 L 10 L 04/14/17 04:42 52 L 16 129/62 04/14/17 04:00 98.1 F 56 L 13 95 04/14/17 03:57 52 L 12 95/59 L 04/14/17 03:42 52 L 11 L 86/61 L Intake and Output (Last 8hrs): Intake & Output 04/13/17 04/14/17 04/14/17 22:59 06:59 14:59 Intake Total 550 270 Output Total 650 450 Balance -100 -180 Weight 158 lb 156 lb 0.5 oz Intake: Intake, IV Amount 400 50 Right Distal Port 400 50 Internal Jugular Right Medial Port 0 0 Internal Jugular Oral 150 220 Output: Urine 650 450 Urine, Voided 650 450 Other: # Voids Urine, Voided 1 0 # Bowel Movements 0 1 - Physical Exam Head: Positive for: Other (Drain located on right side of head. Surgical dressing in place -no strikethrough) Pupils: Positive for: PERRL, Other ((blind in left eye)) Extroacular Muscles: Positive for: 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 Negative for: Respiratory Distress, Accessory Muscle Use Cardiovascular: Positive for: Bradycardic (sinus) Abdomen: Positive for: Normal Bowel Sounds. Negative for: Tenderness, Distention, Peritoneal Signs Upper Extremity: Positive for: NORMAL PULSES, Capillary Refill < 2s Lower Extremity: Positive for: NORMAL PULSES, Normal ROM, Capillary Refill < 2 s , Other (SCDs in place.) Neurological: Positive for: GCS=15, Speech Normal (much improved compared to today), Motor Func Grossly Intact (5/5 strength b/l for UE and LE. No pronator drift. ) Skin: Positive for: Warm, Dry Psychiatric: Positive for: Alert. Negative for: Oriented x 3 (Oriented to self , but not date or place - thinks year is 1982 and he states he does not know where he is at. ) - Medications Active Medications: Active Medications Generic Name Dose Route Start Last Admin Trade Name Freq PRN Reason Stop Dose Admin Al Hydrox/Mg Hydrox/Simethicone 30 ml 04/13/17 12:00 04/13/17 12:33 Maalox 30 Ml PO 30 ml DAILY ALBERTO Administration Bisacodyl 10 mg 04/07/17 10:00 Dulcolax [place] DAILY PRN constipation Docusate Sodium 100 mg 04/07/17 10:00 04/13/17 09:22 Colace PO 100 mg DAILY ALBERTO Administration Folic Acid 1 mg 04/11/17 10:00 04/13/17 09:23 Folic Acid PO 1 mg DAILY ALBERTO Administration Levetiracetam 750 mg 04/09/17 18:00 04/13/17 17:42 Keppra PO 750 mg BID ALBERTO Administration Lisinopril 2.5 mg 04/10/17 15:45 04/13/17 09:22 Zestril PO 2.5 mg DAILY ALBERTO Administration Multivitamins 1 tab 04/11/17 10:00 04/13/17 09:23 Hexavitamin PO 1 tab DAILY ALBERTO Administration Ondansetron HCl 4 mg 04/07/17 08:55 04/08/17 14:53 Zofran Inj IVP 4 mg Q8 PRN Administration Nausea/Vomiting Pantoprazole Sodium 40 mg 03/31/17 10:00 04/13/17 09:23 Protonix Ec Tab PO 40 mg DAILY ALBERTO Administration Rosuvastatin Calcium 2.5 mg 04/10/17 22:00 04/13/17 22:26 Crestor PO 2.5 mg HS ALBERTO Administration Sennosides 8.6 mg 04/07/17 10:00 04/13/17 09:22 Senokot Tab PO 8.6 mg DAILY ALBERTO Administration Sodium Chloride 1 gm 04/10/17 10:00 04/13/17 17:43 Sodium Chloride Tab PO 1 gm BID ALBERTO Administration Thiamine HCl 100 mg 04/11/17 10:00 04/13/17 09:23 Vitamin B1 Tab PO 100 mg DAILY ALBERTO Administration - Patient Studies Lab Studies: Lab Studies 04/14/17 04/14/17 04/13/17 Range/Units 06:28 06:28 22:10 WBC 6.2 (4.8-10.8) K/uL RBC 3.87 L (4.40-5.90) Mil/uL Hgb 12.2 (12.0-18.0) g/dL Hct 34.9 L (35.0-51.0) % MCV 90.2 (80.0-94.0) fL MCH 31.6 H (27.0-31.0) pg MCHC 35.1 (33.0-37.0) g/dL RDW 13.6 (11.5-14.5) % Plt Count 190 (130-400) K/uL MPV 7.9 (7.2-11.7) fL Neut % (Auto) 73.0 (50.0-75.0) % Lymph % (Auto) 13.9 L (20.0-40.0) % Peach % (Auto) 10.3 H (0.0-10.0) % Eos % (Auto) 2.3 (0.0-4.0) % Baso % (Auto) 0.5 (0.0-2.0) % Neut # 4.5 (1.8-7.0) K/uL Lymph # 0.9 L (1.0-4.3) K/uL Peach # 0.6 (0.0-0.8) K/uL Eos # 0.1 (0.0-0.7) K/uL Baso # 0.0 (0.0-0.2) K/uL Sodium 132 (132-148) mmol/L Potassium 3.1 L (3.6-5.2) mmol/L Chloride 104 (98-107) mmol/L Carbon Dioxide 23 (22-30) mmol/L Anion Gap 9 L (10-20) BUN 5 L (9-20) mg/dL Creatinine 0.6 L (0.8-1.5) mg/dL Est GFR ( Amer) > 60 Est GFR (Non-Af Amer) > 60 Random Glucose 88 (75-110) mg/dL Serum Osmolality 285 (272-300) mosm/kg Calcium 7.9 L (8.6-10.4) mg/dl Total Bilirubin (0.2-1.3) mg/dL AST (17-59) U/L ALT (21-72) U/L Alkaline Phosphatase (38-126) U/L Total Protein (6.3-8.3) g/dL Albumin (3.5-5.0) g/dL Globulin (2.2-3.9) gm/dL Albumin/Globulin Ratio (1.0-2.1) Urine Osmolality (300-1000) mosm/kg 04/13/17 04/13/17 04/13/17 Range/Units 22:10 18:08 16:35 WBC (4.8-10.8) K/uL RBC (4.40-5.90) Mil/uL Hgb (12.0-18.0) g/dL Hct (35.0-51.0) % MCV (80.0-94.0) fL MCH (27.0-31.0) pg MCHC (33.0-37.0) g/dL RDW (11.5-14.5) % Plt Count (130-400) K/uL MPV (7.2-11.7) fL Neut % (Auto) (50.0-75.0) % Lymph % (Auto) (20.0-40.0) % Peach % (Auto) (0.0-10.0) % Eos % (Auto) (0.0-4.0) % Baso % (Auto) (0.0-2.0) % Neut # (1.8-7.0) K/uL Lymph # (1.0-4.3) K/uL Peach # (0.0-0.8) K/uL Eos # (0.0-0.7) K/uL Baso # (0.0-0.2) K/uL Sodium 133 (132-148) mmol/L Potassium 3.4 L (3.6-5.2) mmol/L Chloride 106 (98-107) mmol/L Carbon Dioxide 21 L (22-30) mmol/L Anion Gap 9 L (10-20) BUN 4 L (9-20) mg/dL Creatinine 0.6 L (0.8-1.5) mg/dL Est GFR ( Amer) > 60 Est GFR (Non-Af Amer) > 60 Random Glucose 90 (75-110) mg/dL Serum Osmolality 281 (272-300) mosm/kg Calcium 7.8 L (8.6-10.4) mg/dl Total Bilirubin (0.2-1.3) mg/dL AST (17-59) U/L ALT (21-72) U/L Alkaline Phosphatase (38-126) U/L Total Protein (6.3-8.3) g/dL Albumin (3.5-5.0) g/dL Globulin (2.2-3.9) gm/dL Albumin/Globulin Ratio (1.0-2.1) Urine Osmolality 711 (300-1000) mosm/kg 04/13/17 Range/Units 16:35 WBC (4.8-10.8) K/uL RBC (4.40-5.90) Mil/uL Hgb (12.0-18.0) g/dL Hct (35.0-51.0) % MCV (80.0-94.0) fL MCH (27.0-31.0) pg MCHC (33.0-37.0) g/dL RDW (11.5-14.5) % Plt Count (130-400) K/uL MPV (7.2-11.7) fL Neut % (Auto) (50.0-75.0) % Lymph % (Auto) (20.0-40.0) % Peach % (Auto) (0.0-10.0) % Eos % (Auto) (0.0-4.0) % Baso % (Auto) (0.0-2.0) % Neut # (1.8-7.0) K/uL Lymph # (1.0-4.3) K/uL Peach # (0.0-0.8) K/uL Eos # (0.0-0.7) K/uL Baso # (0.0-0.2) K/uL Sodium 130 L (132-148) mmol/L Potassium 3.6 (3.6-5.2) mmol/L Chloride 105 (98-107) mmol/L Carbon Dioxide 22 (22-30) mmol/L Anion Gap 6 L (10-20) BUN 5 L (9-20) mg/dL Creatinine 0.5 L (0.8-1.5) mg/dL Est GFR ( Amer) > 60 Est GFR (Non-Af Amer) > 60 Random Glucose 92 (75-110) mg/dL Serum Osmolality (272-300) mosm/kg Calcium 7.6 L (8.6-10.4) mg/dl Total Bilirubin 1.2 (0.2-1.3) mg/dL AST 19 (17-59) U/L ALT 32 (21-72) U/L Alkaline Phosphatase 80 (38-126) U/L Total Protein 5.7 L (6.3-8.3) g/dL Albumin 3.1 L (3.5-5.0) g/dL Globulin 2.6 (2.2-3.9) gm/dL Albumin/Globulin Ratio 1.2 (1.0-2.1) Urine Osmolality (300-1000) mosm/kg Laboratory Results - last 24 hr 04/13/17 04/13/17 04/13/17 16:35 16:35 18:08 WBC RBC Hgb Hct MCV MCH MCHC RDW Plt Count MPV Neut % (Auto) Lymph % (Auto) Peach % (Auto) Eos % (Auto) Baso % (Auto) Neut # Lymph # Peach # Eos # Baso # Sodium 130 L Potassium 3.6 Chloride 105 Carbon Dioxide 22 Anion Gap 6 L BUN 5 L Creatinine 0.5 L Est GFR ( Amer) > 60 Est GFR (Non-Af Amer) > 60 Random Glucose 92 Serum Osmolality 281 Calcium 7.6 L Total Bilirubin 1.2 AST 19 ALT 32 Alkaline Phosphatase 80 Total Protein 5.7 L Albumin 3.1 L Globulin 2.6 Albumin/Globulin Ratio 1.2 Urine Osmolality 711 04/13/17 04/13/17 04/14/17 22:10 22:10 06:28 WBC RBC Hgb Hct MCV MCH MCHC RDW Plt Count MPV Neut % (Auto) Lymph % (Auto) Peach % (Auto) Eos % (Auto) Baso % (Auto) Neut # Lymph # Peach # Eos # Baso # Sodium 133 132 Potassium 3.4 L 3.1 L Chloride 106 104 Carbon Dioxide 21 L 23 Anion Gap 9 L 9 L BUN 4 L 5 L Creatinine 0.6 L 0.6 L Est GFR ( Amer) > 60 > 60 Est GFR (Non-Af Amer) > 60 > 60 Random Glucose 90 88 Serum Osmolality 285 Calcium 7.8 L 7.9 L Total Bilirubin AST ALT Alkaline Phosphatase Total Protein Albumin Globulin Albumin/Globulin Ratio Urine Osmolality 04/14/17 06:28 WBC 6.2 RBC 3.87 L Hgb 12.2 Hct 34.9 L MCV 90.2 MCH 31.6 H MCHC 35.1 RDW 13.6 Plt Count 190 MPV 7.9 Neut % (Auto) 73.0 Lymph % (Auto) 13.9 L Peach % (Auto) 10.3 H Eos % (Auto) 2.3 Baso % (Auto) 0.5 Neut # 4.5 Lymph # 0.9 L Peach # 0.6 Eos # 0.1 Baso # 0.0 Sodium Potassium Chloride Carbon Dioxide Anion Gap BUN Creatinine Est GFR ( Amer) Est GFR (Non-Af Amer) Random Glucose Serum Osmolality Calcium Total Bilirubin AST ALT Alkaline Phosphatase Total Protein Albumin Globulin Albumin/Globulin Ratio Urine Osmolality Fingerstick Blood Sugar Results: 100 Critical Care Progress Note - Nutrition Nutrition: Nutrition Category Date Time Status Heart Healthy Diet [DIET] Diets 04/11/17 Dinner Active Assessment/Plan - Assessment and Plan (Free Text) Assessment: Patient is a 71 year old male with past medical history of ETOH abuse, HTN, HLD , depression, presenting with recent fall with rib fractures and AMS, found to have an intracranial hemorrhage with worsening SDH. Patient s/p craniotomy/evac SDH on 04/05/2017. Patient noted to have right sided gaze preference and left sided weakness on 04/10/2017. Transferred to ICU for monitoring. Patient remains hemodynamically stable. Plan Neuro: Cerebral hemorrhage s/p craniotomy/evac SDH 04/05/2017 cerebral edema salt wasting v/ ADH Dr. Gilbert consulted, help appreciated Dr. Harmon consulted, help appreciated Intraparencymal Hemorrhage - stable 03/27/17 CT Head - Multifocal intracranial hemorrhage including the large right frontal parenchymal hemorrhage and multifocal extra-axial hemorrhages as described. Decreasing density of extra-axial blood noted in the right frontoparietal convexity hematoma and in the posterior right temporal hematoma. A right occipital extra-axial hemorrhage remains hyperdense consistent with acute blood. Increased midline shift towards the left of approximately 19 mm. No evidence of downward herniation. 03/29/17 CT Head - Large right frontal parenchymal hemorrhage with extensive surrounding edema and large midlfine shift towards henrry left. Decreasing size of posterior occipital biconvex hemorrhage. There is focal parenchymal edema deep to what was previously identified as a small right posterior temporal biconvex extra-axial acute hemorrhage. Complete effacement of right lateral ventricle with mild ventricular trapping and dilatation of the left lateral ventricle, unchanged in extent compared to 03/27/2017. Increasing size of right convexity subdural hemorrhage, decreased in attenuation. This now measures 11 mm in width. 04/01/17 CT Head - NO significant interval change noted since the previous exam. Re-demonstrated is internal hemorrhage at the right frontal lobe. Re- demonstrated is complex mainly chronic subdural hematoma along the right convexity with small foci of high attenuation suggestive of small acute on chronic hemorrhage. Mass effect on the lateral ventricle and approximately 16.6 millimeter right to left midline shift. Mild hydrocephalus Repeat Head CT 04/02/17 CT Head - No significant interval change when compared to the previous exam. Repeat Head CT 04/05/17 CT Head - Cotinued unremarkable expected evolution right inferior frontal pole on hematoma. Surrounding low-attenuation edema appears to be diminished slightly. Large hypodense chronic subdural hematoma. Persistent but slightly decreased mass-effect with a very slight decreased right -to-left shift as above. Persistent dilatation left lateral ventricle due to compressive effects at the right foramen on Monro. 04/10/17 CT Head - Stable postoperative changes status post right frontotemporal craniotomy. Diminishing right frontal pneumocephaly. Stable extra -axial hemorrhagic elements including subdural and likely small epidural hematomas of the right convexity. Stable mass effect unchanged. 04/11/17 CT Head - Stable right frontal intraparenchymal hemorrhage as well as right cerebral convexity subdural and epidural hematomas though there is some evidence of diminishing volume in the extra-axial hemorrhage as several right cerebral sulci appear to be increasing in volume slightly. Prior right frontotemporal craniotomy again evident with pneumocephaly not significantly changed. 04/14/17 CT Head - Previously noted right inferior frontal pole hematoma has continued to evolve in unremarkable fashion. The hemorrhagic component has diminished in size and not spiculated. A well-demarcated rim of surrounding edema and/or necrotic brain tissue noted. Additionally, there appears to be mild diffuse vasogenic white matter edema most of the right cerebral hemisphere including the white matter tracts of the right basal ganglia. There is also a predominantly hypodense right-sided extra-axial collection with few scattered small areas of subacute hemorrhage. There is significant mass effect and persistent midline shift from right to left with septum pellucidum estimated as approximately 13.8 mm to the left of midline. Dilatation of left lateral ventricle due to compressive effects at the level of the left foramen of Monro. Will continue to monitor Neurochecks Patient's neurological exam confounded with history of alcohol abuse/withdrawal -[facility] protocol Multivitamin/thiamine/folic acid Keppra 750 mg PO BID Hypertonic Salne 3% 50 ml/hr, discontinued since last administered bag 04/12 04/11 - Na 131, Serum Osmolality 289 04/12 - Na 135, Serum Osmolality 293 04/13 - Na 133, Serum Osmolality 285 04/14 - Na 132, Serum Osmolality 284 04/14 Urine Osmolality 711 Fluid restriction of 800 ml f/u neuro recs -goal Na 140-145, monitor with BMP q6H -serum osmol, <320 monitor with serum osmol q6H -keep head of bed above 45 degrees -avoid dextrose containing fluids, hyperthermia or hypertension -Discuss with neuro regarding possible use of Mannitol Discontinue Keppra due to its side effects to decrease sodium. Will start on Depakote 500 mg PO BID and Fludrocortisone .05 mg PO daily f/u sOsm f/u urine Osm f/u CMP CV Sinus Bradycardia, resolved Dr. Velasquez consulted, help appreciated ECHO- EF 40-45%, mild LV dysfunction (possibly due to increased ICP) 04/10 Started on Rosuvastatin 2.5 mg PO HS 04/10 Started on Lisinopril 1 tab PO Daily 04/12 Troponin <.0120. CK-MB .36 Nephro/Electrolytes: replaced potassium I/O restrict Fluids GI: diarrhea Heart Healthy Diet Maalox 30 ml PO daily Colace 100 mg PO daily Prophylaxis: DVT prophylaxis - SCDs, hold anticoagulation due to intracerebral bleed GI Prophylaxis - Protonix 40 mg PO Daily Heart Healthy Diet Case discussed with Dr. Gorge Mejía, DO PGY1 - Date & Time Date: 04/14/17 Time: 16:01 <Reno Pennington P - Last Filed: 04/14/17 20:56> CCU Objective - Vital Signs / Intake & Output Vital Signs (Last 4 hours): Vital Signs Pulse Resp 04/14/17 18:00 51 L 14 04/14/17 17:00 58 L 13 Intake and Output (Last 8hrs): Intake & Output 04/14/17 04/14/17 04/14/17 06:59 14:59 22:59 Intake Total 270 500 120 Output Total 450 250 Balance -180 500 -130 Weight 156 lb 0.5 oz Intake: Intake, IV Amount 50 0 Right Distal Port 50 0 Internal Jugular Right Medial Port 0 Internal Jugular Oral 220 500 120 Output: Urine 450 250 Urine, Voided 450 250 Other: # Voids Urine, Voided 0 1 1 # Bowel Movements 1 1 0 - Medications Active Medications: Active Medications Generic Name Dose Route Start Last Admin Trade Name Freq PRN Reason Stop Dose Admin Al Hydrox/Mg Hydrox/Simethicone 30 ml 04/13/17 12:00 04/14/17 09:42 Maalox 30 Ml PO Not Given DAILY ALBERTO Bisacodyl 10 mg 04/07/17 10:00 Dulcolax [place] DAILY PRN constipation Divalproex Sodium 500 mg 04/14/17 18:00 04/14/17 17:[address] PO 500 mg BID ALBERTO Administration Docusate Sodium 100 mg 04/07/17 10:00 04/14/17 09:40 Colace PO 100 mg DAILY ALBERTO Administration Fludrocortisone Acetate 0.1 mg 04/14/17 18:00 04/14/17 17:38 Florinef PO 0.1 mg QOD6 ALBERTO Administration Folic Acid 1 mg 04/11/17 10:00 04/14/17 09:40 Folic Acid PO 1 mg DAILY ALBERTO Administration Lisinopril 2.5 mg 04/10/17 15:45 04/14/17 09:40 Zestril PO 2.5 mg DAILY ALBERTO Administration Multivitamins 1 tab 04/11/17 10:00 04/14/17 09:40 Hexavitamin PO 1 tab DAILY ALBERTO Administration Ondansetron HCl 4 mg 04/07/17 08:55 04/08/17 14:53 Zofran Inj IVP 4 mg Q8 PRN Administration Nausea/Vomiting Pantoprazole Sodium 40 mg 03/31/17 10:00 04/14/17 09:40 Protonix Ec Tab PO 40 mg DAILY ALBERTO Administration Rosuvastatin Calcium 2.5 mg 04/10/17 22:00 04/13/17 22:26 Crestor PO 2.5 mg HS ALBERTO Administration Sennosides 8.6 mg 04/07/17 10:00 04/14/17 09:41 Senokot Tab PO 8.6 mg DAILY ALBERTO Administration Sodium Chloride 1 gm 04/10/17 10:00 04/14/17 17:38 Sodium Chloride Tab PO 1 gm BID ALBERTO Administration Thiamine HCl 100 mg 04/11/17 10:00 04/14/17 09:41 Vitamin B1 Tab PO 100 mg DAILY ALBERTO Administration - Patient Studies Lab Studies: Lab Studies 04/14/17 04/14/17 04/14/17 Range/Units 06:28 06:28 06:28 WBC 6.2 (4.8-10.8) K/uL RBC 3.87 L (4.40-5.90) Mil/uL Hgb 12.2 (12.0-18.0) g/dL Hct 34.9 L (35.0-51.0) % MCV 90.2 (80.0-94.0) fL MCH 31.6 H (27.0-31.0) pg MCHC 35.1 (33.0-37.0) g/dL RDW 13.6 (11.5-14.5) % Plt Count 190 (130-400) K/uL MPV 7.9 (7.2-11.7) fL Neut % (Auto) 73.0 (50.0-75.0) % Lymph % (Auto) 13.9 L (20.0-40.0) % Peach % (Auto) 10.3 H (0.0-10.0) % Eos % (Auto) 2.3 (0.0-4.0) % Baso % (Auto) 0.5 (0.0-2.0) % Neut # 4.5 (1.8-7.0) K/uL Lymph # 0.9 L (1.0-4.3) K/uL Peach # 0.6 (0.0-0.8) K/uL Eos # 0.1 (0.0-0.7) K/uL Baso # 0.0 (0.0-0.2) K/uL Sodium (132-148) mmol/L Potassium (3.6-5.2) mmol/L Chloride (98-107) mmol/L Carbon Dioxide (22-30) mmol/L Anion Gap (10-20) BUN (9-20) mg/dL Creatinine (0.8-1.5) mg/dL Est GFR ( Amer) Est GFR (Non-Af Amer) Random Glucose (75-110) mg/dL Serum Osmolality 284 (272-300) mosm/kg Calcium (8.6-10.4) mg/dl Phosphorus 2.7 (2.5-4.5) mg/dL Magnesium 1.9 (1.6-2.3) mg/dL 04/14/17 04/13/17 04/13/17 Range/Units 06:28 22:10 22:10 WBC (4.8-10.8) K/uL RBC (4.40-5.90) Mil/uL Hgb (12.0-18.0) g/dL Hct (35.0-51.0) % MCV (80.0-94.0) fL MCH (27.0-31.0) pg MCHC (33.0-37.0) g/dL RDW (11.5-14.5) % Plt Count (130-400) K/uL MPV (7.2-11.7) fL Neut % (Auto) (50.0-75.0) % Lymph % (Auto) (20.0-40.0) % Peach % (Auto) (0.0-10.0) % Eos % (Auto) (0.0-4.0) % Baso % (Auto) (0.0-2.0) % Neut # (1.8-7.0) K/uL Lymph # (1.0-4.3) K/uL Peach # (0.0-0.8) K/uL Eos # (0.0-0.7) K/uL Baso # (0.0-0.2) K/uL Sodium 132 133 (132-148) mmol/L Potassium 3.1 L 3.4 L (3.6-5.2) mmol/L Chloride 104 106 (98-107) mmol/L Carbon Dioxide 23 21 L (22-30) mmol/L Anion Gap 9 L 9 L (10-20) BUN 5 L 4 L (9-20) mg/dL Creatinine 0.6 L 0.6 L (0.8-1.5) mg/dL Est GFR ( Amer) > 60 > 60 Est GFR (Non-Af Amer) > 60 > 60 Random Glucose 88 90 (75-110) mg/dL Serum Osmolality 285 (272-300) mosm/kg Calcium 7.9 L 7.8 L (8.6-10.4) mg/dl Phosphorus (2.5-4.5) mg/dL Magnesium (1.6-2.3) mg/dL Laboratory Results - last 24 hr 04/13/17 04/13/17 04/14/17 22:10 22:10 06:28 WBC RBC Hgb Hct MCV MCH MCHC RDW Plt Count MPV Neut % (Auto) Lymph % (Auto) Peach % (Auto) Eos % (Auto) Baso % (Auto) Neut # Lymph # Peach # Eos # Baso # Sodium 133 132 Potassium 3.4 L 3.1 L Chloride 106 104 Carbon Dioxide 21 L 23 Anion Gap 9 L 9 L BUN 4 L 5 L Creatinine 0.6 L 0.6 L Est GFR ( Amer) > 60 > 60 Est GFR (Non-Af Amer) > 60 > 60 Random Glucose 90 88 Serum Osmolality 285 Calcium 7.8 L 7.9 L Phosphorus Magnesium 04/14/17 04/14/17 04/14/17 06:28 06:28 06:28 WBC 6.2 RBC 3.87 L Hgb 12.2 Hct 34.9 L MCV 90.2 MCH 31.6 H MCHC 35.1 RDW 13.6 Plt Count 190 MPV 7.9 Neut % (Auto) 73.0 Lymph % (Auto) 13.9 L Peach % (Auto) 10.3 H Eos % (Auto) 2.3 Baso % (Auto) 0.5 Neut # 4.5 Lymph # 0.9 L Peach # 0.6 Eos # 0.1 Baso # 0.0 Sodium Potassium Chloride Carbon Dioxide Anion Gap BUN Creatinine Est GFR ( Amer) Est GFR (Non-Af Amer) Random Glucose Serum Osmolality 284 Calcium Phosphorus 2.7 Magnesium 1.9 Critical Care Progress Note - Nutrition Nutrition: Nutrition Category Date Time Status Heart Healthy Diet [DIET] Diets 04/11/17 Dinner Active Attending/Attestation - Attestation I have personally seen and examined this patient.: Yes I have fully participated in the care of the patient.: Yes I have reviewed all pertinent clinical information: Yes Notes (Text): Stable, no new symptoms, moving all 4 ext, communicating verbally without any difficulty. As per neurology hypertonic saline is discontinued as patient has been symptomatically stable, keppra changed to depakote by neurolgy. DVT prophylaxis with heparin subq if ok with neurosurgery.
[2017-04-14 07:57] LABS: MAGNESIUM 1.9 mg/dL (1.6-2.3); PHOSPHOROUS 2.7 mg/dL (2.5-4.5)
[2017-04-14] MEDS: Pantoprazole 40 mg EC Tab PO SCH (09:40)
[2017-04-14] MEDS: Multiple Vitamins Tab PO SCH (09:40)
[2017-04-14] MEDS: Aluminum Hydroxide/Magnesium Hydroxide Susp (30 mL) PO SCH (09:42)
--- NOTE | 2017-04-14 09:49 | CT ---
PROCEDURE: CT scan brain dated 04/14/2017. HISTORY: Intra parenchymal hemorrhage COMPARISON: Comparison made with CT scan brain dated 04/11/2017. . TECHNIQUE: Axial computed tomography images were obtained through the head/brain without intravenous contrast. Radiation dose: Total exam DLP = 1288.51. MGy-cm. This CT exam was performed using one or more of the following dose reduction techniques: Automated exposure control, adjustment of the mA and/or kV according to patient size, and/or use of iterative reconstruction technique. FINDINGS: HEMORRHAGE: Re- demonstrated is a right anterior superior parietal craniotomy fixation hardware results some surrounding streak and beam hardening artifact obscuring fine soft tissue detail. Residual predominantly hypodense subdural collection with small scattered areas of more hemorrhage and several bubbles of extra-axial air again noted. previously noted parenchymal hematoma right inferior frontal pole continues to evolve in unremarkable fashion. The central elliptical shaped hemorrhagic component has diminished in size and attenuation. Surrounding well-defined - circumscribed low-attenuation about the hematoma likely representing combination of some residual edema and necrotic brain tissue. Vasogenic edema white matter edema is present throughout most of the right cerebral hemisphere including the white matter tracts of both basal nuclei. There is persistent [id number] midline shift subdural collection and parenchymal hematoma continue to exert considerable mass effect with [id number] midline shift. Septum pellucidum is shifted across midline by approximately 13.7 mm. BRAIN: Mild chronic periventricular white matter ischemic changes are also present though less conspicuous in the right cerebral hemisphere due to edema and mass effect. Marked compression most of the right lateral ventricle however there is mild dilatation of the right temporal horn. Persistent moderate dilatation of the left lateral ventricle likely in part due to compressive effects at the level of the left foramen of Monro. VENTRICLES: As above CALVARIUM: As above. Multiple skin closure nupur overlying craniotomy defect with persistent mild scalp swelling. PARANASAL SINUSES: Old bilateral lamina papyracea papyracea and bilateral nasal bone fractures unchanged MASTOID AIR CELLS: Unremarkable as visualized. No inflammatory changes. 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 IMPRESSION: Previously noted right inferior frontal pole hematoma has continue to evolve in unremarkable fashion. The hemorrhagic component has diminished in size and not spiculated. A well-demarcated rim of surrounding edema and or necrotic brain tissue noted. Additionally, there appears be mild diffuse vasogenic white matter edema most of the right cerebral hemisphere including the white matter tracts of the right basal ganglia. . There is also a predominantly hypodense right-sided extra-axial collection with few scattered small areas of subacute hemorrhage. There is significant mass effect and persistent midline shift from right to left with septum pellucidum estimated at approximately 13.8 mm to the left of midline. Dilatation left lateral ventricle due to compressive effects at the level of the left foramen of Monro.
--- NOTE | 2017-04-14 10:12 | CP.PCM.PN ---
Subjective - Date & Time of Evaluation Date of Evaluation: 04/14/17 Time of Evaluation: 10:12 - Subjective Subjective: Mr. Cabral was seen and examined at the bedside in ICU. He is alert, oriented to place and person. He is able to answer questions appropriately and follow simple commands. He denies any headache, dizziness, lightheadedness, nausea, or vomiting. He states of feeling tired due to his recent procedure of CT of the head without.. He remains with right arm weakness but improved from yesterday. He is able to stand up with minimal assistance. He remains with bilateral hand mittens for patient safety. He has episode of confusion at nighttime , but able to redirect accordingly. There was no untoward events overnight. Objective - Vital Signs/Intake and Output Vital Signs (last 24 hours): Temp Pulse Resp BP Pulse Ox 98.1 F 49 L 16 140/59 L 95 04/14/17 04:00 04/14/17 07:03 04/14/17 06:41 04/14/17 06:41 04/14/17 04:00 Intake and Output: 04/14/17 04/14/17 06:59 18:59 Intake Total 470 Output Total 850 Balance -380 - Medications Medications: Current Medications Al Hydrox/Mg Hydrox/Simethicone (Maalox 30 Ml) 30 ml PO DAILY [facility] Last Admin: 04/14/17 09:42 Dose: Not Given Bisacodyl (Dulcolax) 10 mg [place] DAILY PRN PRN Reason: constipation Docusate Sodium (Colace) 100 mg PO DAILY [facility] Last Admin: 04/14/17 09:40 Dose: 100 mg Folic Acid (Folic Acid) 1 mg PO DAILY [facility] Last Admin: 04/13/17 09:23 Dose: 1 mg Potassium Chloride (Potassium Chloride 20 Meq/100 Ml) 20 meq in 100 mls @ 50 mls/hr IVPB Q2 [facility] Stop: 04/14/17 13:59 Last Admin: 04/14/17 09:41 Dose: 50 mls/hr Levetiracetam (Keppra) 750 mg PO BID [facility] Last Admin: 04/14/17 09:41 Dose: 750 mg Lisinopril (Zestril) 2.5 mg PO DAILY [facility] Last Admin: 04/14/17 09:40 Dose: 2.5 mg Multivitamins (Hexavitamin) 1 tab PO DAILY [facility] Last Admin: 04/14/17 09:40 Dose: 1 tab Ondansetron HCl (Zofran Inj) 4 mg IVP Q8 PRN PRN Reason: Nausea/Vomiting Last Admin: 04/08/17 14:53 Dose: 4 mg Pantoprazole Sodium (Protonix Ec Tab) 40 mg PO DAILY [facility] Last Admin: 04/14/17 09:40 Dose: 40 mg Rosuvastatin Calcium (Crestor) 2.5 mg PO HS [facility] Last Admin: 04/13/17 22:26 Dose: 2.5 mg Sennosides (Senokot Tab) 8.6 mg PO DAILY [facility] Last Admin: 04/14/17 09:41 Dose: 8.6 mg Sodium Chloride (Sodium Chloride Tab) 1 gm PO BID [facility] Last Admin: 04/14/17 09:40 Dose: 1 gm Thiamine HCl (Vitamin B1 Tab) 100 mg PO DAILY [facility] Last Admin: 04/14/17 09:41 Dose: 100 mg - Labs Labs: 04/14/17 06:28 04/14/17 06:28 PT 11.6 SECONDS (9.7-12.2) 04/04/17 06:22 INR 1.0 04/04/17 06:22 APTT 27 SECONDS (21-34) D 04/04/17 06:22 - Constitutional Appears: No Acute Distress - Head Exam Head Exam: ATRAUMATIC - Neurological Exam Neurological Exam: Awake Neuro motor strength exam: Left Upper Extremity: 4, Right Upper Extremity: 5, Left Lower Extremity: 4, Right Lower Extremity: 5 Additional comments: He si able to answer few questions appropriately and follows commands. Sensation remains intact. Left side weakness improving from previous examination. Assessment and Plan (1) Acute intra-cranial hemorrhage Assessment & Plan: case discussed with Dr. Gilbert, continue all current medical, physical, and occupational therapies. Recommend decadron 2 mg IV Q 12. Status: Acute
--- NOTE | 2017-04-14 14:53 | CP.PCM.PN ---
Subjective - Date & Time of Evaluation Date of Evaluation: 04/14/17 Time of Evaluation: 14:40 - Subjective Subjective: Progress note dictated #[id number] Objective - Vital Signs/Intake and Output Vital Signs (last 24 hours): Temp Pulse Resp BP Pulse Ox 97.7 F 56 L 18 140/59 L 98 04/14/17 08:00 04/14/17 08:00 04/14/17 08:00 04/14/17 08:00 04/14/17 08:00 Intake and Output: 04/14/17 04/14/17 06:59 18:59 Intake Total 470 200 Output Total 850 Balance -380 200 - Medications Medications: Current Medications Al Hydrox/Mg Hydrox/Simethicone (Maalox 30 Ml) 30 ml PO DAILY [facility] Last Admin: 04/14/17 09:42 Dose: Not Given Bisacodyl (Dulcolax) 10 mg [place] DAILY PRN PRN Reason: constipation Divalproex Sodium (Depakote Dr) 500 mg PO BID [facility] Docusate Sodium (Colace) 100 mg PO DAILY [facility] Last Admin: 04/14/17 09:40 Dose: 100 mg Fludrocortisone Acetate (Florinef) 0.1 mg PO QOD6 [facility] Folic Acid (Folic Acid) 1 mg PO DAILY [facility] Last Admin: 04/14/17 09:40 Dose: 1 mg Lisinopril (Zestril) 2.5 mg PO DAILY [facility] Last Admin: 04/14/17 09:40 Dose: 2.5 mg Multivitamins (Hexavitamin) 1 tab PO DAILY [facility] Last Admin: 04/14/17 09:40 Dose: 1 tab Ondansetron HCl (Zofran Inj) 4 mg IVP Q8 PRN PRN Reason: Nausea/Vomiting Last Admin: 04/08/17 14:53 Dose: 4 mg Pantoprazole Sodium (Protonix Ec Tab) 40 mg PO DAILY [facility] Last Admin: 04/14/17 09:40 Dose: 40 mg Rosuvastatin Calcium (Crestor) 2.5 mg PO HS [facility] Last Admin: 04/13/17 22:26 Dose: 2.5 mg Sennosides (Senokot Tab) 8.6 mg PO DAILY [facility] Last Admin: 04/14/17 09:41 Dose: 8.6 mg Sodium Chloride (Sodium Chloride Tab) 1 gm PO BID [facility] Last Admin: 04/14/17 09:40 Dose: 1 gm Thiamine HCl (Vitamin B1 Tab) 100 mg PO DAILY [facility] Last Admin: 04/14/17 09:41 Dose: 100 mg - Labs Labs: 04/14/17 06:28 04/14/17 06:28 PT 11.6 SECONDS (9.7-12.2) 04/04/17 06:22 INR 1.0 04/04/17 06:22 APTT 27 SECONDS (21-34) D 04/04/17 06:22
--- NOTE | 2017-04-14 15:47 | PN ---
DATE: 04/14/2017 SUBJECTIVE: The patient is seen and examined at bedside. The patient is more alert and awake, but confused, oriented to person and place. Denies any complaints. Denies any weakness. PHYSICAL EXAMINATION: GENERAL: Elderly male, lying in bed, in no acute distress. VITAL SIGNS: Blood pressure 140/59, pulse 56, respirations 18, temperature 97.7 degrees Fahrenheit, O2 saturation 98% on room air. Intake is 2020, output is 1500 mL. HEENT: Right pupil reacting to light and accommodation. Extraocular muscles intact. No icterus. No pallor. No oral thrush. No pharyngeal congestion. No nasal congestion. Right scalp nupur in place. NECK: Supple. No JVD. LUNGS: Bilateral vesicular breath sounds. No wheezing. No rhonchi. CARDIOVASCULAR SYSTEM: S1 and S2 present, regular. ABDOMEN: Soft, nontender. Bowel sounds present. No guarding. No rigidity. No rebound tenderness noted. CENTRAL NERVOUS SYSTEM: Alert, awake, oriented x2. Improved power in the left upper and lower extremities. Gait did not test. EXTREMITIES: No edema. LABORATORY DATA: Labs from this morning, WBC 6.2, hemoglobin 12.2, hematocrit 34.2, platelets 190. Sodium 132, potassium 3.1, chloride 104, bicarb 23, BUN 5, creatinine 0.6, glucose 88. Serum osmolality 284, calcium 7.9, phosphorus 2.7, magnesium 1.9. Repeat head CT from this morning shows previously noted right inferior frontal pole hematoma has continued to evolve in a remarkable fashion, hemorrhagic component has diminished in size and not spiculated. Well demarcated rim of the surrounding edema and/or necrotic brain tissue noted. Additionally, there appears mild degree of vasogenic white matter edema, most of the right cerebral hemisphere including The white matter tracts of the right basal ganglia. There is also predominantly hypodense right-sided extra-axial collection with a few scattered small areas of subacute hemorrhage. There is significant mass effect and persistent midline shift from right to left with septum pellucidum estimated at proximal 13.8 mm to left of midline, dilatation of left lateral ventricle due to compressive effects of the left foramina of [place]ro. MEDICATIONS: Include Maalox, Dulcolax 10 mg daily, Depakote 500 mg p.o. b.i.d., Colace 100 mg p.o. daily, Florinef 0.1 mg p.o. every other day, folic acid 1 mg daily, Zestril 2.5 mg daily, multivitamin, Zofran as needed, Protonix 40 mg p.o. daily, Crestor 2.5 mg p.o. at bedtime, senna 8.6 mg p.o. daily, sodium chloride 1 g p.o. b.i.d., thiamine 100 mg p.o. daily. ASSESSMENT AND PLAN: Elderly male with history of hypertension, hyperlipidemia, ethyl alcohol abuse, status post fall, admitted for altered mental status, right subdural hematoma, status post evacuation and drainage with nupur in place; right-sided intracranial hemorrhage with surrounding vasogenic edema with left-sided weakness, which improved. Repeat CT with persistent surrounding vasogenic edema. Neurology followup appreciated. The patient is discontinued with Keppra and started on Depakote. Hypertonic saline discontinued. Florinef was added. Will follow up with Neurology. Continue with other current medications. Continue with deep venous thrombosis and gastrointestinal prophylaxis. We will add further recommendation as his clinical course progresses. Afia Chirinos MD
[2017-04-14] MEDS: Divalproex 500 mg DR Tab PO SCH (17:39)
[2017-04-14] MEDS: Rosuvastatin Calcium 2.5 mg Tab PO SCH (21:43)
[2017-04-14 23:14] LABS: BLOOD UREA NITROGEN 9 mg/dL (9-20); CALCIUM 7.7 mg/dl (8.6-10.4); CARBON DIOXIDE 23 mmol/L (22-30); CHLORIDE 101 mmol/L (98-107); GFR AFRICAN-AMERICAN > 60; GLUCOSE,RANDOM 93 mg/dL (75-110); POTASSIUM 3.4 mmol/L (3.6-5.2); SODIUM 129 mmol/L (132-148)
[2017-04-15 06:55] LABS: BASO % 0.4 % (0.0-2.0); EOS # 0.2 K/uL (0.0-0.7); EOS % 3.3 % (0.0-4.0); HEMATOCRIT 33.7 % (35.0-51.0); LYMPH % 16.3 % (20.0-40.0); MEAN CELL VOLUME 89.1 fL (80.0-94.0); MEAN CORPUSCULAR HEMOGLOBIN 31.9 pg (27.0-31.0); MEAN CORPUSCULAR HGB CONC 35.8 g/dL (33.0-37.0); MEAN PLATELET VOLUME 7.5 fL (7.2-11.7); MONO # 0.5 K/uL (0.0-0.8); MONO % 8.6 % (0.0-10.0); NRBC % 0.1 % (0.0-2.0); RED CELL DISTRIBUTION WIDTH 13.7 % (11.5-14.5); WHITE BLOOD COUNT 5.9 K/uL (4.8-10.8)
[2017-04-15 07:12] LABS: BLOOD UREA NITROGEN 8 mg/dL (9-20); CALCIUM 7.9 mg/dl (8.6-10.4); CARBON DIOXIDE 24 mmol/L (22-30); CHLORIDE 101 mmol/L (98-107); GFR AFRICAN-AMERICAN > 60; GLUCOSE,RANDOM 82 mg/dL (75-110); SODIUM 130 mmol/L (132-148)
[2017-04-15] MEDS: Multiple Vitamins Tab PO SCH (10:30)
[2017-04-15] MEDS: Aluminum Hydroxide/Magnesium Hydroxide Susp (30 mL) PO SCH (11:00)
[2017-04-15] MEDS: Pantoprazole 40 mg EC Tab PO SCH (11:00)
[2017-04-15] MEDS: Divalproex 500 mg DR Tab PO SCH ×2 (11:00→18:11)
[2017-04-15] MEDS: Potassium Chloride 10 mEq/100 ml PREMIX IVPB SCH ×4 (16:05→18:11)
--- NOTE | 2017-04-15 16:20 | CP.PCM.PN ---
Subjective - Date & Time of Evaluation Date of Evaluation: 04/15/17 Time of Evaluation: 16:19 - Subjective Subjective: pt is seen and examined, progress note is dictated for Dr. karey olguin# [id number] check urine lytes, osm, d/c florinef due to hypokalemia doubt adrenal insufficiency check am cortisol, tsh in am may need ns and tolvaptan to keep serum na to 140 Objective - Vital Signs/Intake and Output Vital Signs (last 24 hours): Temp Pulse Resp BP Pulse Ox 98.6 F 52 L 15 90/63 L 98 04/15/17 00:00 04/15/17 07:10 04/15/17 07:10 04/15/17 07:10 04/15/17 04:00 Intake and Output: 04/15/17 04/15/17 06:59 18:59 Intake Total 320 0 Output Total 1000 Balance -680 0 - Medications Medications: Current Medications Al Hydrox/Mg Hydrox/Simethicone (Maalox 30 Ml) 30 ml PO DAILY [facility] Last Admin: 04/15/17 11:00 Dose: 30 ml Bisacodyl (Dulcolax) 10 mg [place] DAILY PRN PRN Reason: constipation Divalproex Sodium (Depakote Dr) 500 mg PO BID [facility] Last Admin: 04/15/17 11:00 Dose: 500 mg Docusate Sodium (Colace) 100 mg PO DAILY [facility] Last Admin: 04/15/17 11:00 Dose: 100 mg Folic Acid (Folic Acid) 1 mg PO DAILY [facility] Last Admin: 04/15/17 11:00 Dose: 1 mg Potassium Chloride (Potassium Chloride 20 Meq/100 Ml) 20 meq in 100 mls @ 50 mls/hr IVPB Q2 [facility] Stop: 04/15/17 19:59 Lisinopril (Zestril) 2.5 mg PO DAILY [facility] Multivitamins (Hexavitamin) 1 tab PO DAILY [facility] Last Admin: 04/15/17 10:30 Dose: 1 tab Ondansetron HCl (Zofran Inj) 4 mg IVP Q8 PRN PRN Reason: Nausea/Vomiting Last Admin: 04/08/17 14:53 Dose: 4 mg Pantoprazole Sodium (Protonix Ec Tab) 40 mg PO DAILY [facility] Last Admin: 04/15/17 11:00 Dose: 40 mg Potassium Chloride (Potassium Chloride 10 Meq/100 Ml) 10 meq IVPB Q1 [facility] Stop: 04/15/17 19:01 Rosuvastatin Calcium (Crestor) 2.5 mg PO HS [facility] Last Admin: 04/14/17 21:43 Dose: 2.5 mg Sennosides (Senokot Tab) 8.6 mg PO DAILY [facility] Last Admin: 04/15/17 11:00 Dose: 8.6 mg Sodium Chloride (Sodium Chloride Tab) 1 gm PO BID [facility] Last Admin: 04/15/17 11:00 Dose: 1 gm Thiamine HCl (Vitamin B1 Tab) 100 mg PO DAILY [facility] Last Admin: 04/15/17 11:00 Dose: 100 mg - Labs Labs: 04/15/17 06:48 04/15/17 06:48 PT 11.6 SECONDS (9.7-12.2) 04/04/17 06:22 INR 1.0 04/04/17 06:22 APTT 27 SECONDS (21-34) D 04/04/17 06:22
[2017-04-15] MEDS: Rosuvastatin Calcium 2.5 mg Tab PO SCH (22:04)
--- NOTE | 2017-04-15 22:26 | PN ---
DATE: 04/15/2017 LOCATION: Patient is located in ICU, bed 16. SUBJECTIVE: The patient is seen and examined per Dr. Mary Beth Chirinos. Mr. Cabral is 71-year-old elderly, male with a past medical history significant for hypertension, EtOH abuse, hyperlipidemia, left eye blind, status post fall on , was admitted with altered mental status and confusion, and the patient was found to have right frontal intracranial hemorrhage and also subdural hematoma, status post evacuation of the subdural hematoma about 10 days ago. Subsequently, the patient's course is complicated by weakness on the left upper and lower extremities, suspected to have seizures. Patient was transferred to ICU, started on hypertonic saline. The goal for the sodium was not sure. The patient is off hypertonic saline and the patient is on Florinef with the blood pressure on the low side about 90 to 95, systolic. The patient denied any distress, awake, following commands appropriately. No chest pain, no palpitation, no fever, no cough. The patient is having some headache. PHYSICAL EXAMINATION: VITAL SIGNS: As follows: Blood pressure 90/63; pulse 48, 47; respirations 15; and temperature 98.6. Height is 5 feet 1 inch, weight is 152 pounds. GENERAL: Mr. Laura is a 71-year-old elderly male, moderately built, moderately nourished, not in distress. HEENT: Right eye is normal, left eye is blind. Tongue is moist and trachea is midline. LUNGS: Symmetry on both sides. Bilateral breath sounds present. No crackles. CARDIOVASCULAR SYSTEM: [place] at the fifth intercostal space, midclavicular line. S1 and S2 audible. No murmur. No gallop. ABDOMEN: Normal in appearance, soft, tympanic. No guarding, no rigidity, no hepatosplenomegaly. CENTRAL NERVOUS SYSTEM: Patient is awake, following commands appropriately. EXTREMITIES: No cyanosis, no clubbing, no edema. SKIN: Turgor is poor. LABORATORY DATA: Include as follows: As of 04/15/2017, WBC 5.9, hemoglobin 12.1, hematocrit is 33.7, platelets 180. Sodium 130, potassium is 3.0, chloride 101, CO2 of 24, BUN 8, creatinine 0.7, glucose 82, serum osmolality 276, calcium is 7.9, and magnesium is 1.9. CT of the head as of 04/14/2017, no change of bulbi, left globe. Impression: Previously noted right inferior frontal lobe hematoma has continued to evolve in unremarkable fashion. The hemorrhagic component has diminished in size and not spiculated, a well-demarcated rim of surrounding edema and/or necrotic brain tissue noted. Additionally, there appears to be mild diffuse vasogenic white matter edema, most of the right cerebral hemisphere including white matter tracts of the right basal ganglia. There is also a predominantly hypodense right-sided extra-axial collection with a few scattered small areas of subacute hemorrhage. There is significant mass effect and persistent midline shift from the right to left with septum pellucidum estimated at approximately 13.8 mm to the left of midline, dilatation of the left lateral ventricle due to compressive effects of the left foramina of [place]. ASSESSMENT AND PLAN: In summary, Mr. Cabral is 71-year-old elderly male with a history of hypertension, hyperlipidemia, left eye blind with the prosthesis, ethyl alcohol abuse, status post fall, injury to the brain with intracranial bleed in the right frontal lobe, status post evacuation of the subdural hematoma and low serum sodium and high urine osmolality and high urine sodium. Blood pressure about 90/37 and heart rate of 48. 1. Hypotension, most likely secondary to the intravascular volume depletion secondary to fluid restriction. 2. Right frontal lobe hemorrhage secondary to fall, secondary to ethyl alcohol abuse. 3. Status post evacuation of the right subdural hematoma. 4. Rule out the syndrome of inappropriate antidiuretic hormone secondary to intracranial bleed. Hold Florinef at this time and check urine electrolytes, urine osmolality. 5. Hypokalemia, supplement potassium as needed. Hold lisinopril for the systolic blood pressure less than 130 and may need to discontinue lisinopril due to hyponatremia. It can cause syndrome of inappropriate antidiuretic hormone. If picture consistent with syndrome of inappropriate antidiuretic hormone, we will start IV fluids normal saline at 70 mL per hour, then we will start on tolvaptan to keep his serum sodium probably around 140. Patient is seen and examined and dictated for Mary Beth Chirinos. Soraida Chirinos MD
[2017-04-15 22:30] LABS: BLOOD UREA NITROGEN 9 mg/dL (9-20); CALCIUM 8.2 mg/dl (8.6-10.4); CARBON DIOXIDE 25 mmol/L (22-30); CHLORIDE 102 mmol/L (98-107); GFR AFRICAN-AMERICAN > 60; GLUCOSE,RANDOM 101 mg/dL (75-110); POTASSIUM 3.9 mmol/L (3.6-5.2); SODIUM 133 mmol/L (132-148)
[2017-04-16 07:59] LABS: BASO % 0.5 % (0.0-2.0); EOS # 0.2 K/uL (0.0-0.7); EOS % 2.9 % (0.0-4.0); HEMATOCRIT 33.6 % (35.0-51.0); LYMPH # 0.9 K/uL (1.0-4.3); LYMPH % 16.2 % (20.0-40.0); MEAN CELL VOLUME 89.3 fL (80.0-94.0); MEAN CORPUSCULAR HEMOGLOBIN 31.7 pg (27.0-31.0); MEAN CORPUSCULAR HGB CONC 35.5 g/dL (33.0-37.0); MEAN PLATELET VOLUME 7.8 fL (7.2-11.7); MONO # 0.4 K/uL (0.0-0.8); RED CELL DISTRIBUTION WIDTH 13.7 % (11.5-14.5); WHITE BLOOD COUNT 5.4 K/uL (4.8-10.8)
[2017-04-16 08:21] LABS: BLOOD UREA NITROGEN 10 mg/dL (9-20); CALCIUM 7.9 mg/dl (8.6-10.4); CARBON DIOXIDE 25 mmol/L (22-30); CHLORIDE 101 mmol/L (98-107); GFR AFRICAN-AMERICAN > 60; GLUCOSE,RANDOM 80 mg/dL (75-110); POTASSIUM 3.4 mmol/L (3.6-5.2); SODIUM 131 mmol/L (132-148)
[2017-04-16 09:13] LABS: BLOOD UREA NITROGEN 10 mg/dL (9-20); CALCIUM 7.9 mg/dl (8.6-10.4); CARBON DIOXIDE 26 mmol/L (22-30); CHLORIDE 101 mmol/L (98-107); GFR AFRICAN-AMERICAN > 60; GLUCOSE,RANDOM 84 mg/dL (75-110); POTASSIUM 3.4 mmol/L (3.6-5.2); SODIUM 134 mmol/L (132-148)
[2017-04-16 10:20] LABS: THYROID STIMULATING HORMONE 4.05 mIU/L (0.46-4.68)
[2017-04-16] MEDS: Divalproex 500 mg DR Tab PO SCH ×2 (11:47→17:57)
[2017-04-16] MEDS: Multiple Vitamins Tab PO SCH (11:48)
[2017-04-16] MEDS: Aluminum Hydroxide/Magnesium Hydroxide Susp (30 mL) PO SCH (11:48)
[2017-04-16] MEDS: Pantoprazole 40 mg EC Tab PO SCH (11:48)
--- NOTE | 2017-04-16 13:54 | CP.PCM.PN ---
Subjective - Date & Time of Evaluation Date of Evaluation: 04/16/17 Time of Evaluation: 13:54 - Subjective Subjective: pt is seen and examined, progress note is dictated #[id number] Objective - Vital Signs/Intake and Output Vital Signs (last 24 hours): Temp Pulse Resp BP Pulse Ox 97.9 F 51 L 20 110/58 L 96 04/16/17 09:28 04/16/17 12:09 04/16/17 09:28 04/16/17 00:57 04/16/17 09:28 Intake and Output: 04/16/17 04/16/17 06:59 18:59 Intake Total 150 Balance 150 - Medications Medications: Current Medications Al Hydrox/Mg Hydrox/Simethicone (Maalox 30 Ml) 30 ml PO DAILY [facility] Last Admin: 04/16/17 11:48 Dose: 30 ml Bisacodyl (Dulcolax) 10 mg [place] DAILY PRN PRN Reason: constipation Divalproex Sodium (Depakote Dr) 500 mg PO BID [facility] Last Admin: 04/16/17 11:47 Dose: 500 mg Docusate Sodium (Colace) 100 mg PO DAILY [facility] Last Admin: 04/16/17 11:48 Dose: 100 mg Folic Acid (Folic Acid) 1 mg PO DAILY [facility] Last Admin: 04/16/17 11:48 Dose: 1 mg Potassium Chloride (Potassium Chloride 10 Meq/100 Ml) 10 meq in 100 mls @ 100 mls/hr IVPB ONCE ONE Stop: 04/16/17 13:59 Last Admin: 04/16/17 13:31 Dose: 100 mls/hr Potassium Chloride (Potassium Chloride 10 Meq/100 Ml) 10 meq in 100 mls @ 100 mls/hr IVPB ONCE ONE Stop: 04/16/17 15:59 Lisinopril (Zestril) 2.5 mg PO DAILY [facility] Last Admin: 04/16/17 09:51 Dose: Not Given Multivitamins (Hexavitamin) 1 tab PO DAILY [facility] Last Admin: 04/16/17 11:48 Dose: 1 tab Ondansetron HCl (Zofran Inj) 4 mg IVP Q8 PRN PRN Reason: Nausea/Vomiting Last Admin: 04/08/17 14:53 Dose: 4 mg Pantoprazole Sodium (Protonix Ec Tab) 40 mg PO DAILY [facility] Last Admin: 04/16/17 11:48 Dose: 40 mg Rosuvastatin Calcium (Crestor) 2.5 mg PO HS [facility] Last Admin: 04/15/17 22:04 Dose: 2.5 mg Sennosides (Senokot Tab) 8.6 mg PO DAILY [facility] Last Admin: 04/16/17 11:48 Dose: 8.6 mg Sodium Chloride (Sodium Chloride Tab) 1 gm PO BID [facility] Last Admin: 04/16/17 11:59 Dose: 1 gm Thiamine HCl (Vitamin B1 Tab) 100 mg PO DAILY [facility] Last Admin: 04/16/17 11:48 Dose: 100 mg - Labs Labs: 04/16/17 07:52 04/16/17 08:24 PT 11.6 SECONDS (9.7-12.2) 04/04/17 06:22 INR 1.0 04/04/17 06:22 APTT 27 SECONDS (21-34) D 04/04/17 06:22
--- NOTE | 2017-04-16 18:39 | PN ---
SUBJECTIVE: The patient is seen and examined and dictated for Dr. Mary Beth Chirinos. Mr. Cabral is a 71-year-old elderly male with a history of longstanding hypertension, hyperlipidemia, EtOH abuse, and left eye blind with prosthesis, status post fall on , 03/17/2017, and subsequently, the patient was admitted after 1 week with altered mental status, confusion. The patient was found to have a right frontal bleed and also right subdural hematoma. The patient was initially managed with hypertonic saline and steroids. Subsequently, the patient underwent evacuation of the right subdural hematoma and his hospital course is complicated by weakness postop for few days, weakness on the left side and found to have seizures and his anti-seizures medication was adjusted. The patient was transferred to ICU also again for hypernatremia and weakness on the left side. The patient was treated with fluid restriction and also off hypertonic saline and also off Florinef. The patient is feeling better, not in any acute distress. Denies any headache or dizziness. Denies any chest pain or palpitation. Denies any fever or cough. Denies any weakness on the left side. Denies any weakness. PHYSICAL EXAMINATION VITAL SIGNS: This morning as follows: Blood pressure 110/58, pulse 51, respirations 20, temperature 98.3, saturation 96%. GENERAL: Mr. Cabral is 71-year-old elderly male, moderately built, moderately nourished, not in distress. HEENT: Left eye is blind. Right eye is normal. Tongue is moist. Trachea is midline. LUNGS: Symmetric on both sides. Bilateral breath sounds present. Clear on auscultation. CARDIOVASCULAR SYSTEM: [place] at the fifth intercostal space, midclavicular line. S1 and S2 audible. No murmur. No gallop. ABDOMEN: Normal in appearance, soft, tympanic. No guarding, no rigidity, no hepatosplenomegaly. CENTRAL NERVOUS SYSTEM: The patient is alert, awake, oriented x3. Nonfocal neuro examination. Cranial nerves II through XII are grossly intact. Sensory and motor system is within normal limits. EXTREMITIES: No cyanosis, no clubbing, no edema. LABORATORY DATA: Include as follows; as of 04/16/2017, WBC 5.4, hemoglobin 12, hematocrit is 33.6, platelets 168. Sodium 134, potassium is 3.4, chloride 101, CO2 of 26, BUN 10, creatinine 0.8, glucose 84, serum osmolality 286, calcium is 7.9, and TSH is 4.05, and serum cortisol 9.9. Urine osmolality is 686 today. As of 04/15/2017, urine osmolality is 473 and urine sodium is 77. ASSESSMENT AND PLAN: In summary, Mr. Cabral is a 71-year-old elderly male with a history of hypertension, hyperlipidemia, ethyl alcohol abuse, status post fall with right frontal bleed and subdural hematoma, status post evacuation of the right subdural hematoma and postoperative complication followed by left-sided weakness, suspected and medication was adjusted. 1. Blood pressure is stable, not in any antihypertensive medication at this time. Lisinopril is on hold. 2. Intracranial bleed secondary to fall and trauma. 3. Status post evacuation of the right subdural hematoma. 4. Hypokalemia. We will supplement potassium today and continue fluid restriction and continue sodium chloride tablet 1 tablet p.o. b.i.d. and continue Colace, continue Crestor and continue Depakote 500 mg p.o. b.i.d and Dulcolax, folic acid, multivitamin and Protonix and Senokot, thiamine and Zofran 4 mg q.8 hours p.r.n. and hold lisinopril. We will follow with you. The patient was seen and examined for Dr. Afia Chirinos. Soraida Chirinos MD
[2017-04-16] MEDS: Rosuvastatin Calcium 2.5 mg Tab PO SCH (21:50)
[2017-04-17 07:43] LABS: BASO % 0.6 % (0.0-2.0); EOS # 0.2 K/uL (0.0-0.7); EOS % 3.5 % (0.0-4.0); HEMATOCRIT 36.1 % (35.0-51.0); LYMPH # 0.9 K/uL (1.0-4.3); LYMPH % 16.5 % (20.0-40.0); MEAN CELL VOLUME 89.9 fL (80.0-94.0); MEAN CORPUSCULAR HEMOGLOBIN 31.1 pg (27.0-31.0); MEAN CORPUSCULAR HGB CONC 34.6 g/dL (33.0-37.0); MEAN PLATELET VOLUME 7.6 fL (7.2-11.7); MONO # 0.4 K/uL (0.0-0.8); MONO % 8.1 % (0.0-10.0); WHITE BLOOD COUNT 5.5 K/uL (4.8-10.8)
[2017-04-17 08:07] LABS: BLOOD UREA NITROGEN 13 mg/dL (9-20); CALCIUM 7.9 mg/dl (8.6-10.4); CARBON DIOXIDE 26 mmol/L (22-30); CHLORIDE 99 mmol/L (98-107); GFR AFRICAN-AMERICAN > 60; GLUCOSE,RANDOM 83 mg/dL (75-110); MAGNESIUM 2.2 mg/dL (1.6-2.3); POTASSIUM 3.7 mmol/L (3.6-5.2); SODIUM 133 mmol/L (132-148)
[2017-04-17] MEDS: Multiple Vitamins Tab PO SCH (10:27)
[2017-04-17] MEDS: Aluminum Hydroxide/Magnesium Hydroxide Susp (30 mL) PO SCH (10:27)
[2017-04-17] MEDS: Pantoprazole 40 mg EC Tab PO SCH (10:27)
[2017-04-17] MEDS: Divalproex 500 mg DR Tab PO SCH ×2 (10:28→17:38)
--- NOTE | 2017-04-17 17:17 | CP.PCM.PN ---
Subjective - Date & Time of Evaluation Date of Evaluation: 04/17/17 Time of Evaluation: 17:00 - Subjective Subjective: Progress note dictated #[id number] Objective - Vital Signs/Intake and Output Vital Signs (last 24 hours): Temp Pulse Resp BP Pulse Ox 98.1 F 88 20 126/69 96 04/17/17 15:44 04/17/17 16:24 04/17/17 15:44 04/17/17 15:44 04/17/17 15:44 Intake and Output: 04/17/17 04/17/17 06:59 18:59 Intake Total 480 Output Total 600 Balance -120 - Medications Medications: Current Medications Al Hydrox/Mg Hydrox/Simethicone (Maalox 30 Ml) 30 ml PO DAILY [facility] Last Admin: 04/17/17 10:27 Dose: 30 ml Bisacodyl (Dulcolax) 10 mg [place] DAILY PRN PRN Reason: constipation Divalproex Sodium (Depakote Dr) 500 mg PO BID [facility] Last Admin: 04/17/17 10:28 Dose: 500 mg Docusate Sodium (Colace) 100 mg PO DAILY [facility] Last Admin: 04/17/17 10:27 Dose: 100 mg Folic Acid (Folic Acid) 1 mg PO DAILY [facility] Last Admin: 04/17/17 10:27 Dose: 1 mg Lisinopril (Zestril) 2.5 mg PO DAILY [facility] Last Admin: 04/17/17 10:28 Dose: 2.5 mg Multivitamins (Hexavitamin) 1 tab PO DAILY [facility] Last Admin: 04/17/17 10:27 Dose: 1 tab Ondansetron HCl (Zofran Inj) 4 mg IVP Q8 PRN PRN Reason: Nausea/Vomiting Last Admin: 04/08/17 14:53 Dose: 4 mg Pantoprazole Sodium (Protonix Ec Tab) 40 mg PO DAILY [facility] Last Admin: 04/17/17 10:27 Dose: 40 mg Rosuvastatin Calcium (Crestor) 2.5 mg PO HS [facility] Last Admin: 04/16/17 21:50 Dose: 2.5 mg Sennosides (Senokot Tab) 8.6 mg PO DAILY [facility] Last Admin: 04/17/17 10:28 Dose: 8.6 mg Sodium Chloride (Sodium Chloride Tab) 1 gm PO BID [facility] Last Admin: 04/17/17 10:28 Dose: 1 gm Thiamine HCl (Vitamin B1 Tab) 100 mg PO DAILY [facility] Last Admin: 04/17/17 10:37 Dose: 100 mg - Labs Labs: 04/17/17 07:31 04/17/17 07:31 PT 11.6 SECONDS (9.7-12.2) 04/04/17 06:22 INR 1.0 04/04/17 06:22 APTT 27 SECONDS (21-34) D 04/04/17 06:22
[2017-04-17] MEDS: Rosuvastatin Calcium 2.5 mg Tab PO SCH (21:21)
--- NOTE | 2017-04-17 21:45 | PN ---
SUBJECTIVE: Patient is seen and examined at bedside. Patient is feeling much better. Denies any complaint. More alert and awake. PHYSICAL EXAMINATION: GENERAL: An elderly male lying in bed, in no acute distress. VITAL SIGNS: Blood pressure 126/69, pulse 51, respirations 20, temperature 98.1 degrees Fahrenheit, O2 saturation 96% on room air. HEENT: Right pupil reacting to light and accommodation. Extraocular muscles intact. No icterus. No oral thrush. No pharyngeal congestion. No nasal congestion. Right-sided scalp nupur in place. NECK: Supple. No JVD. LUNGS: Bilateral vesicular breath sounds. No wheezing. No rhonchi. CARDIOVASCULAR SYSTEM: S1 and S2 present, regular. ABDOMEN: Soft, nontender. Bowel sounds present. No guarding. No rigidity. No rebound tenderness noted. CENTRAL NERVOUS SYSTEM: Alert, awake, oriented x2. No focal deficit noted. EXTREMITIES: No edema. Peripheral pulses are positive. MEDICATIONS: Include, Maalox 30 mL p.o. daily, Dulcolax 10 mg p.r.n., Depakote 500 mg p.o. b.i.d, Colace 100 mg p.o. daily, folic acid 1 mg p.o. daily, Zestril 2.5 mg p.o. daily, multivitamin one tab daily, Zofran 4 mg IV q. 8 hours p.r.n., Protonix 40 mg p.o. daily, Crestor 2.5 mg p.o. at bedtime, Senokot 8.6 mg p.o daily, sodium chloride tablet 1 g p.o. b.i.d., and thiamine 100 mg p.o. daily. LABORATORY DATA: From this morning, WBC 5.5, hemoglobin 12.5, hematocrit 36.1, platelets 178. Sodium 133, potassium 3.7, chloride 99, bicarb 26, BUN 13, creatinine 0.8, glucose 83. Serum osmolality 289, calcium 7.9, magnesium 2.2. ASSESSMENT AND PLAN: Elderly male with history of hypertension, hyperlipidemia, ethyl alcohol abuse, status post fall, admitted for altered mental status, right subdural hematoma, intracranial hemorrhage with surrounding vasogenic edema, status post left-sided weakness and lethargy, status post hypokalemia. We will continue with current medications. Follow up with Neurology. Continue with physical therapy and occupational therapy. We will request [facility] [employer] for possible subacute rehab placement. Afia Chirinos MD
[2017-04-18 07:26] LABS: CHLORIDE URINE 92 mmol/L (32-290)
[2017-04-18 07:28] LABS: BASO % 0.7 % (0.0-2.0); EOS # 0.2 K/uL (0.0-0.7); EOS % 4.3 % (0.0-4.0); HEMATOCRIT 37.6 % (35.0-51.0); LYMPH # 0.9 K/uL (1.0-4.3); LYMPH % 18.7 % (20.0-40.0); MEAN CELL VOLUME 90.5 fL (80.0-94.0); MEAN CORPUSCULAR HEMOGLOBIN 31.2 pg (27.0-31.0); MEAN CORPUSCULAR HGB CONC 34.4 g/dL (33.0-37.0); MEAN PLATELET VOLUME 7.8 fL (7.2-11.7); MONO # 0.5 K/uL (0.0-0.8); MONO % 9.8 % (0.0-10.0); RED CELL DISTRIBUTION WIDTH 13.9 % (11.5-14.5); WHITE BLOOD COUNT 4.7 K/uL (4.8-10.8)
[2017-04-18 08:22] LABS: ALKALINE PHOSPHATASE 84 U/L (38-126); ALT/SGPT 27 U/L (21-72); AST/SGOT 20 U/L (17-59); BILIRUBIN,TOTAL 1.1 mg/dL (0.2-1.3); BLOOD UREA NITROGEN 12 mg/dL (9-20); CALCIUM 8.2 mg/dl (8.6-10.4); CARBON DIOXIDE 24 mmol/L (22-30); CHLORIDE 100 mmol/L (98-107); GFR AFRICAN-AMERICAN > 60; GLUCOSE,RANDOM 83 mg/dL (75-110); POTASSIUM 3.7 mmol/L (3.6-5.2); SODIUM 132 mmol/L (132-148); TOTAL PROTEIN 6.7 g/dL (6.3-8.3)
[2017-04-18] MEDS: Pantoprazole 40 mg EC Tab PO SCH (09:41)
[2017-04-18] MEDS: Divalproex 500 mg DR Tab PO SCH ×2 (09:42→18:23)
[2017-04-18] MEDS: Aluminum Hydroxide/Magnesium Hydroxide Susp (30 mL) PO SCH (09:42)
[2017-04-18] MEDS: Multiple Vitamins Tab PO SCH (09:42)
--- NOTE | 2017-04-18 13:05 | CP.PCM.PN ---
Subjective - Date & Time of Evaluation Date of Evaluation: 04/18/17 Time of Evaluation: 12:45 - Subjective Subjective: Progress note dictated #[id number] Objective - Vital Signs/Intake and Output Vital Signs (last 24 hours): Temp Pulse Resp BP Pulse Ox 97.3 F L 55 L 18 119/72 96 04/18/17 08:17 04/18/17 09:45 04/18/17 08:17 04/18/17 09:45 04/18/17 08:17 Intake and Output: 04/18/17 04/18/17 06:59 18:59 Intake Total 0 Balance 0 - Medications Medications: Current Medications Al Hydrox/Mg Hydrox/Simethicone (Maalox 30 Ml) 30 ml PO DAILY [facility] Last Admin: 04/18/17 09:42 Dose: 30 ml Bisacodyl (Dulcolax) 10 mg [place] DAILY PRN PRN Reason: constipation Divalproex Sodium (Depakote Dr) 500 mg PO BID [facility] Last Admin: 04/18/17 09:42 Dose: 500 mg Docusate Sodium (Colace) 100 mg PO DAILY [facility] Last Admin: 04/18/17 09:42 Dose: 100 mg Folic Acid (Folic Acid) 1 mg PO DAILY [facility] Last Admin: 04/18/17 09:42 Dose: 1 mg Lisinopril (Zestril) 2.5 mg PO DAILY [facility] Last Admin: 04/18/17 09:42 Dose: 2.5 mg Multivitamins (Hexavitamin) 1 tab PO DAILY [facility] Last Admin: 04/18/17 09:42 Dose: 1 tab Ondansetron HCl (Zofran Inj) 4 mg IVP Q8 PRN PRN Reason: Nausea/Vomiting Last Admin: 04/08/17 14:53 Dose: 4 mg Pantoprazole Sodium (Protonix Ec Tab) 40 mg PO DAILY [facility] Last Admin: 04/18/17 09:41 Dose: 40 mg Rosuvastatin Calcium (Crestor) 2.5 mg PO HS [facility] Last Admin: 04/17/17 21:21 Dose: 2.5 mg Sennosides (Senokot Tab) 8.6 mg PO DAILY [facility] Last Admin: 04/18/17 09:41 Dose: 8.6 mg Sodium Chloride (Sodium Chloride Tab) 1 gm PO BID [facility] Last Admin: 04/18/17 09:42 Dose: 1 gm Thiamine HCl (Vitamin B1 Tab) 100 mg PO DAILY [facility] Last Admin: 04/18/17 09:41 Dose: 100 mg - Labs Labs: 04/18/17 07:06 04/18/17 07:06 PT 11.6 SECONDS (9.7-12.2) 04/04/17 06:22 INR 1.0 04/04/17 06:22 APTT 27 SECONDS (21-34) D 04/04/17 06:22
--- NOTE | 2017-04-18 15:46 | PN ---
DATE: 04/18/2017 SUBJECTIVE: Patient is seen and examined at bedside. Patient is more alert and awake, but still confused with his date of and year. Denies any complaints. Participating in physical therapy and examination. PHYSICAL EXAMINATION: GENERAL: An elderly male lying in bed, in no acute distress. VITAL SIGNS: Blood pressure 119/72, pulse 55, respirations 18, temperature 97.3 degrees Fahrenheit, O2 saturation 96% on room air. Intake is 480, output is 600. HEENT: Right pupil reacting to light and accommodation. Extraocular muscles intact. No icterus. No pallor. No oral thrush. [place] in the scalp without any oozing. NECK: Supple. No JVD. LUNGS: Bilateral vesicular breath sounds. No wheezing. No rhonchi. CARDIOVASCULAR SYSTEM: S1 and S2 present, regular. ABDOMEN: Soft, nontender. Bowel sounds present. No guarding. No rigidity. No rebound tenderness noted. CENTRAL NERVOUS SYSTEM: Alert, awake, oriented x2. No focal deficit noted. EXTREMITIES: No edema. MEDICATIONS: Include, Maalox 30 mL daily, Dulcolax 10 mg as needed, Depakote 500 mg p.o. b.i.d, Colace 100 mg p.o. daily, folic acid 1 mg p.o. daily, Zestril 2.5 mg daily, multivitamin 1 tab daily, Zofran as needed, Protonix 40 mg daily, Crestor 2.5 mg at bedtime, senna 8.6 mg p.o daily, sodium chloride 1 g p.o. b.i.d., thiamine 100 mg p.o. daily. LABORATORY DATA: From this morning, WBC 4.7, hemoglobin 12.9, hematocrit 37.6, platelets 163. Sodium 132, potassium 3.7, chloride 100, bicarb 24, BUN 12, creatinine 0.8, glucose 83, calcium 8.2, total bilirubin 1.1, AST 20, ALT 27, alkaline phosphatase 84, total protein 6.7, albumin 3.4. ASSESSMENT AND PLAN: Elderly male with history of hypertension, hyperlipidemia, ethyl alcohol abuse, status post fall, admitted for altered mental status, right subdural hematoma, right-sided intracranial hemorrhage with surrounding vasogenic edema, status post left-sided weakness and lethargy. His blood pressure is stable. No further seizure-like activity noted. Has been participating in physical therapy. We will continue with current medication. He is off of hypertonic saline, only on Depakote at this time and sodium chloride tablets. We will follow up with Neurology. If the patient is cleared by Neurology, we will plan discharging patient to subacute rehabilitation, [employer] for discharge planning. Afia Chirinos MD
--- NOTE | 2017-04-18 22:40 | CARD ---
APPROVED REPORT EKG Measurement Heart [id number] ND [id number] [id number] <Conclusion> Marked sinus bradycardia Increased R/S ratio in V1, consider early transition or posterior infarct Abnormal ECG
[2017-04-18] MEDS: Rosuvastatin Calcium 2.5 mg Tab PO SCH (22:51)
--- NOTE | 2017-04-19 07:48 | CP.PCM.PN ---
Subjective - Date & Time of Evaluation Date of Evaluation: 04/19/17 Time of Evaluation: 07:43 - Subjective Subjective: Mr. Cabral was seen and examined at the bedside. He is alert, oriented to place and person, but not to time (1971). He complains of experiencing headache with a scale 5/10 in the right parietal area, non-radiating. He denies any blurred vision, numbness, lightheadedness, weakness, nausea, or vomiting. He states of wanting to go home since he has been in the hospital for a long time. He is able to follow simple commands with left side weaker than the right. He remains on 1:1 sitter for patient safety. There was no untoward events overnight. Objective - Vital Signs/Intake and Output Vital Signs (last 24 hours): Temp Pulse Resp BP Pulse Ox 98.1 F 50 L 20 135/68 96 04/19/17 04:30 04/19/17 04:30 04/19/17 04:30 04/19/17 04:30 04/18/17 23:15 - Medications Medications: Current Medications Al Hydrox/Mg Hydrox/Simethicone (Maalox 30 Ml) 30 ml PO DAILY [facility] Last Admin: 04/18/17 09:42 Dose: 30 ml Bisacodyl (Dulcolax) 10 mg [place] DAILY PRN PRN Reason: constipation Divalproex Sodium (Depakote Dr) 500 mg PO BID [facility] Last Admin: 04/18/17 18:23 Dose: 500 mg Docusate Sodium (Colace) 100 mg PO DAILY [facility] Last Admin: 04/18/17 09:42 Dose: 100 mg Folic Acid (Folic Acid) 1 mg PO DAILY [facility] Last Admin: 04/18/17 09:42 Dose: 1 mg Magnesium Sulfate/Dextrose (Magnesium Sulfate 1 Gm/100 Ml D5w) 1 gm in 100 mls @ 300 mls/hr IVPB Q30M [facility] Stop: 04/19/17 08:34 Lisinopril (Zestril) 2.5 mg PO DAILY [facility] Last Admin: 04/18/17 09:42 Dose: 2.5 mg Multivitamins (Hexavitamin) 1 tab PO DAILY [facility] Last Admin: 04/18/17 09:42 Dose: 1 tab Ondansetron HCl (Zofran Inj) 4 mg IVP Q8 PRN PRN Reason: Nausea/Vomiting Last Admin: 04/08/17 14:53 Dose: 4 mg Pantoprazole Sodium (Protonix Ec Tab) 40 mg PO DAILY [facility] Last Admin: 04/18/17 09:41 Dose: 40 mg Rosuvastatin Calcium (Crestor) 2.5 mg PO HS [facility] Last Admin: 04/18/17 22:51 Dose: 2.5 mg Sennosides (Senokot Tab) 8.6 mg PO DAILY [facility] Last Admin: 04/18/17 09:41 Dose: 8.6 mg Sodium Chloride (Sodium Chloride Tab) 1 gm PO BID [facility] Last Admin: 04/18/17 18:23 Dose: 1 gm Thiamine HCl (Vitamin B1 Tab) 100 mg PO DAILY [facility] Last Admin: 04/18/17 09:41 Dose: 100 mg - Labs Labs: 04/18/17 07:06 04/18/17 07:06 PT 11.6 SECONDS (9.7-12.2) 04/04/17 06:22 INR 1.0 04/04/17 06:22 APTT 27 SECONDS (21-34) D 04/04/17 06:22 - Constitutional Appears: No Acute Distress - Head Exam Head Exam: ATRAUMATIC - Neurological Exam Neurological Exam: Alert, Awake Neuro motor strength exam: Left Upper Extremity: 4, Right Upper Extremity: 5, Left Lower Extremity: 4, Right Lower Extremity: 5 Additional comments: Neurological unchanged from previous examination except for his headache. Sensation is asymmetrical on the left side. Assessment and Plan (1) Acute intra-cranial hemorrhage Assessment & Plan: Case discussed with Dr. Gilbert, continue all current medical, physical, and occupational therapies. Status: Acute (2) Head ache Assessment & Plan: Case discussed with Dr. Gilbert, recommend repeat CT of the head without contrast. Magnesium 2 gms IVPB for one dose. Status: Acute
[2017-04-19] MEDS: Magnesium Sulfate 1 gm in D5W 1 GM/100 ML BAG IVPB SCH ×3 (09:00→10:51)
[2017-04-19] MEDS: Pantoprazole 40 mg EC Tab PO SCH (09:41)
[2017-04-19] MEDS: Divalproex 500 mg DR Tab PO SCH ×2 (09:42→18:14)
[2017-04-19] MEDS: Aluminum Hydroxide/Magnesium Hydroxide Susp (30 mL) PO SCH (09:42)
[2017-04-19] MEDS: Multiple Vitamins Tab PO SCH (09:42)
--- NOTE | 2017-04-19 12:11 | CP.PCM.PN ---
Subjective - Date & Time of Evaluation Date of Evaluation: 04/19/17 - Subjective Subjective: Progress note dictated # [id number] Objective - Vital Signs/Intake and Output Vital Signs (last 24 hours): Temp Pulse Resp BP Pulse Ox 97.4 F L 65 18 118/74 96 04/19/17 08:08 04/19/17 09:49 04/19/17 08:08 04/19/17 09:49 04/19/17 08:08 - Medications Medications: Current Medications Al Hydrox/Mg Hydrox/Simethicone (Maalox 30 Ml) 30 ml PO DAILY [facility] Last Admin: 04/19/17 09:42 Dose: 30 ml Bisacodyl (Dulcolax) 10 mg [place] DAILY PRN PRN Reason: constipation Divalproex Sodium (Depakote Dr) 500 mg PO BID [facility] Last Admin: 04/19/17 09:42 Dose: 500 mg Docusate Sodium (Colace) 100 mg PO DAILY [facility] Last Admin: 04/19/17 09:42 Dose: 100 mg Folic Acid (Folic Acid) 1 mg PO DAILY [facility] Last Admin: 04/19/17 09:42 Dose: 1 mg Lisinopril (Zestril) 2.5 mg PO DAILY [facility] Last Admin: 04/19/17 10:52 Dose: Not Given Multivitamins (Hexavitamin) 1 tab PO DAILY [facility] Last Admin: 04/19/17 09:42 Dose: 1 tab Ondansetron HCl (Zofran Inj) 4 mg IVP Q8 PRN PRN Reason: Nausea/Vomiting Last Admin: 04/08/17 14:53 Dose: 4 mg Pantoprazole Sodium (Protonix Ec Tab) 40 mg PO DAILY [facility] Last Admin: 04/19/17 09:41 Dose: 40 mg Rosuvastatin Calcium (Crestor) 2.5 mg PO HS [facility] Last Admin: 04/18/17 22:51 Dose: 2.5 mg Sennosides (Senokot Tab) 8.6 mg PO DAILY [facility] Last Admin: 04/19/17 09:42 Dose: 8.6 mg Sodium Chloride (Sodium Chloride Tab) 1 gm PO BID [facility] Last Admin: 04/19/17 09:41 Dose: 1 gm Thiamine HCl (Vitamin B1 Tab) 100 mg PO DAILY [facility] Last Admin: 04/19/17 09:41 Dose: 100 mg Topiramate (Topamax) 25 mg PO DAILY [facility] Last Admin: 04/19/17 10:01 Dose: 25 mg - Labs Labs: 04/18/17 07:06 04/18/17 07:06 PT 11.6 SECONDS (9.7-12.2) 04/04/17 06:22 INR 1.0 04/04/17 06:22 APTT 27 SECONDS (21-34) D 04/04/17 06:22
--- NOTE | 2017-04-19 13:04 | CT ---
PROCEDURE: CT HEAD WITHOUT CONTRAST. HISTORY: headache COMPARISON: Head CT without contrast 04/14/2017. TECHNIQUE: Axial computed tomography images were obtained through the head/brain without intravenous contrast. Radiation dose: Total exam DLP = 927.46 mGy-cm. This CT exam was performed using one or more of the following dose reduction techniques: Automated exposure control, adjustment of the mA and/or kV according to patient size, and/or use of iterative reconstruction technique. FINDINGS: HEMORRHAGE: No acute intracranial hemorrhage is identified at this time. Further reduction in density and volume of prior right frontal intraparenchymal hemorrhage identified with trace residual epidural hematoma is identified at the mid to inferior right cerebral convexity. Reduction in density superior right convexity subdural hematoma is appreciated with stable trace pneumocephaly and evident. Prior midline shift is now reduced to 9.5 mm, down from 13.7 mm previously. The base of the right lateral ventricle is diminishing as well as numerous sulci of the right cerebrum. BRAIN: Age-related diffuse cerebral atrophy chronic microangiopathy are reiterated. Posterior fossa contents appear stable. VENTRICLES: Unremarkable. No hydrocephalus. CALVARIUM: Parietal bone fracture again evident as well as chronic bilateral lamina papyracea and nasal bone fractures. PARANASAL SINUSES: Unremarkable as visualized. No significant inflammatory changes. MASTOID AIR CELLS: Unremarkable as visualized. No inflammatory changes. OTHER FINDINGS: None. IMPRESSION: Cystic encephalomalacia is developing at the right frontal intraparenchymal hemorrhage site with hemorrhagic byproducts appearing further diminished in density and overall volume. Stable right cerebral convexity subdural hematomas appreciated though diminished in density which trace pneumocephaly remaining. Limited right epidural hematomas are further diminished density in volume. Midline shift is reducing as discussed above. No acute intracranial findings appreciable grossly.
--- NOTE | 2017-04-19 20:48 | PN ---
DATE: 04/19/2017 SUBJECTIVE: Patient denies any new complaints. Complaining of intermittent headache. Denies any chest pain, shortness of breath, or wheezing. Denies any new neurologic symptoms. PHYSICAL EXAMINATION: GENERAL: An elderly male, lying in bed in no acute distress. VITAL SIGNS: Blood pressure 118/74, pulse 65, respirations 18, temperature 97.4 degrees Fahrenheit, O2 saturation 96% on room air. HEENT: Right pupil reacting to light and accommodation. No icterus. No pallor. No oral thrush. No pharyngeal congestion. Right-sided scalp, nupur in place without any oozing. NECK: Supple. No JVD. LUNGS: Bilateral vesicular breath sounds. No wheezing. No rhonchi. CARDIOVASCULAR SYSTEM: S1 and S2 present, regular. ABDOMEN: Soft, nontender. Bowel sounds present. No guarding. No rigidity. No rebound tenderness noted. CENTRAL NERVOUS SYSTEM: Alert, awake, oriented x2. Power equivocal bilaterally, upper and lower extremities. Moving all the extremities. Gait did not test. EXTREMITIES: No edema. MEDICATIONS: Include Maalox 30 mL p.o. daily, Dulcolax 10 mg as needed, Depakote 500 mg p.o. b.i.d., Colace 100 mg p.o. daily, folic acid 1 mg p.o. daily, Zestril 2.5 mg daily, multivitamin 1 tab daily, Zofran as needed, Protonix 40 mg p.o daily, Crestor 2.5 mg p.o. at bedtime, senna, sodium chloride tablet 1 g p.o. b.i.d., thiamine 100 mg p.o. daily, and Topamax 25 mg p.o daily. LABORATORY DATA: There are no new labs today. Repeat CT of the head, no increased intracranial bleed, improving midline shift. ASSESSMENT AND PLAN: Elderly male with past medical history of hypertension, hyperlipidemia, ethyl alcohol abuse, status post fall, with subdural hematoma, intracranial hemorrhage with surrounding vasogenic edema with midline shift, status post left-sided weakness, and altered mental status with lethargy. Patient is getting Depakote and Topamax is being added by Neurology this morning. Patient is, otherwise, medically stable, awaiting for subacute rehab placement. Discussed with case management and social science analyst. If cleared by Neurology and bed available, patient may be transferred to subacute rehab. Afia Chirinos MD
[2017-04-19] MEDS: Rosuvastatin Calcium 2.5 mg Tab PO SCH (22:15)
[2017-04-20 00:55] VITALS: RESP 20
[2017-04-20 06:38] LABS: BASO % 0.9 % (0.0-2.0); EOS # 0.2 K/uL (0.0-0.7); EOS % 4.8 % (0.0-4.0); HEMATOCRIT 37.4 % (35.0-51.0); LYMPH # 0.9 K/uL (1.0-4.3); LYMPH % 19.5 % (20.0-40.0); MEAN CORPUSCULAR HEMOGLOBIN 31.4 pg (27.0-31.0); MEAN CORPUSCULAR HGB CONC 34.8 g/dL (33.0-37.0); MEAN PLATELET VOLUME 7.9 fL (7.2-11.7); MONO # 0.5 K/uL (0.0-0.8); MONO % 10.3 % (0.0-10.0); NRBC % 0.2 % (0.0-2.0); RED CELL DISTRIBUTION WIDTH 13.9 % (11.5-14.5); WHITE BLOOD COUNT 4.8 K/uL (4.8-10.8)
--- NOTE | 2017-04-20 07:06 | CP.PCM.PN ---
Subjective - Date & Time of Evaluation Date of Evaluation: 04/20/17 Time of Evaluation: 06:59 - Subjective Subjective: Mr. Cabral was seen and examined at the bedside. He is alert, oriented to place and place, but not time. He states of his headache is improving from yesterday, He further describe as /10 and its located in the right parietal area. He denies any blurred vision, dizziness, lightheadedness, nausea, or vomiting.He answer questions appropriately and follows simple commands. He remains with 1:[address] safety[address] of the head showed diminishing midline shift and developing cystic encephalomalacia.Depakote level is 55.4.There was no untoward events overnight. Objective - Vital Signs/Intake and Output Vital Signs (last 24 hours): Temp Pulse Resp BP Pulse Ox 97.8 F 78 20 161/77 H 94 L 04/19/17 23:15 04/20/17 04:31 04/19/17 23:15 04/19/17 23:15 04/19/17 23:15 Intake and Output: 04/19/17 04/20/17 18:59 06:59 Intake Total 440 0 Output Total 0 Balance 440 0 - Medications Medications: Current Medications Al Hydrox/Mg Hydrox/Simethicone (Maalox 30 Ml) 30 ml PO DAILY [facility] Last Admin: 04/19/17 09:42 Dose: 30 ml Bisacodyl (Dulcolax) 10 mg [place] DAILY PRN PRN Reason: constipation Divalproex Sodium (Depakote Dr) 500 mg PO BID [facility] Last Admin: 04/19/17 18:14 Dose: 500 mg Docusate Sodium (Colace) 100 mg PO DAILY [facility] Last Admin: 04/19/17 09:42 Dose: 100 mg Folic Acid (Folic Acid) 1 mg PO DAILY [facility] Last Admin: 04/19/17 09:42 Dose: 1 mg Lisinopril (Zestril) 2.5 mg PO DAILY [facility] Last Admin: 04/19/17 10:52 Dose: Not Given Multivitamins (Hexavitamin) 1 tab PO DAILY [facility] Last Admin: 04/19/17 09:42 Dose: 1 tab Ondansetron HCl (Zofran Inj) 4 mg IVP Q8 PRN PRN Reason: Nausea/Vomiting Last Admin: 04/08/17 14:53 Dose: 4 mg Pantoprazole Sodium (Protonix Ec Tab) 40 mg PO DAILY [facility] Last Admin: 04/19/17 09:41 Dose: 40 mg Rosuvastatin Calcium (Crestor) 2.5 mg PO HS [facility] Last Admin: 04/19/17 22:15 Dose: 2.5 mg Sennosides (Senokot Tab) 8.6 mg PO DAILY [facility] Last Admin: 04/19/17 09:42 Dose: 8.6 mg Sodium Chloride (Sodium Chloride Tab) 1 gm PO BID [facility] Last Admin: 04/19/17 18:14 Dose: 1 gm Thiamine HCl (Vitamin B1 Tab) 100 mg PO DAILY [facility] Last Admin: 04/19/17 09:41 Dose: 100 mg Topiramate (Topamax) 25 mg PO DAILY [facility] Last Admin: 04/19/17 10:01 Dose: 25 mg - Labs Labs: 04/20/17 06:30 04/18/17 07:06 PT 11.6 SECONDS (9.7-12.2) 04/04/17 06:22 INR 1.0 04/04/17 06:22 APTT 27 SECONDS (21-34) D 04/04/17 06:22 - Constitutional Appears: No Acute Distress - Head Exam Head Exam: NORMAL INSPECTION - Neurological Exam Neurological Exam: Alert, Awake Neuro motor strength exam: Left Upper Extremity: 5, Right Upper Extremity: 4, Left Lower Extremity: 5, Right Lower Extremity: 4 Additional comments: Neurological unchanged from previous examination. Sensation remains intact. Assessment and Plan (1) Acute intra-cranial hemorrhage Assessment & Plan: Case discussed with Dr. Gilbert, continue with all current medical, physical, and occupational therapies. The plan for Topamax 25 mg PO daily then will increase to BID. If patient does not have any reaction to increase to 50 mg BID, then 100 mg BID. Status: Acute (2) Head ache Status: Acute
[2017-04-20 08:06] LABS: ALKALINE PHOSPHATASE 79 U/L (38-126); ALT/SGPT 34 U/L (21-72); AST/SGOT 22 U/L (17-59); BILIRUBIN,TOTAL 0.7 mg/dL (0.2-1.3); BLOOD UREA NITROGEN 13 mg/dL (9-20); CALCIUM 7.9 mg/dl (8.6-10.4); CARBON DIOXIDE 26 mmol/L (22-30); CHLORIDE 101 mmol/L (98-107); GFR AFRICAN-AMERICAN > 60; GLUCOSE,RANDOM 92 mg/dL (75-110); MAGNESIUM 2.2 mg/dL (1.6-2.3); POTASSIUM 3.4 mmol/L (3.6-5.2); SODIUM 134 mmol/L (132-148); TOTAL PROTEIN 6.7 g/dL (6.3-8.3)
[2017-04-20] MEDS: Divalproex 500 mg DR Tab PO SCH ×2 (09:54→18:23)
[2017-04-20] MEDS: Aluminum Hydroxide/Magnesium Hydroxide Susp (30 mL) PO SCH (09:54)
[2017-04-20] MEDS: Potassium Chloride 20 mEq ER Tab PO SCH (09:54)
[2017-04-20] MEDS: Multiple Vitamins Tab PO SCH (09:54)
[2017-04-20] MEDS: Pantoprazole 40 mg EC Tab PO SCH (09:54)
--- NOTE | 2017-04-20 11:34 | CP.PCM.PN ---
Subjective - Date & Time of Evaluation Date of Evaluation: 04/20/17 Time of Evaluation: 11:30 - Subjective Subjective: Progress note dictated #[id number] Objective - Vital Signs/Intake and Output Vital Signs (last 24 hours): Temp Pulse Resp BP Pulse Ox 98.2 F 56 L 20 105/59 L 98 04/20/17 08:21 04/20/17 08:21 04/20/17 08:21 04/20/17 08:21 04/20/17 08:21 Intake and Output: 04/20/17 04/20/17 06:59 18:59 Intake Total 0 Output Total 0 Balance 0 - Medications Medications: Current Medications Al Hydrox/Mg Hydrox/Simethicone (Maalox 30 Ml) 30 ml PO DAILY [facility] Last Admin: 04/20/17 09:54 Dose: 30 ml Bisacodyl (Dulcolax) 10 mg [place] DAILY PRN PRN Reason: constipation Divalproex Sodium (Depakote Dr) 500 mg PO BID [facility] Last Admin: 04/20/17 09:54 Dose: 500 mg Docusate Sodium (Colace) 100 mg PO DAILY [facility] Last Admin: 04/20/17 09:54 Dose: 100 mg Folic Acid (Folic Acid) 1 mg PO DAILY [facility] Last Admin: 04/20/17 09:54 Dose: 1 mg Lisinopril (Zestril) 2.5 mg PO DAILY [facility] Last Admin: 04/20/17 10:03 Dose: Not Given Multivitamins (Hexavitamin) 1 tab PO DAILY [facility] Last Admin: 04/20/17 09:54 Dose: 1 tab Ondansetron HCl (Zofran Inj) 4 mg IVP Q8 PRN PRN Reason: Nausea/Vomiting Last Admin: 04/08/17 14:53 Dose: 4 mg Pantoprazole Sodium (Protonix Ec Tab) 40 mg PO DAILY [facility] Last Admin: 04/20/17 09:54 Dose: 40 mg Potassium Chloride (K-Dur 20 Meq Er Tab) 40 meq PO DAILY [facility] Stop: 04/21/17 10:01 Last Admin: 04/20/17 09:54 Dose: 40 meq Rosuvastatin Calcium (Crestor) 2.5 mg PO HS [facility] Last Admin: 04/19/17 22:15 Dose: 2.5 mg Sennosides (Senokot Tab) 8.6 mg PO DAILY [facility] Last Admin: 04/20/17 09:53 Dose: 8.6 mg Sodium Chloride (Sodium Chloride Tab) 1 gm PO BID [facility] Last Admin: 04/20/17 09:54 Dose: 1 gm Thiamine HCl (Vitamin B1 Tab) 100 mg PO DAILY [facility] Last Admin: 04/20/17 09:54 Dose: 100 mg Topiramate (Topamax) 25 mg PO DAILY [facility] Last Admin: 04/20/17 09:54 Dose: 25 mg - Labs Labs: 04/20/17 06:30 04/20/17 06:30 PT 11.6 SECONDS (9.7-12.2) 04/04/17 06:22 INR 1.0 04/04/17 06:22 APTT 27 SECONDS (21-34) D 04/04/17 06:22
--- NOTE | 2017-04-20 21:03 | PN ---
DATE: 04/20/2017 SUBJECTIVE: Patient is seen and examined at bedside. Patient denies any complaints. His headache is better. Denies any chest pain, shortness of breath, or wheezing. Denies any new neurologic symptoms. PHYSICAL EXAMINATION: GENERAL: An elderly male, lying in bed, in no acute distress. VITAL SIGNS: Blood pressure 131/78, pulse 61, respirations 20, temperature 98 degrees Fahrenheit, O2 saturation 96% on room air. HEENT: Right pupil, reacting to light and accommodation. No icterus. No pallor. No oral thrush. No pharyngeal congestion. Scalp, nupur in place. NECK: Supple. No JVD. LUNGS: Bilateral vesicular breath sounds. No wheezing. No rhonchi. CARDIOVASCULAR SYSTEM: S1 and S2 present, regular. ABDOMEN: Soft, nontender. Bowel sounds present. No guarding. No rigidity. No rebound tenderness noted. CENTRAL NERVOUS SYSTEM: Alert, awake, oriented x2. Power is equivocal in both upper and lower extremities. Moving all the extremities equally. MEDICATIONS: Include, Maalox, Dulcolax, Depakote 500 mg p.o. b.i.d., Colace 100 mg p.o. daily, folic acid 1 mg p.o. daily, Zestril 2.5 mg daily, multivitamin one tab daily, Protonix 40 mg daily, Crestor 2.5 mg daily, senna, sodium chloride 1 g p.o. b.i.d., thiamine 100 mg p.o. daily, Topamax 25 mg daily. LABORATORY DATA: From this morning, WBC 4.8, hemoglobin 13, hematocrit 37.4, platelets 133. Sodium 134, potassium 3.4, chloride 101, bicarb 26, BUN 13, creatinine 0.8, glucose 92, calcium 7.2, magnesium 2.2. LFTs, within normal limits. ASSESSMENT AND PLAN: Elderly male with history of hypertension, hyperlipidemia, EtOH abuse status post fall with right subdural hematoma, right intracranial hemorrhage with surrounding vasogenic edema, status post left-sided weakness and lethargy, now improving symptoms neurologically and radiologically, on antiseizure medication and Topamax. His blood pressure is stable, participating in physical therapy. We will continue with current medication. Discussed with social media intern. Awaiting for authorization from insurance for acute rehab. Patient is, otherwise, medically stable when cleared by Neurology and social media intern. We will plan discharging patient to acute rehab versus subacute rehab. We will continue with current medications. Potassium is being supplemented. We will repeat potassium level in a.m. Afia Chirinos MD
[2017-04-20] MEDS: Rosuvastatin Calcium 2.5 mg Tab PO SCH (22:41)
[2017-04-21 08:24] LABS: BLOOD UREA NITROGEN 13 mg/dL (9-20); CALCIUM 8.3 mg/dl (8.6-10.4); CARBON DIOXIDE 22 mmol/L (22-30); CHLORIDE 105 mmol/L (98-107); GFR AFRICAN-AMERICAN > 60; GLUCOSE,RANDOM 84 mg/dL (75-110); POTASSIUM 3.7 mmol/L (3.6-5.2); SODIUM 134 mmol/L (132-148)
--- NOTE | 2017-04-21 08:31 | CP.PCM.PN ---
Subjective - Date & Time of Evaluation Date of Evaluation: 04/21/17 Time of Evaluation: 08:28 - Subjective Subjective: Mr. Cabral was seen and examined at the bedside. He is alert, oriented to place and person, but not time. He states of wanting to be discharge to a rehab. facility. He further states of him needing more therapy due to his stroke. He further states of his headache improving in comparison from yesterday. He denies any blurred vision, dizziness, lightheadedness, nausea, or vomiting. He is able to follow simple commands with his left side weaker than the right. He also remains with 1:1 sitter for patient safety. There was no untoward events overnight. Objective - Vital Signs/Intake and Output Vital Signs (last 24 hours): Temp Pulse Resp BP Pulse Ox 98.1 F 67 20 97/59 L 96 04/21/17 08:20 04/21/17 08:20 04/21/17 08:20 04/21/17 08:20 04/21/17 08:20 Intake and Output: 04/21/17 04/21/17 06:59 18:59 Intake Total 0 Balance 0 - Medications Medications: Current Medications Al Hydrox/Mg Hydrox/Simethicone (Maalox 30 Ml) 30 ml PO DAILY [facility] Last Admin: 04/20/17 09:54 Dose: 30 ml Bisacodyl (Dulcolax) 10 mg OR DAILY PRN PRN Reason: constipation Divalproex Sodium (Depakote Dr) 500 mg PO BID [facility] Last Admin: 04/20/17 18:23 Dose: 500 mg Docusate Sodium (Colace) 100 mg PO DAILY [facility] Last Admin: 04/20/17 09:54 Dose: 100 mg Folic Acid (Folic Acid) 1 mg PO DAILY [facility] Last Admin: 04/20/17 09:54 Dose: 1 mg Lisinopril (Zestril) 2.5 mg PO DAILY [facility] Last Admin: 04/20/17 10:03 Dose: Not Given Multivitamins (Hexavitamin) 1 tab PO DAILY [facility] Last Admin: 04/20/17 09:54 Dose: 1 tab Ondansetron HCl (Zofran Inj) 4 mg IVP Q8 PRN PRN Reason: Nausea/Vomiting Last Admin: 04/08/17 14:53 Dose: 4 mg Pantoprazole Sodium (Protonix Ec Tab) 40 mg PO DAILY [facility] Last Admin: 04/20/17 09:54 Dose: 40 mg Potassium Chloride (K-Dur 20 Meq Er Tab) 40 meq PO DAILY [facility] Stop: 04/21/17 10:01 Last Admin: 04/20/17 09:54 Dose: 40 meq Rosuvastatin Calcium (Crestor) 2.5 mg PO HS [facility] Last Admin: 04/20/17 22:41 Dose: 2.5 mg Sennosides (Senokot Tab) 8.6 mg PO DAILY [facility] Last Admin: 04/20/17 09:53 Dose: 8.6 mg Sodium Chloride (Sodium Chloride Tab) 1 gm PO BID [facility] Last Admin: 04/20/17 18:23 Dose: 1 gm Thiamine HCl (Vitamin B1 Tab) 100 mg PO DAILY [facility] Last Admin: 04/20/17 09:54 Dose: 100 mg Topiramate (Topamax) 25 mg PO DAILY [facility] Last Admin: 04/20/17 09:54 Dose: 25 mg - Labs Labs: 04/20/17 06:30 04/21/17 07:25 PT 11.6 SECONDS (9.7-12.2) 04/04/17 06:22 INR 1.0 04/04/17 06:22 APTT 27 SECONDS (21-34) D 04/04/17 06:22 - Constitutional Appears: Well, No Acute Distress - Head Exam Head Exam: NORMAL INSPECTION - Neurological Exam Neurological Exam: Alert, Awake Neuro motor strength exam: Left Upper Extremity: 4, Right Upper Extremity: 5, Left Lower Extremity: 4, Right Lower Extremity: 5 Additional comments: Neurological unchanged from previous examination. Assessment and Plan (1) Acute intra-cranial hemorrhage Assessment & Plan: Case discussed with DR. Gilbert, continue all current medical, physical, and occupational therapies. Status: Acute (2) Head ache Assessment & Plan: Case discussed with Dr. Gilbert, will increase the Topamax 25 mg PO BID from daily. Status: Acute
[2017-04-21] MEDS: Pantoprazole 40 mg EC Tab PO SCH (10:17)
[2017-04-21] MEDS: Multiple Vitamins Tab PO SCH (10:17)
[2017-04-21] MEDS: Potassium Chloride 20 mEq ER Tab PO SCH (10:17)
[2017-04-21] MEDS: Aluminum Hydroxide/Magnesium Hydroxide Susp (30 mL) PO SCH (10:17)
[2017-04-21] MEDS: Divalproex 500 mg DR Tab PO SCH ×2 (10:18→17:45)
--- NOTE | 2017-04-21 16:29 | CP.PCM.PN ---
Subjective - Date & Time of Evaluation Date of Evaluation: 04/21/17 Time of Evaluation: 16:10 - Subjective Subjective: Discharge summary dictated #[id number] Objective - Vital Signs/Intake and Output Vital Signs (last 24 hours): Temp Pulse Resp BP Pulse Ox 98.1 F 58 L 20 97/59 L 96 04/21/17 08:20 04/21/17 12:00 04/21/17 08:20 04/21/17 08:20 04/21/17 08:20 Intake and Output: 04/21/17 04/21/17 06:59 18:59 Intake Total 0 180 Balance 0 180 - Medications Medications: Current Medications Al Hydrox/Mg Hydrox/Simethicone (Maalox 30 Ml) 30 ml PO DAILY [facility] Last Admin: 04/21/17 10:17 Dose: 30 ml Bisacodyl (Dulcolax) 10 mg [place] DAILY PRN PRN Reason: constipation Divalproex Sodium (Depakote Dr) 500 mg PO BID [facility] Last Admin: 04/21/17 10:18 Dose: 500 mg Docusate Sodium (Colace) 100 mg PO DAILY [facility] Last Admin: 04/21/17 10:17 Dose: 100 mg Folic Acid (Folic Acid) 1 mg PO DAILY [facility] Last Admin: 04/21/17 10:17 Dose: 1 mg Lisinopril (Zestril) 2.5 mg PO DAILY [facility] Last Admin: 04/21/17 10:18 Dose: 2.5 mg Multivitamins (Hexavitamin) 1 tab PO DAILY [facility] Last Admin: 04/21/17 10:17 Dose: 1 tab Ondansetron HCl (Zofran Inj) 4 mg IVP Q8 PRN PRN Reason: Nausea/Vomiting Last Admin: 04/08/17 14:53 Dose: 4 mg Pantoprazole Sodium (Protonix Ec Tab) 40 mg PO DAILY [facility] Last Admin: 04/21/17 10:17 Dose: 40 mg Rosuvastatin Calcium (Crestor) 2.5 mg PO HS [facility] Last Admin: 04/20/17 22:41 Dose: 2.5 mg Sennosides (Senokot Tab) 8.6 mg PO DAILY [facility] Last Admin: 04/21/17 10:17 Dose: 8.6 mg Sodium Chloride (Sodium Chloride Tab) 1 gm PO BID [facility] Last Admin: 04/21/17 10:18 Dose: 1 gm Thiamine HCl (Vitamin B1 Tab) 100 mg PO DAILY [facility] Last Admin: 04/21/17 10:22 Dose: 100 mg Topiramate (Topamax) 25 mg PO BID [facility] Last Admin: 04/21/17 10:18 Dose: 25 mg - Labs Labs: 04/20/17 06:30 04/21/17 07:25 PT 11.6 SECONDS (9.7-12.2) 04/04/17 06:22 INR 1.0 04/04/17 06:22 APTT 27 SECONDS (21-34) D 04/04/17 06:22
[2017-04-21 16:48] VITALS: BP 111/74; PULSE 79; TEMP 98.5; O2SAT 98
--- NOTE | 2017-04-22 13:37 | DS ---
Transferring to subacute rehab at [facility]. DISCHARGE DIAGNOSES: Hypertension; hyperlipidemia; ethyl alcohol abuse; status post fall; altered mental status; right subdural hematoma; right intracranial hemorrhage with surrounding vasogenic edema; status post left-sided weakness, almost resolved; status post electrolyte abnormality, status post hyponatremia. HISTORY OF PRESENT ILLNESS: Mr. Cabral is a 71-year-old male with past medical history of hypertension, hyperlipidemia, EtOH abuse, multiple falls, admitted for altered mental status, confused state. Patient was found to be having right subdural hematoma and intracranial hemorrhage and the patient is being admitted to ICU for further evaluation. Patient is now feeling better. Headache is less. Denies any dizziness. Denies any chest pain, shortness of breath, or wheezing. Denies any nausea, vomiting, abdominal pain, diarrhea, or constipation. Denies any urinary complaints. Denies any leg pains or leg cramps. Neurologically, he is oriented to person and place. Denied any other new complaints. PHYSICAL EXAMINATION: GENERAL: Elderly male, lying in bed, in no acute distress. VITAL SIGNS: Blood pressure 143/79, pulse 67, respirations 18, temperature 98.1 degrees Fahrenheit, O2 sat 96% on room air. HEENT: Right pupil reacting to light and accommodation. Extraocular muscles intact. No icterus. No pallor. No oral thrush. No pharyngeal congestion. Nupur in place in the scalp. NECK: Supple. No JVD. No thyromegaly. CHEST: Moving equally bilaterally on respiration. LUNGS: Bilateral vesicular breath sounds. No wheezing. No rhonchi. CARDIOVASCULAR: S1 and S2 present and regular. ABDOMEN: Soft and nontender. Bowel sounds present. No guarding. No rigidity. No rebound tenderness noted. CENTRAL NERVOUS SYSTEM: Alert, awake, and oriented x2. No focal deficits noted. EXTREMITIES: No edema. Palpable peripheral pulses. LABORATORY DATA: His labs drawn today: Sodium 134, potassium 3.7, chloride 105, bicarbonate 22, BUN 13, creatinine 0.9, glucose 84, calcium 8.3. From 04/20/2017: WBC 4.8, hemoglobin 13.0, hematocrit 37.4, platelets 133. Valproic acid level 55.4. On admission, alcohol level was low. RPR nonreactive. Lyme titer was negative. Urine culture negative. On admission, head CT showed right intraparenchymal hemorrhage with vasogenic edema and subdural hematoma. CTA was negative. HOSPITAL COURSE: Patient was admitted to the ICU. Patient was monitored neurologically. Patient was evaluated by Neurology and Neurosurgery. Initially, Neurosurgery did not recommend any intervention. Later, patient developed worsening symptoms at which point, Neurosurgery did evacuation and drainage of the right subdural hematoma and a drain was placed. After there was no significant amount of drainage, the drain was removed. Patient was transferred to the floor. On the floor, patient developed left-sided weakness and altered mental status. Patient was re-transferred to the unit. Patient was initially given hypertonic saline by Neurology and hypertonic saline was restarted and patient was given initially Keppra. As his sodium was running low, Keppra was changed to Depakote, dose was increased to 500 b.i.d. Once patient is stabilized, patient is being transferred back to the floor. Patient is still confused, having unsteady gait. Physical therapy and occupational therapy at bedside was done. Repeat head CT 2 days ago was showing improving right subdural hematoma and intracranial edema. As patient is otherwise hemodynamically stable requiring acute therapy, cleared by Neurology, patient is accepted at acute rehab at [facility]. Patient is being transferred to acute rehab for further rehabilitation and occupational therapy. CONDITION UPON DISCHARGE: Patient is alert, awake, and oriented x2 and hemodynamically stable at the time of discharge. DISCHARGE DIET: Heart healthy, low-cholesterol diet with 800 mL fluid restriction. ACTIVITY: As tolerated. DISCHARGE MEDICATIONS: Include Topamax 25 mg p.o. b.i.d., thiamine 100 mg p.o. daily, sodium chloride tablet 1 g p.o. b.i.d, senna 8.6 mg p.o. daily, Crestor 2.5 mg p.o. at bedtime, Protonix 40 mg daily, multivitamin 1 tab daily, lisinopril 2.5 mg daily, folic acid 1 mg daily, and Depakote 500 mg p.o. b.i.d. DISCHARGE INSTRUCTIONS: Follow up with PMD. Follow up with Neurology. Follow up with Neurosurgery for removal of the nupur. Afia Chirinos MD
== END 2017-04-21 19:45 | DRG 25 ==
LOC: C.ER 15:57 → C.9E 21:01 → C.9I 21:01 → C.6T 04-07 17:30 → C.9I 04-10 20:19 → C.6T 04-16 00:52
PROVIDERS: ADMIT Internal Medicine; ATTEND Internal Medicine
PROC: 02H633Z Insertion of Infusion Device into Right Atrium, Percutaneous Approach (ICD-10-PCS; 2017-03-28)
PROC: B244ZZZ Ultrasonography of Right Heart (ICD-10-PCS; 2017-03-28)
PROC: 00C40ZZ Extirpation of Matter from Intracranial Subdural Space, Open Approach (ICD-10-PCS; principal; 2017-04-05 09:30)
PROC: 02HV33Z Insertion of Infusion Device into Superior Vena Cava, Percutaneous Approach (ICD-10-PCS; 2017-04-11)
DX: S06.5X9A Traumatic subdural hemorrhage with loss of consciousness of unspecified duration, initial encounter (principal); G93.5 Compression of brain; I63.9 Cerebral infarction, unspecified; G93.6 Cerebral edema; E87.0 Hyperosmolality and hypernatremia; R56.9 Unspecified convulsions; E11.9 Type 2 diabetes mellitus without complications; E86.9 Volume depletion, unspecified; Z91.81 History of falling; W19.XXXA Unspecified fall, initial encounter; E78.00 Pure hypercholesterolemia, unspecified; E87.6 Hypokalemia; F32.9 Major depressive disorder, single episode, unspecified; H54.62 Unqualified visual loss, left eye, normal vision right eye; I10 Essential (primary) hypertension; M21.339 Wrist drop, unspecified wrist; R29.810 Facial weakness; R32 Unspecified urinary incontinence; Z79.899 Other long term (current) drug therapy; Z91.14 Patient's other noncompliance with medication regimen; F10.10 Alcohol abuse, uncomplicated; G93.89 Other specified disorders of brain